=== PATIENT | female | born 1935 | race Caucasian/White ===

== ENCOUNTER 2016-04-14 10:11 | Emergency (ER) | payer MEDICARE, OTHER ==
[~2016-04-14] VITALS: Ht 162.6 cm; Wt 117.9 kg
[~2016-04-14 10:11] MED LIST: ACET325T9 PO; ANAS1TAB PO; CALC500T PO; CEFP200T PO; CHOL10003 PO; CYAN100031 PO; DEXT15DR5 EACHEYE; DIPH25CA58 PO; ERGO500012 PO; ERGO80004 PO; ERTA1VIA IJ; ESCI20TA PO; FERR-26 PO; FLUT16SP NS; FOLI1TAB16 PO; FURO40TA4 PO; FURO80TA3 PO; GABA-585 PO; INSU100I17 SQ; INSU100V13 SQ; IPRA3AMP IH; LIDO700A4 TP; LORA10CA PO; LORA10TA3 PO; MAGN400C PO; METH4TAB6 PO; METO2.5T PO; MODA100T2 PO; MONT10TA6 PO; MONT10TA9 PO; MULT-208 PO; NYST1POW2 TOP; POLY17PO3 PO; POTA10CA PO; PRIM250T PO; WARF10TA6 PO; WARF3TAB7 PO; [UNRECOGNIZED DRUG - CODE] TP
[2016-04-14 11:53] VITALS: BP 132/47
[2016-04-14] MEDS ORDERED: DOXY100T9 PO (12:41)
--- NOTE | 2016-04-14 12:41 | PHYS DOC ---
Past Medical History Past Medical History: A-Fib, Anemia, Arthritis, Constipation, COPD, Depression , Diabetes-Type II, Heart Disease, UTI, Other Additional Past Medical Histor: NARCOLEPSY, DYSPHAGIA, SLEEP APNEA, Past Surgical History: Other Additional Past Surgical Histo: R MASTECTOMY, VALVE Alcohol Use: None Drug Use: None Adult General Chief Complaint Chief Complaint: ALLERGIC REACTION HPI HPI 80-year-old female who had a likely allergic reaction after taking Keflex which she is known allergy to just prior to arrival. She was poorly having some mild shortness of breath and skin reaction. Patient was given a dose of Benadryl and upon arrival is in no acute distress. She denies any significant shortness of breath. She denies any complaints. Patient is currently on going with Keflex for a lower extremity cellulitis. Review of Systems Review of Systems Constitutional: Denies fever or chills [] Eyes: Denies change in visual acuity, redness, or eye pain [] HENT: Denies nasal congestion or sore throat [] Respiratory: Denies cough or shortness of breath [] Cardiovascular: No additional information not addressed in HPI [] GI: Denies abdominal pain, nausea, vomiting, bloody stools or diarrhea [] : Denies dysuria or hematuria [] Musculoskeletal: Denies back pain or joint pain [] Integument: Denies rash or skin lesions [] Neurologic: Denies headache, focal weakness or sensory changes [] Endocrine: Denies polyuria or polydipsia [] Allergies Allergies Allergies Coded Allergies Type Severity Reaction Last Updated Verified Fish Containing Products Allergy Intermediate 01/17/15 Yes Sulfa (Sulfonamide Antibiotics) Allergy Intermediate 01/17/15 Yes bacitracin Allergy Intermediate 01/17/15 Yes cephalexin Allergy Intermediate 01/17/15 Yes ciprofloxacin Allergy Intermediate LEVAQUIN OK 06/04/15 Yes codeine Allergy Intermediate 01/17/15 Yes enoxaparin Allergy Intermediate 01/17/15 Yes iodine Allergy Intermediate 01/17/15 Yes lactose Allergy Intermediate 01/17/15 Yes metformin Allergy Intermediate 01/17/15 Yes morphine Allergy Intermediate 01/17/15 Yes neomycin Allergy Intermediate 01/17/15 Yes polymyxin B Allergy Intermediate 01/17/15 Yes shellfish derived Allergy Intermediate 01/17/15 Yes I S O L A T I O N *CONTACT* Allergy Unknown 01/19/15 Yes Physical Exam Physical Exam Constitutional: Well developed, well nourished, no acute distress, non-toxic appearance. [] HENT: Normocephalic, atraumatic, bilateral external ears normal, oropharynx moist, no oral exudates, nose normal. [] Eyes: PERRLA, EOMI, conjunctiva normal, no discharge. [] Neck: Normal range of motion, no tenderness, supple, no stridor. [] Cardiovascular:Heart rate regular rhythm, no murmur [] Lungs & Thorax: Bilateral breath sounds clear to auscultation [] Abdomen: Bowel sounds normal, soft, no tenderness, no masses, no pulsatile masses. [] Skin: Warm, dry, no erythema, no rash. [] Back: No tenderness, no CVA tenderness. [] Extremities: No tenderness, no cyanosis, no clubbing, ROM intact, no edema. [] Neurologic: Alert and oriented X 3, normal motor function, normal sensory function, no focal deficits noted. [] Psychologic: Affect normal, judgement normal, mood normal. [] Current Patient Data Vital Signs Vital Signs Date Time Temp Pulse Resp B/P Pulse Ox O2 Delivery O2 Flow Rate FiO2 04/14/16 11:53 58 15 132/47 100 Nasal Cannula 2 04/14/16 10:13 97.7 97.7 EKG EKG [] Radiology/Procedures Radiology/Procedures [] Course & Med Decision Making Course & Med Decision Making Pertinent Labs and Imaging studies reviewed. (See chart for details) This 80-year-old female was observed in the department for multiple hours and had no worsening of her respiratory status. I will be discharging her home with a different course of antibiotic therapy for her cellulitis. There is no indication at this time to perform any laboratory workup. Dragon Disclaimer Dragon Disclaimer This electronic medical record was generated, in whole or in part, using a voice recognition dictation system. Departure Departure Impression: Primary Impression: Cellulitis Disposition: 01 HOME, SELF-CARE Admitting Physician: Other Condition: STABLE Referrals: DEBBIE SHEA MD (PCP) Patient Instructions: Cellulitis, [id number] Additional Instructions: Please take your antibiotic as prescribed. Follow up closely with your primary doctor. Return to the ER if you develop any worsening of your symptoms. Scripts Doxycycline Hyclate 100 Mg Tablet.dr100 Mg PO BID #20 TAB Prov:HEIDE ZAFAR DO 04/14/16 HEIDE ZAFAR DO Apr 14, 2016 12:41
== END 2016-04-14 14:58 | disposition home or self-care (01) ==
LOC: ER 10:11
DX: L03.119 Cellulitis of unspecified part of limb (principal); I48.91 Unspecified atrial fibrillation; M19.90 Unspecified osteoarthritis, unspecified site; J44.9 Chronic obstructive pulmonary disease, unspecified; F32.9 Major depressive disorder, single episode, unspecified; E11.9 Type 2 diabetes mellitus without complications; G47.30 Sleep apnea, unspecified; G47.419 Narcolepsy without cataplexy; Z87.440 Personal history of urinary (tract) infections; Z91.013 Allergy to seafood; Z88.5 Allergy status to narcotic agent; Z91.011 Allergy to milk products; Z91.041 Radiographic dye allergy status; Z88.1 Allergy status to other antibiotic agents; Z88.8 Allergy status to other drugs, medicaments and biological substances; Z88.2 Allergy status to sulfonamides
CPT/HCPCS: 99284

== ENCOUNTER 2016-06-19 15:24 | Inpatient (IN) | payer MEDICARE, OTHER ==
[~2016-06-19] VITALS: Ht 157.5 cm; Wt 146.6 kg
[~2016-06-19 15:24] MED LIST changes: +DOXY100T9 PO; -POTA10CA PO; +POTASSIUM CHLO10 MEQ PO
[2016-06-19 15:57] LABS: BASO # 0.1 x10^3/uL (0.0-0.2); BASO % 1 % (0-3); EOS % 3 % (0-3); HEMATOCRIT 28.6 % (36.0-47.0); HEMOGLOBIN 9.8 g/dL (12.0-15.5); LYMPH # 1.5 x10^3/uL (1.0-4.8); LYMPH % 22 % (24-48); MEAN CORPUSCULAR HEMOGLOBIN 33 pg (25-35); MEAN CORPUSCULAR HGB CONC 34 g/dL (31-37); MEAN CORPUSCULAR VOLUME 97 fL (79-100); MONO % 8 % (0-9); NEUT % 66 % (31-73); PLATELET COUNT 223 x10^3/uL (140-400); RED BLOOD COUNT 2.94 x10^6/uL (3.50-5.40); RED CELL DISTRIBUTION WIDTH 13.3 % (11.5-14.5); WHITE BLOOD COUNT 7.1 x10^3/uL (4.0-11.0)
--- NOTE | 2016-06-19 16:00 | EKG ---
[facility] [address] [place] [address] Test Date: 2016-06-19 Test Time: 15:32:56 Pat Name: BRITTANEY PLOK Department: Room: Gender: F Purchase Analyst: : 1935 Requested By: EDUARDO MONTESINOS Order Number: [id number] Reading MD: Kedar Manuel Measurements Intervals [place] Rate: 73 P: -14 CA: 248 QRS: -31 QRSD: 110 T: 43 QT: 412 QTc: 458 Interpretive Statements SINUS RHYTHM PROLONGED CA INTERVAL ABNORMAL LEFT AXIS DEVIATION LEFT ANTERIOR FASCICULAR BLOCK Electronically Signed On 06-20-2016 10:52:32 CDT by Kedar Manuel
[2016-06-19 16:11] LABS: CALCIUM 8.8 mg/dL (8.5-10.1); CREATININE 1.5 mg/dL (0.6-1.0); GFR 33.3; POTASSIUM 4.7 mmol/L (3.5-5.1)
--- NOTE | 2016-06-19 16:15 | RAD ---
Examination: Single frontal view the chest History: History of cough, shortness of breath Comparison: 10/14/2015 Findings Low lung volumes and technique accentuate heart size and pulmonary vascularity. Mild cardiomegaly. Mild prominent appearing bilateral interstitial lung markings likely mild congestive changes. Impression: Mild congestive changes.
[2016-06-19 16:16] LABS: ALBUMIN 2.7 g/dL (3.4-5.0); ALBUMIN/GLOBULIN RATIO 0.6 (1.0-1.7); TOTAL BILIRUBIN 0.2 mg/dL (0.2-1.0); TOTAL PROTEIN 7.4 g/dL (6.4-8.2)
--- NOTE | 2016-06-19 16:26 | RAD ---
CT head without contrast History: Weakness, fatigue. Comparison: None. Procedure: Axial images are obtained of the head from the skull base through the vertex without IV contrast. Findings: The ventricles and sulci are normal for the patient's age. No mass-effect, intracranial mass, midline shift, hemorrhage or obvious acute infarction is identified. Basilar cisterns are patent. Bone windows demonstrate no significant calvarial abnormality. The visualized paranasal sinuses appear clear. Mild bilateral periventricular white matter hypodensities likely chronic small vessel ischemic disease. Small hypodensity identified in the right cerebellum likely old infarcts. Impression: 1. No acute intracranial process. PQRS Compliance Statement: One or more of the following individualized dose reduction techniques were utilized for this examination: 1. Automated exposure control 2. Adjustment of the mA and/or kV according to patient size 3. Use of iterative reconstruction technique
[2016-06-19 17:06] LABS: BILIRUBIN,URINE NEGATIVE (NEG); GLUCOSE,URINE NEGATIVE (NEG); NITRITE,URINE POSITIVE (NEG); PH,URINE 5.5; PROTEIN,URINE NEGATIVE (NEG-TRACE); UROBILINOGEN,URINE 0.2 mg/dL (0.2 mg/dL)
[2016-06-19 17:30] LABS: BACTERIA,URINE MANY /HPF (0-FEW); WBC,URINE 20-40 /HPF (0-4)
[2016-06-19 17:31] LABS: SQUAMOUS EPITHELIAL CELL,UR OCC /LPF
--- NOTE | 2016-06-19 17:38 | ED.ADGEN ---
Past Medical History Past Medical History: A-Fib, Anemia, Arthritis, Cancer, CHF, Constipation, COPD , Depression, Diabetes-Type II, Heart Disease, Hypertension, UTI, Other Additional Past Medical Histor: NARCOLEPSY, DYSPHAGIA, SLEEP APNEA, MAL. NEOPLASM, MDD, CELLULITIS Past Surgical History: Other Additional Past Surgical Histo: RIGHT MASTECTOMY, HEART VALVE REPLACE Alcohol Use: None Drug Use: None Adult General Chief Complaint Chief Complaint: WEAKNESS/GENERALIZED HPI HPI Patient is a 81 year old female long term patient history of CAD, A. fib, congestive heart failure, COPD, adult onset diabetes who presents with progressive generalized weakness for the past three days. Patient is normally alert and oriented 3, is able to sit up in bed and will transfer herself. However, the patient has been lethargic and unable to perform basic activities such as getting out of bed and feeding herself. Symptoms are gradually worse today. Patient denies chest pain, increased shortness of breath, fever chills, sweats, increased leg pain or swelling. No other acute symptoms or complaints. History is limited as the patient's as the patient is a poor historian. Review of Systems Review of Systems ROS as per HPI. Current Medications Current Medications Current Medications Medications (Trade) Dose Ordered Sig/Felicia Start Time Stop Time Status Last Admin Dose Admin Levofloxacin/ Dextrose 100 ml @ 100 mls/hr 1X ONCE 06/19/16 18:45 06/19/16 19:44 DC 06/19/16 18:59 100 MLS/HR Allergies Allergies Allergies Coded Allergies Type Severity Reaction Last Updated Verified Fish Containing Products Allergy Intermediate 01/17/15 Yes Sulfa (Sulfonamide Antibiotics) Allergy Intermediate 01/17/15 Yes bacitracin Allergy Intermediate 01/17/15 Yes cephalexin Allergy Intermediate 01/17/15 Yes ciprofloxacin Allergy Intermediate LEVAQUIN OK 06/04/15 Yes codeine Allergy Intermediate 01/17/15 Yes enoxaparin Allergy Intermediate 01/17/15 Yes iodine Allergy Intermediate 01/17/15 Yes lactose Allergy Intermediate 01/17/15 Yes metformin Allergy Intermediate 01/17/15 Yes morphine Allergy Intermediate 01/17/15 Yes neomycin Allergy Intermediate 01/17/15 Yes polymyxin B Allergy Intermediate 01/17/15 Yes shellfish derived Allergy Intermediate 01/17/15 Yes I S O L A T I O N *CONTACT* Allergy Unknown 01/19/15 Yes Physical Exam Physical Exam Constitutional: Well-nourished, well-developed, generally weak and lethargic appearing. HENT: Normocephalic, atraumatic, bilateral external ears normal, oropharynx moist. Eyes: PERRL. Neck: Normal range of motion, no tenderness, supple. Cardiovascular:Heart rate regular rhythm, no murmur. 2+ symmetric pitting edema lower extremities. Lungs & Thorax: Respirations nonlabored, diminished breath sounds bilaterally secondary to habitus. Abdomen: Bowel sounds normal, soft, no tenderness. Skin: Warm, tonic-clonic nonhealing post sternotomy surgical wound. No evidence of surrounding cellulitis. Extremities: No deformities, negative Homans sign. Neurologic: Alert and oriented X 1, normal motor function, normal sensory function, no focal deficits noted. [] Current Patient Data Vital Signs Vital Signs Date Time Temp Pulse Resp B/P (MAP) Pulse Ox O2 Delivery O2 Flow Rate FiO2 06/19/16 18:30 60 20 123/54 (77) 97 Nasal Cannula 2.0 06/19/16 15:36 98.4 98.4 Lab Values Laboratory Tests Test 06/19/16 15:45 06/19/16 16:50 06/19/16 18:44 White Blood Count 7.1 x10^3/uL (4.0-11.0) Red Blood Count 2.94 x10^6/uL (3.50-5.40) L Hemoglobin 9.8 g/dL (12.0-15.5) L Hematocrit 28.6 % (36.0-47.0) L Mean Corpuscular Volume 97 fL (79-100) Mean Corpuscular Hemoglobin 33 pg (25-35) Mean Corpuscular Hemoglobin Concent 34 g/dL (31-37) Red Cell Distribution Width 13.3 % (11.5-14.5) Platelet Count 223 x10^3/uL (140-400) Neutrophils (%) (Auto) 66 % (31-73) Lymphocytes (%) (Auto) 22 % (24-48) L Monocytes (%) (Auto) 8 % (0-9) Eosinophils (%) (Auto) 3 % (0-3) Basophils (%) (Auto) 1 % (0-3) Neutrophils # (Auto) 4.7 x10^3uL (1.8-7.7) Lymphocytes # (Auto) 1.5 x10^3/uL (1.0-4.8) Monocytes # (Auto) 0.6 x10^3/uL (0.0-1.1) Eosinophils # (Auto) 0.2 x10^3/uL (0.0-0.7) Basophils # (Auto) 0.1 x10^3/uL (0.0-0.2) Sodium Level 144 mmol/L (136-145) Potassium Level 4.7 mmol/L (3.5-5.1) Chloride Level 106 mmol/L (98-107) Carbon Dioxide Level 34 mmol/L (21-32) H Anion Gap 4 (6-14) L Blood Urea Nitrogen 111 mg/dL (7-20) H Creatinine 1.5 mg/dL (0.6-1.0) H Estimated GFR (Cockcroft-Gault) 33.3 BUN/Creatinine Ratio 74 (6-20) H Glucose Level 177 mg/dL (70-99) H Calcium Level 8.8 mg/dL (8.5-10.1) Total Bilirubin 0.2 mg/dL (0.2-1.0) Aspartate Amino Transferase (AST) 17 U/L (15-37) Alanine Aminotransferase (ALT) 16 U/L (14-59) Alkaline Phosphatase 74 U/L (46-116) Troponin I Quantitative < 0.017 ng/mL (0.000-0.055) ML-Rwm-S-Type Natriuretic Peptide 2338 pg/mL (0-449) H Total Protein 7.4 g/dL (6.4-8.2) Albumin 2.7 g/dL (3.4-5.0) L Albumin/Globulin Ratio 0.6 (1.0-1.7) L Lipase 277 U/L (73-393) Urine Color Yellow Urine Clarity Cloudy Urine pH 5.5 Urine Specific [place] 1.010 Urine Protein Negative mg/dL (NEG-TRACE) Urine Glucose (UA) Negative mg/dL (NEG) Urine Ketones (Stick) Negative mg/dL (NEG) Urine Blood Small (NEG) Urine Nitrite Positive (NEG) Urine Bilirubin Negative (NEG) Urine Urobilinogen Dipstick 0.2 mg/dL (0.2 mg/dL) Urine Leukocyte Esterase Large (NEG) Urine RBC 1-2 /HPF (0-2) Urine WBC 20-40 /HPF (0-4) Urine Squamous Epithelial Cells Occ /LPF Urine Bacteria Many /HPF (0-FEW) Urine Mucus Slight /LPF O2 Saturation 95 % (92-99) Arterial Blood pH 7.25 (7.35-7.45) L Arterial Blood pCO2 at Patient Temp 75 mmHg (35-46) *H Arterial Blood pO2 at Patient Temp 82 mmHg (65-108) Arterial Blood HCO3 32 mmol/L (21-28) H Arterial Blood Base Excess 3 mmol/L (-3-3) FiO2 28 Laboratory Tests 06/19/16 15:45 Laboratory Tests 06/19/16 15:45 EKG EKG [EKG normal sinus rhythm, rate 73, no acute ST-T wave changes. QTC 458. ] Radiology/Procedures Radiology/Procedures [CT head: No acute intracranial process per radiology report. Chest x-ray: Mild congestive changes per radiology report.] Course & Med Decision Making Course & Med Decision Making Pertinent Labs and Imaging studies reviewed. (See chart for details) [Somnolence likely secondary to CO2 narcosis, elevated BUNs or UTI. Patient placed in BiPAP with improvement, with settings increased after repeat ABG. IV antibiotics given for treatment of UTI.Dr. Viramontes to admit. Hemanth Disclaimer Hemanth Disclaimer This electronic medical record was generated, in whole or in part, using a voice recognition dictation system. EDUARDO MONTESINOS DO June 19, 2016 17:38
[2016-06-19 18:48] LABS: PCO2 ABG 75 mmHg (35-46); PH ABG 7.25 (7.35-7.45); PO2 ABG 82 mmHg (65-108)
[2016-06-19 18:49] LABS: FIO2 ABG 28; HCO3 ABG 32 mmol/L (21-28); SAT O2 ABG 95 % (92-99)
[2016-06-19] MEDS ORDERED: DOXYCYCLINE HYCLATE 100 MG in IV DEXTROSE 5% 100 ML IV ONE (19:00)
[2016-06-19] MEDS ORDERED: FAMOTIDINE 20 MG/2 ML VIAL IVP ONE (19:30)
[2016-06-19] MEDS: IPRATRPIUM/ALBUTEROL 0.5/2.5MG 3 ML NEBU. NEB SCH (20:06)
[2016-06-19 21:14] LABS: HCO3 ABG 30 mmol/L (21-28); PH ABG 7.27 (7.35-7.45); PO2 ABG 89 mmHg (65-108); SAT O2 ABG 96 % (92-99)
[2016-06-19 22:20] VITALS: BP 152/63
[2016-06-19 22:36] LABS: PCO2 ABG 66 mmHg (35-46)
[2016-06-19] MEDS ORDERED: POLYETHYLENE GLYCOL 3350 17 GM PACKET. PO PRN (23:30)
[2016-06-19] MEDS ORDERED: diphenhydrAMINE HCL 25 MG CAPSULE PO PRN (23:30)
[2016-06-19] MEDS ORDERED: ACETAMINOPHEN 325 MG TABLET. PO PRN (23:30)
[2016-06-19] MEDS ORDERED: POLYVINYL ALCOHOL 1.4% OPHTH SOLUTION 15ML BOTTLE. OU PRN (23:45)
[2016-06-20] VITALS (7 sets, daily range): BP systolic 141–172; BP diastolic 59–79
--- NOTE | 2016-06-20 03:33 | HP ---
ADMIT DATE: 06/19/2016 CHIEF COMPLAINT: Acute mental status changes, weakness. HISTORY OF PRESENT ILLNESS: The patient is an 81-year-old morbidly obese woman residing in a usp who presented to the Emergency Room with generalized weakness and mental status changes. She was noted to be more lethargic, unable to perform basic tasks such as getting out of bed or feeding herself. Apparently, symptoms had developed about 3 days ago and had been getting progressively worse. The patient herself denies any chest pain, shortness of breath, fevers or chills. She denies any acute issues, although admittedly is a poor historian herself. In the Emergency Room, the patient was found with hypercarbia with a CO2 of 79, urine findings consistent with UTI as well as a BUN of 109 and was therefore admitted to the hospital for further management and care. PAST MEDICAL HISTORY: CAD, AFib, CHF, anemia, diabetes mellitus, hypertension, anxiety, depression, arthritis, narcolepsy, sleep apnea, history of cancer, history of cellulitis. She is status post right mastectomy as well as heart valve replacement. FAMILY HISTORY: Unknown. SOCIAL HISTORY: Currently in a usp. No toxic habits. ALLERGIES: MULTIPLE INCLUDING SULFA, BACITRACIN, CEPHALOSPORINS, FLUOROQUINOLONES, CODEINE, ENOXAPARIN, METFORMIN, MORPHINE, NEOMYCIN, POLYMYXIN AND SHELLFISH. MEDICATIONS: MAR reconciled with home medication list, which is extensive. REVIEW OF SYSTEMS: Unable to obtain as the patient is currently on BiPAP. She appears a bit confused, mumbling with the BiPAP in place. PHYSICAL EXAMINATION: VITAL SIGNS: From today show a blood pressure of 132/60, heart rate of 99, respiratory rate of 20. GENERAL: This is a massively obese woman lying on stretcher, BiPAP in place, eyes closed, not responding to verbal input consistently. HEENT: Shows no scleral icterus. NECK: Short and thick. LUNGS: Clear anteriorly. HEART: Slightly tachycardic. ABDOMEN: Massively obese. Organs could not be palpated. EXTREMITIES: Once again obese, but with 1-2+ pitting edema bilaterally. SKIN: Warm, soft and dry, some radiation changes over the right chest where breast is surgically absent. LABORATORY DATA: CBC with a WBC of 7.1, hemoglobin 9.8, platelets of 223. BUN and creatinine of 111 and 1.5. Normal electrolytes. Of note, creatinine is actually her baseline, BUN typically runs in the 70s-80s. Glucose at 177. LFTs within normal. Albumin 2.7. ProBNP 2338. Negative troponin. UA shows a wbc of 20-40, positive nitrites and many bacteria. IMAGING: Chest x-ray: Mild congestive changes. CT of the head, no acute intracranial process. ASSESSMENT AND PLAN: The patient is an 81-year-old woman residing in a usp with multiple medical problems, now presenting with hypercarbia as well as signs and symptoms of urinary tract infection. We will get her started with ceftriaxone. The patient does have a history of chronic obstructive pulmonary disease as well as obstructive sleep apnea as well as suspected hypoventilation syndrome secondary to massive obesity. She is currently on BiPAP. Doubt this is an exacerbation, however. We will continue nebs, O2 as needed. The patient also has a history of chronic diastolic congestive heart failure with grade 2 diastolic dysfunction in 01/2015 echo. She has chronic azotemia secondary to ongoing Lasix therapy. We will continue on that for the time being. Cardiology should be consulted in the a.m. Diabetes mellitus, will be addressed with home medications, insulin sliding scale as well. JHON ALAN MD DR: DEVIKA/nts JOB#: [id number] / [id number] skye Fan Dr. MTDD
[2016-06-20 05:41] LABS: BASO # 0.1 x10^3/uL (0.0-0.2); BASO % 1 % (0-3); EOS % 4 % (0-3); HEMATOCRIT 29.5 % (36.0-47.0); HEMOGLOBIN 10.2 g/dL (12.0-15.5); LYMPH # 1.6 x10^3/uL (1.0-4.8); LYMPH % 26 % (24-48); MEAN CORPUSCULAR HEMOGLOBIN 34 pg (25-35); MEAN CORPUSCULAR HGB CONC 35 g/dL (31-37); MEAN CORPUSCULAR VOLUME 99 fL (79-100); MONO % 9 % (0-9); NEUT % 59 % (31-73); PLATELET COUNT 202 x10^3/uL (140-400); RED BLOOD COUNT 2.99 x10^6/uL (3.50-5.40); RED CELL DISTRIBUTION WIDTH 13.6 % (11.5-14.5)
[2016-06-20 05:42] LABS: INR 1.2 (0.8-1.1); PROTHROMBIN TIME PATIENT 14.1 SEC (11.7-14.0)
[2016-06-20 06:02] LABS: ALBUMIN 2.8 g/dL (3.4-5.0); ALBUMIN/GLOBULIN RATIO 0.7 (1.0-1.7); CALCIUM 8.8 mg/dL (8.5-10.1); CREATININE 1.6 mg/dL (0.6-1.0); GFR 30.9; POTASSIUM 4.5 mmol/L (3.5-5.1); TOTAL BILIRUBIN 0.2 mg/dL (0.2-1.0); TOTAL PROTEIN 6.9 g/dL (6.4-8.2)
[2016-06-20] MEDS: IPRATRPIUM/ALBUTEROL 0.5/2.5MG 3 ML NEBU. NEB SCH ×4 (07:21→19:43)
[2016-06-20] MEDS: FUROSEMIDE 40 MG TABLET. PO SCH (08:36)
[2016-06-20] MEDS: FERROUS SULFATE 325 MG TABLET. PO SCH ×3 (08:36→17:22)
[2016-06-20] MEDS: FOLIC ACID 1 MG TABLET. PO SCH ×2 (08:36→20:15)
[2016-06-20] MEDS: PRIMIDONE 250 MG TABLET PO SCH ×2 (08:36→20:15)
[2016-06-20] MEDS: CALCIUM CARBONATE 500 MG TABLET PO SCH (08:36)
[2016-06-20] MEDS: CETIRIZINE HCL 10 MG TABLET. PO SCH (08:37)
[2016-06-20] MEDS: ESCITALOPRAM 10 MG TABLET. PO SCH (08:37)
[2016-06-20] MEDS: CHOLECALCIFEROL (VITAMIN D3) 1,000 UNIT TABLET PO SCH (08:37)
[2016-06-20] MEDS: MULTIVITAMIN with MINERAL TABLET. PO SCH (08:37)
[2016-06-20] MEDS: CYANOCOBALAMIN (VITAMIN B-12) 1,000 MCG TABLET. PO SCH (08:37)
[2016-06-20] MEDS: POTASSIUM CHLORIDE 10 MEQ TABLET.ER. PO SCH (08:37)
[2016-06-20] MEDS: ANASTROZOLE 1 MG TABLET PO SCH (08:48)
[2016-06-20] MEDS: LIDOCAINE (700MG/PATCH) PATCH. TP SCH (09:00)
[2016-06-20] MEDS: NYSTATIN TOPICAL POWDER 15GM BOTTLE. TP SCH ×2 (09:00→20:15)
[2016-06-20] MEDS: FLUTICASONE 50MCG/NASAL SPRAY 16GM BOTTLE. NS SCH (09:00)
[2016-06-20] MEDS: NON FORMULARY ITEM (Modafinil 200 MG) PO SCH (09:00)
[2016-06-20 09:08] LABS: HCO3 ABG 34 mmol/L (21-28); PO2 ABG 63 mmHg (65-108); SAT O2 ABG 92 % (92-99)
[2016-06-20 09:12] LABS: PCO2 ABG 70 mmHg (35-46)
[2016-06-20] MEDS ORDERED: IV NORMAL SALINE 1000ML BAG 1,000 ML IV ONE (09:30)
--- NOTE | 2016-06-20 11:18 | PDOC2 ---
PALLIATIVE CARE Palliative Care Note Palliative Care Consult requested by Dr. Diggs to address goals of care. Diagnosis: UTI; change in MS; dehydration; CHF; Hypercapnia; RI Karen/DPOA/ refused to allow discussion about goals with patient. States she will think she is dying. Reviewed medical condition with Karen outside the room briefly. She acknowledges understands and said this is ongoing problems. Discussed Code Status; Full Code. Per Karen patient has been DNR in the past and she will discuss this with her /Emiliano/DPOA and inform staff of their wishes. Karen refuses any other conversation. PC will sign off. MADY BARRY June 20, 2016 11:18
--- NOTE | 2016-06-20 13:38 | PDOC ---
PROGRESS NOTES Chief Complaint Chief Complaint metabolic encephalopathy uremia UTI vasomotor underlying CHF, chronic diastolic s/p breast cancer morbid obesity weakness and debilitiy hypercarbic resp failure Dm2, History of Present Illness History of Present Illness gentle hydration to try to improve mental status consult CV, check echo, last 18 mos ago palliative care consulted, family refused. cotn Abx for UTI pt and ot Vitals Vitals Vital Signs Date Time Temp Pulse Resp B/P (MAP) Pulse Ox O2 Delivery O2 Flow Rate FiO2 06/20/16 11:21 Nasal Cannula 2.0 06/20/16 11:00 98.1 68 16 141/59 (86) 93 98.1 Physical Exam General: Alert, Cooperative, No acute distress, Other (oriented 2/4) Heart: Regular rate, No murmurs Lungs: Clear, Other Abdomen: Normal bowel sounds, Soft Extremities: No clubbing Skin: No rashes Labs LABS Laboratory Tests Test 06/19/16 15:45 06/19/16 16:50 06/19/16 18:44 06/19/16 19:22 White Blood Count 7.1 x10^3/uL (4.0-11.0) Red Blood Count 2.94 x10^6/uL (3.50-5.40) Hemoglobin 9.8 g/dL (12.0-15.5) Hematocrit 28.6 % (36.0-47.0) Mean Corpuscular Volume 97 fL (79-100) Mean Corpuscular Hemoglobin 33 pg (25-35) Mean Corpuscular Hemoglobin Concent 34 g/dL (31-37) Red Cell Distribution Width 13.3 % (11.5-14.5) Platelet Count 223 x10^3/uL (140-400) Neutrophils (%) (Auto) 66 % (31-73) Lymphocytes (%) (Auto) 22 % (24-48) Monocytes (%) (Auto) 8 % (0-9) Eosinophils (%) (Auto) 3 % (0-3) Basophils (%) (Auto) 1 % (0-3) Neutrophils # (Auto) 4.7 x10^3uL (1.8-7.7) Lymphocytes # (Auto) 1.5 x10^3/uL (1.0-4.8) Monocytes # (Auto) 0.6 x10^3/uL (0.0-1.1) Eosinophils # (Auto) 0.2 x10^3/uL (0.0-0.7) Basophils # (Auto) 0.1 x10^3/uL (0.0-0.2) Sodium Level 144 mmol/L (136-145) Potassium Level 4.7 mmol/L (3.5-5.1) Chloride Level 106 mmol/L (98-107) Carbon Dioxide Level 34 mmol/L (21-32) Anion Gap 4 (6-14) Blood Urea Nitrogen 111 mg/dL (7-20) Creatinine 1.5 mg/dL (0.6-1.0) Estimated GFR (Cockcroft-Gault) 33.3 BUN/Creatinine Ratio 74 (6-20) Glucose Level 177 mg/dL (70-99) Calcium Level 8.8 mg/dL (8.5-10.1) Total Bilirubin 0.2 mg/dL (0.2-1.0) Aspartate Amino Transf (AST/SGOT) 17 U/L (15-37) Alanine Aminotransferase (ALT/SGPT) 16 U/L (14-59) Alkaline Phosphatase 74 U/L (46-116) Troponin I Quantitative < 0.017 ng/mL (0.000-0.055) PQ-Hrx-I-Type Natriuretic Peptide 2338 pg/mL (0-449) Total Protein 7.4 g/dL (6.4-8.2) Albumin 2.7 g/dL (3.4-5.0) Albumin/Globulin Ratio 0.6 (1.0-1.7) Lipase 277 U/L (73-393) Urine Color Yellow Urine Clarity Cloudy Urine pH 5.5 Urine Specific Lottie 1.010 Urine Protein Negative mg/dL (NEG-TRACE) Urine Glucose (UA) Negative mg/dL (NEG) Urine Ketones (Stick) Negative mg/dL (NEG) Urine Blood Small (NEG) Urine Nitrite Positive (NEG) Urine Bilirubin Negative (NEG) Urine Urobilinogen Dipstick 0.2 mg/dL (0.2 mg/dL) Urine Leukocyte Esterase Large (NEG) Urine RBC 1-2 /HPF (0-2) Urine WBC 20-40 /HPF (0-4) Urine Squamous Epithelial Cells Occ /LPF Urine Bacteria Many /HPF (0-FEW) Urine Mucus Slight /LPF O2 Saturation 95 % (92-99) 96 % (92-99) Arterial Blood pH 7.25 (7.35-7.45) 7.27 (7.35-7.45) Arterial Blood pCO2 at Patient Temp 75 mmHg (35-46) 66 mmHg (35-46) Arterial Blood pO2 at Patient Temp 82 mmHg (65-108) 89 mmHg (65-108) Arterial Blood HCO3 32 mmol/L (21-28) 30 mmol/L (21-28) Arterial Blood Base Excess 3 mmol/L (-3-3) 2 mmol/L (-3-3) FiO2 28 35.0 Test 06/19/16 22:58 06/20/16 04:50 06/20/16 08:15 Nasal Screen MRSA (PCR) Negative (Negative) White Blood Count 6.0 x10^3/uL (4.0-11.0) Red Blood Count 2.99 x10^6/uL (3.50-5.40) Hemoglobin 10.2 g/dL (12.0-15.5) Hematocrit 29.5 % (36.0-47.0) Mean Corpuscular Volume 99 fL (79-100) Mean Corpuscular Hemoglobin 34 pg (25-35) Mean Corpuscular Hemoglobin Concent 35 g/dL (31-37) Red Cell Distribution Width 13.6 % (11.5-14.5) Platelet Count 202 x10^3/uL (140-400) Neutrophils (%) (Auto) 59 % (31-73) Lymphocytes (%) (Auto) 26 % (24-48) Monocytes (%) (Auto) 9 % (0-9) Eosinophils (%) (Auto) 4 % (0-3) Basophils (%) (Auto) 1 % (0-3) Neutrophils # (Auto) 3.5 x10^3uL (1.8-7.7) Lymphocytes # (Auto) 1.6 x10^3/uL (1.0-4.8) Monocytes # (Auto) 0.6 x10^3/uL (0.0-1.1) Eosinophils # (Auto) 0.3 x10^3/uL (0.0-0.7) Basophils # (Auto) 0.1 x10^3/uL (0.0-0.2) Prothrombin Time 14.1 SEC (11.7-14.0) Prothromb Time International Ratio 1.2 (0.8-1.1) Sodium Level 146 mmol/L (136-145) Potassium Level 4.5 mmol/L (3.5-5.1) Chloride Level 107 mmol/L (98-107) Carbon Dioxide Level 32 mmol/L (21-32) Anion Gap 7 (6-14) Blood Urea Nitrogen 114 mg/dL (7-20) Creatinine 1.6 mg/dL (0.6-1.0) Estimated GFR (Cockcroft-Gault) 30.9 BUN/Creatinine Ratio 71 (6-20) Glucose Level 142 mg/dL (70-99) Calcium Level 8.8 mg/dL (8.5-10.1) Total Bilirubin 0.2 mg/dL (0.2-1.0) Aspartate Amino Transf (AST/SGOT) 13 U/L (15-37) Alanine Aminotransferase (ALT/SGPT) 13 U/L (14-59) Alkaline Phosphatase 82 U/L (46-116) Total Protein 6.9 g/dL (6.4-8.2) Albumin 2.8 g/dL (3.4-5.0) Albumin/Globulin Ratio 0.7 (1.0-1.7) O2 Saturation 92 % (92-99) Arterial Blood pH 7.30 (7.35-7.45) Arterial Blood pCO2 at Patient Temp 70 mmHg (35-46) Arterial Blood pO2 at Patient Temp 63 mmHg (65-108) Arterial Blood HCO3 34 mmol/L (21-28) Arterial Blood Base Excess 6 mmol/L (-3-3) FiO2 28.0 Review of Systems Review of Systems cough dyspnea weakness seems depressed Assessment and Plan Assessmemt and Plan Problems Medical Problems: (1) Hypercapnia Status: Acute (2) Mental status change Status: Acute Problems: Comment Review of Relevant I have reviewed the following items glenna (where applicable) has been applied. Labs Laboratory Tests Test 06/19/16 15:45 06/19/16 16:50 06/19/16 18:44 06/19/16 19:22 White Blood Count 7.1 x10^3/uL (4.0-11.0) Red Blood Count 2.94 x10^6/uL (3.50-5.40) Hemoglobin 9.8 g/dL (12.0-15.5) Hematocrit 28.6 % (36.0-47.0) Mean Corpuscular Volume 97 fL (79-100) Mean Corpuscular Hemoglobin 33 pg (25-35) Mean Corpuscular Hemoglobin Concent 34 g/dL (31-37) Red Cell Distribution Width 13.3 % (11.5-14.5) Platelet Count 223 x10^3/uL (140-400) Neutrophils (%) (Auto) 66 % (31-73) Lymphocytes (%) (Auto) 22 % (24-48) Monocytes (%) (Auto) 8 % (0-9) Eosinophils (%) (Auto) 3 % (0-3) Basophils (%) (Auto) 1 % (0-3) Neutrophils # (Auto) 4.7 x10^3uL (1.8-7.7) Lymphocytes # (Auto) 1.5 x10^3/uL (1.0-4.8) Monocytes # (Auto) 0.6 x10^3/uL (0.0-1.1) Eosinophils # (Auto) 0.2 x10^3/uL (0.0-0.7) Basophils # (Auto) 0.1 x10^3/uL (0.0-0.2) Sodium Level 144 mmol/L (136-145) Potassium Level 4.7 mmol/L (3.5-5.1) Chloride Level 106 mmol/L (98-107) Carbon Dioxide Level 34 mmol/L (21-32) Anion Gap 4 (6-14) Blood Urea Nitrogen 111 mg/dL (7-20) Creatinine 1.5 mg/dL (0.6-1.0) Estimated GFR (Cockcroft-Gault) 33.3 BUN/Creatinine Ratio 74 (6-20) Glucose Level 177 mg/dL (70-99) Calcium Level 8.8 mg/dL (8.5-10.1) Total Bilirubin 0.2 mg/dL (0.2-1.0) Aspartate Amino Transf (AST/SGOT) 17 U/L (15-37) Alanine Aminotransferase (ALT/SGPT) 16 U/L (14-59) Alkaline Phosphatase 74 U/L (46-116) Troponin I Quantitative < 0.017 ng/mL (0.000-0.055) OU-Pzp-H-Type Natriuretic Peptide 2338 pg/mL (0-449) Total Protein 7.4 g/dL (6.4-8.2) Albumin 2.7 g/dL (3.4-5.0) Albumin/Globulin Ratio 0.6 (1.0-1.7) Lipase 277 U/L (73-393) Urine Color Yellow Urine Clarity Cloudy Urine pH 5.5 Urine Specific Lottie 1.010 Urine Protein Negative mg/dL (NEG-TRACE) Urine Glucose (UA) Negative mg/dL (NEG) Urine Ketones (Stick) Negative mg/dL (NEG) Urine Blood Small (NEG) Urine Nitrite Positive (NEG) Urine Bilirubin Negative (NEG) Urine Urobilinogen Dipstick 0.2 mg/dL (0.2 mg/dL) Urine Leukocyte Esterase Large (NEG) Urine RBC 1-2 /HPF (0-2) Urine WBC 20-40 /HPF (0-4) Urine Squamous Epithelial Cells Occ /LPF Urine Bacteria Many /HPF (0-FEW) Urine Mucus Slight /LPF O2 Saturation 95 % (92-99) 96 % (92-99) Arterial Blood pH 7.25 (7.35-7.45) 7.27 (7.35-7.45) Arterial Blood pCO2 at Patient Temp 75 mmHg (35-46) 66 mmHg (35-46) Arterial Blood pO2 at Patient Temp 82 mmHg (65-108) 89 mmHg (65-108) Arterial Blood HCO3 32 mmol/L (21-28) 30 mmol/L (21-28) Arterial Blood Base Excess 3 mmol/L (-3-3) 2 mmol/L (-3-3) FiO2 28 35.0 Test 06/19/16 22:58 06/20/16 04:50 06/20/16 08:15 Nasal Screen MRSA (PCR) Negative (Negative) White Blood Count 6.0 x10^3/uL (4.0-11.0) Red Blood Count 2.99 x10^6/uL (3.50-5.40) Hemoglobin 10.2 g/dL (12.0-15.5) Hematocrit 29.5 % (36.0-47.0) Mean Corpuscular Volume 99 fL (79-100) Mean Corpuscular Hemoglobin 34 pg (25-35) Mean Corpuscular Hemoglobin Concent 35 g/dL (31-37) Red Cell Distribution Width 13.6 % (11.5-14.5) Platelet Count 202 x10^3/uL (140-400) Neutrophils (%) (Auto) 59 % (31-73) Lymphocytes (%) (Auto) 26 % (24-48) Monocytes (%) (Auto) 9 % (0-9) Eosinophils (%) (Auto) 4 % (0-3) Basophils (%) (Auto) 1 % (0-3) Neutrophils # (Auto) 3.5 x10^3uL (1.8-7.7) Lymphocytes # (Auto) 1.6 x10^3/uL (1.0-4.8) Monocytes # (Auto) 0.6 x10^3/uL (0.0-1.1) Eosinophils # (Auto) 0.3 x10^3/uL (0.0-0.7) Basophils # (Auto) 0.1 x10^3/uL (0.0-0.2) Prothrombin Time 14.1 SEC (11.7-14.0) Prothromb Time International Ratio 1.2 (0.8-1.1) Sodium Level 146 mmol/L (136-145) Potassium Level 4.5 mmol/L (3.5-5.1) Chloride Level 107 mmol/L (98-107) Carbon Dioxide Level 32 mmol/L (21-32) Anion Gap 7 (6-14) Blood Urea Nitrogen 114 mg/dL (7-20) Creatinine 1.6 mg/dL (0.6-1.0) Estimated GFR (Cockcroft-Gault) 30.9 BUN/Creatinine Ratio 71 (6-20) Glucose Level 142 mg/dL (70-99) Calcium Level 8.8 mg/dL (8.5-10.1) Total Bilirubin 0.2 mg/dL (0.2-1.0) Aspartate Amino Transf (AST/SGOT) 13 U/L (15-37) Alanine Aminotransferase (ALT/SGPT) 13 U/L (14-59) Alkaline Phosphatase 82 U/L (46-116) Total Protein 6.9 g/dL (6.4-8.2) Albumin 2.8 g/dL (3.4-5.0) Albumin/Globulin Ratio 0.7 (1.0-1.7) O2 Saturation 92 % (92-99) Arterial Blood pH 7.30 (7.35-7.45) Arterial Blood pCO2 at Patient Temp 70 mmHg (35-46) Arterial Blood pO2 at Patient Temp 63 mmHg (65-108) Arterial Blood HCO3 34 mmol/L (21-28) Arterial Blood Base Excess 6 mmol/L (-3-3) FiO2 28.0 Laboratory Tests Test 06/19/16 15:45 06/19/16 16:50 06/19/16 18:44 06/19/16 19:22 White Blood Count 7.1 x10^3/uL (4.0-11.0) Red Blood Count 2.94 x10^6/uL (3.50-5.40) Hemoglobin 9.8 g/dL (12.0-15.5) Hematocrit 28.6 % (36.0-47.0) Mean Corpuscular Volume 97 fL (79-100) Mean Corpuscular Hemoglobin 33 pg (25-35) Mean Corpuscular Hemoglobin Concent 34 g/dL (31-37) Red Cell Distribution Width 13.3 % (11.5-14.5) Platelet Count 223 x10^3/uL (140-400) Neutrophils (%) (Auto) 66 % (31-73) Lymphocytes (%) (Auto) 22 % (24-48) Monocytes (%) (Auto) 8 % (0-9) Eosinophils (%) (Auto) 3 % (0-3) Basophils (%) (Auto) 1 % (0-3) Neutrophils # (Auto) 4.7 x10^3uL (1.8-7.7) Lymphocytes # (Auto) 1.5 x10^3/uL (1.0-4.8) Monocytes # (Auto) 0.6 x10^3/uL (0.0-1.1) Eosinophils # (Auto) 0.2 x10^3/uL (0.0-0.7) Basophils # (Auto) 0.1 x10^3/uL (0.0-0.2) Sodium Level 144 mmol/L (136-145) Potassium Level 4.7 mmol/L (3.5-5.1) Chloride Level 106 mmol/L (98-107) Carbon Dioxide Level 34 mmol/L (21-32) Anion Gap 4 (6-14) Blood Urea Nitrogen 111 mg/dL (7-20) Creatinine 1.5 mg/dL (0.6-1.0) Estimated GFR (Cockcroft-Gault) 33.3 BUN/Creatinine Ratio 74 (6-20) Glucose Level 177 mg/dL (70-99) Calcium Level 8.8 mg/dL (8.5-10.1) Total Bilirubin 0.2 mg/dL (0.2-1.0) Aspartate Amino Transf (AST/SGOT) 17 U/L (15-37) Alanine Aminotransferase (ALT/SGPT) 16 U/L (14-59) Alkaline Phosphatase 74 U/L (46-116) Troponin I Quantitative < 0.017 ng/mL (0.000-0.055) KX-Sxm-N-Type Natriuretic Peptide 2338 pg/mL (0-449) Total Protein 7.4 g/dL (6.4-8.2) Albumin 2.7 g/dL (3.4-5.0) Albumin/Globulin Ratio 0.6 (1.0-1.7) Lipase 277 U/L (73-393) Urine Color Yellow Urine Clarity Cloudy Urine pH 5.5 Urine Specific Lottie 1.010 Urine Protein Negative mg/dL (NEG-TRACE) Urine Glucose (UA) Negative mg/dL (NEG) Urine Ketones (Stick) Negative mg/dL (NEG) Urine Blood Small (NEG) Urine Nitrite Positive (NEG) Urine Bilirubin Negative (NEG) Urine Urobilinogen Dipstick 0.2 mg/dL (0.2 mg/dL) Urine Leukocyte Esterase Large (NEG) Urine RBC 1-2 /HPF (0-2) Urine WBC 20-40 /HPF (0-4) Urine Squamous Epithelial Cells Occ /LPF Urine Bacteria Many /HPF (0-FEW) Urine Mucus Slight /LPF O2 Saturation 95 % (92-99) 96 % (92-99) Arterial Blood pH 7.25 (7.35-7.45) 7.27 (7.35-7.45) Arterial Blood pCO2 at Patient Temp 75 mmHg (35-46) 66 mmHg (35-46) Arterial Blood pO2 at Patient Temp 82 mmHg (65-108) 89 mmHg (65-108) Arterial Blood HCO3 32 mmol/L (21-28) 30 mmol/L (21-28) Arterial Blood Base Excess 3 mmol/L (-3-3) 2 mmol/L (-3-3) FiO2 28 35.0 Test 06/19/16 22:58 06/20/16 04:50 06/20/16 08:15 Nasal Screen MRSA (PCR) Negative (Negative) White Blood Count 6.0 x10^3/uL (4.0-11.0) Red Blood Count 2.99 x10^6/uL (3.50-5.40) Hemoglobin 10.2 g/dL (12.0-15.5) Hematocrit 29.5 % (36.0-47.0) Mean Corpuscular Volume 99 fL (79-100) Mean Corpuscular Hemoglobin 34 pg (25-35) Mean Corpuscular Hemoglobin Concent 35 g/dL (31-37) Red Cell Distribution Width 13.6 % (11.5-14.5) Platelet Count 202 x10^3/uL (140-400) Neutrophils (%) (Auto) 59 % (31-73) Lymphocytes (%) (Auto) 26 % (24-48) Monocytes (%) (Auto) 9 % (0-9) Eosinophils (%) (Auto) 4 % (0-3) Basophils (%) (Auto) 1 % (0-3) Neutrophils # (Auto) 3.5 x10^3uL (1.8-7.7) Lymphocytes # (Auto) 1.6 x10^3/uL (1.0-4.8) Monocytes # (Auto) 0.6 x10^3/uL (0.0-1.1) Eosinophils # (Auto) 0.3 x10^3/uL (0.0-0.7) Basophils # (Auto) 0.1 x10^3/uL (0.0-0.2) Prothrombin Time 14.1 SEC (11.7-14.0) Prothromb Time International Ratio 1.2 (0.8-1.1) Sodium Level 146 mmol/L (136-145) Potassium Level 4.5 mmol/L (3.5-5.1) Chloride Level 107 mmol/L (98-107) Carbon Dioxide Level 32 mmol/L (21-32) Anion Gap 7 (6-14) Blood Urea Nitrogen 114 mg/dL (7-20) Creatinine 1.6 mg/dL (0.6-1.0) Estimated GFR (Cockcroft-Gault) 30.9 BUN/Creatinine Ratio 71 (6-20) Glucose Level 142 mg/dL (70-99) Calcium Level 8.8 mg/dL (8.5-10.1) Total Bilirubin 0.2 mg/dL (0.2-1.0) Aspartate Amino Transf (AST/SGOT) 13 U/L (15-37) Alanine Aminotransferase (ALT/SGPT) 13 U/L (14-59) Alkaline Phosphatase 82 U/L (46-116) Total Protein 6.9 g/dL (6.4-8.2) Albumin 2.8 g/dL (3.4-5.0) Albumin/Globulin Ratio 0.7 (1.0-1.7) O2 Saturation 92 % (92-99) Arterial Blood pH 7.30 (7.35-7.45) Arterial Blood pCO2 at Patient Temp 70 mmHg (35-46) Arterial Blood pO2 at Patient Temp 63 mmHg (65-108) Arterial Blood HCO3 34 mmol/L (21-28) Arterial Blood Base Excess 6 mmol/L (-3-3) FiO2 28.0 Microbiology 06/19/16 Urine Culture - Preliminary, Resulted 06/19/16 Urine Culture Result 1 (RAQUEL) - Preliminary, Resulted 06/20/16 Gram Stain - Final, Complete Medications Current Medications Levofloxacin/ Dextrose 100 ml @ 100 mls/hr 1X ONCE IV Last administered on 18:59; Start 06/19/16 at 18:45; Stop 06/19/16 at 19:44; Status DC Doxycycline Hyclate 100 mg/ Dextrose 100 ml @ 50 mls/hr 1X ONCE IV Last administered on 06/19/16 20:41; Start 06/19/16 at 19:00; Stop 06/19/16 at 20:59 ; Status DC Albuterol/ Ipratropium (Duoneb) 3 ml RTQID NEB Last administered on 06/20/16 11:20; Start 06/19/16 at 20:00; Stop 06/20/16 at 19:59 Famotidine (Pepcid) 20 mg 1X ONCE IVP Last administered on 06/19/16 20:40; Start 06/19/16 at 19:30; Stop 06/19/16 at 19:31; Status DC Acetaminophen (Tylenol) 650 mg PRN Q6HRS PRN PO MILD PAIN; Start 06/19/16 at 23 :30 Anastrozole (Arimidex) 1 mg DAILY PO Last administered on 06/20/16 08:48; Start 06/20/16 at 09:00 Calcium Carbonate/ Glycine (Oscal) 500 mg DAILY PO Last administered on 08:36; Start 06/20/16 at 09:00 Vitamin D (Vitamin D3) 1,000 unit DAILY PO Last administered on 06/20/16 08:37 ; Start 06/20/16 at 09:00 Diphenhydramine HCl (Benadryl) 25 mg PRN Q6HRS PRN PO ITCHING; Start 06/19/16 at 23:30 Ferrous Sulfate (Feosol) 325 mg TIDWMEALS PO Last administered on 06/20/16 08: 36; Start 06/20/16 at 08:00 Fluticasone Propionate (Flonase) 2 spray DAILY NS ; Start 06/20/16 at 09:00 Folic Acid (Folic Acid) 1 mg BID PO Last administered on 06/20/16 08:36; Start 06/20/16 at 09:00 Furosemide (Lasix) 40 mg DAILY PO Last administered on 06/20/16 08:36; Start 06/20/16 at 09:00 Gabapentin (Neurontin) 100 mg HS PO ; Start 06/20/16 at 21:00 Lidocaine (Lidoderm) 1 patch DAILY TP ; Start 06/20/16 at 09:00 Montelukast Sodium (Singulair) 10 mg HS PO ; Start 06/20/16 at 21:00 Polyethylene Glycol (miraLAX PACKET) 17 gm PRN DAILY PRN PO CONSTIPATION; Start 06/19/16 at 23:30 Primidone (Mysoline) 250 mg BID PO Last administered on 06/20/16 08:36; Start 06/20/16 at 09:00 Warfarin Sodium (Coumadin) 10 mg DAILY16 PO ; Start 06/20/16 at 16:00 Cyanocobalamin (Vitamin B-12) 1,000 mcg DAILY PO Last administered on 08:37; Start 06/20/16 at 09:00 Artificial Tears (Artificial Tears) 1 drop PRN DAILY PRN OU ALLERGIES; Start at 23:45 Escitalopram Oxalate (Lexapro) 20 mg DAILY PO Last administered on 06/20/16 08 :37; Start 06/20/16 at 09:00 Insulin Detemir (Levemir) 5 units QHS SQ ; Start 06/20/16 at 21:00 Cetirizine HCl (ZyrTEC) 10 mg DAILY PO Last administered on 06/20/16 08:37; Start 06/20/16 at 09:00 Non-Formulary Medication 200 mg DAILY PO ; Start 06/20/16 at 09:00; Status UNV Multivitamins (Thera M Plus) 1 tab DAILY PO Last administered on 06/20/16 08: 37; Start 06/20/16 at 09:00 Nystatin (Nystop) 1 venessa BID TP ; Start 06/20/16 at 09:00 Potassium Chloride (Klor-Con) 10 meq [id number] PO Last administered on 08:37; Start 06/20/16 at 08:00 Warfarin Sodium (Coumadin Per Physician) 1 each PRN DAILY PRN MC SEE COMMENTS Last administered on 06/20/16 06:00; Start 06/20/16 at 06:00 Sodium Chloride 1,000 ml @ 75 mls/hr 1X ONCE IV Last administered on 10:59; Start 06/20/16 at 09:30; Stop 06/20/16 at 22:49 Active Scripts Active Doxycycline Hyclate 100 Mg Tablet.dr 100 Mg PO BID Cefpodoxime Proxetil 200 Mg Tablet 200 Mg PO BID Warfarin Sodium 10 Mg Tablet 10 Mg PO DAILY Reported Levemir (Insulin Detemir) 100 Unit/1 Ml Vial 5 Unit SQ HS Potassium Chloride 10 Meq Capsule.er 10 Meq PO DAILY Soothe & Cool Skin Paste (Zinc Oxide/Petrolatum,White) 71 Gm Oint...g. Gm TP Vitamin D3 (Cholecalciferol (Vitamin D3)) 1,000 Unit Tablet 1 Tab PO DAILY Furosemide 40 Mg Tablet 1 Tab PO DAILY Fluticasone Propionate Nasal [place] (Fluticasone Propionate) 16 Gm [place].susp 2 [place] NS DAILY Artificial Tears Eye Drops (Dextran 70/Hypromellose) 15 Ml Drops 1 Drop EACHEYE PRN DAILY PRN Anastrozole 1 Mg Tablet 1 Mg PO DAILY Tylenol (Acetaminophen) 325 Mg Tablet 650 Mg PO PRN Q6HRS PRN Multi-Day Vitamins (Multivitamin) 1 Each Tablet 1 Tab PO DAILY Singulair Tablet (Montelukast Sodium) 10 Mg Tablet 10 Mg PO HS Primidone 250 Mg Tablet 250 Mg PO BID Polyethylene Glycol 3350 17 Gm Powd.pack 17 Gm PO PRN DAILY PRN Nystatin 1 Each Powder.ea. 1 [place] TOP BID Modafinil 100 Mg Tablet 200 Mg PO DAILY Lidoderm (Lidocaine) 700 Mg Adh..patch 1 Patch TP DAILY Gabapentin 100 Mg Capsule 100 Mg PO HS Folic Acid 1 Mg Tablet 1 Mg PO BID Ferrous Sulfate 325 Mg Tablet 325 Mg PO TIDWMEALS Escitalopram Oxalate 20 Mg Tablet 20 Mg PO DAILY B-12 (Cyanocobalamin (Vitamin B-12)) 1,000 Mcg Tablet.er 1,000 Mcg PO DAILY Claritin (Loratadine) 10 Mg Capsule 10 Mg PO DAILY Calcium Carbonate 500 Mg Tablet 500 Mg PO DAILY Benadryl (Diphenhydramine Hcl) 25 Mg Capsule 25 Mg PO PRN Q6HRS PRN Vitals/I & O Vital Sign - Last 24 Hours 06/19/16 06/19/16 06/19/16 06/19/16 15:36 16:36 17:30 18:30 Temp 98.4 98.4 Pulse 71 71 64 60 Resp 20 22 22 20 B/P (MAP) 155/66 (95) 156/69 (98) 147/65 (92) 123/54 (77) Pulse Ox 86 95 94 97 O2 Delivery Nasal Cannula Nasal Cannula Nasal Cannula Nasal Cannula O2 Flow Rate 2.0 2.0 2.0 2.0 06/19/16 06/19/16 06/19/16 06/19/16 19:25 19:30 20:07 20:30 Pulse 99 Resp 20 20 B/P (MAP) 158/71 (100) 132/60 (84) Pulse Ox 99 99 100 99 O2 Delivery BiPAP/CPAP BiPAP/CPAP BiPAP/CPAP BiPAP/CPAP 06/19/16 06/19/16 06/19/1617 21:19 22:20 23:22 01:05 Temp 97.7 97.7 Pulse 61 Resp 20 B/P (MAP) 152/63 (92) Pulse Ox 100 99 100 O2 Delivery BiPAP/CPAP BiPAP/CPAP BiPAP/CPAP 06/20/16 06/20/16 06/20/16 06/20/16 02:41 03:00 03:02 04:01 Temp 97.7 98.0 97.7 98.0 Pulse 61 50 Resp 18 B/P (MAP) 152/63 (92) 156/75 (102) Pulse Ox 100 100 100 O2 Delivery BiPAP/CPAP BiPAP/CPAP O2 Flow Rate 2.0 06/20/16 06/20/16 06/20/16 06/20/16 05:26 07:00 07:19 09:05 Temp 98.1 98.1 Pulse 59 Resp 16 B/P (MAP) 172/79 (110) Pulse Ox 97 100 O2 Delivery BiPAP/CPAP Nasal Cannula BiPAP/CPAP Nasal Cannula O2 Flow Rate 2.0 3.0 06/20/16 06/20/16 11:00 11:21 Temp 98.1 98.1 Pulse 68 Resp 16 B/P (MAP) 141/59 (86) Pulse Ox 93 O2 Delivery Nasal Cannula Nasal Cannula O2 Flow Rate 2.0 2.0 Intake and Output 06/19/16 06/19/16 06/20/16 15:00 23:00 07:00 Intake Total 200 ml 120 ml Balance 200 ml 120 ml NEPTALI DURON MD June 20, 2016 13:38
[2016-06-20] MEDS: WARFARIN 5 MG TABLET. PO SCH (17:22)
[2016-06-20] MEDS: MONTELUKAST SODIUM 10 MG TABLET. PO SCH (20:15)
[2016-06-20] MEDS: GABAPENTIN 100 MG CAPSULE. PO SCH (20:15)
[2016-06-20] MEDS: INSULIN DETEMIR 300 UNITS/3 ML INSULN.PEN. SQ SCH (20:29)
[2016-06-21 04:57] LABS: BASO # 0.1 x10^3/uL (0.0-0.2); BASO % 1 % (0-3); EOS % 4 % (0-3); HEMATOCRIT 26.9 % (36.0-47.0); HEMOGLOBIN 8.8 g/dL (12.0-15.5); LYMPH # 1.5 x10^3/uL (1.0-4.8); LYMPH % 24 % (24-48); MEAN CORPUSCULAR HEMOGLOBIN 32 pg (25-35); MEAN CORPUSCULAR HGB CONC 33 g/dL (31-37); MEAN CORPUSCULAR VOLUME 99 fL (79-100); MONO % 8 % (0-9); NEUT % 64 % (31-73); PLATELET COUNT 192 x10^3/uL (140-400); RED BLOOD COUNT 2.72 x10^6/uL (3.50-5.40); RED CELL DISTRIBUTION WIDTH 13.1 % (11.5-14.5); WHITE BLOOD COUNT 6.3 x10^3/uL (4.0-11.0)
[2016-06-21 05:09] LABS: CALCIUM 8.5 mg/dL (8.5-10.1); CREATININE 1.8 mg/dL (0.6-1.0); POTASSIUM 4.2 mmol/L (3.5-5.1)
[2016-06-21 07:00] VITALS: BP 123/49
[2016-06-21 07:19] LABS: HCO3 ABG 33 mmol/L (21-28); PH ABG 7.35 (7.35-7.45); PO2 ABG 75 mmHg (65-108); SAT O2 ABG 95 % (92-99)
[2016-06-21 07:56] LABS: PCO2 ABG 60 mmHg (35-46)
[2016-06-21 07:57] LABS: FIO2 ABG 25
[2016-06-21] MEDS: PRIMIDONE 250 MG TABLET PO SCH ×2 (08:27→20:28)
[2016-06-21] MEDS: CETIRIZINE HCL 10 MG TABLET. PO SCH (08:27)
[2016-06-21] MEDS: FERROUS SULFATE 325 MG TABLET. PO SCH ×3 (08:27→17:36)
[2016-06-21] MEDS: MULTIVITAMIN with MINERAL TABLET. PO SCH (08:27)
[2016-06-21] MEDS: ESCITALOPRAM 10 MG TABLET. PO SCH (08:27)
[2016-06-21] MEDS: FOLIC ACID 1 MG TABLET. PO SCH ×2 (08:27→20:28)
[2016-06-21] MEDS: CALCIUM CARBONATE 500 MG TABLET PO SCH (08:27)
[2016-06-21] MEDS: CYANOCOBALAMIN (VITAMIN B-12) 1,000 MCG TABLET. PO SCH (08:27)
[2016-06-21] MEDS: FUROSEMIDE 40 MG TABLET. PO SCH (08:27)
[2016-06-21] MEDS: POTASSIUM CHLORIDE 10 MEQ TABLET.ER. PO SCH (08:28)
[2016-06-21] MEDS: NYSTATIN TOPICAL POWDER 15GM BOTTLE. TP SCH ×2 (08:28→20:28)
[2016-06-21] MEDS: FLUTICASONE 50MCG/NASAL SPRAY 16GM BOTTLE. NS SCH (08:28)
[2016-06-21] MEDS: ANASTROZOLE 1 MG TABLET PO SCH (08:34)
--- NOTE | 2016-06-21 08:34 | CARD ---
APPROVED REPORT EXAM: Two-dimensional and M-mode echocardiogram with Doppler and color Doppler. Other Information Quality : Good INDICATION Congestive Heart Failure 2D DIMENSIONS RVDd3.3 (2.9-3.5cm)Left Atrium(2D)4.7 (1.6-4.0cm) IVSd1.5 (0.7-1.1cm)Aortic Root(2D)2.8 (2.0-3.7cm) LVDd4.7 (3.9-5.9cm)LVOT Diameter2.2 (1.8-2.4cm) PWd1.5 (0.7-1.1cm)LVDs2.8 (2.5-4.0cm) FS (%) 30.0 %SV71.2 ml LVEF(%)60.0 (>50%) Aortic Valve AoV Peak Richy.311.4cm/sAoV VTI65.1cm AO Peak GR.38.8mmHgLVOT VTI 29.32cm AO Mean GR.22mmHgAVA (VTI)1.70cm2 Mitral Valve MV E Bzknhplu71.8cm/sMV DECEL [id number] MV A Oflzuzfr43.9cm/sE/A Ratio0.8 TDI Lateral E' P. V9.91cm/sMedial E' P. V7.02cm/s E/Lateral E'7.1E/Medial E'10.1 Tricuspid Valve TR P. Qfdbsbzl852vm/sRAP VYSGOVFW5qeRl TR Peak Gr.83jjOaUWJV00xcJj Pulmonary Vein S1 Wtvzqfdj85.1cm/sS2 Kfdwzlqp73.56cm/s D2 Gfkkddyv01.6cm/sPVa btchntcy70hqlw LEFT VENTRICLE The left ventricle is normal size. There is mild to moderate concentric left ventricular hypertrophy. The left ventricular systolic function is normal and the ejection fraction is within normal range. T he Ejection Fraction is 60-65%. There is grossly normal LV segmental wall motion. Technically difficu lt study Transmitral Doppler flow pattern is Grade I-abnormal relaxation pattern. RIGHT VENTRICLE The right ventricle is normal size. The right ventricular systolic function is normal. ATRIA The left atrium is mildly dilated. The right atrium size is normal. The interatrial septum is intact with no evidence for an atrial septal defect or patent foramen ovale as noted on 2-D or Doppler imagi ng. AORTIC VALVE The aortic valve is not well visualized. Doppler and Color Flow revealed no significant aortic regurg itation. Calculated aortic valve area is 1.7 cm2 with maximum pressure gradient of 39 mmHg and mean p ressure gradient of 22 mmHg. There is a mechanical aortic valve prosthesis. MITRAL VALVE The mitral valve is normal in structure and function. There is mitral annular calcification. There is no evidence of mitral valve prolapse. There is no mitral valve stenosis. Doppler and Color-flow reve aled trace mitral regurgitation. TRICUSPID VALVE The tricuspid valve is normal in structure and function. Doppler and Color Flow revealed trace tricus pid regurgitation. There is moderate pulmonary hypertension. The PA pressure was estimated at 44 mmHg . There is no tricuspid valve stenosis. PULMONIC VALVE Doppler and Color Flow revealed trace pulmonic valvular regurgitation. There is no pulmonic valvular stenosis. GREAT VESSELS The aortic root is normal in size. The ascending aorta is mildly dilated at 3.5 cm. The IVC is normal in size and collapses >50% with inspiration. PERICARDIAL EFFUSION There is no evidence of significant pericardial effusion. Critical Notification Critical Value: No <Conclusion> The left ventricular systolic function is normal and the ejection fraction is within normal range. Th e Ejection Fraction is 60-65%. There is grossly normal LV segmental wall motion. Technically difficult study There is a mechanical aortic valve prosthesis. Calculated aortic valve area is 1.7 cm2 with maximum pressure gradient of 39 mmHg and mean pressure g radient of 22 mmHg. Doppler and Color Flow revealed trace tricuspid regurgitation. There is moderate pulmonary hypertensi on. The PA pressure was estimated at 44 mmHg. The ascending aorta is mildly dilated at 3.5 cm.
[2016-06-21] MEDS: LIDOCAINE (700MG/PATCH) PATCH. TP SCH (09:00)
[2016-06-21] MEDS: NON FORMULARY ITEM (Modafinil 200 MG) PO SCH (09:00)
[2016-06-21 11:00] VITALS: BP 148/76
[2016-06-21] MEDS: CHOLECALCIFEROL (VITAMIN D3) 1,000 UNIT TABLET PO SCH (12:39)
[2016-06-21] MEDS: IV NORMAL SALINE 1000ML BAG 1,000 ML IV SCH (12:40)
--- NOTE | 2016-06-21 12:57 | PDOC ---
PROGRESS NOTES Chief Complaint Chief Complaint metabolic encephalopathy uremia UTI vasomotor underlying CHF, chronic diastolic s/p breast cancer w. ongoing chest wound morbid obesity weakness and debilitiy hypercarbic resp failure Dm2, History of Present Illness History of Present Illness gentle hydration to try to improve mental status consult CV, check echo, last 18 mos ago palliative care consulted, family refused. cotn Abx for UTI pt and ot Vitals Vitals Vital Signs Date Time Temp Pulse Resp B/P (MAP) Pulse Ox O2 Delivery O2 Flow Rate FiO2 06/21/16 11:27 96 Nasal Cannula 2.0 06/21/16 07:00 98.5 55 20 123/49 (73) 98.5 Physical Exam General: Cooperative, No acute distress, Other (oriented 2/4, lethargic, poorly oriented, ) Heart: Regular rate, No murmurs Lungs: Clear, Other Abdomen: Normal bowel sounds, Soft Extremities: No clubbing Skin: Other (mid chest wound, excoriations right chest s/p breast cancer treatment) Labs LABS Laboratory Tests Test 06/20/16 20:19 06/21/16 03:05 06/21/16 07:00 06/21/16 07:37 Glucose (Fingerstick) 154 mg/dL (70-99) 132 mg/dL (70-99) White Blood Count 6.3 x10^3/uL (4.0-11.0) Red Blood Count 2.72 x10^6/uL (3.50-5.40) Hemoglobin 8.8 g/dL (12.0-15.5) Hematocrit 26.9 % (36.0-47.0) Mean Corpuscular Volume 99 fL (79-100) Mean Corpuscular Hemoglobin 32 pg (25-35) Mean Corpuscular Hemoglobin Concent 33 g/dL (31-37) Red Cell Distribution Width 13.1 % (11.5-14.5) Platelet Count 192 x10^3/uL (140-400) Neutrophils (%) (Auto) 64 % (31-73) Lymphocytes (%) (Auto) 24 % (24-48) Monocytes (%) (Auto) 8 % (0-9) Eosinophils (%) (Auto) 4 % (0-3) Basophils (%) (Auto) 1 % (0-3) Neutrophils # (Auto) 4.0 x10^3uL (1.8-7.7) Lymphocytes # (Auto) 1.5 x10^3/uL (1.0-4.8) Monocytes # (Auto) 0.5 x10^3/uL (0.0-1.1) Eosinophils # (Auto) 0.2 x10^3/uL (0.0-0.7) Basophils # (Auto) 0.1 x10^3/uL (0.0-0.2) Sodium Level 145 mmol/L (136-145) Potassium Level 4.2 mmol/L (3.5-5.1) Chloride Level 106 mmol/L (98-107) Carbon Dioxide Level 33 mmol/L (21-32) Anion Gap 6 (6-14) Blood Urea Nitrogen 108 mg/dL (7-20) Creatinine 1.8 mg/dL (0.6-1.0) Estimated GFR (Cockcroft-Gault) 27.0 Glucose Level 142 mg/dL (70-99) Calcium Level 8.5 mg/dL (8.5-10.1) O2 Saturation 95 % (92-99) Arterial Blood pH 7.35 (7.35-7.45) Arterial Blood pCO2 at Patient Temp 60 mmHg (35-46) Arterial Blood pO2 at Patient Temp 75 mmHg (65-108) Arterial Blood HCO3 33 mmol/L (21-28) Arterial Blood Base Excess 6 mmol/L (-3-3) FiO2 25 Test 06/21/16 11:14 Glucose (Fingerstick) 139 mg/dL (70-99) Assessment and Plan Assessmemt and Plan Problems Medical Problems: (1) Hypercapnia Status: Acute (2) Mental status change Status: Acute Problems: Comment Review of Relevant I have reviewed the following items glenna (where applicable) has been applied. Labs Laboratory Tests Test 06/19/16 15:45 06/19/16 16:50 06/19/16 18:44 06/19/16 19:22 White Blood Count 7.1 x10^3/uL (4.0-11.0) Red Blood Count 2.94 x10^6/uL (3.50-5.40) Hemoglobin 9.8 g/dL (12.0-15.5) Hematocrit 28.6 % (36.0-47.0) Mean Corpuscular Volume 97 fL (79-100) Mean Corpuscular Hemoglobin 33 pg (25-35) Mean Corpuscular Hemoglobin Concent 34 g/dL (31-37) Red Cell Distribution Width 13.3 % (11.5-14.5) Platelet Count 223 x10^3/uL (140-400) Neutrophils (%) (Auto) 66 % (31-73) Lymphocytes (%) (Auto) 22 % (24-48) Monocytes (%) (Auto) 8 % (0-9) Eosinophils (%) (Auto) 3 % (0-3) Basophils (%) (Auto) 1 % (0-3) Neutrophils # (Auto) 4.7 x10^3uL (1.8-7.7) Lymphocytes # (Auto) 1.5 x10^3/uL (1.0-4.8) Monocytes # (Auto) 0.6 x10^3/uL (0.0-1.1) Eosinophils # (Auto) 0.2 x10^3/uL (0.0-0.7) Basophils # (Auto) 0.1 x10^3/uL (0.0-0.2) Sodium Level 144 mmol/L (136-145) Potassium Level 4.7 mmol/L (3.5-5.1) Chloride Level 106 mmol/L (98-107) Carbon Dioxide Level 34 mmol/L (21-32) Anion Gap 4 (6-14) Blood Urea Nitrogen 111 mg/dL (7-20) Creatinine 1.5 mg/dL (0.6-1.0) Estimated GFR (Cockcroft-Gault) 33.3 BUN/Creatinine Ratio 74 (6-20) Glucose Level 177 mg/dL (70-99) Calcium Level 8.8 mg/dL (8.5-10.1) Total Bilirubin 0.2 mg/dL (0.2-1.0) Aspartate Amino Transf (AST/SGOT) 17 U/L (15-37) Alanine Aminotransferase (ALT/SGPT) 16 U/L (14-59) Alkaline Phosphatase 74 U/L (46-116) Troponin I Quantitative < 0.017 ng/mL (0.000-0.055) IX-Teg-V-Type Natriuretic Peptide 2338 pg/mL (0-449) Total Protein 7.4 g/dL (6.4-8.2) Albumin 2.7 g/dL (3.4-5.0) Albumin/Globulin Ratio 0.6 (1.0-1.7) Lipase 277 U/L (73-393) Urine Color Yellow Urine Clarity Cloudy Urine pH 5.5 Urine Specific Heath 1.010 Urine Protein Negative mg/dL (NEG-TRACE) Urine Glucose (UA) Negative mg/dL (NEG) Urine Ketones (Stick) Negative mg/dL (NEG) Urine Blood Small (NEG) Urine Nitrite Positive (NEG) Urine Bilirubin Negative (NEG) Urine Urobilinogen Dipstick 0.2 mg/dL (0.2 mg/dL) Urine Leukocyte Esterase Large (NEG) Urine RBC 1-2 /HPF (0-2) Urine WBC 20-40 /HPF (0-4) Urine Squamous Epithelial Cells Occ /LPF Urine Bacteria Many /HPF (0-FEW) Urine Mucus Slight /LPF O2 Saturation 95 % (92-99) 96 % (92-99) Arterial Blood pH 7.25 (7.35-7.45) 7.27 (7.35-7.45) Arterial Blood pCO2 at Patient Temp 75 mmHg (35-46) 66 mmHg (35-46) Arterial Blood pO2 at Patient Temp 82 mmHg (65-108) 89 mmHg (65-108) Arterial Blood HCO3 32 mmol/L (21-28) 30 mmol/L (21-28) Arterial Blood Base Excess 3 mmol/L (-3-3) 2 mmol/L (-3-3) FiO2 28 35.0 Test 06/19/16 22:58 06/20/16 04:50 06/20/16 08:15 06/20/16 20:19 Nasal Screen MRSA (PCR) Negative (Negative) White Blood Count 6.0 x10^3/uL (4.0-11.0) Red Blood Count 2.99 x10^6/uL (3.50-5.40) Hemoglobin 10.2 g/dL (12.0-15.5) Hematocrit 29.5 % (36.0-47.0) Mean Corpuscular Volume 99 fL (79-100) Mean Corpuscular Hemoglobin 34 pg (25-35) Mean Corpuscular Hemoglobin Concent 35 g/dL (31-37) Red Cell Distribution Width 13.6 % (11.5-14.5) Platelet Count 202 x10^3/uL (140-400) Neutrophils (%) (Auto) 59 % (31-73) Lymphocytes (%) (Auto) 26 % (24-48) Monocytes (%) (Auto) 9 % (0-9) Eosinophils (%) (Auto) 4 % (0-3) Basophils (%) (Auto) 1 % (0-3) Neutrophils # (Auto) 3.5 x10^3uL (1.8-7.7) Lymphocytes # (Auto) 1.6 x10^3/uL (1.0-4.8) Monocytes # (Auto) 0.6 x10^3/uL (0.0-1.1) Eosinophils # (Auto) 0.3 x10^3/uL (0.0-0.7) Basophils # (Auto) 0.1 x10^3/uL (0.0-0.2) Prothrombin Time 14.1 SEC (11.7-14.0) Prothromb Time International Ratio 1.2 (0.8-1.1) Sodium Level 146 mmol/L (136-145) Potassium Level 4.5 mmol/L (3.5-5.1) Chloride Level 107 mmol/L (98-107) Carbon Dioxide Level 32 mmol/L (21-32) Anion Gap 7 (6-14) Blood Urea Nitrogen 114 mg/dL (7-20) Creatinine 1.6 mg/dL (0.6-1.0) Estimated GFR (Cockcroft-Gault) 30.9 BUN/Creatinine Ratio 71 (6-20) Glucose Level 142 mg/dL (70-99) Calcium Level 8.8 mg/dL (8.5-10.1) Total Bilirubin 0.2 mg/dL (0.2-1.0) Aspartate Amino Transf (AST/SGOT) 13 U/L (15-37) Alanine Aminotransferase (ALT/SGPT) 13 U/L (14-59) Alkaline Phosphatase 82 U/L (46-116) Total Protein 6.9 g/dL (6.4-8.2) Albumin 2.8 g/dL (3.4-5.0) Albumin/Globulin Ratio 0.7 (1.0-1.7) O2 Saturation 92 % (92-99) Arterial Blood pH 7.30 (7.35-7.45) Arterial Blood pCO2 at Patient Temp 70 mmHg (35-46) Arterial Blood pO2 at Patient Temp 63 mmHg (65-108) Arterial Blood HCO3 34 mmol/L (21-28) Arterial Blood Base Excess 6 mmol/L (-3-3) FiO2 28.0 Glucose (Fingerstick) 154 mg/dL (70-99) Test 06/21/16 03:05 06/21/16 07:00 06/21/16 07:37 06/21/16 11:14 White Blood Count 6.3 x10^3/uL (4.0-11.0) Red Blood Count 2.72 x10^6/uL (3.50-5.40) Hemoglobin 8.8 g/dL (12.0-15.5) Hematocrit 26.9 % (36.0-47.0) Mean Corpuscular Volume 99 fL (79-100) Mean Corpuscular Hemoglobin 32 pg (25-35) Mean Corpuscular Hemoglobin Concent 33 g/dL (31-37) Red Cell Distribution Width 13.1 % (11.5-14.5) Platelet Count 192 x10^3/uL (140-400) Neutrophils (%) (Auto) 64 % (31-73) Lymphocytes (%) (Auto) 24 % (24-48) Monocytes (%) (Auto) 8 % (0-9) Eosinophils (%) (Auto) 4 % (0-3) Basophils (%) (Auto) 1 % (0-3) Neutrophils # (Auto) 4.0 x10^3uL (1.8-7.7) Lymphocytes # (Auto) 1.5 x10^3/uL (1.0-4.8) Monocytes # (Auto) 0.5 x10^3/uL (0.0-1.1) Eosinophils # (Auto) 0.2 x10^3/uL (0.0-0.7) Basophils # (Auto) 0.1 x10^3/uL (0.0-0.2) Sodium Level 145 mmol/L (136-145) Potassium Level 4.2 mmol/L (3.5-5.1) Chloride Level 106 mmol/L (98-107) Carbon Dioxide Level 33 mmol/L (21-32) Anion Gap 6 (6-14) Blood Urea Nitrogen 108 mg/dL (7-20) Creatinine 1.8 mg/dL (0.6-1.0) Estimated GFR (Cockcroft-Gault) 27.0 Glucose Level 142 mg/dL (70-99) Calcium Level 8.5 mg/dL (8.5-10.1) O2 Saturation 95 % (92-99) Arterial Blood pH 7.35 (7.35-7.45) Arterial Blood pCO2 at Patient Temp 60 mmHg (35-46) Arterial Blood pO2 at Patient Temp 75 mmHg (65-108) Arterial Blood HCO3 33 mmol/L (21-28) Arterial Blood Base Excess 6 mmol/L (-3-3) FiO2 25 Glucose (Fingerstick) 132 mg/dL (70-99) 139 mg/dL (70-99) Laboratory Tests Test 06/20/16 20:19 06/21/16 03:05 06/21/16 07:00 06/21/16 07:37 Glucose (Fingerstick) 154 mg/dL (70-99) 132 mg/dL (70-99) White Blood Count 6.3 x10^3/uL (4.0-11.0) Red Blood Count 2.72 x10^6/uL (3.50-5.40) Hemoglobin 8.8 g/dL (12.0-15.5) Hematocrit 26.9 % (36.0-47.0) Mean Corpuscular Volume 99 fL (79-100) Mean Corpuscular Hemoglobin 32 pg (25-35) Mean Corpuscular Hemoglobin Concent 33 g/dL (31-37) Red Cell Distribution Width 13.1 % (11.5-14.5) Platelet Count 192 x10^3/uL (140-400) Neutrophils (%) (Auto) 64 % (31-73) Lymphocytes (%) (Auto) 24 % (24-48) Monocytes (%) (Auto) 8 % (0-9) Eosinophils (%) (Auto) 4 % (0-3) Basophils (%) (Auto) 1 % (0-3) Neutrophils # (Auto) 4.0 x10^3uL (1.8-7.7) Lymphocytes # (Auto) 1.5 x10^3/uL (1.0-4.8) Monocytes # (Auto) 0.5 x10^3/uL (0.0-1.1) Eosinophils # (Auto) 0.2 x10^3/uL (0.0-0.7) Basophils # (Auto) 0.1 x10^3/uL (0.0-0.2) Sodium Level 145 mmol/L (136-145) Potassium Level 4.2 mmol/L (3.5-5.1) Chloride Level 106 mmol/L (98-107) Carbon Dioxide Level 33 mmol/L (21-32) Anion Gap 6 (6-14) Blood Urea Nitrogen 108 mg/dL (7-20) Creatinine 1.8 mg/dL (0.6-1.0) Estimated GFR (Cockcroft-Gault) 27.0 Glucose Level 142 mg/dL (70-99) Calcium Level 8.5 mg/dL (8.5-10.1) O2 Saturation 95 % (92-99) Arterial Blood pH 7.35 (7.35-7.45) Arterial Blood pCO2 at Patient Temp 60 mmHg (35-46) Arterial Blood pO2 at Patient Temp 75 mmHg (65-108) Arterial Blood HCO3 33 mmol/L (21-28) Arterial Blood Base Excess 6 mmol/L (-3-3) FiO2 25 Test 06/21/16 11:14 Glucose (Fingerstick) 139 mg/dL (70-99) Microbiology 06/19/16 Blood Culture - Preliminary, Resulted NO GROWTH AFTER 1 DAY 06/19/16 Urine Culture - Final, Complete 06/19/16 Urine Culture Result 1 (RAQUEL) - Final, Complete 06/19/16 Antimicrobic Susceptibility - Final, Complete 06/20/16 Gram Stain - Final, Complete Medications Current Medications Levofloxacin/ Dextrose 100 ml @ 100 mls/hr 1X ONCE IV Last administered on 18:59; Start 06/19/16 at 18:45; Stop 06/19/16 at 19:44; Status DC Doxycycline Hyclate 100 mg/ Dextrose 100 ml @ 50 mls/hr 1X ONCE IV Last administered on 06/19/16 20:41; Start 06/19/16 at 19:00; Stop 06/19/16 at 20:59 ; Status DC Albuterol/ Ipratropium (Duoneb) 3 ml RTQID NEB Last administered on 06/20/16 19:43; Start 06/19/16 at 20:00; Stop 06/20/16 at 19:59; Status DC Famotidine (Pepcid) 20 mg 1X ONCE IVP Last administered on 06/19/16 20:40; Start 06/19/16 at 19:30; Stop 06/19/16 at 19:31; Status DC Acetaminophen (Tylenol) 650 mg PRN Q6HRS PRN PO MILD PAIN; Start 06/19/16 at 23 :30 Anastrozole (Arimidex) 1 mg DAILY PO Last administered on 06/21/16 08:34; Start 06/20/16 at 09:00 Calcium Carbonate/ Glycine (Oscal) 500 mg DAILY PO Last administered on 08:27; Start 06/20/16 at 09:00 Vitamin D (Vitamin D3) 1,000 unit DAILY PO Last administered on 06/21/16 12:39 ; Start 06/20/16 at 09:00 Diphenhydramine HCl (Benadryl) 25 mg PRN Q6HRS PRN PO ITCHING; Start 06/19/16 at 23:30 Ferrous Sulfate (Feosol) 325 mg TIDWMEALS PO Last administered on 06/21/16 12: 39; Start 06/20/16 at 08:00 Fluticasone Propionate (Flonase) 2 spray DAILY NS Last administered on 08:28; Start 06/20/16 at 09:00 Folic Acid (Folic Acid) 1 mg BID PO Last administered on 06/21/16 08:27; Start 06/20/16 at 09:00 Furosemide (Lasix) 40 mg DAILY PO Last administered on 06/21/16 08:27; Start 06/20/16 at 09:00; Stop 06/21/16 at 11:05; Status DC Gabapentin (Neurontin) 100 mg HS PO Last administered on 06/20/16 20:15; Start 06/20/16 at 21:00 Lidocaine (Lidoderm) 1 patch DAILY TP ; Start 06/20/16 at 09:00 Montelukast Sodium (Singulair) 10 mg HS PO Last administered on 06/20/16 20:15 ; Start 06/20/16 at 21:00 Polyethylene Glycol (miraLAX PACKET) 17 gm PRN DAILY PRN PO CONSTIPATION; Start 06/19/16 at 23:30 Primidone (Mysoline) 250 mg BID PO Last administered on 06/21/16 08:27; Start 06/20/16 at 09:00 Warfarin Sodium (Coumadin) 10 mg DAILY16 PO Last administered on 06/20/16 17: 22; Start 06/20/16 at 16:00 Cyanocobalamin (Vitamin B-12) 1,000 mcg DAILY PO Last administered on 08:27; Start 06/20/16 at 09:00 Artificial Tears (Artificial Tears) 1 drop PRN DAILY PRN OU ALLERGIES; Start at 23:45 Escitalopram Oxalate (Lexapro) 20 mg DAILY PO Last administered on 06/21/16 08 :27; Start 06/20/16 at 09:00 Insulin Detemir (Levemir) 5 units QHS SQ Last administered on 06/20/16 20:29; Start 06/20/16 at 21:00 Cetirizine HCl (ZyrTEC) 10 mg DAILY PO Last administered on 06/21/16 08:27; Start 06/20/16 at 09:00 Non-Formulary Medication 200 mg DAILY PO ; Start 06/20/16 at 09:00; Status UNV Multivitamins (Thera M Plus) 1 tab DAILY PO Last administered on 06/21/16 08: 27; Start 06/20/16 at 09:00 Nystatin (Nystop) 1 venessa BID TP Last administered on 06/21/16 08:28; Start at 09:00 Potassium Chloride (Klor-Con) 10 meq [id number] PO Last administered on 08:28; Start 06/20/16 at 08:00 Warfarin Sodium (Coumadin Per Physician) 1 each PRN DAILY PRN MC SEE COMMENTS Last administered on 06/20/16 06:00; Start 06/20/16 at 06:00 Sodium Chloride 1,000 ml @ 75 mls/hr 1X ONCE IV Last administered on 10:59; Start 06/20/16 at 09:30; Stop 5/16/17 at 22:49; Status DC Ceftriaxone Sodium 1 gm/ Sodium Chloride 50 ml @ 100 mls/hr Q24H IV Last administered on 06/21/16 12:40; Start 06/21/16 at 12:00 Sodium Chloride 1,000 ml @ 75 mls/hr [id number] IV Last administered on 12:40; Start 06/21/16 at 11:15 Active Scripts Active Doxycycline Hyclate 100 Mg Tablet.dr 100 Mg PO BID Cefpodoxime Proxetil 200 Mg Tablet 200 Mg PO BID Warfarin Sodium 10 Mg Tablet 10 Mg PO DAILY Reported Levemir (Insulin Detemir) 100 Unit/1 Ml Vial 5 Unit SQ HS Potassium Chloride 10 Meq Capsule.er 10 Meq PO DAILY Soothe & Cool Skin Paste (Zinc Oxide/Petrolatum,White) 71 Gm Oint...g. Gm TP Vitamin D3 (Cholecalciferol (Vitamin D3)) 1,000 Unit Tablet 1 Tab PO DAILY Furosemide 40 Mg Tablet 1 Tab PO DAILY Fluticasone Propionate Nasal Festus (Fluticasone Propionate) 16 Gm Festus.susp 2 Festus NS DAILY Artificial Tears Eye Drops (Dextran 70/Hypromellose) 15 Ml Drops 1 Drop EACHEYE PRN DAILY PRN Anastrozole 1 Mg Tablet 1 Mg PO DAILY Tylenol (Acetaminophen) 325 Mg Tablet 650 Mg PO PRN Q6HRS PRN Multi-Day Vitamins (Multivitamin) 1 Each Tablet 1 Tab PO DAILY Singulair Tablet (Montelukast Sodium) 10 Mg Tablet 10 Mg PO HS Primidone 250 Mg Tablet 250 Mg PO BID Polyethylene Glycol 3350 17 Gm Powd.pack 17 Gm PO PRN DAILY PRN Nystatin 1 Each Powder.ea. 1 Venessa TOP BID Modafinil 100 Mg Tablet 200 Mg PO DAILY Lidoderm (Lidocaine) 700 Mg Adh..patch 1 Patch TP DAILY Gabapentin 100 Mg Capsule 100 Mg PO HS Folic Acid 1 Mg Tablet 1 Mg PO BID Ferrous Sulfate 325 Mg Tablet 325 Mg PO TIDWMEALS Escitalopram Oxalate 20 Mg Tablet 20 Mg PO DAILY B-12 (Cyanocobalamin (Vitamin B-12)) 1,000 Mcg Tablet.er 1,000 Mcg PO DAILY Claritin (Loratadine) 10 Mg Capsule 10 Mg PO DAILY Calcium Carbonate 500 Mg Tablet 500 Mg PO DAILY Benadryl (Diphenhydramine Hcl) 25 Mg Capsule 25 Mg PO PRN Q6HRS PRN Vitals/I & O Vital Sign - Last 24 Hours 06/20/16 06/20/16 06/20/16 06/20/16 13:00 15:00 15:09 19:00 Temp 98.4 98.4 98.4 98.4 Pulse 68 85 Resp 16 20 B/P (MAP) 152/63 (92) 148/62 (90) Pulse Ox 95 100 94 O2 Delivery BiPAP/CPAP Room Air BiPAP/CPAP Nasal Cannula O2 Flow Rate 2.0 06/20/16 06/20/16 06/20/16 06/20/16 19:45 20:00 22:13 23:00 Temp 98.6 98.6 Pulse 72 Resp 20 B/P (MAP) 143/66 (91) Pulse Ox 96 93 O2 Delivery Nasal Cannula Nasal Cannula BiPAP/CPAP Nasal Cannula O2 Flow Rate 2.0 2.0 2.0 06/21/16 06/21/16 06/21/16 06/21/16 00:43 03:30 05:00 06:50 Pulse Ox 96 O2 Delivery BiPAP/CPAP BiPAP/CPAP BiPAP/CPAP BiPAP/CPAP 06/21/16 06/21/16 06/21/16 07:00 08:00 11:27 Temp 98.5 98.5 Pulse 55 Resp 20 B/P (MAP) 123/49 (73) Pulse Ox 95 96 O2 Delivery BiPAP/CPAP Bi-pap Nasal Cannula O2 Flow Rate 8.0 9.0 2.0 Intake and Output 06/20/16 06/20/16 06/21/16 15:00 23:00 07:00 Intake Total 480 ml 930 ml 400 ml Balance 480 ml 930 ml 400 ml NEPTALI DURON MD June 21, 2016 12:57
[2016-06-21 15:00] VITALS: BP 150/76
[2016-06-21] MEDS: WARFARIN 5 MG TABLET. PO SCH (17:35)
[2016-06-21 19:00] VITALS: BP 154/53
--- NOTE | 2016-06-21 20:12 | PDOC ---
Provider Note Provider Note Consult dictated. Thank you Dr. Diggs for asking me to see her. for asking me to see her. NELIDA RAJPUT MD June 21, 2016 20:12
[2016-06-21] MEDS: IPRATRPIUM/ALBUTEROL 0.5/2.5MG 3 ML NEBU. NEB SCH (20:13)
[2016-06-21] MEDS: GABAPENTIN 100 MG CAPSULE. PO SCH (20:28)
[2016-06-21] MEDS: MONTELUKAST SODIUM 10 MG TABLET. PO SCH (20:28)
[2016-06-21] MEDS: INSULIN DETEMIR 300 UNITS/3 ML INSULN.PEN. SQ SCH (20:36)
[2016-06-21 23:24] VITALS: BP 140/50
[2016-06-22] VITALS (7 sets, daily range): BP systolic 114–157; BP diastolic 35–88
[2016-06-22] MEDS: IV NORMAL SALINE 1000ML BAG 1,000 ML IV SCH ×2 (00:35→19:30)
--- NOTE | 2016-06-22 04:44 | CONS ---
DATE OF CONSULTATION: HISTORY OF PRESENT ILLNESS: This is an 81-year-old white female who lives in the [facility]. She was brought into the Emergency Room on 06/19/2016 for generalized weakness and decrease in level of consciousness. Normally, she is very alert and talkative. She was not so when she came in. She was found to have elevated BUN of 116. She also was a CO2 retainer, which I believe has been known before. The pCO2 on admission was 75. She was thus hospitalized. Since coming in, she was given IV fluids and the BUN dropped from 114 to 108. She was also placed on a BiPAP. She was somewhat more alert. However, she could not give a history. The history mainly is obtained from her [id number]. The [id number] states that in 2000, 16 years ago she had carcinoma of the breast. She has had a Port-A-Cath. The Port-A-Cath got infected. It was removed. 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 She then had aortic valve replacement in 2000 at [facility]. Since the surgery there has been a problem with the sternal wound. She is not quite sure what the problem was. She said that there was an area in the wound that had not healed. Later the skin was very thin over there according to her. She had some wires cut in [facility] as they were protruding. She has always had a bandage over the wound and she has not looked at it recently. 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 She was advised to have extensive surgery, but this was not carried out because of her other general condition. She has not seen the wound lately. She does have CO2 retention and uses a CPAP at night. As stated before normally she is very alert and very talkative. She has diabetes mellitus. MEDICATIONS: At home have been: 1. Lexapro 20 mg a day. 2. Ferrous sulfate 325 mg 3 times a day with food. 3. Flonase nasal spray. 4. Folic acid 1 mg a day. 5. Furosemide 40 mg a day. 6. Gabapentin 100 mg at night. 7. Levemir insulin 5 units at night. 8. Lidoderm patches. 9. Claritin 10. 10. Modafinil 200 mg a day. 11. Montelukast 10 mg a day. 12. Multivitamin 1 a day. 13. MiraLax. 14. Potassium chloride 10 mEq a day. 15. Primidone 250 mg twice a day. 16. Warfarin 10 mg a day. 17. Doxycycline 100 mg twice a day. 18. Cefpodoxime 200 mg twice a day. SOCIAL HISTORY: She does not smoke or take alcohol. PHYSICAL EXAMINATION: GENERAL: She was morbidly obese. VITAL SIGNS: Her BMI was 57. She was 6 feet 2 inches and weight 313 pounds. She has been afebrile ever since she has been here. The heart rate has been 70 beats per minute. The blood pressure has been 140-160 mmHg systolic. She has been on nasal cannula and a BiPAP at night. Her oxygen saturation has been 96%. LABORATORY DATA: An EKG shows a sinus rhythm with minimal nonspecific ST-T wave changes. A chest x-ray shows some increased markings. I am not sure whether this represents congestive heart failure. The echocardiogram was reviewed. It was a technically difficult study; however, 1. The left ventricular systolic function is normal with EF of 70%. 2. There is moderate left ventricular hypertrophy. 3. There is a grade 1 diastolic dysfunction. 4. The mitral valve E/E prime ratio is normal and thus there is no echocardiographic evidence of significant pulmonary congestion. 5. There is only mild mitral regurgitation. 6. The left atrium is enlarged to 4.7 cm. 7. There is a prosthetic aortic valve. The flow velocity across the prosthetic valve is 3.11 meters per second, which is somewhat increased. The mean gradient is 22 mmHg. The aortic valve area is 1.7 cm2. There is mild pulmonary hypertension with right ventricular systolic pressure of 45 mmHg. LABORATORY INVESTIGATIONS: Shows a BUN of 108 and a creatinine of 1.8. The blood sugars are well controlled. The BNP was elevated to 2338. The troponin was normal. The albumin was 2.8. IMPRESSION: 1. Acute on chronic renal failure, probably dehydrated due to Lasix and poor oral intake. 2. No significant congestive heart failure with normal systolic function of the left ventricle and grade 1 diastolic dysfunction. 3. Prosthetic aortic valve in place which does have a somewhat elevated flow velocity and mean gradient, but otherwise functioning well, no significant aortic regurgitation. 4. Significantly infected sternal wound, which is chronic. 5. Morbidly obese. 6. CO2 retainer, probably pickwickian. 7. Insulin-dependent diabetes mellitus. During this hospitalization I would continue to give her IV fluids, closely watching her clinically and with a chest x-ray. We will see if we can bring the BUN down. Last year, her BUN was elevated at 40 ____ and she was seen by a business division chair. I am very concerned about the wound in her chest. I am concerned that there may be osteomyelitis, but there is not much we can do. Await the culture report. She certainly can receive more aggressive IV antibiotics if the family would like to have that treated. She is at a risk of this infection causing an endocarditis. Her INR has been low despite 10 mg of Coumadin a day. I am not sure whether she is able to get low vitamin K diet in the [facility]. With a prosthetic aortic valve her INR should be better controlled. As to whether there is some pannus or thrombus in the aortic valve one cannot be sure. Thank you very much for asking me to see her. We will follow. NELIDA RAJPUT MD DR: INGA/nusrat JOB#: [id number] / [id number]
[2016-06-22 05:12] LABS: INR 1.2 (0.8-1.1); PROTHROMBIN TIME PATIENT 14.3 SEC (11.7-14.0)
[2016-06-22 05:30] LABS: CALCIUM 8.7 mg/dL (8.5-10.1); CREATININE 1.5 mg/dL (0.6-1.0); GFR 33.3; POTASSIUM 4.5 mmol/L (3.5-5.1)
[2016-06-22] MEDS: IPRATRPIUM/ALBUTEROL 0.5/2.5MG 3 ML NEBU. NEB SCH ×4 (07:06→19:06)
[2016-06-22] MEDS ORDERED: ENOXAPARIN 40 MG/0.4 ML SYRINGE. SQ ONE (08:45)
[2016-06-22] MEDS: FLUTICASONE 50MCG/NASAL SPRAY 16GM BOTTLE. NS SCH (09:00)
[2016-06-22] MEDS: ANASTROZOLE 1 MG TABLET PO SCH (09:00)
[2016-06-22] MEDS: POTASSIUM CHLORIDE 10 MEQ TABLET.ER. PO SCH (09:03)
[2016-06-22] MEDS: PRIMIDONE 250 MG TABLET PO SCH ×2 (09:03→21:24)
[2016-06-22] MEDS: CYANOCOBALAMIN (VITAMIN B-12) 1,000 MCG TABLET. PO SCH (09:03)
[2016-06-22] MEDS: CALCIUM CARBONATE 500 MG TABLET PO SCH (09:03)
[2016-06-22] MEDS: ESCITALOPRAM 10 MG TABLET. PO SCH (09:03)
[2016-06-22] MEDS: MULTIVITAMIN with MINERAL TABLET. PO SCH (09:04)
[2016-06-22] MEDS: CETIRIZINE HCL 10 MG TABLET. PO SCH (09:04)
[2016-06-22] MEDS: FOLIC ACID 1 MG TABLET. PO SCH ×2 (09:04→21:23)
[2016-06-22] MEDS: CHOLECALCIFEROL (VITAMIN D3) 1,000 UNIT TABLET PO SCH (09:04)
[2016-06-22] MEDS: FERROUS SULFATE 325 MG TABLET. PO SCH ×3 (09:04→16:56)
[2016-06-22] MEDS: LIDOCAINE (700MG/PATCH) PATCH. TP SCH (09:06)
[2016-06-22] MEDS: NYSTATIN TOPICAL POWDER 15GM BOTTLE. TP SCH ×2 (09:06→21:00)
[2016-06-22] MEDS ORDERED: POLYVINYL ALCOHOL 1.4% OPHTH SOLUTION 15ML BOTTLE. OU PRN (09:30)
--- NOTE | 2016-06-22 09:33 | PDOC ---
Infectious Disease Note ROS ROS GEN: Denies fevers, chills, sweats HEENT: Denies blurred vision, sore throat CV: Denies chest pain RESP: Denies shortness of air, cough GI: Denies n/v/d NEURO: Denies confusion, dizziness MSK: Denies weakness, joint pain/swelling Vital Sign Vital Signs Vital Signs Date Time Temp Pulse Resp B/P (MAP) Pulse Ox O2 Delivery O2 Flow Rate FiO2 06/22/16 07:00 98.0 53 18 157/70 (99) 100 BiPAP/CPAP 98.0 06/21/16 20:14 2.0 Physical Exam PHYSICAL EXAM GENERAL: NAD, Alert HEENT: PERRL, OC/OP NECK: Supple, no JVD, no LN LUNGS: Clear HEART: S1S2, no gallop, no murmur ABD: Soft, NT, no organomegaly, no rebound EXT: No edema, no cyanosis FILM WRITER: Alert, oriented x 3, no focal neurologic deficit SKIN: No rash IV: ok Labs Lab Laboratory Tests Test 06/21/16 11:14 06/21/16 17:08 06/21/16 20:32 06/22/16 04:55 Glucose (Fingerstick) 139 mg/dL (70-99) 159 mg/dL (70-99) 183 mg/dL (70-99) Erythrocyte Sedimentation Rate 64 (0-25) Prothrombin Time 14.3 SEC (11.7-14.0) Prothromb Time International Ratio 1.2 (0.8-1.1) Sodium Level 145 mmol/L (136-145) Potassium Level 4.5 mmol/L (3.5-5.1) Chloride Level 107 mmol/L (98-107) Carbon Dioxide Level 32 mmol/L (21-32) Anion Gap 6 (6-14) Blood Urea Nitrogen 100 mg/dL (7-20) Creatinine 1.5 mg/dL (0.6-1.0) Estimated GFR (Cockcroft-Gault) 33.3 Glucose Level 149 mg/dL (70-99) Calcium Level 8.7 mg/dL (8.5-10.1) Test 06/22/16 07:15 Glucose (Fingerstick) 131 mg/dL (70-99) Micro 06/19 URINE CULTURE RES 1 Final Escherichia coli Greater than 100,000 colony forming units per mL ANTIMICROBIAL SUSCEPTIBILITY Final Comment S = Susceptible; I = Intermediate; R = Resistant P = Positive; N = Negative MICS are expressed in micrograms per mL Antibiotic RSLT#1 RSLT#2 RSLT#3 RSLT#4 Amoxicillin/Clavulanic Acid I Ampicillin R Cefepime S Ceftriaxone S Cefuroxime S Cephalothin I Ciprofloxacin R Ertapenem S Gentamicin S Imipenem S Levofloxacin R Nitrofurantoin S Piperacillin R Tetracycline R Tobramycin S Trimethoprim/Sulfa S Objective Assessment UTI - POA 06/19. 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 Uncertain if she is a surgical candidate but will have CTS evaluate. F/u wound cults but will grow bacteria anyway as it is a surface cults Thank you # [id number] NARENDRA KOHLER MD June 22, 2016 09:33
--- NOTE | 2016-06-22 09:33 | PDOC ---
PROGRESS NOTES Chief Complaint Chief Complaint metabolic encephalopathy uremia UTI vasomotor underlying CHF, chronic diastolic s/p breast cancer w. ongoing chest wound morbid obesity weakness and debilitiy hypercarbic resp failure Dm2, History of Present Illness History of Present Illness labs minimally better breathing well still, no sign of new CHF, cardiac fxn OK per Dr. Guzman ID consulted today for chest wound, pt seems improved, cont Rocephin for UTI,. I was notified this AM, that Dr. Fan has seen this patient, and will assume primary, Vitals Vitals Vital Signs Date Time Temp Pulse Resp B/P (MAP) Pulse Ox O2 Delivery O2 Flow Rate FiO2 06/22/16 07:00 98.0 53 18 157/70 (99) 100 BiPAP/CPAP 98.0 06/21/16 20:14 2.0 Physical Exam General: Alert, Oriented X3, Cooperative, No acute distress, Other (oriented 2/ 4, lethargic, poorly oriented, ) Heart: Regular rate, No murmurs Lungs: Clear, Other Abdomen: Normal bowel sounds, Soft Extremities: No clubbing, Other (pedal edema, reports chronic) Skin: No rashes, No breakdown, Other (mid chest wound, excoriations right chest s/p breast cancer treatment) Labs LABS Laboratory Tests Test 06/21/16 11:14 06/21/16 17:08 06/21/16 20:32 06/22/16 04:55 Glucose (Fingerstick) 139 mg/dL (70-99) 159 mg/dL (70-99) 183 mg/dL (70-99) Erythrocyte Sedimentation Rate 64 (0-25) Prothrombin Time 14.3 SEC (11.7-14.0) Prothromb Time International Ratio 1.2 (0.8-1.1) Sodium Level 145 mmol/L (136-145) Potassium Level 4.5 mmol/L (3.5-5.1) Chloride Level 107 mmol/L (98-107) Carbon Dioxide Level 32 mmol/L (21-32) Anion Gap 6 (6-14) Blood Urea Nitrogen 100 mg/dL (7-20) Creatinine 1.5 mg/dL (0.6-1.0) Estimated GFR (Cockcroft-Gault) 33.3 Glucose Level 149 mg/dL (70-99) Calcium Level 8.7 mg/dL (8.5-10.1) Test 06/22/16 07:15 Glucose (Fingerstick) 131 mg/dL (70-99) Review of Systems Review of Systems no n,v,d' hungry, breathing easier Assessment and Plan Assessmemt and Plan Problems Medical Problems: (1) Hypercapnia Status: Acute (2) Mental status change Status: Acute Problems: Comment Review of Relevant I have reviewed the following items glenna (where applicable) has been applied. Labs Laboratory Tests Test 06/20/16 20:19 06/21/16 03:05 06/21/16 07:00 06/21/16 07:37 Glucose (Fingerstick) 154 mg/dL (70-99) 132 mg/dL (70-99) White Blood Count 6.3 x10^3/uL (4.0-11.0) Red Blood Count 2.72 x10^6/uL (3.50-5.40) Hemoglobin 8.8 g/dL (12.0-15.5) Hematocrit 26.9 % (36.0-47.0) Mean Corpuscular Volume 99 fL (79-100) Mean Corpuscular Hemoglobin 32 pg (25-35) Mean Corpuscular Hemoglobin Concent 33 g/dL (31-37) Red Cell Distribution Width 13.1 % (11.5-14.5) Platelet Count 192 x10^3/uL (140-400) Neutrophils (%) (Auto) 64 % (31-73) Lymphocytes (%) (Auto) 24 % (24-48) Monocytes (%) (Auto) 8 % (0-9) Eosinophils (%) (Auto) 4 % (0-3) Basophils (%) (Auto) 1 % (0-3) Neutrophils # (Auto) 4.0 x10^3uL (1.8-7.7) Lymphocytes # (Auto) 1.5 x10^3/uL (1.0-4.8) Monocytes # (Auto) 0.5 x10^3/uL (0.0-1.1) Eosinophils # (Auto) 0.2 x10^3/uL (0.0-0.7) Basophils # (Auto) 0.1 x10^3/uL (0.0-0.2) Sodium Level 145 mmol/L (136-145) Potassium Level 4.2 mmol/L (3.5-5.1) Chloride Level 106 mmol/L (98-107) Carbon Dioxide Level 33 mmol/L (21-32) Anion Gap 6 (6-14) Blood Urea Nitrogen 108 mg/dL (7-20) Creatinine 1.8 mg/dL (0.6-1.0) Estimated GFR (Cockcroft-Gault) 27.0 Glucose Level 142 mg/dL (70-99) Calcium Level 8.5 mg/dL (8.5-10.1) O2 Saturation 95 % (92-99) Arterial Blood pH 7.35 (7.35-7.45) Arterial Blood pCO2 at Patient Temp 60 mmHg (35-46) Arterial Blood pO2 at Patient Temp 75 mmHg (65-108) Arterial Blood HCO3 33 mmol/L (21-28) Arterial Blood Base Excess 6 mmol/L (-3-3) FiO2 25 Test 06/21/16 11:14 06/21/16 17:08 06/21/16 20:32 06/22/16 04:55 Glucose (Fingerstick) 139 mg/dL (70-99) 159 mg/dL (70-99) 183 mg/dL (70-99) Erythrocyte Sedimentation Rate 64 (0-25) Prothrombin Time 14.3 SEC (11.7-14.0) Prothromb Time International Ratio 1.2 (0.8-1.1) Sodium Level 145 mmol/L (136-145) Potassium Level 4.5 mmol/L (3.5-5.1) Chloride Level 107 mmol/L (98-107) Carbon Dioxide Level 32 mmol/L (21-32) Anion Gap 6 (6-14) Blood Urea Nitrogen 100 mg/dL (7-20) Creatinine 1.5 mg/dL (0.6-1.0) Estimated GFR (Cockcroft-Gault) 33.3 Glucose Level 149 mg/dL (70-99) Calcium Level 8.7 mg/dL (8.5-10.1) Test 06/22/16 07:15 Glucose (Fingerstick) 131 mg/dL (70-99) Laboratory Tests Test 06/21/16 11:14 06/21/16 17:08 06/21/16 20:32 06/22/16 04:55 Glucose (Fingerstick) 139 mg/dL (70-99) 159 mg/dL (70-99) 183 mg/dL (70-99) Erythrocyte Sedimentation Rate 64 (0-25) Prothrombin Time 14.3 SEC (11.7-14.0) Prothromb Time International Ratio 1.2 (0.8-1.1) Sodium Level 145 mmol/L (136-145) Potassium Level 4.5 mmol/L (3.5-5.1) Chloride Level 107 mmol/L (98-107) Carbon Dioxide Level 32 mmol/L (21-32) Anion Gap 6 (6-14) Blood Urea Nitrogen 100 mg/dL (7-20) Creatinine 1.5 mg/dL (0.6-1.0) Estimated GFR (Cockcroft-Gault) 33.3 Glucose Level 149 mg/dL (70-99) Calcium Level 8.7 mg/dL (8.5-10.1) Test 06/22/16 07:15 Glucose (Fingerstick) 131 mg/dL (70-99) Microbiology 06/19/16 Blood Culture - Preliminary, Resulted NO GROWTH AFTER 2 DAYS 06/19/16 Urine Culture - Final, Complete 06/19/16 Urine Culture Result 1 (RAQUEL) - Final, Complete 06/19/16 Antimicrobic Susceptibility - Final, Complete 06/20/16 Gram Stain - Final, Complete Medications Current Medications Levofloxacin/ Dextrose 100 ml @ 100 mls/hr 1X ONCE IV Last administered on 18:59; Start 06/19/16 at 18:45; Stop 06/19/16 at 19:44; Status DC Doxycycline Hyclate 100 mg/ Dextrose 100 ml @ 50 mls/hr 1X ONCE IV Last administered on 06/19/16 20:41; Start 06/19/16 at 19:00; Stop 06/19/16 at 20:59 ; Status DC Albuterol/ Ipratropium (Duoneb) 3 ml RTQID NEB Last administered on 06/20/16 19:43; Start 06/19/16 at 20:00; Stop 06/20/16 at 19:59; Status DC Famotidine (Pepcid) 20 mg 1X ONCE IVP Last administered on 06/19/16 20:40; Start 06/19/16 at 19:30; Stop 06/19/16 at 19:31; Status DC Acetaminophen (Tylenol) 650 mg PRN Q6HRS PRN PO MILD PAIN; Start 06/19/16 at 23 :30 Anastrozole (Arimidex) 1 mg DAILY PO Last administered on 06/22/16 09:00; Start 06/20/16 at 09:00 Calcium Carbonate/ Glycine (Oscal) 500 mg DAILY PO Last administered on 09:03; Start 06/20/16 at 09:00 Vitamin D (Vitamin D3) 1,000 unit DAILY PO Last administered on 06/22/16 09:04 ; Start 06/20/16 at 09:00 Diphenhydramine HCl (Benadryl) 25 mg PRN Q6HRS PRN PO ITCHING; Start 06/19/16 at 23:30 Ferrous Sulfate (Feosol) 325 mg TIDWMEALS PO Last administered on 06/22/16 09: 04; Start 06/20/16 at 08:00 Fluticasone Propionate (Flonase) 2 spray DAILY NS Last administered on 09:00; Start 06/20/16 at 09:00 Folic Acid (Folic Acid) 1 mg BID PO Last administered on 06/22/16 09:04; Start 06/20/16 at 09:00 Furosemide (Lasix) 40 mg DAILY PO Last administered on 06/21/16 08:27; Start 06/20/16 at 09:00; Stop 06/21/16 at 11:05; Status DC Gabapentin (Neurontin) 100 mg HS PO Last administered on 06/21/16 20:28; Start 06/20/16 at 21:00 Lidocaine (Lidoderm) 1 patch DAILY TP Last administered on 06/22/16 09:06; Start 06/20/16 at 09:00 Montelukast Sodium (Singulair) 10 mg HS PO Last administered on 06/21/16 20:28 ; Start 06/20/16 at 21:00 Polyethylene Glycol (miraLAX PACKET) 17 gm PRN DAILY PRN PO CONSTIPATION; Start 06/19/16 at 23:30 Primidone (Mysoline) 250 mg BID PO Last administered on 06/22/16 09:03; Start 06/20/16 at 09:00 Warfarin Sodium (Coumadin) 10 mg DAILY16 PO Last administered on 06/21/16 17: 35; Start 06/20/16 at 16:00 Cyanocobalamin (Vitamin B-12) 1,000 mcg DAILY PO Last administered on 09:03; Start 06/20/16 at 09:00 Artificial Tears (Artificial Tears) 1 drop PRN DAILY PRN OU ALLERGIES; Start at 23:45 Escitalopram Oxalate (Lexapro) 20 mg DAILY PO Last administered on 06/22/16 09 :03; Start 06/20/16 at 09:00 Insulin Detemir (Levemir) 5 units QHS SQ Last administered on 06/21/16 20:36; Start 06/20/16 at 21:00 Cetirizine HCl (ZyrTEC) 10 mg DAILY PO Last administered on 06/22/16 09:04; Start 06/20/16 at 09:00 Non-Formulary Medication 200 mg DAILY PO ; Start 06/20/16 at 09:00; Status UNV Multivitamins (Thera M Plus) 1 tab DAILY PO Last administered on 06/22/16 09: 04; Start 06/20/16 at 09:00 Nystatin (Nystop) 1 venessa BID TP Last administered on 06/22/16 09:06; Start at 09:00 Potassium Chloride (Klor-Con) 10 meq [id number] PO Last administered on 09:03; Start 06/20/16 at 08:00 Warfarin Sodium (Coumadin Per Physician) 1 each PRN DAILY PRN MC SEE COMMENTS Last administered on 06/20/16 06:00; Start 06/20/16 at 06:00; Stop 06/22/16 at 08:36; Status DC Sodium Chloride 1,000 ml @ 75 mls/hr 1X ONCE IV Last administered on 10:59; Start 06/20/16 at 09:30; Stop 06/20/16 at 22:49; Status DC Ceftriaxone Sodium 1 gm/ Sodium Chloride 50 ml @ 100 mls/hr Q24H IV Last administered on 06/21/16 12:40; Start 06/21/16 at 12:00 Sodium Chloride 1,000 ml @ 75 mls/hr [id number] IV Last administered on 00:35; Start 06/21/16 at 11:15 Albuterol/ Ipratropium (Duoneb) 3 ml RTQID NEB Last administered on 06/22/16 07:06; Start 06/21/16 at 20:00 Warfarin Sodium (Coumadin Per Pharmacy) 1 each PRN DAILY PRN MC SEE COMMENTS; Start 06/22/16 at 08:45 Enoxaparin Sodium (Lovenox 40mg Syringe) 40 mg 1X ONCE SQ ; Start 06/22/16 at 08:45; Stop 06/22/16 at 08:46; Status UNV Active Scripts Active Doxycycline Hyclate 100 Mg Tablet.dr 100 Mg PO BID Cefpodoxime Proxetil 200 Mg Tablet 200 Mg PO BID Warfarin Sodium 10 Mg Tablet 10 Mg PO DAILY Reported Levemir (Insulin Detemir) 100 Unit/1 Ml Vial 5 Unit SQ HS Potassium Chloride 10 Meq Capsule.er 10 Meq PO DAILY Soothe & Cool Skin Paste (Zinc Oxide/Petrolatum,White) 71 Gm Oint...g. Gm TP Vitamin D3 (Cholecalciferol (Vitamin D3)) 1,000 Unit Tablet 1 Tab PO DAILY Furosemide 40 Mg Tablet 1 Tab PO DAILY Fluticasone Propionate Nasal [place] (Fluticasone Propionate) 16 Gm [place].susp 2 [place] NS DAILY Artificial Tears Eye Drops (Dextran 70/Hypromellose) 15 Ml Drops 1 Drop EACHEYE PRN DAILY PRN Anastrozole 1 Mg Tablet 1 Mg PO DAILY Tylenol (Acetaminophen) 325 Mg Tablet 650 Mg PO PRN Q6HRS PRN Multi-Day Vitamins (Multivitamin) 1 Each Tablet 1 Tab PO DAILY Singulair Tablet (Montelukast Sodium) 10 Mg Tablet 10 Mg PO HS Primidone 250 Mg Tablet 250 Mg PO BID Polyethylene Glycol 3350 17 Gm Powd.pack 17 Gm PO PRN DAILY PRN Nystatin 1 Each Powder.ea. 1 Venessa TOP BID Modafinil 100 Mg Tablet 200 Mg PO DAILY Lidoderm (Lidocaine) 700 Mg Adh..patch 1 Patch TP DAILY Gabapentin 100 Mg Capsule 100 Mg PO HS Folic Acid 1 Mg Tablet 1 Mg PO BID Ferrous Sulfate 325 Mg Tablet 325 Mg PO TIDWMEALS Escitalopram Oxalate 20 Mg Tablet 20 Mg PO DAILY B-12 (Cyanocobalamin (Vitamin B-12)) 1,000 Mcg Tablet.er 1,000 Mcg PO DAILY Claritin (Loratadine) 10 Mg Capsule 10 Mg PO DAILY Calcium Carbonate 500 Mg Tablet 500 Mg PO DAILY Benadryl (Diphenhydramine Hcl) 25 Mg Capsule 25 Mg PO PRN Q6HRS PRN Vitals/I & O Vital Sign - Last 24 Hours 06/21/16 06/21/16 06/21/16 06/21/16 11:00 11:27 15:00 19:00 Temp 98.2 98.1 97.9 98.2 98.1 97.9 Pulse 68 68 74 Resp 20 20 18 B/P (MAP) 148/76 (100) 150/76 (100) 154/53 (86) Pulse Ox 96 96 97 97 O2 Delivery Nasal Cannula Nasal Cannula Nasal Cannula Nasal Cannula O2 Flow Rate 2.0 2.0 2.0 06/21/16 06/21/16 06/21/16 06/21/16 20:00 20:14 20:21 23:24 Temp 98.0 98.0 Pulse 50 Resp 16 B/P (MAP) 140/50 (80) Pulse Ox 99 99 100 O2 Delivery Bi-pap Nasal Cannula BiPAP/CPAP BiPAP/CPAP O2 Flow Rate 2.0 2.0 06/22/16 06/22/16 06/22/16 06/22/16 00:50 02:42 02:43 03:40 Temp 97.0 97.0 Pulse 51 Resp 18 B/P (MAP) 114/35 (61) 136/42 (73) Pulse Ox 97 O2 Delivery BiPAP/CPAP BiPAP/CPAP BiPAP/CPAP 06/22/16 06/22/16 06/22/16 05:15 06:55 07:00 Temp 98.0 98.0 Pulse 53 Resp 18 B/P (MAP) 157/70 (99) Pulse Ox 100 O2 Delivery BiPAP/CPAP BiPAP/CPAP BiPAP/CPAP Intake and Output 06/21/16 06/21/16 06/22/16 15:00 23:00 07:00 Intake Total 500 ml Balance 500 ml NEPTALI DURON MD June 22, 2016 09:33
[2016-06-22] MEDS ORDERED: ACETAMINOPHEN 500 MG TABLET PO PRN (09:45)
--- NOTE | 2016-06-22 09:47 | RAD ---
Portable chest, 06/22/2016: History: Congestive heart failure Comparison is made to a study from 06/19/2016. A cardiac valvular prosthesis is in place. The heart is enlarged. The pulmonary vascularity is within normal limits. No acute infiltrate is seen. There are mild parenchymal scars with a probable granuloma in the left upper lobe. No significant pleural fluid is evident. IMPRESSION: 1. Cardiomegaly without vascular congestion. 2. No acute abnormality is detected.
--- NOTE | 2016-06-22 09:55 | PDOC ---
KRISTINERajiNATTY RG RESOURCE TECHNICIAN 06/22/16 0955: IM PROGRESS NOTES- Subjective Subjective awake, no complaints of pain or shortness of breath. Objective Objective Chart review: Tamiko is a n 81 yo female who was admitted on with UTI, acute renal failure, acute on chronic hypercapnic respiratory failure, and metabolic encephalopathy. She currently resides at [facility] and Dr. Fan provides her inpatient care when she is admitted to [facility]. Dr. Diggs has been paged x 2 to notify of change in attending MD. Vitals Vital Signs Date Time Temp Pulse Resp B/P (MAP) Pulse Ox O2 Delivery O2 Flow Rate FiO2 06/22/16 07:00 98.0 53 18 157/70 (99) 100 BiPAP/CPAP 98.0 06/21/16 20:14 2.0 Input & Output Intake and Output 06/22/16 07:00 Intake Total 500 ml Balance 500 ml Intake Oral 500 ml # Voids 5 Physical Exam Physical Exam General appearance - alert, chronically ill appearing, and in no distress Mental Status - alert, oriented to person, place, and time, affect appropriate to mood Head - normal Chest - clear to auscultation, no wheezes, rales or rhonchi, symmetric air entry Heart - S1 and S2 normal Abdomen - soft, nontender, nondistended, no masses or organomegaly Neurological - alert and oriented Musculoskeletal - no muscular tenderness noted Extremities - no pedal edema Skin - warm and dry Labs Laboratory Tests Test 06/20/16 20:19 06/21/16 03:05 06/21/16 07:00 06/21/16 07:37 Glucose (Fingerstick) 154 mg/dL (70-99) 132 mg/dL (70-99) White Blood Count 6.3 x10^3/uL (4.0-11.0) Red Blood Count 2.72 x10^6/uL (3.50-5.40) Hemoglobin 8.8 g/dL (12.0-15.5) Hematocrit 26.9 % (36.0-47.0) Mean Corpuscular Volume 99 fL (79-100) Mean Corpuscular Hemoglobin 32 pg (25-35) Mean Corpuscular Hemoglobin Concent 33 g/dL (31-37) Red Cell Distribution Width 13.1 % (11.5-14.5) Platelet Count 192 x10^3/uL (140-400) Neutrophils (%) (Auto) 64 % (31-73) Lymphocytes (%) (Auto) 24 % (24-48) Monocytes (%) (Auto) 8 % (0-9) Eosinophils (%) (Auto) 4 % (0-3) Basophils (%) (Auto) 1 % (0-3) Neutrophils # (Auto) 4.0 x10^3uL (1.8-7.7) Lymphocytes # (Auto) 1.5 x10^3/uL (1.0-4.8) Monocytes # (Auto) 0.5 x10^3/uL (0.0-1.1) Eosinophils # (Auto) 0.2 x10^3/uL (0.0-0.7) Basophils # (Auto) 0.1 x10^3/uL (0.0-0.2) Sodium Level 145 mmol/L (136-145) Potassium Level 4.2 mmol/L (3.5-5.1) Chloride Level 106 mmol/L (98-107) Carbon Dioxide Level 33 mmol/L (21-32) Anion Gap 6 (6-14) Blood Urea Nitrogen 108 mg/dL (7-20) Creatinine 1.8 mg/dL (0.6-1.0) Estimated GFR (Cockcroft-Gault) 27.0 Glucose Level 142 mg/dL (70-99) Calcium Level 8.5 mg/dL (8.5-10.1) O2 Saturation 95 % (92-99) Arterial Blood pH 7.35 (7.35-7.45) Arterial Blood pCO2 at Patient Temp 60 mmHg (35-46) Arterial Blood pO2 at Patient Temp 75 mmHg (65-108) Arterial Blood HCO3 33 mmol/L (21-28) Arterial Blood Base Excess 6 mmol/L (-3-3) FiO2 25 Test 06/21/16 11:14 06/21/16 17:08 06/21/16 20:32 06/22/16 04:55 Glucose (Fingerstick) 139 mg/dL (70-99) 159 mg/dL (70-99) 183 mg/dL (70-99) Erythrocyte Sedimentation Rate 64 (0-25) Prothrombin Time 14.3 SEC (11.7-14.0) Prothromb Time International Ratio 1.2 (0.8-1.1) Sodium Level 145 mmol/L (136-145) Potassium Level 4.5 mmol/L (3.5-5.1) Chloride Level 107 mmol/L (98-107) Carbon Dioxide Level 32 mmol/L (21-32) Anion Gap 6 (6-14) Blood Urea Nitrogen 100 mg/dL (7-20) Creatinine 1.5 mg/dL (0.6-1.0) Estimated GFR (Cockcroft-Gault) 33.3 Glucose Level 149 mg/dL (70-99) Calcium Level 8.7 mg/dL (8.5-10.1) Test 06/22/16 07:15 Glucose (Fingerstick) 131 mg/dL (70-99) Laboratory Tests Test 06/21/16 11:14 06/21/16 17:08 06/21/16 20:32 06/22/16 04:55 Glucose (Fingerstick) 139 mg/dL (70-99) 159 mg/dL (70-99) 183 mg/dL (70-99) Erythrocyte Sedimentation Rate 64 (0-25) Prothrombin Time 14.3 SEC (11.7-14.0) Prothromb Time International Ratio 1.2 (0.8-1.1) Sodium Level 145 mmol/L (136-145) Potassium Level 4.5 mmol/L (3.5-5.1) Chloride Level 107 mmol/L (98-107) Carbon Dioxide Level 32 mmol/L (21-32) Anion Gap 6 (6-14) Blood Urea Nitrogen 100 mg/dL (7-20) Creatinine 1.5 mg/dL (0.6-1.0) Estimated GFR (Cockcroft-Gault) 33.3 Glucose Level 149 mg/dL (70-99) Calcium Level 8.7 mg/dL (8.5-10.1) Test 06/22/16 07:15 Glucose (Fingerstick) 131 mg/dL (70-99) Meds Medications reviewed and reconciled. Assessment Assessment Primary Diagnosis 1. complicated ghotra associated UTI with chronic ghotra grm neg claudia POA 2. ARF with underlying CKD III stable, range Cr 1.5-1.9 BUN 70 POA 3. acute on chronic diastolic CHF POA 4. acute on chronic hypercapnic respiratory failure with underlying CHF, pulmonary HTN, COPD 5. Diabetes mellitus type 2 with neuropathy 6. Chronic tremors. 7. FERNANDO/OHS with BiPAP at HS, on oxygen via nasal cannula at 2 L/minute during day. 8. narcolepsy 9. History of aortic valve replacement, on xarelto 10. Atrial fibrillation, on xarelto 11. Chronic lymphedema with venous stasis changes 12. Osteoarthritis generalized 13. Pulmonary hypertension severe 14. Anemia, both iron and B12 deficiency. 15. Chronic obstructive pulmonary disease. 16. Morbid obesity. 17. History of Parkinson disease with tremors. 18. allergic rhinitis 19. depression/anxiety 20. chronic constipation 21. chronic moderate PCL malnutrition 22. 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 Vitamin D deficiency 25. skin candidiasis chronic 26. skin tear R foot 27. skin candidiasis 28. chronic ghotra for urine retention 29. metabolic encephalopathy POA PLAN: UTI rocephin IV since admit Urine CX E coli ghotra chronic for urine retention a/c hypercapnic respiratory failure/FERNANDO -BIPAP at hs, [place] during day pulmonary consult ARF with underlying CKD nephrology consult Remains on Lasix 40mg po IV NS 75cc/hr ADmit BUN 111 06/22 108 Cr 1.5 1.8 K 4.7 4.5 sternal wound chronic osteomyelitis ID consulted metabolic encephalopathy improving h/o AVR and AFib xarelto resumed, coumadin stopped DM II BS 132-154 Levemir decreased from 9u to 5 unit SSI FSBS DVT/GI prophylaxis warfarin until 06/21 xarelto initated 06/22 PPI anemia CD Admit 9.8 06/22 8.8 monitor continue B12/folate and Fe replacement For further plan of care please refer to the orders. Plan Plan For more details regarding further plans, please refer to the orders. DEBBIE FAN MD 06/22/16 1035: IM PROGRESS NOTES- Assessment Assessment The patient was seen and examined by me. Chart reviewed and plan of care formulated. Discussed with, reviewed and agree with FRONT END SOFTWARE ENGINEER's notes, plan of care and orders with modifications as necessary. For more details regarding further plans, please refer to the orders. She has occasional spasms of the left leg.Check Mag level. NATTY FOY APRN June 22, 2016 09:55 DEBBIE FAN MD June 22, 2016 10:35
--- NOTE | 2016-06-22 10:41 | PDOC2 ---
CONSULT Date of Consult Date of Consult DATE: 06/22/16 TIME: 10:31 Reason for Consult Reason for Consult: Azotemia Referring Physician Referring Physician: Dr Fan Identification/Chief Complaint Chief Complaint "I don't know" - reportedly AMS Problems: Source Source: Chart review, Patient History of Present Illness Reason for Visit: as dictated Past Medical History Cardiovascular: AFIB, CHF, HTN, Valve insufficiency, Pulmonary hypertension, Other Pulmonary: COPD, Other CENTRAL NERVOUS SYSTEM: Other GI: Constipation, Other Heme/Onc: Anemia NOS, B12 deficiency, Cancer, Iron deficiency Anemia, Other Psych: Anxiety Infectious disease: Other Renal/: Chronic renal insuff, UTI Endocrine: Diabetes Past Surgical History Past Surgical History: Mastectomy, Other Social History ALCOHOL: none Drugs: None Lives: Snf Current Problem List Problem List Problems Medical Problems: (1) Hypercapnia Status: Acute (2) Mental status change Status: Acute Current Medications Current Medications Current Medications Levofloxacin/ Dextrose 100 ml @ 100 mls/hr 1X ONCE IV Last administered on 18:59; Start 06/19/16 at 18:45; Stop 06/19/16 at 19:44; Status DC Doxycycline Hyclate 100 mg/ Dextrose 100 ml @ 50 mls/hr 1X ONCE IV Last administered on 06/19/16 20:41; Start 06/19/16 at 19:00; Stop 06/19/16 at 20:59 ; Status DC Albuterol/ Ipratropium (Duoneb) 3 ml RTQID NEB Last administered on 06/20/16 19:43; Start 06/19/16 at 20:00; Stop 06/20/16 at 19:59; Status DC Famotidine (Pepcid) 20 mg 1X ONCE IVP Last administered on 06/19/16 20:40; Start 06/19/16 at 19:30; Stop 06/19/16 at 19:31; Status DC Acetaminophen (Tylenol) 650 mg PRN Q6HRS PRN PO MILD PAIN; Start 06/19/16 at 23 :30; Stop 06/22/16 at 09:32; Status DC Anastrozole (Arimidex) 1 mg DAILY PO Last administered on 06/22/16 09:00; Start 06/20/16 at 09:00 Calcium Carbonate/ Glycine (Oscal) 500 mg DAILY PO Last administered on 09:03; Start 06/20/16 at 09:00 Vitamin D (Vitamin D3) 1,000 unit DAILY PO Last administered on 06/22/16 09:04 ; Start 06/20/16 at 09:00 Diphenhydramine HCl (Benadryl) 25 mg PRN Q6HRS PRN PO ITCHING; Start 06/19/16 at 23:30 Ferrous Sulfate (Feosol) 325 mg TIDWMEALS PO Last administered on 06/22/16 09: 04; Start 06/20/16 at 08:00 Fluticasone Propionate (Flonase) 2 spray DAILY NS Last administered on 09:00; Start 06/20/16 at 09:00 Folic Acid (Folic Acid) 1 mg BID PO Last administered on 06/22/16 09:04; Start 06/20/16 at 09:00 Furosemide (Lasix) 40 mg DAILY PO Last administered on 06/21/16 08:27; Start 06/20/16 at 09:00; Stop 06/21/16 at 11:05; Status DC Gabapentin (Neurontin) 100 mg HS PO Last administered on 06/21/16 20:28; Start 06/20/16 at 21:00 Lidocaine (Lidoderm) 1 patch DAILY TP Last administered on 06/22/16 09:06; Start 06/20/16 at 09:00 Montelukast Sodium (Singulair) 10 mg HS PO Last administered on 06/21/16 20:28 ; Start 06/20/16 at 21:00 Polyethylene Glycol (miraLAX PACKET) 17 gm PRN DAILY PRN PO CONSTIPATION; Start 06/19/16 at 23:30 Primidone (Mysoline) 250 mg BID PO Last administered on 06/22/16 09:03; Start 06/20/16 at 09:00 Warfarin Sodium (Coumadin) 10 mg DAILY16 PO Last administered on 06/21/16 17: 35; Start 06/20/16 at 16:00; Stop 06/22/16 at 09:32; Status DC Cyanocobalamin (Vitamin B-12) 1,000 mcg DAILY PO Last administered on 09:03; Start 06/20/16 at 09:00 Artificial Tears (Artificial Tears) 1 drop PRN DAILY PRN OU ALLERGIES; Start at 23:45 Escitalopram Oxalate (Lexapro) 20 mg DAILY PO Last administered on 06/22/16 09 :03; Start 06/20/16 at 09:00 Insulin Detemir (Levemir) 5 units QHS SQ Last administered on 06/21/16 20:36; Start 06/20/16 at 21:00 Cetirizine HCl (ZyrTEC) 10 mg DAILY PO Last administered on 06/22/16 09:04; Start 06/20/16 at 09:00 Non-Formulary Medication 200 mg DAILY PO ; Start 06/20/16 at 09:00; Status UNV Multivitamins (Thera M Plus) 1 tab DAILY PO Last administered on 06/22/16 09: 04; Start 06/20/16 at 09:00 Nystatin (Nystop) 1 venessa BID TP Last administered on 06/22/16 09:06; Start at 09:00 Potassium Chloride (Klor-Con) 10 meq DAILYWBKFT PO Last administered on 09:03; Start 06/20/16 at 08:00; Stop 06/22/16 at 09:32; Status DC Warfarin Sodium (Coumadin Per Physician) 1 each PRN DAILY PRN MC SEE COMMENTS Last administered on 06/20/16 06:00; Start 06/20/16 at 06:00; Stop 06/22/16 at 08:36; Status DC Sodium Chloride 1,000 ml @ 75 mls/hr 1X ONCE IV Last administered on 10:59; Start 06/20/16 at 09:30; Stop 06/20/16 at 22:49; Status DC Ceftriaxone Sodium 1 gm/ Sodium Chloride 50 ml @ 100 mls/hr Q24H IV Last administered on 06/21/16 12:40; Start 06/21/16 at 12:00 Sodium Chloride 1,000 ml @ 75 mls/hr [id number] IV Last administered on 00:35; Start 06/21/16 at 11:15 Albuterol/ Ipratropium (Duoneb) 3 ml RTQID NEB Last administered on 06/22/16 07:06; Start 06/21/16 at 20:00 Warfarin Sodium (Coumadin Per Pharmacy) 1 each PRN DAILY PRN MC SEE COMMENTS; Start 06/22/16 at 08:45; Stop 06/22/16 at 09:32; Status DC Enoxaparin Sodium (Lovenox 40mg Syringe) 40 mg 1X ONCE SQ ; Start 06/22/16 at 08:45; Stop 06/22/16 at 08:46; Status UNV Acetaminophen (Tylenol) 1,000 mg PRN Q6HRS PRN PO MILD PAIN; Start 06/22/16 at 09:45 Potassium Chloride (Klor-Con) 20 meq DAILYWBKFT PO ; Start 06/22/16 at 10:00 Amlodipine Besylate (Norvasc) 2.5 mg DAILY PO ; Start 06/22/16 at 10:00 Artificial Tears (Artificial Tears) 1 drop PRN Q2HR PRN OU DRY EYE; Start 06/22 at 09:30; Status UNV Rivaroxaban (Xarelto) 20 mg DAILYWSUP PO ; Start 06/22/16 at 17:00 Active Scripts Active Doxycycline Hyclate 100 Mg Tablet.dr 100 Mg PO BID Cefpodoxime Proxetil 200 Mg Tablet 200 Mg PO BID Warfarin Sodium 10 Mg Tablet 10 Mg PO DAILY Reported Levemir (Insulin Detemir) 100 Unit/1 Ml Vial 5 Unit SQ HS Potassium Chloride 10 Meq Capsule.er 10 Meq PO DAILY Soothe & Cool Skin Paste (Zinc Oxide/Petrolatum,White) 71 Gm Oint...g. Gm TP Vitamin D3 (Cholecalciferol (Vitamin D3)) 1,000 Unit Tablet 1 Tab PO DAILY Furosemide 40 Mg Tablet 1 Tab PO DAILY Fluticasone Propionate Nasal [place] (Fluticasone Propionate) 16 Gm [place].susp 2 [place] NS DAILY Artificial Tears Eye Drops (Dextran 70/Hypromellose) 15 Ml Drops 1 Drop EACHEYE PRN DAILY PRN Anastrozole 1 Mg Tablet 1 Mg PO DAILY Tylenol (Acetaminophen) 325 Mg Tablet 650 Mg PO PRN Q6HRS PRN Multi-Day Vitamins (Multivitamin) 1 Each Tablet 1 Tab PO DAILY Singulair Tablet (Montelukast Sodium) 10 Mg Tablet 10 Mg PO HS Primidone 250 Mg Tablet 250 Mg PO BID Polyethylene Glycol 3350 17 Gm Powd.pack 17 Gm PO PRN DAILY PRN Nystatin 1 Each Powder.ea. 1 [place] TOP BID Modafinil 100 Mg Tablet 200 Mg PO DAILY Lidoderm (Lidocaine) 700 Mg Adh..patch 1 Patch TP DAILY Gabapentin 100 Mg Capsule 100 Mg PO HS Folic Acid 1 Mg Tablet 1 Mg PO BID Ferrous Sulfate 325 Mg Tablet 325 Mg PO TIDWMEALS Escitalopram Oxalate 20 Mg Tablet 20 Mg PO DAILY B-12 (Cyanocobalamin (Vitamin B-12)) 1,000 Mcg Tablet.er 1,000 Mcg PO DAILY Claritin (Loratadine) 10 Mg Capsule 10 Mg PO DAILY Calcium Carbonate 500 Mg Tablet 500 Mg PO DAILY Benadryl (Diphenhydramine Hcl) 25 Mg Capsule 25 Mg PO PRN Q6HRS PRN Allergies Allergies: Coded Allergies: Fish Containing Products (Verified Allergy, Intermediate, 01/17/15) Sulfa (Sulfonamide Antibiotics) (Verified Allergy, Intermediate, 01/17/15) bacitracin (Verified Allergy, Intermediate, 01/17/15) cephalexin (Verified Allergy, Intermediate, 01/17/15) ciprofloxacin (Verified Allergy, Intermediate, [place], 06/04/15) codeine (Verified Allergy, Intermediate, 01/17/15) enoxaparin (Verified Allergy, Intermediate, 01/17/15) iodine (Verified Allergy, Intermediate, 01/17/15) lactose (Verified Allergy, Intermediate, 01/17/15) metformin (Verified Allergy, Intermediate, 01/17/15) morphine (Verified Allergy, Intermediate, 01/17/15) neomycin (Verified Allergy, Intermediate, 01/17/15) polymyxin B (Verified Allergy, Intermediate, 01/17/15) shellfish derived (Verified Allergy, Intermediate, 01/17/15) ROS Review of System GEN: no Fevers no Chills EYES: no Visual Complaints ENT: no EN Drainage no Hearing deficiets CVS: no Orthopnea no CP RESP: no SOB no JORGE GI: no Nausea no Vomiting : no Dysuria no Urgency HEME: no easy bruising no Palp Ly Nodes NEURO no Focal Weakness no Sz PSYCH: no Suicidal Ideation no Depression SKIN: no Rashes ENDO: no Polyuria or Polydipsia no Hot/Cold Intolerance MU SK: no Arthraigia no Myalgia Physical Exam Physical Exam General Appearance: Awake rel Alert Oriented x 1 In no Distress; morbidly obese, bed bound Eyes: VIsion Unchanged Conjunctiva Normal EN: No EN Drainage Mucous Memb. moist Neck: no JVD no JVP Supple no Thyromegaly CVS: S1 S2 no Murmur No Gallop No Rub non-pitting Edema - distal HS ; sternal wound with dressing Resp: no Rales no Rhonchi no Acc. Muscle use - distal BS GI: BS +ve NO Bruit Non Tender Non Distended - obese : no CVA tenderness; no Suprapubic Tenderness SKIN: no Rashes Breast Exam deferred Mu.Sk: limited ROM in lower ext ? Muscle Atrophy + Foot drop Heme: Unable to palpate Obvious LAD no palp Splenomegaly NEURO: minStrength in lower ext Cranial Nerves II - XII grossly intact Psych: ? Depressed no Active hallucination Vital Signs Vital Signs Date Time Temp Pulse Resp B/P (MAP) Pulse Ox O2 Delivery O2 Flow Rate FiO2 06/22/16 07:00 98.0 53 18 157/70 (99) 100 BiPAP/CPAP 98.0 06/21/16 20:14 2.0 Assessment & Plan CKD III - Creat close to previous baseline #s. Current FLuid and E-lyte status does not necessitate emergent need for Dialysis. Will re-evaluate for Dialysis in am Sev Azotemia - ? Due to dehydration agree with IVF; hgb is dropping (pt is on coumadin) - ? slow GI blood loss Anemia: Fe def in the past - reval for same HTN: Current BP meds reviewed. See orders for changes. AMS - presumed due to HyperCapnia - now better Labs Labs Laboratory Tests Test 06/20/16 20:19 06/21/16 03:05 06/21/16 07:00 06/21/16 07:37 Glucose (Fingerstick) 154 mg/dL (70-99) 132 mg/dL (70-99) White Blood Count 6.3 x10^3/uL (4.0-11.0) Red Blood Count 2.72 x10^6/uL (3.50-5.40) Hemoglobin 8.8 g/dL (12.0-15.5) Hematocrit 26.9 % (36.0-47.0) Mean Corpuscular Volume 99 fL (79-100) Mean Corpuscular Hemoglobin 32 pg (25-35) Mean Corpuscular Hemoglobin Concent 33 g/dL (31-37) Red Cell Distribution Width 13.1 % (11.5-14.5) Platelet Count 192 x10^3/uL (140-400) Neutrophils (%) (Auto) 64 % (31-73) Lymphocytes (%) (Auto) 24 % (24-48) Monocytes (%) (Auto) 8 % (0-9) Eosinophils (%) (Auto) 4 % (0-3) Basophils (%) (Auto) 1 % (0-3) Neutrophils # (Auto) 4.0 x10^3uL (1.8-7.7) Lymphocytes # (Auto) 1.5 x10^3/uL (1.0-4.8) Monocytes # (Auto) 0.5 x10^3/uL (0.0-1.1) Eosinophils # (Auto) 0.2 x10^3/uL (0.0-0.7) Basophils # (Auto) 0.1 x10^3/uL (0.0-0.2) Sodium Level 145 mmol/L (136-145) Potassium Level 4.2 mmol/L (3.5-5.1) Chloride Level 106 mmol/L (98-107) Carbon Dioxide Level 33 mmol/L (21-32) Anion Gap 6 (6-14) Blood Urea Nitrogen 108 mg/dL (7-20) Creatinine 1.8 mg/dL (0.6-1.0) Estimated GFR (Cockcroft-Gault) 27.0 Glucose Level 142 mg/dL (70-99) Calcium Level 8.5 mg/dL (8.5-10.1) O2 Saturation 95 % (92-99) Arterial Blood pH 7.35 (7.35-7.45) Arterial Blood pCO2 at Patient Temp 60 mmHg (35-46) Arterial Blood pO2 at Patient Temp 75 mmHg (65-108) Arterial Blood HCO3 33 mmol/L (21-28) Arterial Blood Base Excess 6 mmol/L (-3-3) FiO2 25 Test 06/21/16 11:14 06/21/16 17:08 06/21/16 20:32 06/22/16 04:55 Glucose (Fingerstick) 139 mg/dL (70-99) 159 mg/dL (70-99) 183 mg/dL (70-99) Erythrocyte Sedimentation Rate 64 (0-25) Prothrombin Time 14.3 SEC (11.7-14.0) Prothromb Time International Ratio 1.2 (0.8-1.1) Sodium Level 145 mmol/L (136-145) Potassium Level 4.5 mmol/L (3.5-5.1) Chloride Level 107 mmol/L (98-107) Carbon Dioxide Level 32 mmol/L (21-32) Anion Gap 6 (6-14) Blood Urea Nitrogen 100 mg/dL (7-20) Creatinine 1.5 mg/dL (0.6-1.0) Estimated GFR (Cockcroft-Gault) 33.3 Glucose Level 149 mg/dL (70-99) Calcium Level 8.7 mg/dL (8.5-10.1) Test 06/22/16 07:15 Glucose (Fingerstick) 131 mg/dL (70-99) Laboratory Tests Test 06/21/16 11:14 06/21/16 17:08 06/21/16 20:32 06/22/16 04:55 Glucose (Fingerstick) 139 mg/dL (70-99) 159 mg/dL (70-99) 183 mg/dL (70-99) Erythrocyte Sedimentation Rate 64 (0-25) Prothrombin Time 14.3 SEC (11.7-14.0) Prothromb Time International Ratio 1.2 (0.8-1.1) Sodium Level 145 mmol/L (136-145) Potassium Level 4.5 mmol/L (3.5-5.1) Chloride Level 107 mmol/L (98-107) Carbon Dioxide Level 32 mmol/L (21-32) Anion Gap 6 (6-14) Blood Urea Nitrogen 100 mg/dL (7-20) Creatinine 1.5 mg/dL (0.6-1.0) Estimated GFR (Cockcroft-Gault) 33.3 Glucose Level 149 mg/dL (70-99) Calcium Level 8.7 mg/dL (8.5-10.1) Test 06/22/16 07:15 Glucose (Fingerstick) 131 mg/dL (70-99) ALLYN LUNSFORD MD June 22, 2016 10:41
[2016-06-22 11:12] LABS: % SAT IRON 19 % (15-34); IRON,SERUM 34 ug/dL (50-170)
--- NOTE | 2016-06-22 12:10 | PDOC ---
Provider Note Provider Note dictated FLORIDALMA GARCIA MD June 22, 2016 12:10
[2016-06-22] MEDS: amLODIPine BESYLATE 2.5 MG TABLET PO SCH (12:14)
[2016-06-22] MEDS: POTASSIUM CHLORIDE 20 MEQ TABLET.ER. PO SCH (12:14)
--- NOTE | 2016-06-22 12:42 | CONS ---
DATE OF CONSULTATION: ATTENDING PHYSICIAN: Dr. Viviana Fan. REASON FOR CONSULTATION: Abnormal arterial blood gases, encephalopathy. HISTORY OF PRESENT ILLNESS: The patient is an 81-year-old female who is morbidly obese. She has no significant history of tobacco use. She has underlying obesity hypoventilation syndrome. She was brought into the hospital with an altered mental status. She was lethargic. She was feeling weak as well. The patient also has been treated for sternal wound. The patient was noted to have significant hypercarbia on initial blood gases which were obtained on the . The pH was 7.25, pCO2 was 75 and a pO2 of 82 on 28% FiO2. I have been asked to see her today for abnormal ABGs which actually looks better since her admission. I have seen all the trend of the ABGs and latest one showed a pH of 7.35, pCO2 of 60 and pO2 of 75 on 25% FiO2. She is awake, following commands. She does use BiPAP at home. I have reviewed her chest x-ray. There is cardiomegaly. There is some mild pleural thickening on the left and possible prominent pulmonary artery suggestive of pulmonary hypertension. Her echocardiogram has shown moderate aortic stenosis and secondary pulmonary hypertension. She has also been uremic. Her BUN and creatinine is markedly elevated at 100 and 1.5. On admission, it was 111 and 1.5. Consultation requested for further evaluation and management. PAST MEDICAL HISTORY: History of CAD, history of AFib, CHF, anemia, diabetes, hypertension, anxiety, depression, arthritis, narcolepsy, sleep apnea, history of cancer, history of cellulitis. PAST SURGICAL HISTORY: Right mastectomy as well as heart valve replacement. FAMILY HISTORY: Unknown. SOCIAL HISTORY: Lives in a mcc. ALLERGIES: Multiple, they were all reviewed. MEDICATIONS: Also reviewed as listed in the MRAD. REVIEW OF SYSTEMS: Limited, but 10-point system obtained. Pertinent positives discussed in my history of present illness, otherwise noncontributory. All systems that were negative were reviewed as well. PHYSICAL EXAMINATION: GENERAL: She is awake, able to follow commands. VITAL SIGNS: Blood pressure 147/88, afebrile, pulse ox 99% on 2 liters. NECK: Supple. LUNGS: Diminished breath sounds. CARDIOVASCULAR: Chest has a sternal wound, which is covered with sterile dressing. ABDOMEN: Soft, markedly obese. EXTREMITIES: With trace pitting edema. LABORATORY DATA: Reviewed. BUN and creatinine, 100 and 1.5. ABGs as discussed in my history of present illness. White cell count 6.3, hemoglobin 8.8. IMPRESSION: 1. Acute on chronic hypercapnic respiratory failure in a patient who has underlying morbid obesity with a BMI of 58 and most likely has obesity hypoventilation syndrome. Her ABGs have shown improvement with the nocturnal use of BiPAP. 2. Encephalopathy present on admission secondary to combination of uremic encephalopathy and hypercarbia, currently improving. 3. No significant history of tobacco use. 4. Sternal wound. 5. Prerenal azotemia secondary to volume depletion. RECOMMENDATIONS: 1. Continue BiPAP at bedtime and p.r.n. during the day. 2. Avoid benzodiazepines and narcotics. 3. Continue nebulizer treatment. 4. Continue on 2 liters oxygen during the day. 5. Antibiotics per ID recommendations. 6. Discussed with the patient's daughter at the bedside. We will follow along with you. FLORIDALMA GARCIA MD DR: EDWIN/nusrat JOB#: [id number] / [id number] JUNIOR
--- NOTE | 2016-06-22 16:53 | PDOC2 ---
CONSULT Date of Consult Date of Consult DATE: 06/22/16 TIME: 16:45 Reason for Consult Reason for Consult: Chronic nonhealing sternotomy wound Referring Physician Referring Physician: Edwin Vigil MD Identification/Chief Complaint Chief Complaint AMS Source Source: Chart review History of Present Illness Reason for Visit: The patient is an 81-year-old female, with dementia, who is bedridden and lives in a correction who presented to our emergency room with altered mental status secondary to hypercapnic respiratory failure. Her CO2 levels a chronically in the 60s. She also has a history of a remote aortic valve replacement, possibly in 2000, although I was not able to confirm this. The patient also has a chronic nonhealing the midline sternotomy incision, at its mid to inferior portion with an exposed sternal wire. There is minimal drainage with islands of poor granulation tissue formation. The chronicity of this wound is unknown. I was consulted to make further recommendations for this poorly healed sternotomy. She does not currently appear to be the source of sepsis. Past Medical History Cardiovascular: AFIB, CHF, HTN, Valve insufficiency, Pulmonary hypertension, Other Pulmonary: COPD, Other CENTRAL NERVOUS SYSTEM: Other GI: Constipation, Other Heme/Onc: Anemia NOS, B12 deficiency, Cancer, Iron deficiency Anemia, Other Psych: Anxiety Infectious disease: Other Renal/: Chronic renal insuff, UTI Endocrine: Diabetes Past Surgical History Past Surgical History: Mastectomy, Other Social History ALCOHOL: none Drugs: None Lives: Skilled Nursing Current Problem List Problem List Problems Medical Problems: (1) Hypercapnia Status: Acute (2) Mental status change Status: Acute Current Medications Current Medications Current Medications Levofloxacin/ Dextrose 100 ml @ 100 mls/hr 1X ONCE IV Last administered on 18:59; Start 06/19/16 at 18:45; Stop 06/19/16 at 19:44; Status DC Doxycycline Hyclate 100 mg/ Dextrose 100 ml @ 50 mls/hr 1X ONCE IV Last administered on 06/19/16 20:41; Start 06/19/16 at 19:00; Stop 06/19/16 at 20:59 ; Status DC Albuterol/ Ipratropium (Duoneb) 3 ml RTQID NEB Last administered on 06/20/16 19:43; Start 06/19/16 at 20:00; Stop 06/20/16 at 19:59; Status DC Famotidine (Pepcid) 20 mg 1X ONCE IVP Last administered on 06/19/16 20:40; Start 06/19/16 at 19:30; Stop 06/19/16 at 19:31; Status DC Acetaminophen (Tylenol) 650 mg PRN Q6HRS PRN PO MILD PAIN; Start 06/19/16 at 23 :30; Stop 06/22/16 at 09:32; Status DC Anastrozole (Arimidex) 1 mg DAILY PO Last administered on 06/22/16 09:00; Start 06/20/16 at 09:00 Calcium Carbonate/ Glycine (Oscal) 500 mg DAILY PO Last administered on 09:03; Start 06/20/16 at 09:00 Vitamin D (Vitamin D3) 1,000 unit DAILY PO Last administered on 06/22/16 09:04 ; Start 06/20/16 at 09:00 Diphenhydramine HCl (Benadryl) 25 mg PRN Q6HRS PRN PO ITCHING; Start 06/19/16 at 23:30 Ferrous Sulfate (Feosol) 325 mg TIDWMEALS PO Last administered on 06/22/16 12: 14; Start 06/20/16 at 08:00 Fluticasone Propionate (Flonase) 2 spray DAILY NS Last administered on 09:00; Start 06/20/16 at 09:00 Folic Acid (Folic Acid) 1 mg BID PO Last administered on 06/22/16 09:04; Start 06/20/16 at 09:00 Furosemide (Lasix) 40 mg DAILY PO Last administered on 06/21/16 08:27; Start 06/20/16 at 09:00; Stop 06/21/16 at 11:05; Status DC Gabapentin (Neurontin) 100 mg HS PO Last administered on 06/21/16 20:28; Start 06/20/16 at 21:00 Lidocaine (Lidoderm) 1 patch DAILY TP Last administered on 06/22/16 09:06; Start 06/20/16 at 09:00 Montelukast Sodium (Singulair) 10 mg HS PO Last administered on 06/21/16 20:28 ; Start 06/20/16 at 21:00 Polyethylene Glycol (miraLAX PACKET) 17 gm PRN DAILY PRN PO CONSTIPATION; Start 06/19/16 at 23:30 Primidone (Mysoline) 250 mg BID PO Last administered on 06/22/16 09:03; Start 06/20/16 at 09:00 Warfarin Sodium (Coumadin) 10 mg DAILY16 PO Last administered on 06/21/16 17: 35; Start 06/20/16 at 16:00; Stop 06/22/16 at 09:32; Status DC Cyanocobalamin (Vitamin B-12) 1,000 mcg DAILY PO Last administered on 09:03; Start 06/20/16 at 09:00 Artificial Tears (Artificial Tears) 1 drop PRN DAILY PRN OU ALLERGIES; Start at 23:45 Escitalopram Oxalate (Lexapro) 20 mg DAILY PO Last administered on 06/22/16 09 :03; Start 06/20/16 at 09:00 Insulin Detemir (Levemir) 5 units QHS SQ Last administered on 06/21/16 20:36; Start 06/20/16 at 21:00 Cetirizine HCl (ZyrTEC) 10 mg DAILY PO Last administered on 06/22/16 09:04; Start 06/20/16 at 09:00 Non-Formulary Medication 200 mg DAILY PO ; Start 06/20/16 at 09:00; Stop at 11:16; Status DC Multivitamins (Thera M Plus) 1 tab DAILY PO Last administered on 06/22/16 09: 04; Start 06/20/16 at 09:00 Nystatin (Nystop) 1 venessa BID TP Last administered on 06/22/16 09:06; Start at 09:00 Potassium Chloride (Klor-Con) 10 meq DAILYWBKFT PO Last administered on 09:03; Start 06/20/16 at 08:00; Stop 06/22/16 at 09:32; Status DC Warfarin Sodium (Coumadin Per Physician) 1 each PRN DAILY PRN MC SEE COMMENTS Last administered on 06/20/16 06:00; Start 06/20/16 at 06:00; Stop 06/22/16 at 08:36; Status DC Sodium Chloride 1,000 ml @ 75 mls/hr 1X ONCE IV Last administered on 10:59; Start 06/20/16 at 09:30; Stop 06/20/16 at 22:49; Status DC Ceftriaxone Sodium 1 gm/ Sodium Chloride 50 ml @ 100 mls/hr Q24H IV Last administered on 06/22/16 12:00; Start 06/21/16 at 12:00 Sodium Chloride 1,000 ml @ 75 mls/hr [id number] IV Last administered on 00:35; Start 06/21/16 at 11:15 Albuterol/ Ipratropium (Duoneb) 3 ml RTQID NEB Last administered on 06/22/16 14:44; Start 06/21/16 at 20:00 Warfarin Sodium (Coumadin Per Pharmacy) 1 each PRN DAILY PRN MC SEE COMMENTS; Start 06/22/16 at 08:45; Stop 06/22/16 at 09:32; Status DC Enoxaparin Sodium (Lovenox 40mg Syringe) 40 mg 1X ONCE SQ ; Start 06/22/16 at 08:45; Stop 06/22/16 at 08:46; Status UNV Acetaminophen (Tylenol) 1,000 mg PRN Q6HRS PRN PO MILD PAIN; Start 06/22/16 at 09:45 Potassium Chloride (Klor-Con) 20 meq DAILYWBKFT PO Last administered on 12:14; Start 06/22/16 at 10:00 Amlodipine Besylate (Norvasc) 2.5 mg DAILY PO Last administered on 06/22/16 12 :14; Start 06/22/16 at 10:00 Artificial Tears (Artificial Tears) 1 drop PRN Q2HR PRN OU DRY EYE; Start 06/22 at 09:30; Status UNV Rivaroxaban (Xarelto) 20 mg DAILYWSUP PO ; Start 06/22/16 at 17:00 Active Scripts Active Doxycycline Hyclate 100 Mg Tablet.dr 100 Mg PO BID Cefpodoxime Proxetil 200 Mg Tablet 200 Mg PO BID Warfarin Sodium 10 Mg Tablet 10 Mg PO DAILY Reported Levemir (Insulin Detemir) 100 Unit/1 Ml Vial 5 Unit SQ HS Potassium Chloride 10 Meq Capsule.er 10 Meq PO DAILY Soothe & Cool Skin Paste (Zinc Oxide/Petrolatum,White) 71 Gm Oint...g. Gm TP Vitamin D3 (Cholecalciferol (Vitamin D3)) 1,000 Unit Tablet 1 Tab PO DAILY Furosemide 40 Mg Tablet 1 Tab PO DAILY Fluticasone Propionate Nasal [place] (Fluticasone Propionate) 16 Gm [place].susp 2 [place] NS DAILY Artificial Tears Eye Drops (Dextran 70/Hypromellose) 15 Ml Drops 1 Drop EACHEYE PRN DAILY PRN Anastrozole 1 Mg Tablet 1 Mg PO DAILY Tylenol (Acetaminophen) 325 Mg Tablet 650 Mg PO PRN Q6HRS PRN Multi-Day Vitamins (Multivitamin) 1 Each Tablet 1 Tab PO DAILY Singulair Tablet (Montelukast Sodium) 10 Mg Tablet 10 Mg PO HS Primidone 250 Mg Tablet 250 Mg PO BID Polyethylene Glycol 3350 17 Gm Powd.pack 17 Gm PO PRN DAILY PRN Nystatin 1 Each Powder.ea. 1 Veness[place] TOP BID Modafinil 100 Mg Tablet 200 Mg PO DAILY Lidoderm (Lidocaine) 700 Mg Adh..patch 1 Patch TP DAILY Gabapentin 100 Mg Capsule 100 Mg PO HS Folic Acid 1 Mg Tablet 1 Mg PO BID Ferrous Sulfate 325 Mg Tablet 325 Mg PO TIDWMEALS Escitalopram Oxalate 20 Mg Tablet 20 Mg PO DAILY B-12 (Cyanocobalamin (Vitamin B-12)) 1,000 Mcg Tablet.er 1,000 Mcg PO DAILY Claritin (Loratadine) 10 Mg Capsule 10 Mg PO DAILY Calcium Carbonate 500 Mg Tablet 500 Mg PO DAILY Benadryl (Diphenhydramine Hcl) 25 Mg Capsule 25 Mg PO PRN Q6HRS PRN Allergies Allergies: Coded Allergies: Fish Containing Products (Verified Allergy, Intermediate, 01/17/15) Sulfa (Sulfonamide Antibiotics) (Verified Allergy, Intermediate, 01/17/15) bacitracin (Verified Allergy, Intermediate, 01/17/15) cephalexin (Verified Allergy, Intermediate, 01/17/15) ciprofloxacin (Verified Allergy, Intermediate, [place], 06/04/15) codeine (Verified Allergy, Intermediate, 01/17/15) enoxaparin (Verified Allergy, Intermediate, 01/17/15) iodine (Verified Allergy, Intermediate, 01/17/15) lactose (Verified Allergy, Intermediate, 01/17/15) metformin (Verified Allergy, Intermediate, 01/17/15) morphine (Verified Allergy, Intermediate, 01/17/15) neomycin (Verified Allergy, Intermediate, 01/17/15) polymyxin B (Verified Allergy, Intermediate, 01/17/15) shellfish derived (Verified Allergy, Intermediate, 01/17/15) ROS Review of System Unable to perform, the patient severely demented Physical Exam General: Other (dementia) HEENT: Atraumatic Lungs: Other (diffuse wheezing) Heart: Regular rate, Normal S1, Normal S2, Other (valve clicking) Abdomen: Soft, No tenderness Neuro: Other (severe dementia) MUSCULOSKELETAL: Other (Sternotomy: there is minimal serous drainage with islands of poor granulation tissue formation, mid to inferior. Wound is 0,5cm deep, with exposed sternal wire) Vitals VITALS Vital Signs Date Time Temp Pulse Resp B/P (MAP) Pulse Ox O2 Delivery O2 Flow Rate FiO2 06/22/16 15:00 98.0 20 144/68 (93) 96 Nasal Cannula 98.0 06/22/16 14:46 2.0 06/22/16 12:14 75 Labs Labs Laboratory Tests Test 06/20/16 20:19 06/21/16 03:05 06/21/16 07:00 06/21/16 07:37 Glucose (Fingerstick) 154 mg/dL (70-99) 132 mg/dL (70-99) White Blood Count 6.3 x10^3/uL (4.0-11.0) Red Blood Count 2.72 x10^6/uL (3.50-5.40) Hemoglobin 8.8 g/dL (12.0-15.5) Hematocrit 26.9 % (36.0-47.0) Mean Corpuscular Volume 99 fL (79-100) Mean Corpuscular Hemoglobin 32 pg (25-35) Mean Corpuscular Hemoglobin Concent 33 g/dL (31-37) Red Cell Distribution Width 13.1 % (11.5-14.5) Platelet Count 192 x10^3/uL (140-400) Neutrophils (%) (Auto) 64 % (31-73) Lymphocytes (%) (Auto) 24 % (24-48) Monocytes (%) (Auto) 8 % (0-9) Eosinophils (%) (Auto) 4 % (0-3) Basophils (%) (Auto) 1 % (0-3) Neutrophils # (Auto) 4.0 x10^3uL (1.8-7.7) Lymphocytes # (Auto) 1.5 x10^3/uL (1.0-4.8) Monocytes # (Auto) 0.5 x10^3/uL (0.0-1.1) Eosinophils # (Auto) 0.2 x10^3/uL (0.0-0.7) Basophils # (Auto) 0.1 x10^3/uL (0.0-0.2) Sodium Level 145 mmol/L (136-145) Potassium Level 4.2 mmol/L (3.5-5.1) Chloride Level 106 mmol/L (98-107) Carbon Dioxide Level 33 mmol/L (21-32) Anion Gap 6 (6-14) Blood Urea Nitrogen 108 mg/dL (7-20) Creatinine 1.8 mg/dL (0.6-1.0) Estimated GFR (Cockcroft-Gault) 27.0 Glucose Level 142 mg/dL (70-99) Calcium Level 8.5 mg/dL (8.5-10.1) O2 Saturation 95 % (92-99) Arterial Blood pH 7.35 (7.35-7.45) Arterial Blood pCO2 at Patient Temp 60 mmHg (35-46) Arterial Blood pO2 at Patient Temp 75 mmHg (65-108) Arterial Blood HCO3 33 mmol/L (21-28) Arterial Blood Base Excess 6 mmol/L (-3-3) FiO2 25 Test 06/21/16 11:14 06/21/16 17:08 06/21/16 20:32 06/22/16 04:55 Glucose (Fingerstick) 139 mg/dL (70-99) 159 mg/dL (70-99) 183 mg/dL (70-99) Erythrocyte Sedimentation Rate 64 (0-25) Reticulocyte Count (auto) 2.4 % (0.5-2.5) Prothrombin Time 14.3 SEC (11.7-14.0) Prothromb Time International Ratio 1.2 (0.8-1.1) Sodium Level 145 mmol/L (136-145) Potassium Level 4.5 mmol/L (3.5-5.1) Chloride Level 107 mmol/L (98-107) Carbon Dioxide Level 32 mmol/L (21-32) Anion Gap 6 (6-14) Blood Urea Nitrogen 100 mg/dL (7-20) Creatinine 1.5 mg/dL (0.6-1.0) Estimated GFR (Cockcroft-Gault) 33.3 Glucose Level 149 mg/dL (70-99) Calcium Level 8.7 mg/dL (8.5-10.1) Iron Level 34 ug/dL (50-170) Total Iron Binding Capacity 183 ug/dL (250-450) Iron Saturation 19 % (15-34) Ferritin 74 ng/mL (8-252) Test 06/22/16 07:15 06/22/16 10:42 06/22/16 16:15 Glucose (Fingerstick) 131 mg/dL (70-99) 154 mg/dL (70-99) 193 mg/dL (70-99) Laboratory Tests Test 06/21/16 17:08 06/21/16 20:32 06/22/16 04:55 06/22/16 07:15 Glucose (Fingerstick) 159 mg/dL (70-99) 183 mg/dL (70-99) 131 mg/dL (70-99) Erythrocyte Sedimentation Rate 64 (0-25) Reticulocyte Count (auto) 2.4 % (0.5-2.5) Prothrombin Time 14.3 SEC (11.7-14.0) Prothromb Time International Ratio 1.2 (0.8-1.1) Sodium Level 145 mmol/L (136-145) Potassium Level 4.5 mmol/L (3.5-5.1) Chloride Level 107 mmol/L (98-107) Carbon Dioxide Level 32 mmol/L (21-32) Anion Gap 6 (6-14) Blood Urea Nitrogen 100 mg/dL (7-20) Creatinine 1.5 mg/dL (0.6-1.0) Estimated GFR (Cockcroft-Gault) 33.3 Glucose Level 149 mg/dL (70-99) Calcium Level 8.7 mg/dL (8.5-10.1) Iron Level 34 ug/dL (50-170) Total Iron Binding Capacity 183 ug/dL (250-450) Iron Saturation 19 % (15-34) Ferritin 74 ng/mL (8-252) Test 06/22/16 10:42 06/22/16 16:15 Glucose (Fingerstick) 154 mg/dL (70-99) 193 mg/dL (70-99) Assessment/Plan Assessment/Plan 81-year-old female with dementia, who is bed ridden and lives in a correction , remote history of aortic valve replacement possibly in 2000, although I was not able to confirm, presents with a chronically nonhealing wound in the mid to inferior portion of her sternotomy incision, owing to the presence of foreign body/sternotomy wires. There is minimal serous drainage with islands of poor granulation tissue formation. Presents this admission with hypercapnic respiratory failure. This chronic infection in her sternotomy with poor healing, can certainly be treated. It would require removal of exposed sternotomy wires, debridement of nonviable infected tissue and subsequent VAC therapy. With this regimen in conjunction with intravenous antibiotics and I think it would potentially heal within 3-4 months. The issue is that she would require a general anesthetic to have the sternal wires removed, as this cannot be performed under sedation. I'm very concerned that if she received general anesthetic with intubation, she would never be able to extubate. It is likely that she would require sequential operations. Considering her overall grave prognosis, I think it is futile to go down this pathway. Would recommend current local wound therapy with a conservative/non aggressive approach. ROX GOYAL MD June 22, 2016 16:53
[2016-06-22] MEDS: RIVAROXABAN 10 MG TABLET. PO SCH (16:57)
--- NOTE | 2016-06-22 20:51 | PDOC ---
Provider Note Provider Note Tolerating IV fluids well. No SOB Chest Xray shows no significant CHF. BUN now 100 and Creatinine 1.5. Continue IV fluids with observation if OK with Dr. Frey. D/W NELIDA Lin MD June 22, 2016 20:51
[2016-06-22] MEDS: GABAPENTIN 100 MG CAPSULE. PO SCH (21:24)
[2016-06-22] MEDS: MONTELUKAST SODIUM 10 MG TABLET. PO SCH (21:24)
[2016-06-22] MEDS: INSULIN DETEMIR 300 UNITS/3 ML INSULN.PEN. SQ SCH (21:26)
--- NOTE | 2016-06-23 00:09 | CONS ---
DATE OF CONSULTATION: 06/22/2016 ROOM: 550. REQUESTING PHYSICIAN: Dr. Diggs. REASON FOR CONSULTATION: UTI and skin wound. HISTORY OF PRESENT ILLNESS: The patient is an 81-year-old alf resident with a history of some dementia as well as COPD. She does have a history of recurrent urinary tract infections in the past. She has now been admitted to [facility] on 06/19 secondary to acute mental status change and weakness. She has since been diagnosed with an E. coli urinary tract infection resistant to ampicillin, quinolones, piperacillin and tetracycline. Currently, she is on Rocephin and appears to be responding. The patient also has a history of aortic valve replacement in the past and she has a sternal wound apparently has worsened over a period of time. 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 Currently, she is sitting upright in bed. She has chronic tremors. She denies any fever, chills or sweats. No headaches, sore throat, cough or chest pain. No nausea, vomiting. She did have a Gonzales, but the Gonzales has since been removed for quite some time although she cannot specify how long it has been removed. PAST MEDICAL HISTORY: Positive for previous MRSA, COPD, allergic rhinitis, anemia, narcolepsy, dysphagia, hypocalcemia, hypokalemia, obesity, obstructive sleep apnea, type 2 diabetes, prosthetic aortic heart valve, osteoarthritis, failure to thrive, constipation, atrial fibrillation and flutter, heart failure, muscle weakness, vitamin deficiency, and essential tremor. PAST SURGICAL HISTORY: Positive for aortic valve replacement, right mastectomy with ____ history of radiation. REVIEW OF SYSTEMS: Otherwise negative except for mentioned above. ALLERGIES: Listed as CEPHALEXIN, but she has tolerated Rocephin. SULFA AND CIPRO, but she is unable to say what happens when she takes these. BACITRACIN, CODEINE, LOVENOX, IODINE, LACTOSE, METFORMIN, MORPHINE, NEOMYCIN are also listed. SOCIAL HISTORY: Again, she is a alf resident. No tobacco. FAMILY HISTORY: Noncontributory. CURRENT MEDICATIONS: Include Rocephin, Tylenol, Zyrtec, vitamin D3, ferrous sulfate, Lasix, Neurontin, Levemir, Mysoline, Coumadin, ____. Other meds are available and reviewed in the chart. PHYSICAL EXAMINATION: VITAL SIGNS: She is afebrile, temperature 98, pulse 53, respirations 18, blood pressure 157/70, satting 100% on nasal cannula oxygen. She does use BiPAP at night. CONSTITUTIONAL: She is alert, cooperative. She sits upright in bed. HEENT: Pupils are equal ____ and reactive. She has normal conjunctivae. Oral cavity, pharynx is clear. NECK: Supple, no JVD. She does have essential tremor. LUNGS: Clear to auscultation. HEART: S1, S2 with a click. ABDOMEN: Obese, soft, nontender, nondistended, positive bowel sounds. EXTREMITIES: Without clubbing, cyanosis or gross edema. SKIN: Warm to touch without signs of generalized rash. She does have a sternal wound. There are 3 areas that are open with some surrounding erythema. She does have an exposed wire at the most superior aspect. There is no gross warmth. There is no odor. NEUROLOGIC: She is nonfocal. She is not completely oriented. LABORATORY DATA: From the 06/21, white count 6.3, hemoglobin 8.8, platelets 192, neutrophils 64%, lymphs 24, sed rate was 64, creatinine of 1.5. Glucose of 149. Urinalysis concerning for urinary tract infection at the time of presentation, negative screens for MRSA. Chest x-ray on arrival, some mild congestive changes. CT scan of her head, no acute intracranial process, some likely old infarcts. IMPRESSION: 1. Urinary tract infection present on admission with Escherichia coli as mentioned above. 2. 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 3. ANTIBIOTIC ALLERGIES, but tolerating Rocephin. 4. Aortic valve replacement. RECOMMENDATIONS: For now, we will continue the Rocephin. To cure the sternal wound, she needs her wires removed and have an I and D, uncertain if she is a surgical candidate. We will have Cardiothoracic Surgery evaluate this. Follow up on wound cultures that were obtained; however, they are going to grow bacteria anyway as this is a surface culture. Thank you for allowing me to participate in this patient's care. Should you have any questions, please do not hesitate to contact me. NARENDRA KOHLER MD DR: CAMMY/nusrat JOB#: [id number] / [id number]
--- NOTE | 2016-06-23 01:05 | CONS ---
DATE OF CONSULTATION: PRIMARY PHYSICIAN: Viviana Fan M.D. REASON FOR CONSULTATION: Elevated BUN and creatinine ratio. HISTORY OF PRESENT ILLNESS: The patient is a pleasant 81-year-old female with baseline creatinine running about 1.4-1.5. She presented here with altered mental status. She was noted to have significant hypercapnia. This has improved as of ABGs this morning. Her BUN, however, is 100 and we were asked to see her for the same. Her creatinine is at 1.5 and stable. She was noted to be on Lasix at home and was on Coumadin now Xarelto. No steroid use is noted. She is not aware of nausea, vomiting, diarrhea. Her creatinine comes down from 1.8 yesterday to 1.5 today after Lasix was held and IV fluids were started. Urine output is not well documented. The patient does not have a Gonzales catheter otherwise incontinent. Palliative care is involved and the patient remains a DNR. For rest of the details, see electronic records. ALLYN LUNSFORD MD DR: ANAMARIA/nusrat JOB#: [id number] / [id number]
[2016-06-23 03:00] VITALS: BP 118/82
[2016-06-23 04:34] LABS: BASO % 1 % (0-3); EOS % 4 % (0-3); HEMATOCRIT 24.5 % (36.0-47.0); HEMOGLOBIN 7.9 g/dL (12.0-15.5); LYMPH # 1.2 x10^3/uL (1.0-4.8); LYMPH % 21 % (24-48); MEAN CORPUSCULAR HEMOGLOBIN 32 pg (25-35); MEAN CORPUSCULAR HGB CONC 32 g/dL (31-37); MEAN CORPUSCULAR VOLUME 100 fL (79-100); MONO % 8 % (0-9); NEUT % 67 % (31-73); PLATELET COUNT 178 x10^3/uL (140-400); RED BLOOD COUNT 2.44 x10^6/uL (3.50-5.40); RED CELL DISTRIBUTION WIDTH 13.3 % (11.5-14.5); WHITE BLOOD COUNT 5.7 x10^3/uL (4.0-11.0)
[2016-06-23 04:43] LABS: INR 1.6 (0.8-1.1); PROTHROMBIN TIME PATIENT 17.7 SEC (11.7-14.0)
[2016-06-23 04:52] LABS: ALBUMIN 2.1 g/dL (3.4-5.0); ALBUMIN/GLOBULIN RATIO 0.6 (1.0-1.7); CALCIUM 6.7 mg/dL (8.5-10.1); CREATININE 1.1 mg/dL (0.6-1.0); GFR 47.7; TOTAL BILIRUBIN 0.2 mg/dL (0.2-1.0); TOTAL PROTEIN 5.6 g/dL (6.4-8.2)
[2016-06-23 07:00] VITALS: BP 132/74
[2016-06-23] MEDS: IPRATRPIUM/ALBUTEROL 0.5/2.5MG 3 ML NEBU. NEB SCH ×4 (07:02→19:02)
--- NOTE | 2016-06-23 08:40 | PDOC ---
NATTY FOY TALENT ASSOCIATE 06/23/16 0840: IM PROGRESS NOTES- Subjective Subjective awake, no complaints of pain or shortness of breath. Objective Objective Chart review: Tamiko is a n 81 yo female who was admitted on with UTI, acute renal failure, acute on chronic hypercapnic respiratory failure, and metabolic encephalopathy. She currently resides at [facility] and Dr. Fan provides her inpatient care when she is admitted to [facility]. Dr. Diggs has been paged x 2 to notify of change in attending MD. Vitals Vital Signs Date Time Temp Pulse Resp B/P (MAP) Pulse Ox O2 Delivery O2 Flow Rate FiO2 06/23/16 07:04 98 BiPAP/CPAP 06/23/16 03:00 98.4 57 18 118/82 (94) 98.0 98.4 Input & Output Intake and Output 06/23/16 07:00 Intake Total 2280 ml Balance 2280 ml Intake Oral 2280 ml # Voids 8 Physical Exam Physical Exam General appearance - alert, chronically ill appearing, and in no distress Mental Status - alert, oriented to person, place, and time, affect appropriate to mood Head - normal Chest - clear to auscultation, no wheezes, rales or rhonchi, symmetric air entry Heart - S1 and S2 normal Abdomen - soft, nontender, nondistended, no masses or organomegaly Neurological - alert and oriented Musculoskeletal - no muscular tenderness noted Extremities - no pedal edema Skin - warm and dry Labs Laboratory Tests Test 06/21/16 11:14 06/21/16 17:08 06/21/16 20:32 06/22/16 04:55 Glucose (Fingerstick) 139 mg/dL (70-99) 159 mg/dL (70-99) 183 mg/dL (70-99) Erythrocyte Sedimentation Rate 64 (0-25) Reticulocyte Count (auto) 2.4 % (0.5-2.5) Prothrombin Time 14.3 SEC (11.7-14.0) Prothromb Time International Ratio 1.2 (0.8-1.1) Sodium Level 145 mmol/L (136-145) Potassium Level 4.5 mmol/L (3.5-5.1) Chloride Level 107 mmol/L (98-107) Carbon Dioxide Level 32 mmol/L (21-32) Anion Gap 6 (6-14) Blood Urea Nitrogen 100 mg/dL (7-20) Creatinine 1.5 mg/dL (0.6-1.0) Estimated GFR (Cockcroft-Gault) 33.3 Glucose Level 149 mg/dL (70-99) Calcium Level 8.7 mg/dL (8.5-10.1) Iron Level 34 ug/dL (50-170) Total Iron Binding Capacity 183 ug/dL (250-450) Iron Saturation 19 % (15-34) Ferritin 74 ng/mL (8-252) Test 06/22/16 07:15 06/22/16 10:42 06/22/16 16:15 06/22/16 21:07 Glucose (Fingerstick) 131 mg/dL (70-99) 154 mg/dL (70-99) 193 mg/dL (70-99) 253 mg/dL (70-99) Test 06/23/16 04:25 06/23/16 07:03 White Blood Count 5.7 x10^3/uL (4.0-11.0) Red Blood Count 2.44 x10^6/uL (3.50-5.40) Hemoglobin 7.9 g/dL (12.0-15.5) Hematocrit 24.5 % (36.0-47.0) Mean Corpuscular Volume 100 fL (79-100) Mean Corpuscular Hemoglobin 32 pg (25-35) Mean Corpuscular Hemoglobin Concent 32 g/dL (31-37) Red Cell Distribution Width 13.3 % (11.5-14.5) Platelet Count 178 x10^3/uL (140-400) Neutrophils (%) (Auto) 67 % (31-73) Lymphocytes (%) (Auto) 21 % (24-48) Monocytes (%) (Auto) 8 % (0-9) Eosinophils (%) (Auto) 4 % (0-3) Basophils (%) (Auto) 1 % (0-3) Neutrophils # (Auto) 3.8 x10^3uL (1.8-7.7) Lymphocytes # (Auto) 1.2 x10^3/uL (1.0-4.8) Monocytes # (Auto) 0.4 x10^3/uL (0.0-1.1) Eosinophils # (Auto) 0.2 x10^3/uL (0.0-0.7) Basophils # (Auto) 0.0 x10^3/uL (0.0-0.2) Prothrombin Time 17.7 SEC (11.7-14.0) Prothromb Time International Ratio 1.6 (0.8-1.1) Sodium Level 151 mmol/L (136-145) Potassium Level 4.0 mmol/L (3.5-5.1) Chloride Level 116 mmol/L (98-107) Carbon Dioxide Level 28 mmol/L (21-32) Anion Gap 7 (6-14) Blood Urea Nitrogen 77 mg/dL (7-20) Creatinine 1.1 mg/dL (0.6-1.0) Estimated GFR (Cockcroft-Gault) 47.7 BUN/Creatinine Ratio 70 (6-20) Glucose Level 123 mg/dL (70-99) Calcium Level 6.7 mg/dL (8.5-10.1) Magnesium Level 1.5 mg/dL (1.8-2.4) Total Bilirubin 0.2 mg/dL (0.2-1.0) Aspartate Amino Transf (AST/SGOT) 15 U/L (15-37) Alanine Aminotransferase (ALT/SGPT) 18 U/L (14-59) Alkaline Phosphatase 70 U/L (46-116) Total Protein 5.6 g/dL (6.4-8.2) Albumin 2.1 g/dL (3.4-5.0) Albumin/Globulin Ratio 0.6 (1.0-1.7) Glucose (Fingerstick) 156 mg/dL (70-99) Laboratory Tests Test 06/22/16 10:42 06/22/16 16:15 06/22/16 21:07 06/23/16 04:25 Glucose (Fingerstick) 154 mg/dL (70-99) 193 mg/dL (70-99) 253 mg/dL (70-99) White Blood Count 5.7 x10^3/uL (4.0-11.0) Red Blood Count 2.44 x10^6/uL (3.50-5.40) Hemoglobin 7.9 g/dL (12.0-15.5) Hematocrit 24.5 % (36.0-47.0) Mean Corpuscular Volume 100 fL (79-100) Mean Corpuscular Hemoglobin 32 pg (25-35) Mean Corpuscular Hemoglobin Concent 32 g/dL (31-37) Red Cell Distribution Width 13.3 % (11.5-14.5) Platelet Count 178 x10^3/uL (140-400) Neutrophils (%) (Auto) 67 % (31-73) Lymphocytes (%) (Auto) 21 % (24-48) Monocytes (%) (Auto) 8 % (0-9) Eosinophils (%) (Auto) 4 % (0-3) Basophils (%) (Auto) 1 % (0-3) Neutrophils # (Auto) 3.8 x10^3uL (1.8-7.7) Lymphocytes # (Auto) 1.2 x10^3/uL (1.0-4.8) Monocytes # (Auto) 0.4 x10^3/uL (0.0-1.1) Eosinophils # (Auto) 0.2 x10^3/uL (0.0-0.7) Basophils # (Auto) 0.0 x10^3/uL (0.0-0.2) Prothrombin Time 17.7 SEC (11.7-14.0) Prothromb Time International Ratio 1.6 (0.8-1.1) Sodium Level 151 mmol/L (136-145) Potassium Level 4.0 mmol/L (3.5-5.1) Chloride Level 116 mmol/L (98-107) Carbon Dioxide Level 28 mmol/L (21-32) Anion Gap 7 (6-14) Blood Urea Nitrogen 77 mg/dL (7-20) Creatinine 1.1 mg/dL (0.6-1.0) Estimated GFR (Cockcroft-Gault) 47.7 BUN/Creatinine Ratio 70 (6-20) Glucose Level 123 mg/dL (70-99) Calcium Level 6.7 mg/dL (8.5-10.1) Magnesium Level 1.5 mg/dL (1.8-2.4) Total Bilirubin 0.2 mg/dL (0.2-1.0) Aspartate Amino Transf (AST/SGOT) 15 U/L (15-37) Alanine Aminotransferase (ALT/SGPT) 18 U/L (14-59) Alkaline Phosphatase 70 U/L (46-116) Total Protein 5.6 g/dL (6.4-8.2) Albumin 2.1 g/dL (3.4-5.0) Albumin/Globulin Ratio 0.6 (1.0-1.7) Test 06/23/16 07:03 Glucose (Fingerstick) 156 mg/dL (70-99) Meds Current Medications Acetaminophen (Tylenol) 1,000 mg PRN Q6HRS PRN PO MILD PAIN; Start 06/22/16 at 09:45 Amlodipine Besylate (Norvasc) 2.5 mg DAILY PO Last administered on 06/22/16 12 :14; Start 06/22/16 at 10:00 Artificial Tears (Artificial Tears) 1 drop PRN Q2HR PRN OU DRY EYE; Start 06/22 at 09:30; Status UNV Enoxaparin Sodium (Lovenox 40mg Syringe) 40 mg 1X ONCE SQ ; Start 06/22/16 at 08:45; Stop 06/22/16 at 08:46; Status UNV Potassium Chloride (Klor-Con) 20 meq DAILYWBKFT PO Last administered on 12:14; Start 06/22/16 at 10:00 Rivaroxaban (Xarelto) 20 mg DAILYWSUP PO Last administered on 06/22/16 16:57; Start 06/22/16 at 17:00 Warfarin Sodium (Coumadin Per Pharmacy) 1 each PRN DAILY PRN MC SEE COMMENTS; Start 06/22/16 at 08:45; Stop 06/22/16 at 09:32; Status DC Assessment Assessment 1. UTI Ecoli POA 2. ARF no MARTA or ATN with underlying CKD III stable, range Cr 1.5-1.9 BUN 70 POA 3. acute on chronic diastolic CHF POA 4. acute on chronic hypercapnic respiratory failure with underlying CHF, pulmonary HTN, COPD 5. Diabetes mellitus type 2 with neuropathy 6. Chronic tremors. 7. FERNANDO/OHS with BiPAP at HS, on oxygen via nasal cannula at 2 L/minute during day. 8. narcolepsy 9. History of aortic valve replacement, on xarelto 10. Atrial fibrillation, on xarelto 11. Chronic lymphedema with venous stasis changes 12. Osteoarthritis generalized 13. Pulmonary hypertension severe 14. Anemia, both iron and B12 deficiency. 15. Chronic obstructive pulmonary disease. 16. Morbid obesity. 17. History of Parkinson disease with tremors. 18. allergic rhinitis 19. depression/anxiety 20. chronic constipation 21. chronic moderate PCL malnutrition 22. 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 Vitamin D deficiency 25. skin candidiasis chronic 26. skin tear R foot 27. skin candidiasis 28. chronic ghotra for urine retention 29. metabolic encephalopathy POA PLAN: UTI rocephin IV since admit Urine CX E coli no ghotra a/c hypercapnic respiratory failure/FERNANDO -BIPAP at hs, NC during day pulmonary consult BiPap HS, O2 2L day ARF with underlying CKD nephrology consult Remains on Lasix 40mg po IV NS 75cc/hr-DC 06/23 ADmit BUN 111 06/23 77 Cr 1.5 1.1 K 4.7 4.0 Na 144 151 Ca 8.8 6.7-defer to renal Alb 2.7 2.1 Mg 1.5 - 4gm Mg SO4 x 1 sternal wound chronic osteomyelitis ID consulted betahemolytic group B strep second culture multiple gram neg rods, non predomninant =heavily colonized D/W Dr. Vigil-IV antibiotics x 6 week with oral suppressive after vs oral antibiotics. He will d/w Dr. Fan CV surgeon-continue chronic wound care, not surgical candidate metabolic encephalopathy improving h/o AVR and AFib xarelto resumed, coumadin stopped DM II BS 123-253 Levemir decreased from 9u to 5 unit SSI FSBS 06/23 Increase Levemir to 8 units DVT/GI prophylaxis warfarin until 06/21 xarelto initated 06/22 PPI anemia CD Admit 9.8 06/23 7.9 monitor continue B12/folate and Fe replacement Dysphagia speech eval-Downgrade diet to include honey thick liquids--dysphagia III w/ honey thick. Meds w/ honey thick liquids. For further plan of care please refer to the orders. Plan Plan For more details regarding further plans, please refer to the orders. DEBBIE FAN MD 06/23/16 0942: PROGRESS NOTES- Assessment Assessment D/w ,.CTS note appreciated. Hypernatremia. Anemia- may need transfusion if worse. Acute metabolic encephalopathy improving. Acute renal failure improving. D/w Karen Dejesus- daughter in law- condition,Rx,options,open wires,need for continuous churn buttermaker,suppressive antibiotics,not a candidate for surgery etc. Patient had recurrent c.diff in past. She agrees with oral skilled nursing antibiotics and not 6 weeks of IV antibiotics. Wires have been exposed for a long time. The patient was seen and examined by me. Chart reviewed and plan of care formulated. Discussed with, reviewed and agree with SURGICAL GARMENT FITTER's notes, plan of care and orders with modifications as necessary. For more details regarding further plans, please refer to the orders. NATTY FOY APRN June 23, 2016 08:40 DEBBIE FAN MD June 23, 2016 09:42
--- NOTE | 2016-06-23 08:42 | DISCH ---
DISCHARGE FINAL DIAGNOSIS Problems Medical Problems: (1) Hypercapnia Status: Acute (2) Mental status change Status: Acute CONDITION ON DISCHARGE: Stable SNF STAY <30 DAYS: Yes (PT OT eval and treat) POST DISCHARGE ORDERS ACTIVITY ORDERS: Activity as tolerated WEIGHT BEARING STATUS: As tolerated DIET AFTER DISCHARGE: Cardiac OTHER WOUND INSTRUCTIONS: Wound care instructions per wound care nurse OTHER ORDERS: nystatin powder to affected areas bid CHECKS AFTER DISCHARGE CHECKS AFTER DISCHARGE: Check blood sugar, ac/hs COMMENTS: VS per routine, Weigh weekly FOLLOW-UP PHYSICIAN FOLLOW-UP: Admit to facility MD LAB ORDERS FOR FOLLOW-UP: CBC with diff, CMP Pre albumin, Mg TREATMENT/EQUIPMENT ORDERS ADAPTIVE EQUIPMENT NEEDED: Wheelchair RESPIRATORY EQUIPMENT NEEDED: Oxygen (2L during day), BiPAP (at hs, continue preadmit settings) NATTY FOY APRN June 23, 2016 08:42
[2016-06-23] MEDS: POTASSIUM CHLORIDE 20 MEQ TABLET.ER. PO SCH (08:55)
[2016-06-23] MEDS: PRIMIDONE 250 MG TABLET PO SCH ×2 (08:55→20:59)
[2016-06-23] MEDS: MULTIVITAMIN with MINERAL TABLET. PO SCH (08:55)
[2016-06-23] MEDS: FERROUS SULFATE 325 MG TABLET. PO SCH ×3 (08:56→17:43)
[2016-06-23] MEDS: FOLIC ACID 1 MG TABLET. PO SCH ×2 (08:56→20:59)
[2016-06-23] MEDS: ESCITALOPRAM 10 MG TABLET. PO SCH (08:56)
[2016-06-23] MEDS: CHOLECALCIFEROL (VITAMIN D3) 1,000 UNIT TABLET PO SCH (08:56)
[2016-06-23] MEDS: CETIRIZINE HCL 10 MG TABLET. PO SCH (08:56)
[2016-06-23] MEDS: amLODIPine BESYLATE 2.5 MG TABLET PO SCH (08:57)
[2016-06-23] MEDS: CYANOCOBALAMIN (VITAMIN B-12) 1,000 MCG TABLET. PO SCH (08:57)
[2016-06-23] MEDS: LIDOCAINE (700MG/PATCH) PATCH. TP SCH (08:58)
--- NOTE | 2016-06-23 08:58 | PDOC ---
Infectious Disease Note Subjective Subjective Doing ok. Trying to eat. No major pain with wound ROS ROS GEN: Denies fevers, chills, sweats HEENT: Denies blurred vision, sore throat CV: Denies chest pain RESP: Denies shortness of air, cough GI: Denies n/v/d NEURO: Denies confusion, dizziness MSK: Denies weakness, joint pain/swelling Vital Sign Vital Signs Vital Signs Date Time Temp Pulse Resp B/P (MAP) Pulse Ox O2 Delivery O2 Flow Rate FiO2 06/23/16 07:04 98 BiPAP/CPAP 06/23/16 07:00 97.0 76 22 132/74 (93) 97.0 06/23/16 03:00 98.0 Physical Exam PHYSICAL EXAM GENERAL: NAD, Alert, coop HEENT: PERRL, OC/OP - clear NECK: Supple, no JVD, no LN LUNGS: Clear HEART: S1S2, no gallop, no murmur. Chest wound with erythema and exposed wire ABD: Soft, NT, no organomegaly, no rebound, obese EXT: No edema, no cyanosis SECURITY TRAINER: Alert, oriented x 3, Tremor SKIN: No rash IV: ok Labs Lab Laboratory Tests Test 06/22/16 10:42 06/22/16 16:15 06/22/16 21:07 06/23/16 04:25 Glucose (Fingerstick) 154 mg/dL (70-99) 193 mg/dL (70-99) 253 mg/dL (70-99) White Blood Count 5.7 x10^3/uL (4.0-11.0) Red Blood Count 2.44 x10^6/uL (3.50-5.40) Hemoglobin 7.9 g/dL (12.0-15.5) Hematocrit 24.5 % (36.0-47.0) Mean Corpuscular Volume 100 fL (79-100) Mean Corpuscular Hemoglobin 32 pg (25-35) Mean Corpuscular Hemoglobin Concent 32 g/dL (31-37) Red Cell Distribution Width 13.3 % (11.5-14.5) Platelet Count 178 x10^3/uL (140-400) Neutrophils (%) (Auto) 67 % (31-73) Lymphocytes (%) (Auto) 21 % (24-48) Monocytes (%) (Auto) 8 % (0-9) Eosinophils (%) (Auto) 4 % (0-3) Basophils (%) (Auto) 1 % (0-3) Neutrophils # (Auto) 3.8 x10^3uL (1.8-7.7) Lymphocytes # (Auto) 1.2 x10^3/uL (1.0-4.8) Monocytes # (Auto) 0.4 x10^3/uL (0.0-1.1) Eosinophils # (Auto) 0.2 x10^3/uL (0.0-0.7) Basophils # (Auto) 0.0 x10^3/uL (0.0-0.2) Prothrombin Time 17.7 SEC (11.7-14.0) Prothromb Time International Ratio 1.6 (0.8-1.1) Sodium Level 151 mmol/L (136-145) Potassium Level 4.0 mmol/L (3.5-5.1) Chloride Level 116 mmol/L (98-107) Carbon Dioxide Level 28 mmol/L (21-32) Anion Gap 7 (6-14) Blood Urea Nitrogen 77 mg/dL (7-20) Creatinine 1.1 mg/dL (0.6-1.0) Estimated GFR (Cockcroft-Gault) 47.7 BUN/Creatinine Ratio 70 (6-20) Glucose Level 123 mg/dL (70-99) Calcium Level 6.7 mg/dL (8.5-10.1) Magnesium Level 1.5 mg/dL (1.8-2.4) Total Bilirubin 0.2 mg/dL (0.2-1.0) Aspartate Amino Transf (AST/SGOT) 15 U/L (15-37) Alanine Aminotransferase (ALT/SGPT) 18 U/L (14-59) Alkaline Phosphatase 70 U/L (46-116) Total Protein 5.6 g/dL (6.4-8.2) Albumin 2.1 g/dL (3.4-5.0) Albumin/Globulin Ratio 0.6 (1.0-1.7) Test 06/23/16 07:03 Glucose (Fingerstick) 156 mg/dL (70-99) Micro 06/19 URINE CULTURE RES 1 Final Escherichia coli Greater than 100,000 colony forming units per mL ANTIMICROBIAL SUSCEPTIBILITY Final Comment S = Susceptible; I = Intermediate; R = Resistant P = Positive; N = Negative MICS are expressed in micrograms per mL Antibiotic RSLT#1 RSLT#2 RSLT#3 RSLT#4 Amoxicillin/Clavulanic Acid I Ampicillin R Cefepime S Ceftriaxone S Cefuroxime S Cephalothin I Ciprofloxacin R Ertapenem S Gentamicin S Imipenem S Levofloxacin R Nitrofurantoin S Piperacillin R Tetracycline R Tobramycin S Trimethoprim/Sulfa S Objective Assessment UTI - POA 06/19. Ecoli Sternal wound with exposed wire -has had chronic infection. group C in wound Abx allergies but tolerating Rocephin AVR Plan Plan of Care Aprreciate Dr. Shipman's input Cont Rocephin for now Will await Dr. Fan d/w family on how aggressive they desire to try and contain the chronically infected wound. Aggressive measures outside of surgery involves a PICC line and 6 weeks of abx and then chronic suppressive. Other option is only oral chronic suppressive. Overall cure is unlikely but this has been a chronic problem for quite sometime. F/u wound cults but will grow bacteria anyway as it is a surface cults NARENDRA KOHLER MD June 23, 2016 08:58
[2016-06-23] MEDS: NYSTATIN TOPICAL POWDER 15GM BOTTLE. TP SCH ×2 (08:59→21:01)
[2016-06-23] MEDS: FLUTICASONE 50MCG/NASAL SPRAY 16GM BOTTLE. NS SCH (08:59)
[2016-06-23] MEDS: CALCIUM CARBONATE 500 MG TABLET PO SCH (09:00)
[2016-06-23] MEDS ORDERED: MAGNESIUM SULFATE 4GM 100 ML IV ONE (09:00)
[2016-06-23] MEDS: ANASTROZOLE 1 MG TABLET PO SCH (09:14)
[2016-06-23 11:00] VITALS: BP 132/74
--- NOTE | 2016-06-23 12:38 | PDOC ---
SUBJECTIVE ROS MARTA and elyte ABN no won BiPap - nods head appropriately? OBJECTIVE Vital Signs Vital Signs Date Time Temp Pulse Resp B/P (MAP) Pulse Ox O2 Delivery O2 Flow Rate FiO2 06/23/16 11:17 97 BiPAP/CPAP 06/23/16 11:12 2.0 06/23/16 11:00 97.8 76 22 132/74 (93) 97.8 I & 0 Intake and Output 06/23/16 07:00 Intake Total 2280 ml Balance 2280 ml Intake Oral 2280 ml # Voids 8 PHYSICAL EXAM Physical Exam General Appearance: Awake rel Alert Oriented x 1 In no Distress; morbidly obese, bed bound Eyes: VIsion Unchanged Conjunctiva Normal EN: No EN Drainage Mucous Memb. moist Neck: no JVD no JVP Supple no Thyromegaly CVS: S1 S2 no Murmur No Gallop No Rub non-pitting Edema - distal HS ; sternal wound with dressing Resp: no Rales no Rhonchi no Acc. Muscle use - distal BS GI: BS +ve NO Bruit Non Tender Non Distended - obese : no CVA tenderness; no Suprapubic Tenderness Assessment & Plan CKD III - Creat close to previous baseline #s. Current FLuid and E-lyte status does not necessitate emergent need for Dialysis. Will re-evaluate for Dialysis in am Sev Azotemia - ? Due to dehydration change IVF as ordered; Anemia: Fe def in the past - reval for same HTN: Current BP meds reviewed. See orders for changes. Low jenny - IV Mag and Jenny with IVF ^Na - Hypotnoic IVF COMMENT/RELEVANT DATA Meds Current Medications Medications (Trade) Dose Ordered Sig/Felicia Start Time Stop Time Status Last Admin Dose Admin Acetaminophen (Tylenol) 1,000 mg PRN Q6HRS PRN 06/22/16 09:45 Albuterol/ Ipratropium (Duoneb) 3 ml RTQID 06/21/16 20:00 06/23/16 11:09 3 ML Amlodipine Besylate (Norvasc) 2.5 mg DAILY 06/22/16 10:00 06/23/16 08:57 2.5 MG Anastrozole (Arimidex) 1 mg DAILY 06/20/16 09:00 06/23/16 09:14 1 MG Artificial Tears (Artificial Tears) 1 drop PRN Q2HR PRN 06/22/16 09:30 UNV Calcium Carbonate/ Glycine (Oscal) 500 mg DAILY 06/20/16 09:00 06/23/16 09:00 500 MG Ceftriaxone Sodium 1 gm/ Sodium Chloride 50 ml @ 100 mls/hr Q24H 06/21/16 12:00 06/22/16 12:00 100 MLS/HR Cetirizine HCl (ZyrTEC) 10 mg DAILY 06/20/16 09:00 06/23/16 08:56 10 MG Cyanocobalamin (Vitamin B-12) 1,000 mcg DAILY 06/20/16 09:00 06/23/16 08:57 1,000 MCG Diphenhydramine HCl (Benadryl) 25 mg PRN Q6HRS PRN 06/19/16 23:30 Doxycycline Hyclate 100 mg/ Dextrose 100 ml @ 50 mls/hr 1X ONCE 06/19/16 19:00 06/19/16 20:59 DC 06/19/16 20:41 50 MLS/HR Enoxaparin Sodium (Lovenox 40mg Syringe) 40 mg 1X ONCE 06/22/16 08:45 06/22/16 08:46 UNV Escitalopram Oxalate (Lexapro) 20 mg DAILY 06/20/16 09:00 06/23/16 08:56 20 MG Famotidine (Pepcid) 20 mg 1X ONCE 06/19/16 19:30 06/19/16 19:31 DC 06/19/16 20:40 20 MG Ferrous Sulfate (Feosol) 325 mg TIDWMEALS 06/20/16 08:00 06/23/16 08:56 325 MG Fluticasone Propionate (Flonase) 2 spray DAILY 06/20/16 09:00 06/23/16 08:59 2 SPRAY Folic Acid (Folic Acid) 1 mg BID 06/20/16 09:00 06/23/16 08:56 1 MG Furosemide (Lasix) 40 mg DAILY 06/20/16 09:00 06/21/16 11:05 DC 06/21/16 08:27 40 MG Gabapentin (Neurontin) 100 mg HS 06/20/16 21:00 06/22/16 21:24 100 MG Insulin Detemir (Levemir) 8 units QHS 06/23/16 21:00 Levofloxacin/ Dextrose 100 ml @ 100 mls/hr 1X ONCE 06/19/16 18:45 06/19/16 19:44 DC 06/19/16 18:59 100 MLS/HR Lidocaine (Lidoderm) 1 patch DAILY 06/20/16 09:00 06/23/16 08:58 1 PATCH Magnesium Sulfate/ Dextrose 100 ml @ 25 mls/hr 1X ONCE 06/23/16 09:00 06/23/16 12:59 06/23/16 10:15 25 MLS/HR Montelukast Sodium (Singulair) 10 mg HS 06/20/16 21:00 06/22/16 21:24 10 MG Multivitamins (Thera M Plus) 1 tab DAILY 06/20/16 09:00 06/23/16 08:55 1 TAB Non-Formulary Medication 200 mg DAILY 06/20/16 09:00 06/22/16 11:16 DC Nystatin (Nystop) 1 charlie BID 06/20/16 09:00 06/23/16 08:59 1 CHARLIE Polyethylene Glycol (miraLAX PACKET) 17 gm PRN DAILY PRN 06/19/16 23:30 Potassium Chloride (Klor-Con) 20 meq DAILYWBKFT 06/22/16 10:00 06/23/16 08:55 20 MEQ Primidone (Mysoline) 250 mg BID 06/20/16 09:00 06/23/16 08:55 250 MG Rivaroxaban (Xarelto) 20 mg DAILYWSUP 06/22/16 17:00 06/22/16 16:57 20 MG Sodium Chloride 1,000 ml @ 75 mls/hr [id number] 06/21/16 11:15 06/23/16 08:48 DC 06/22/16 19:30 75 MLS/HR Vitamin D (Vitamin D3) 1,000 unit DAILY 06/20/16 09:00 06/23/16 08:56 1,000 UNIT Warfarin Sodium (Coumadin Per Pharmacy) 1 each PRN DAILY PRN 06/22/16 08:45 06/22/16 09:32 DC Warfarin Sodium (Coumadin Per Physician) 1 each PRN DAILY PRN 06/20/16 06:00 06/22/16 08:36 DC 06/20/16 06:00 1 EACH Warfarin Sodium (Coumadin) 10 mg DAILY16 06/20/16 16:00 06/22/16 09:32 DC 06/21/16 17:35 10 MG Lab Laboratory Tests Test 06/22/16 16:15 06/22/16 21:07 06/23/16 04:25 06/23/16 07:03 Glucose (Fingerstick) 193 mg/dL (70-99) 253 mg/dL (70-99) 156 mg/dL (70-99) White Blood Count 5.7 x10^3/uL (4.0-11.0) Red Blood Count 2.44 x10^6/uL (3.50-5.40) Hemoglobin 7.9 g/dL (12.0-15.5) Hematocrit 24.5 % (36.0-47.0) Mean Corpuscular Volume 100 fL (79-100) Mean Corpuscular Hemoglobin 32 pg (25-35) Mean Corpuscular Hemoglobin Concent 32 g/dL (31-37) Red Cell Distribution Width 13.3 % (11.5-14.5) Platelet Count 178 x10^3/uL (140-400) Neutrophils (%) (Auto) 67 % (31-73) Lymphocytes (%) (Auto) 21 % (24-48) Monocytes (%) (Auto) 8 % (0-9) Eosinophils (%) (Auto) 4 % (0-3) Basophils (%) (Auto) 1 % (0-3) Neutrophils # (Auto) 3.8 x10^3uL (1.8-7.7) Lymphocytes # (Auto) 1.2 x10^3/uL (1.0-4.8) Monocytes # (Auto) 0.4 x10^3/uL (0.0-1.1) Eosinophils # (Auto) 0.2 x10^3/uL (0.0-0.7) Basophils # (Auto) 0.0 x10^3/uL (0.0-0.2) Prothrombin Time 17.7 SEC (11.7-14.0) Prothromb Time International Ratio 1.6 (0.8-1.1) Sodium Level 151 mmol/L (136-145) Potassium Level 4.0 mmol/L (3.5-5.1) Chloride Level 116 mmol/L (98-107) Carbon Dioxide Level 28 mmol/L (21-32) Anion Gap 7 (6-14) Blood Urea Nitrogen 77 mg/dL (7-20) Creatinine 1.1 mg/dL (0.6-1.0) Estimated GFR (Cockcroft-Gault) 47.7 BUN/Creatinine Ratio 70 (6-20) Glucose Level 123 mg/dL (70-99) Calcium Level 6.7 mg/dL (8.5-10.1) Magnesium Level 1.5 mg/dL (1.8-2.4) Total Bilirubin 0.2 mg/dL (0.2-1.0) Aspartate Amino Transf (AST/SGOT) 15 U/L (15-37) Alanine Aminotransferase (ALT/SGPT) 18 U/L (14-59) Alkaline Phosphatase 70 U/L (46-116) Total Protein 5.6 g/dL (6.4-8.2) Albumin 2.1 g/dL (3.4-5.0) Albumin/Globulin Ratio 0.6 (1.0-1.7) Test 06/23/16 11:06 Glucose (Fingerstick) 174 mg/dL (70-99) ALLYN LUNSFORD MD June 23, 2016 12:38
--- NOTE | 2016-06-23 13:41 | PDOC ---
PULMONARY PROGRESS NOTES Subjective no soa sleepy intermittently Vitals Vital Signs Date Time Temp Pulse Resp B/P (MAP) Pulse Ox O2 Delivery O2 Flow Rate FiO2 06/23/16 11:17 97 BiPAP/CPAP 06/23/16 11:12 2.0 06/23/16 11:00 97.8 76 22 132/74 (93) 97.8 General: No acute distress Lungs: Clear Cardiovascular: S1 Abdomen: Soft Extremities: Other (1+edema) Labs Laboratory Tests Test 06/21/16 17:08 06/21/16 20:32 06/22/16 04:55 06/22/16 07:15 Glucose (Fingerstick) 159 mg/dL (70-99) 183 mg/dL (70-99) 131 mg/dL (70-99) Erythrocyte Sedimentation Rate 64 (0-25) Reticulocyte Count (auto) 2.4 % (0.5-2.5) Prothrombin Time 14.3 SEC (11.7-14.0) Prothromb Time International Ratio 1.2 (0.8-1.1) Sodium Level 145 mmol/L (136-145) Potassium Level 4.5 mmol/L (3.5-5.1) Chloride Level 107 mmol/L (98-107) Carbon Dioxide Level 32 mmol/L (21-32) Anion Gap 6 (6-14) Blood Urea Nitrogen 100 mg/dL (7-20) Creatinine 1.5 mg/dL (0.6-1.0) Estimated GFR (Cockcroft-Gault) 33.3 Glucose Level 149 mg/dL (70-99) Calcium Level 8.7 mg/dL (8.5-10.1) Iron Level 34 ug/dL (50-170) Total Iron Binding Capacity 183 ug/dL (250-450) Iron Saturation 19 % (15-34) Ferritin 74 ng/mL (8-252) Test 06/22/16 10:42 06/22/16 16:15 06/22/16 21:07 06/23/16 04:25 Glucose (Fingerstick) 154 mg/dL (70-99) 193 mg/dL (70-99) 253 mg/dL (70-99) White Blood Count 5.7 x10^3/uL (4.0-11.0) Red Blood Count 2.44 x10^6/uL (3.50-5.40) Hemoglobin 7.9 g/dL (12.0-15.5) Hematocrit 24.5 % (36.0-47.0) Mean Corpuscular Volume 100 fL (79-100) Mean Corpuscular Hemoglobin 32 pg (25-35) Mean Corpuscular Hemoglobin Concent 32 g/dL (31-37) Red Cell Distribution Width 13.3 % (11.5-14.5) Platelet Count 178 x10^3/uL (140-400) Neutrophils (%) (Auto) 67 % (31-73) Lymphocytes (%) (Auto) 21 % (24-48) Monocytes (%) (Auto) 8 % (0-9) Eosinophils (%) (Auto) 4 % (0-3) Basophils (%) (Auto) 1 % (0-3) Neutrophils # (Auto) 3.8 x10^3uL (1.8-7.7) Lymphocytes # (Auto) 1.2 x10^3/uL (1.0-4.8) Monocytes # (Auto) 0.4 x10^3/uL (0.0-1.1) Eosinophils # (Auto) 0.2 x10^3/uL (0.0-0.7) Basophils # (Auto) 0.0 x10^3/uL (0.0-0.2) Prothrombin Time 17.7 SEC (11.7-14.0) Prothromb Time International Ratio 1.6 (0.8-1.1) Sodium Level 151 mmol/L (136-145) Potassium Level 4.0 mmol/L (3.5-5.1) Chloride Level 116 mmol/L (98-107) Carbon Dioxide Level 28 mmol/L (21-32) Anion Gap 7 (6-14) Blood Urea Nitrogen 77 mg/dL (7-20) Creatinine 1.1 mg/dL (0.6-1.0) Estimated GFR (Cockcroft-Gault) 47.7 BUN/Creatinine Ratio 70 (6-20) Glucose Level 123 mg/dL (70-99) Calcium Level 6.7 mg/dL (8.5-10.1) Magnesium Level 1.5 mg/dL (1.8-2.4) Total Bilirubin 0.2 mg/dL (0.2-1.0) Aspartate Amino Transf (AST/SGOT) 15 U/L (15-37) Alanine Aminotransferase (ALT/SGPT) 18 U/L (14-59) Alkaline Phosphatase 70 U/L (46-116) Total Protein 5.6 g/dL (6.4-8.2) Albumin 2.1 g/dL (3.4-5.0) Albumin/Globulin Ratio 0.6 (1.0-1.7) Test 06/23/16 07:03 06/23/16 11:06 Glucose (Fingerstick) 156 mg/dL (70-99) 174 mg/dL (70-99) Laboratory Tests Test 06/22/16 16:15 06/22/16 21:07 06/23/16 04:25 06/23/16 07:03 Glucose (Fingerstick) 193 mg/dL (70-99) 253 mg/dL (70-99) 156 mg/dL (70-99) White Blood Count 5.7 x10^3/uL (4.0-11.0) Red Blood Count 2.44 x10^6/uL (3.50-5.40) Hemoglobin 7.9 g/dL (12.0-15.5) Hematocrit 24.5 % (36.0-47.0) Mean Corpuscular Volume 100 fL (79-100) Mean Corpuscular Hemoglobin 32 pg (25-35) Mean Corpuscular Hemoglobin Concent 32 g/dL (31-37) Red Cell Distribution Width 13.3 % (11.5-14.5) Platelet Count 178 x10^3/uL (140-400) Neutrophils (%) (Auto) 67 % (31-73) Lymphocytes (%) (Auto) 21 % (24-48) Monocytes (%) (Auto) 8 % (0-9) Eosinophils (%) (Auto) 4 % (0-3) Basophils (%) (Auto) 1 % (0-3) Neutrophils # (Auto) 3.8 x10^3uL (1.8-7.7) Lymphocytes # (Auto) 1.2 x10^3/uL (1.0-4.8) Monocytes # (Auto) 0.4 x10^3/uL (0.0-1.1) Eosinophils # (Auto) 0.2 x10^3/uL (0.0-0.7) Basophils # (Auto) 0.0 x10^3/uL (0.0-0.2) Prothrombin Time 17.7 SEC (11.7-14.0) Prothromb Time International Ratio 1.6 (0.8-1.1) Sodium Level 151 mmol/L (136-145) Potassium Level 4.0 mmol/L (3.5-5.1) Chloride Level 116 mmol/L (98-107) Carbon Dioxide Level 28 mmol/L (21-32) Anion Gap 7 (6-14) Blood Urea Nitrogen 77 mg/dL (7-20) Creatinine 1.1 mg/dL (0.6-1.0) Estimated GFR (Cockcroft-Gault) 47.7 BUN/Creatinine Ratio 70 (6-20) Glucose Level 123 mg/dL (70-99) Calcium Level 6.7 mg/dL (8.5-10.1) Magnesium Level 1.5 mg/dL (1.8-2.4) Total Bilirubin 0.2 mg/dL (0.2-1.0) Aspartate Amino Transf (AST/SGOT) 15 U/L (15-37) Alanine Aminotransferase (ALT/SGPT) 18 U/L (14-59) Alkaline Phosphatase 70 U/L (46-116) Total Protein 5.6 g/dL (6.4-8.2) Albumin 2.1 g/dL (3.4-5.0) Albumin/Globulin Ratio 0.6 (1.0-1.7) Test 06/23/16 11:06 Glucose (Fingerstick) 174 mg/dL (70-99) Medications Active Scripts Medications Dose Route/Sig Max Daily Dose Days Date Category Doxycycline Hyclate 100 Mg Tablet.dr 100 Mg PO BID 04/14/16 Rx Cefpodoxime Proxetil 200 Mg Tablet 200 Mg PO BID 06/07/15 Rx Levemir (Insulin Detemir) 100 Unit/1 Ml Vial 5 Unit SQ HS 06/05/15 Reported Potassium Chloride 10 Meq Capsule.er 10 Meq PO DAILY 06/05/15 Reported Soothe & Cool Skin Paste (Zinc Oxide/Petrolatum,White) 71 Gm Oint...g. Gm TP 06/05/15 Reported Vitamin D3 (Cholecalciferol (Vitamin D3)) 1,000 Unit Tablet 1 Tab PO DAILY 06/05/15 Reported Furosemide 40 Mg Tablet 1 Tab PO DAILY 06/05/15 Reported Warfarin Sodium 10 Mg Tablet 10 Mg PO DAILY 01/22/15 Rx Fluticasone Propionate Nasal [place] (Fluticasone Propionate) 16 Gm [place].susp 2 [place] NS DAILY 01/18/15 Reported Artificial Tears Eye Drops (Dextran 70/Hypromellose) 15 Ml Drops 1 Drop EACHEYE PRN DAILY PRN 01/18/15 Reported Anastrozole 1 Mg Tablet 1 Mg PO DAILY 01/18/15 Reported Tylenol (Acetaminophen) 325 Mg Tablet 650 Mg PO PRN Q6HRS PRN 01/18/15 Reported Multi-Day Vitamins (Multivitamin) 1 Each Tablet 1 Tab PO DAILY 01/18/15 Reported Singulair Tablet (Montelukast Sodium) 10 Mg Tablet 10 Mg PO HS 01/18/15 Reported Primidone 250 Mg Tablet 250 Mg PO BID 01/17/15 Reported Polyethylene Glycol 3350 17 Gm Powd.pack 17 Gm PO PRN DAILY PRN 01/17/15 Reported Nystatin 1 Each Powder.ea. 1 [place] TOP BID 01/17/15 Reported Modafinil 100 Mg Tablet 200 Mg PO DAILY 01/17/15 Reported Lidoderm (Lidocaine) 700 Mg Adh..patch 1 Patch TP DAILY 01/17/15 Reported Gabapentin 100 Mg Capsule 100 Mg PO HS 01/17/15 Reported Folic Acid 1 Mg Tablet 1 Mg PO BID 01/17/15 Reported Ferrous Sulfate 325 Mg Tablet 325 Mg PO TIDWMEALS 01/17/15 Reported Escitalopram Oxalate 20 Mg Tablet 20 Mg PO DAILY 01/17/15 Reported B-12 (Cyanocobalamin (Vitamin B-12)) 1,000 Mcg Tablet.er 1,000 Mcg PO DAILY 01/17/15 Reported Claritin (Loratadine) 10 Mg Capsule 10 Mg PO DAILY 01/17/15 Reported Calcium Carbonate 500 Mg Tablet 500 Mg PO DAILY 01/17/15 Reported Benadryl (Diphenhydramine Hcl) 25 Mg Capsule 25 Mg PO PRN Q6HRS PRN 01/17/15 Reported Impression . 1. Acute on chronic hypercapnic respiratory failure in a patient who has underlying morbid obesity with a BMI of 58 and most likely has obesity hypoventilation syndrome. Her ABGs have shown improvement with the nocturnal use of BiPAP. 2. Encephalopathy present on admission secondary to combination of uremic encephalopathy and hypercarbia, currently improving. 3. No significant history of tobacco use. 4. Sternal wound. 5. Prerenal azotemia secondary to volume depletion. Plan . 1. Continue BiPAP at bedtime and p.r.n. during the day. 2. Avoid benzodiazepines and narcotics. 3. Continue nebulizer treatment. 4. Continue on 2 liters oxygen during the day. 5. Antibiotics per ID recommendations. 6. Discussed with the patient's daughter at the bedside. 7. repeat ABG today FLORIDALMA GARCIA MD June 23, 2016 13:41
[2016-06-23] MEDS: ANTI-COAG MONITOR BY PHARMACY. MC PRN (13:44)
[2016-06-23] MEDS: MAGNESIUM SULFATE IV SCH (14:53)
[2016-06-23] MEDS: CALCIUM CHLORIDE IV SCH (14:53)
[2016-06-23] MEDS: DEXTROSE 5% IV SCH (14:53)
[2016-06-23 15:00] VITALS: BP 133/56
[2016-06-23 15:18] LABS: HCO3 ABG 33 mmol/L (21-28); PH ABG 7.32 (7.35-7.45); PO2 ABG 75 mmHg (65-108); SAT O2 ABG 94 % (92-99)
[2016-06-23] MEDS: RIVAROXABAN 10 MG TABLET. PO SCH (17:43)
[2016-06-23 19:59] VITALS: BP 140/58
[2016-06-23] MEDS: MONTELUKAST SODIUM 10 MG TABLET. PO SCH (20:59)
[2016-06-23] MEDS: GABAPENTIN 100 MG CAPSULE. PO SCH (20:59)
[2016-06-23] MEDS: INSULIN DETEMIR 300 UNITS/3 ML INSULN.PEN. SQ SCH (21:22)
[2016-06-23 23:59] VITALS: BP 137/52
[2016-06-24] MEDS: MAGNESIUM SULFATE IV SCH (01:52)
[2016-06-24] MEDS: CALCIUM CHLORIDE IV SCH (01:52)
[2016-06-24] MEDS: DEXTROSE 5% IV SCH (01:52)
[2016-06-24 03:59] VITALS: BP 113/45
[2016-06-24 05:20] LABS: BASO # 0.1 x10^3/uL (0.0-0.2); BASO % 1 % (0-3); EOS % 5 % (0-3); HEMATOCRIT 28.1 % (36.0-47.0); HEMOGLOBIN 9.3 g/dL (12.0-15.5); LYMPH # 1.6 x10^3/uL (1.0-4.8); LYMPH % 25 % (24-48); MEAN CORPUSCULAR HEMOGLOBIN 33 pg (25-35); MEAN CORPUSCULAR HGB CONC 33 g/dL (31-37); MEAN CORPUSCULAR VOLUME 99 fL (79-100); MONO % 8 % (0-9); NEUT % 60 % (31-73); PLATELET COUNT 205 x10^3/uL (140-400); RED BLOOD COUNT 2.85 x10^6/uL (3.50-5.40); RED CELL DISTRIBUTION WIDTH 13.5 % (11.5-14.5); WHITE BLOOD COUNT 6.1 x10^3/uL (4.0-11.0)
[2016-06-24 05:37] LABS: CALCIUM 9.9 mg/dL (8.5-10.1); CREATININE 1.3 mg/dL (0.6-1.0); GFR 39.3; MAGNESIUM 2.9 mg/dL (1.8-2.4)
[2016-06-24 07:00] VITALS: BP 134/62
[2016-06-24] MEDS: IPRATRPIUM/ALBUTEROL 0.5/2.5MG 3 ML NEBU. NEB SCH ×4 (07:40→19:31)
[2016-06-24] MEDS: ANTI-COAG MONITOR BY PHARMACY. MC PRN (07:41)
[2016-06-24] MEDS: POTASSIUM CHLORIDE 20 MEQ TABLET.ER. PO SCH ×2 (08:00→09:05)
[2016-06-24] MEDS: CALCIUM CARBONATE 500 MG TABLET PO SCH (09:02)
[2016-06-24] MEDS: FOLIC ACID 1 MG TABLET. PO SCH ×2 (09:02→20:40)
[2016-06-24] MEDS: MULTIVITAMIN with MINERAL TABLET. PO SCH (09:02)
[2016-06-24] MEDS: CYANOCOBALAMIN (VITAMIN B-12) 1,000 MCG TABLET. PO SCH (09:02)
[2016-06-24] MEDS: ESCITALOPRAM 10 MG TABLET. PO SCH (09:03)
[2016-06-24] MEDS: CHOLECALCIFEROL (VITAMIN D3) 1,000 UNIT TABLET PO SCH (09:03)
[2016-06-24] MEDS: amLODIPine BESYLATE 2.5 MG TABLET PO SCH (09:03)
[2016-06-24] MEDS: PRIMIDONE 250 MG TABLET PO SCH ×2 (09:03→20:40)
[2016-06-24] MEDS: CETIRIZINE HCL 10 MG TABLET. PO SCH (09:04)
[2016-06-24] MEDS: LIDOCAINE (700MG/PATCH) PATCH. TP SCH (09:04)
[2016-06-24] MEDS: FERROUS SULFATE 325 MG TABLET. PO SCH ×3 (09:04→17:06)
[2016-06-24] MEDS: FLUTICASONE 50MCG/NASAL SPRAY 16GM BOTTLE. NS SCH (09:04)
[2016-06-24] MEDS: NYSTATIN TOPICAL POWDER 15GM BOTTLE. TP SCH ×2 (09:05→20:45)
[2016-06-24] MEDS: ANASTROZOLE 1 MG TABLET PO SCH (09:06)
--- NOTE | 2016-06-24 10:45 | PDOC ---
PULMONARY PROGRESS NOTES Subjective no soa fully awake Vitals Vital Signs Date Time Temp Pulse Resp B/P (MAP) Pulse Ox O2 Delivery O2 Flow Rate FiO2 06/24/16 09:03 54 134/62 06/24/16 08:00 Bi-pap 06/24/16 07:40 99 06/24/16 07:00 97.3 22 97.3 06/23/16 19:59 2.0 General: Alert, No acute distress Lungs: Clear Cardiovascular: S1 Abdomen: Soft Extremities: Other (1+edema) Labs Laboratory Tests Test 06/22/16 16:15 06/22/16 21:07 06/23/16 04:25 06/23/16 07:03 Glucose (Fingerstick) 193 mg/dL (70-99) 253 mg/dL (70-99) 156 mg/dL (70-99) White Blood Count 5.7 x10^3/uL (4.0-11.0) Red Blood Count 2.44 x10^6/uL (3.50-5.40) Hemoglobin 7.9 g/dL (12.0-15.5) Hematocrit 24.5 % (36.0-47.0) Mean Corpuscular Volume 100 fL (79-100) Mean Corpuscular Hemoglobin 32 pg (25-35) Mean Corpuscular Hemoglobin Concent 32 g/dL (31-37) Red Cell Distribution Width 13.3 % (11.5-14.5) Platelet Count 178 x10^3/uL (140-400) Neutrophils (%) (Auto) 67 % (31-73) Lymphocytes (%) (Auto) 21 % (24-48) Monocytes (%) (Auto) 8 % (0-9) Eosinophils (%) (Auto) 4 % (0-3) Basophils (%) (Auto) 1 % (0-3) Neutrophils # (Auto) 3.8 x10^3uL (1.8-7.7) Lymphocytes # (Auto) 1.2 x10^3/uL (1.0-4.8) Monocytes # (Auto) 0.4 x10^3/uL (0.0-1.1) Eosinophils # (Auto) 0.2 x10^3/uL (0.0-0.7) Basophils # (Auto) 0.0 x10^3/uL (0.0-0.2) Prothrombin Time 17.7 SEC (11.7-14.0) Prothromb Time International Ratio 1.6 (0.8-1.1) Sodium Level 151 mmol/L (136-145) Potassium Level 4.0 mmol/L (3.5-5.1) Chloride Level 116 mmol/L (98-107) Carbon Dioxide Level 28 mmol/L (21-32) Anion Gap 7 (6-14) Blood Urea Nitrogen 77 mg/dL (7-20) Creatinine 1.1 mg/dL (0.6-1.0) Estimated GFR (Cockcroft-Gault) 47.7 BUN/Creatinine Ratio 70 (6-20) Glucose Level 123 mg/dL (70-99) Calcium Level 6.7 mg/dL (8.5-10.1) Magnesium Level 1.5 mg/dL (1.8-2.4) Total Bilirubin 0.2 mg/dL (0.2-1.0) Aspartate Amino Transf (AST/SGOT) 15 U/L (15-37) Alanine Aminotransferase (ALT/SGPT) 18 U/L (14-59) Alkaline Phosphatase 70 U/L (46-116) Total Protein 5.6 g/dL (6.4-8.2) Albumin 2.1 g/dL (3.4-5.0) Albumin/Globulin Ratio 0.6 (1.0-1.7) Test 06/23/16 11:06 06/23/16 14:50 06/23/16 17:20 06/23/16 20:58 Glucose (Fingerstick) 174 mg/dL (70-99) 199 mg/dL (70-99) 249 mg/dL (70-99) O2 Saturation 94 % (92-99) Arterial Blood pH 7.32 (7.35-7.45) Arterial Blood pCO2 at Patient Temp 66 mmHg (35-46) Arterial Blood pO2 at Patient Temp 75 mmHg (65-108) Arterial Blood HCO3 33 mmol/L (21-28) Arterial Blood Base Excess 5 mmol/L (-3-3) FiO2 28.0 Test 06/24/16 03:20 06/24/16 07:41 White Blood Count 6.1 x10^3/uL (4.0-11.0) Red Blood Count 2.85 x10^6/uL (3.50-5.40) Hemoglobin 9.3 g/dL (12.0-15.5) Hematocrit 28.1 % (36.0-47.0) Mean Corpuscular Volume 99 fL (79-100) Mean Corpuscular Hemoglobin 33 pg (25-35) Mean Corpuscular Hemoglobin Concent 33 g/dL (31-37) Red Cell Distribution Width 13.5 % (11.5-14.5) Platelet Count 205 x10^3/uL (140-400) Neutrophils (%) (Auto) 60 % (31-73) Lymphocytes (%) (Auto) 25 % (24-48) Monocytes (%) (Auto) 8 % (0-9) Eosinophils (%) (Auto) 5 % (0-3) Basophils (%) (Auto) 1 % (0-3) Neutrophils # (Auto) 3.7 x10^3uL (1.8-7.7) Lymphocytes # (Auto) 1.6 x10^3/uL (1.0-4.8) Monocytes # (Auto) 0.5 x10^3/uL (0.0-1.1) Eosinophils # (Auto) 0.3 x10^3/uL (0.0-0.7) Basophils # (Auto) 0.1 x10^3/uL (0.0-0.2) Sodium Level 148 mmol/L (136-145) Potassium Level 5.0 mmol/L (3.5-5.1) Chloride Level 110 mmol/L (98-107) Carbon Dioxide Level 33 mmol/L (21-32) Anion Gap 5 (6-14) Blood Urea Nitrogen 84 mg/dL (7-20) Creatinine 1.3 mg/dL (0.6-1.0) Estimated GFR (Cockcroft-Gault) 39.3 Glucose Level 169 mg/dL (70-99) Calcium Level 9.9 mg/dL (8.5-10.1) Magnesium Level 2.9 mg/dL (1.8-2.4) Glucose (Fingerstick) 141 mg/dL (70-99) Laboratory Tests Test 06/23/16 11:06 06/23/16 14:50 06/23/16 17:20 06/23/16 20:58 Glucose (Fingerstick) 174 mg/dL (70-99) 199 mg/dL (70-99) 249 mg/dL (70-99) O2 Saturation 94 % (92-99) Arterial Blood pH 7.32 (7.35-7.45) Arterial Blood pCO2 at Patient Temp 66 mmHg (35-46) Arterial Blood pO2 at Patient Temp 75 mmHg (65-108) Arterial Blood HCO3 33 mmol/L (21-28) Arterial Blood Base Excess 5 mmol/L (-3-3) FiO2 28.0 Test 06/24/16 03:20 06/24/16 07:41 White Blood Count 6.1 x10^3/uL (4.0-11.0) Red Blood Count 2.85 x10^6/uL (3.50-5.40) Hemoglobin 9.3 g/dL (12.0-15.5) Hematocrit 28.1 % (36.0-47.0) Mean Corpuscular Volume 99 fL (79-100) Mean Corpuscular Hemoglobin 33 pg (25-35) Mean Corpuscular Hemoglobin Concent 33 g/dL (31-37) Red Cell Distribution Width 13.5 % (11.5-14.5) Platelet Count 205 x10^3/uL (140-400) Neutrophils (%) (Auto) 60 % (31-73) Lymphocytes (%) (Auto) 25 % (24-48) Monocytes (%) (Auto) 8 % (0-9) Eosinophils (%) (Auto) 5 % (0-3) Basophils (%) (Auto) 1 % (0-3) Neutrophils # (Auto) 3.7 x10^3uL (1.8-7.7) Lymphocytes # (Auto) 1.6 x10^3/uL (1.0-4.8) Monocytes # (Auto) 0.5 x10^3/uL (0.0-1.1) Eosinophils # (Auto) 0.3 x10^3/uL (0.0-0.7) Basophils # (Auto) 0.1 x10^3/uL (0.0-0.2) Sodium Level 148 mmol/L (136-145) Potassium Level 5.0 mmol/L (3.5-5.1) Chloride Level 110 mmol/L (98-107) Carbon Dioxide Level 33 mmol/L (21-32) Anion Gap 5 (6-14) Blood Urea Nitrogen 84 mg/dL (7-20) Creatinine 1.3 mg/dL (0.6-1.0) Estimated GFR (Cockcroft-Gault) 39.3 Glucose Level 169 mg/dL (70-99) Calcium Level 9.9 mg/dL (8.5-10.1) Magnesium Level 2.9 mg/dL (1.8-2.4) Glucose (Fingerstick) 141 mg/dL (70-99) Medications Active Scripts Medications Dose Route/Sig Max Daily Dose Days Date Category Doxycycline Hyclate 100 Mg Tablet.dr 100 Mg PO BID 04/14/16 Rx Cefpodoxime Proxetil 200 Mg Tablet 200 Mg PO BID 06/07/15 Rx Levemir (Insulin Detemir) 100 Unit/1 Ml Vial 5 Unit SQ HS 06/05/15 Reported Potassium Chloride 10 Meq Capsule.er 10 Meq PO DAILY 06/05/15 Reported Soothe & Cool Skin Paste (Zinc Oxide/Petrolatum,White) 71 Gm Oint...g. Gm TP 06/05/15 Reported Vitamin D3 (Cholecalciferol (Vitamin D3)) 1,000 Unit Tablet 1 Tab PO DAILY 06/05/15 Reported Furosemide 40 Mg Tablet 1 Tab PO DAILY 06/05/15 Reported Warfarin Sodium 10 Mg Tablet 10 Mg PO DAILY 01/22/15 Rx Fluticasone Propionate Nasal [place] (Fluticasone Propionate) 16 Gm [place].susp 2 [place] NS DAILY 01/18/15 Reported Artificial Tears Eye Drops (Dextran 70/Hypromellose) 15 Ml Drops 1 Drop EACHEYE PRN DAILY PRN 01/18/15 Reported Anastrozole 1 Mg Tablet 1 Mg PO DAILY 01/18/15 Reported Tylenol (Acetaminophen) 325 Mg Tablet 650 Mg PO PRN Q6HRS PRN 01/18/15 Reported Multi-Day Vitamins (Multivitamin) 1 Each Tablet 1 Tab PO DAILY 01/18/15 Reported Singulair Tablet (Montelukast Sodium) 10 Mg Tablet 10 Mg PO HS 01/18/15 Reported Primidone 250 Mg Tablet 250 Mg PO BID 01/17/15 Reported Polyethylene Glycol 3350 17 Gm Powd.pack 17 Gm PO PRN DAILY PRN 01/17/15 Reported Nystatin 1 Each Powder.ea. 1 [place] TOP BID 01/17/15 Reported Modafinil 100 Mg Tablet 200 Mg PO DAILY 01/17/15 Reported Lidoderm (Lidocaine) 700 Mg Adh..patch 1 Patch TP DAILY 01/17/15 Reported Gabapentin 100 Mg Capsule 100 Mg PO HS 01/17/15 Reported Folic Acid 1 Mg Tablet 1 Mg PO BID 01/17/15 Reported Ferrous Sulfate 325 Mg Tablet 325 Mg PO TIDWMEALS 01/17/15 Reported Escitalopram Oxalate 20 Mg Tablet 20 Mg PO DAILY 01/17/15 Reported B-12 (Cyanocobalamin (Vitamin B-12)) 1,000 Mcg Tablet.er 1,000 Mcg PO DAILY 01/17/15 Reported Claritin (Loratadine) 10 Mg Capsule 10 Mg PO DAILY 01/17/15 Reported Calcium Carbonate 500 Mg Tablet 500 Mg PO DAILY 01/17/15 Reported Benadryl (Diphenhydramine Hcl) 25 Mg Capsule 25 Mg PO PRN Q6HRS PRN 01/17/15 Reported Impression . 1. Acute on chronic hypercapnic respiratory failure in a patient who has underlying morbid obesity with a BMI of 58 and most likely has obesity hypoventilation syndrome. On BiPAPqhs and prn 2. Encephalopathy present on admission secondary to combination of uremic encephalopathy and hypercarbia, currently improving. 3. No significant history of tobacco use. 4. Sternal wound. 5. Prerenal azotemia secondary to volume depletion. Plan . 1. Continue BiPAP at bedtime and p.r.n. during the day. 2. Avoid benzodiazepines and narcotics. 3. Continue nebulizer treatment. 4. Continue on 2 liters oxygen during the day. 5. Antibiotics per ID recommendations. FLORIDALMA GARCIA MD June 24, 2016 10:45
--- NOTE | 2016-06-24 10:55 | PDOC ---
Infectious Disease Note Subjective Subjective Feeling little cold, otherwise doing ok D ROS ROS GEN: Denies fevers, chills, sweats CV: Denies chest pain RESP: Denies shortness of air, cough GI: Denies n/v/d Vital Sign Vital Signs Vital Signs Date Time Temp Pulse Resp B/P (MAP) Pulse Ox O2 Delivery O2 Flow Rate FiO2 06/24/16 09:03 54 134/62 06/24/16 08:00 Bi-pap 06/24/16 07:40 99 06/24/16 07:00 97.3 22 97.3 06/23/16 19:59 2.0 Physical Exam PHYSICAL EXAM GENERAL: Propped up in bed, arouses easily to name HEENT: PERRL, OC/OP pink, dentures LUNGS: Clear HEART: S1S2, + click. Chest wound with exposed wire, dressing dry. 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 appropriately, tremors SKIN: No rash IV: ok Labs Lab Laboratory Tests Test 06/23/16 11:06 06/23/16 14:50 06/23/16 17:20 06/23/16 20:58 Glucose (Fingerstick) 174 mg/dL (70-99) 199 mg/dL (70-99) 249 mg/dL (70-99) O2 Saturation 94 % (92-99) Arterial Blood pH 7.32 (7.35-7.45) Arterial Blood pCO2 at Patient Temp 66 mmHg (35-46) Arterial Blood pO2 at Patient Temp 75 mmHg (65-108) Arterial Blood HCO3 33 mmol/L (21-28) Arterial Blood Base Excess 5 mmol/L (-3-3) FiO2 28.0 Test 06/24/16 03:20 06/24/16 07:41 White Blood Count 6.1 x10^3/uL (4.0-11.0) Red Blood Count 2.85 x10^6/uL (3.50-5.40) Hemoglobin 9.3 g/dL (12.0-15.5) Hematocrit 28.1 % (36.0-47.0) Mean Corpuscular Volume 99 fL (79-100) Mean Corpuscular Hemoglobin 33 pg (25-35) Mean Corpuscular Hemoglobin Concent 33 g/dL (31-37) Red Cell Distribution Width 13.5 % (11.5-14.5) Platelet Count 205 x10^3/uL (140-400) Neutrophils (%) (Auto) 60 % (31-73) Lymphocytes (%) (Auto) 25 % (24-48) Monocytes (%) (Auto) 8 % (0-9) Eosinophils (%) (Auto) 5 % (0-3) Basophils (%) (Auto) 1 % (0-3) Neutrophils # (Auto) 3.7 x10^3uL (1.8-7.7) Lymphocytes # (Auto) 1.6 x10^3/uL (1.0-4.8) Monocytes # (Auto) 0.5 x10^3/uL (0.0-1.1) Eosinophils # (Auto) 0.3 x10^3/uL (0.0-0.7) Basophils # (Auto) 0.1 x10^3/uL (0.0-0.2) Sodium Level 148 mmol/L (136-145) Potassium Level 5.0 mmol/L (3.5-5.1) Chloride Level 110 mmol/L (98-107) Carbon Dioxide Level 33 mmol/L (21-32) Anion Gap 5 (6-14) Blood Urea Nitrogen 84 mg/dL (7-20) Creatinine 1.3 mg/dL (0.6-1.0) Estimated GFR (Cockcroft-Gault) 39.3 Glucose Level 169 mg/dL (70-99) Calcium Level 9.9 mg/dL (8.5-10.1) Magnesium Level 2.9 mg/dL (1.8-2.4) Glucose (Fingerstick) 141 mg/dL (70-99) Micro Sternal wound AEROBIC RES 1 Final Comment Multiple negative rods present, none predominant. This is indicative of a heavily colonized/contaminated specimen site. No further microbiological characterization will be done as it will not provide clinically relevant information. Heavy growth AEROBIC RES 2 Final Mixed skin juaquin Heavy growth AEROBIC RES 3 Final Comment Beta hemolytic Streptococcus, group C Objective Assessment UTI - POA 06/19. 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 Fan's note, family agreed to long-term oral suppression and not 6 weeks of IV abx. wound culture heavily colonized Attending Co-Sign The patient was seen and interviewed as well as examined at the bedside. The chart was reviewed. The case was discussed. Agree with the plan of care. SNEHA FIELDS APRN June 24, 2016 10:55 MINDY LUNSFORD MD June 24, 2016 12:54
[2016-06-24 11:00] VITALS: BP 133/60
--- NOTE | 2016-06-24 11:00 | PDOC ---
Renal-Progress Notes Subjective Notes Notes NONE, CONFUSED History of Present Illness Hx of present illness NO CHANGE Vitals Vitals Vital Signs Date Time Temp Pulse Resp B/P (MAP) Pulse Ox O2 Delivery O2 Flow Rate FiO2 06/24/16 09:03 54 134/62 06/24/16 08:00 Bi-pap 06/24/16 07:40 99 06/24/16 07:00 97.3 22 97.3 06/23/16 19:59 2.0 Weight Weight [ ] I.O. Intake and Output Intake and Output 06/24/16 07:00 Intake Total 2770 ml Balance 2770 ml Intake Oral 1770 ml IV Total 1000 ml # Voids 8 Labs Labs Laboratory Tests Test 06/23/16 11:06 06/23/16 14:50 06/23/16 17:20 06/23/16 20:58 Glucose (Fingerstick) 174 mg/dL (70-99) 199 mg/dL (70-99) 249 mg/dL (70-99) O2 Saturation 94 % (92-99) Arterial Blood pH 7.32 (7.35-7.45) Arterial Blood pCO2 at Patient Temp 66 mmHg (35-46) Arterial Blood pO2 at Patient Temp 75 mmHg (65-108) Arterial Blood HCO3 33 mmol/L (21-28) Arterial Blood Base Excess 5 mmol/L (-3-3) FiO2 28.0 Test 06/24/16 03:20 06/24/16 07:41 White Blood Count 6.1 x10^3/uL (4.0-11.0) Red Blood Count 2.85 x10^6/uL (3.50-5.40) Hemoglobin 9.3 g/dL (12.0-15.5) Hematocrit 28.1 % (36.0-47.0) Mean Corpuscular Volume 99 fL (79-100) Mean Corpuscular Hemoglobin 33 pg (25-35) Mean Corpuscular Hemoglobin Concent 33 g/dL (31-37) Red Cell Distribution Width 13.5 % (11.5-14.5) Platelet Count 205 x10^3/uL (140-400) Neutrophils (%) (Auto) 60 % (31-73) Lymphocytes (%) (Auto) 25 % (24-48) Monocytes (%) (Auto) 8 % (0-9) Eosinophils (%) (Auto) 5 % (0-3) Basophils (%) (Auto) 1 % (0-3) Neutrophils # (Auto) 3.7 x10^3uL (1.8-7.7) Lymphocytes # (Auto) 1.6 x10^3/uL (1.0-4.8) Monocytes # (Auto) 0.5 x10^3/uL (0.0-1.1) Eosinophils # (Auto) 0.3 x10^3/uL (0.0-0.7) Basophils # (Auto) 0.1 x10^3/uL (0.0-0.2) Sodium Level 148 mmol/L (136-145) Potassium Level 5.0 mmol/L (3.5-5.1) Chloride Level 110 mmol/L (98-107) Carbon Dioxide Level 33 mmol/L (21-32) Anion Gap 5 (6-14) Blood Urea Nitrogen 84 mg/dL (7-20) Creatinine 1.3 mg/dL (0.6-1.0) Estimated GFR (Cockcroft-Gault) 39.3 Glucose Level 169 mg/dL (70-99) Calcium Level 9.9 mg/dL (8.5-10.1) Magnesium Level 2.9 mg/dL (1.8-2.4) Glucose (Fingerstick) 141 mg/dL (70-99) Micro Micro Microbiology 06/19/16 Blood Culture - Preliminary, Resulted NO GROWTH AFTER 4 DAYS 06/19/16 Urine Culture - Final, Complete 06/19/16 Urine Culture Result 1 (RAQUEL) - Final, Complete 06/19/16 Antimicrobic Susceptibility - Final, Complete 06/20/16 Gram Stain - Final, Complete Review of Systems Constitutional: yes: alert Ears/Nose/Throat: Yes: no symptom reported Eyes: Yes: no symptom reported Pulmonary: Yes dyspnea Musculoskeletal: Yes: no symptom reported Physical Exam General Appearance: no apparent distress Skin: warm Respiratory: decreased breath sounds, wheezing Heart: S1S2 Abdomen: soft Neurology: alert Assessment Assessment IMP DEHYDRATION HYPERNATREMIA MARTA WITH INCREASING BUN CREAT AND RATIO HYPERKALEMIA OBESITY HYPERCAPNIC RESP FAILURE PLAN IVF'S STOP KCL SUPPLEMENTS LABS IN AM JULIETA BARTLETT MD June 24, 2016 11:00
[2016-06-24] MEDS: IV 1/2 NORMAL SALINE 1,000 ML IV SCH (11:38)
--- NOTE | 2016-06-24 13:44 | PDOC ---
PROGRESS NOTES Subjective Subjective no complaints Objective Objective Vital Signs Date Time Temp Pulse Resp B/P (MAP) Pulse Ox O2 Delivery O2 Flow Rate FiO2 06/24/16 11:38 97 Nasal Cannula 2.0 06/24/16 11:00 98.0 66 24 133/60 (84) 98.0 Intake and Output 06/24/16 07:00 Intake Total 2770 ml Balance 2770 ml Intake Oral 1770 ml IV Total 1000 ml # Voids 8 Physical Exam Abdomen: Soft, No tenderness Heart: Regular rate, Normal S1, Normal S2, Other (valve clicking) Extremities: No clubbing, Other (pedal edema, reports chronic) General: Other (dementia) HEENT: Atraumatic Lungs: Other (diffuse wheezing) MUSCULOSKELETAL: Other (Sternotomy: there is minimal serous drainage with islands of poor granulation tissue formation, mid to inferior. Wound is 0,5cm deep, with exposed sternal wire) Neck: Supple Neuro: Normal speech, Other (severe dementia) Skin: No rashes, No breakdown, Other (mid chest wound, excoriations right chest s/p breast cancer treatment) Diagnosis Problem List Problems Medical Problems: (1) Hypercapnia Status: Acute (2) Mental status change Status: Acute Assessment Assessment Assessment 1. UTI Ecoli POA 2. ARF no MARTA or ATN with underlying CKD III stable, range Cr 1.5-1.9 BUN 70 POA 3. acute on chronic diastolic CHF POA 4. acute on chronic hypercapnic respiratory failure with underlying CHF, pulmonary HTN, COPD 5. Diabetes mellitus type 2 with neuropathy 6. Chronic tremors. 7. FERNANDO/OHS with BiPAP at HS, on oxygen via nasal cannula at 2 L/minute during day. 8. narcolepsy 9. History of aortic valve replacement, on xarelto 10. Atrial fibrillation, on xarelto PLAN: Na 148 improving. cr 1.3 went up. UTI rocephin IV since admit Urine CX E coli no ghotra a/c hypercapnic respiratory failure/FERNANDO -BIPAP at hs, NC during day pulmonary consult BiPap HS, O2 2L day ARF with underlying CKD nephrology consult Remains on Lasix 40mg po IV NS 75cc/hr-DC 06/23 sternal wound chronic osteomyelitis ID consulted betahemolytic group B strep second culture multiple gram neg rods, non predomninant =heavily colonized D/W Dr. Vigil-IV antibiotics x 6 week with oral suppressive after vs oral antibiotics. He will d/w Dr. Fan CV surgeon-continue chronic wound care, not surgical candidate metabolic encephalopathy improving h/o AVR and AFib xarelto resumed, coumadin stopped DM II BS 123-253 Levemir decreased from 9u to 5 unit SSI FSBS 06/23 Increase Levemir to 8 units DVT/GI prophylaxis warfarin until 06/21 xarelto initated 06/22 PPI anemia CD Admit 9.8 06/23 7.9 monitor continue B12/folate and Fe replacement Dysphagia speech eval-Downgrade diet to include honey thick liquids--dysphagia III w/ honey thick. Meds w/ honey thick liquids. For further plan of care please refer to the orders. Problems: Plan Plan of Care Problems Medical Problems: (1) Hypercapnia Status: Acute (2) Mental status change Status: Acute Comment Review of Relevant I have reviewed the following items glenna (where applicable) has been applied. Labs Laboratory Tests Test 06/23/16 14:50 06/23/16 17:20 06/23/16 20:58 06/24/16 03:20 O2 Saturation 94 % (92-99) Arterial Blood pH 7.32 (7.35-7.45) Arterial Blood pCO2 at Patient Temp 66 mmHg (35-46) Arterial Blood pO2 at Patient Temp 75 mmHg (65-108) Arterial Blood HCO3 33 mmol/L (21-28) Arterial Blood Base Excess 5 mmol/L (-3-3) FiO2 28.0 Glucose (Fingerstick) 199 mg/dL (70-99) 249 mg/dL (70-99) White Blood Count 6.1 x10^3/uL (4.0-11.0) Red Blood Count 2.85 x10^6/uL (3.50-5.40) Hemoglobin 9.3 g/dL (12.0-15.5) Hematocrit 28.1 % (36.0-47.0) Mean Corpuscular Volume 99 fL (79-100) Mean Corpuscular Hemoglobin 33 pg (25-35) Mean Corpuscular Hemoglobin Concent 33 g/dL (31-37) Red Cell Distribution Width 13.5 % (11.5-14.5) Platelet Count 205 x10^3/uL (140-400) Neutrophils (%) (Auto) 60 % (31-73) Lymphocytes (%) (Auto) 25 % (24-48) Monocytes (%) (Auto) 8 % (0-9) Eosinophils (%) (Auto) 5 % (0-3) Basophils (%) (Auto) 1 % (0-3) Neutrophils # (Auto) 3.7 x10^3uL (1.8-7.7) Lymphocytes # (Auto) 1.6 x10^3/uL (1.0-4.8) Monocytes # (Auto) 0.5 x10^3/uL (0.0-1.1) Eosinophils # (Auto) 0.3 x10^3/uL (0.0-0.7) Basophils # (Auto) 0.1 x10^3/uL (0.0-0.2) Sodium Level 148 mmol/L (136-145) Potassium Level 5.0 mmol/L (3.5-5.1) Chloride Level 110 mmol/L (98-107) Carbon Dioxide Level 33 mmol/L (21-32) Anion Gap 5 (6-14) Blood Urea Nitrogen 84 mg/dL (7-20) Creatinine 1.3 mg/dL (0.6-1.0) Estimated GFR (Cockcroft-Gault) 39.3 Glucose Level 169 mg/dL (70-99) Calcium Level 9.9 mg/dL (8.5-10.1) Magnesium Level 2.9 mg/dL (1.8-2.4) Test 06/24/16 07:41 06/24/16 11:13 Glucose (Fingerstick) 141 mg/dL (70-99) 210 mg/dL (70-99) Microbiology 06/19/16 Blood Culture - Preliminary, Resulted NO GROWTH AFTER 4 DAYS 06/19/16 Urine Culture - Final, Complete 06/19/16 Urine Culture Result 1 (RAQUEL) - Final, Complete 06/19/16 Antimicrobic Susceptibility - Final, Complete 06/20/16 Gram Stain - Final, Complete Medications Current Medications Insulin Detemir (Levemir) 8 units QHS SQ Last administered on 06/23/16 21:22; Start 06/23/16 at 21:00 Sodium Chloride 1,000 ml @ 75 mls/hr [id number] IV Last administered on 5/20/ 17at 11:38; Start 06/24/16 at 11:00 Vitals/I & O Vital Sign - Last 24 Hours 06/23/16 06/23/16 06/23/16 06/23/16 15:00 15:46 19:03 19:30 Temp 97.4 97.4 Pulse 68 Resp 18 B/P (MAP) 133/56 (81) Pulse Ox 98 96 98 O2 Delivery Room Air BiPAP/CPAP Nasal Cannula Nasal Cannula O2 Flow Rate 2.0 2.0 06/23/16 06/23/16 06/23/16 06/24/16 19:59 21:41 23:59 00:35 Temp 98.4 98.4 98.4 98.4 Pulse 66 51 Resp 20 19 B/P (MAP) 140/58 (85) 137/52 (80) Pulse Ox 96 98 100 O2 Delivery Nasal Cannula BiPAP/CPAP BiPAP/CPAP BiPAP/CPAP O2 Flow Rate 2.0 06/24/16 06/24/16 06/24/16 06/24/16 03:05 03:59 05:40 07:00 Temp 98.6 97.3 98.6 97.3 Pulse 60 54 Resp 18 22 B/P (MAP) 113/45 (67) 134/62 (86) Pulse Ox 98 96 O2 Delivery BiPAP/CPAP BiPAP/CPAP BiPAP/CPAP Nasal Cannula 06/24/16 06/24/16 06/24/16 06/24/16 07:40 08:00 09:03 11:00 Temp 98.0 98.0 Pulse 54 66 Resp 24 B/P (MAP) 134/62 133/60 (84) Pulse Ox 99 96 O2 Delivery BiPAP/CPAP Bi-pap Room Air 06/24/16 11:38 Pulse Ox 97 O2 Delivery Nasal Cannula O2 Flow Rate 2.0 Intake and Output 06/23/16 06/23/16 06/24/16 15:00 23:00 07:00 Intake Total 1110 ml 660 ml 1000 ml Balance 1110 ml 660 ml 1000 ml ZUNILDA MILLER MD June 24, 2016 13:43
[2016-06-24 14:58] VITALS: BP 142/70
[2016-06-24] MEDS: RIVAROXABAN 10 MG TABLET. PO SCH (17:07)
--- NOTE | 2016-06-24 18:28 | PDOC ---
Provider Note Provider Note She is back on IV fluids and is tolerating it well. No shortness of breath. Lungs are clear. Since she has no systolic or diastolic dysfunction of the left ventricle and no significant valvular dysfunction She should be able to tolerate the IV fluids well. NELIDA RAJPUT MD June 24, 2016 18:28
[2016-06-24 19:32] VITALS: BP 110/47
[2016-06-24] MEDS: MONTELUKAST SODIUM 10 MG TABLET. PO SCH (20:40)
[2016-06-24] MEDS: GABAPENTIN 100 MG CAPSULE. PO SCH (20:41)
[2016-06-24] MEDS: INSULIN DETEMIR 300 UNITS/3 ML INSULN.PEN. SQ SCH (20:44)
[2016-06-24 23:38] VITALS: BP 110/47
[2016-06-25] MEDS: IV 1/2 NORMAL SALINE 1,000 ML IV SCH ×3 (02:33→21:31)
[2016-06-25 05:19] LABS: BASO # 0.1 x10^3/uL (0.0-0.2); BASO % 1 % (0-3); EOS % 5 % (0-3); HEMATOCRIT 28.7 % (36.0-47.0); HEMOGLOBIN 9.2 g/dL (12.0-15.5); LYMPH # 1.7 x10^3/uL (1.0-4.8); LYMPH % 24 % (24-48); MEAN CORPUSCULAR HEMOGLOBIN 32 pg (25-35); MEAN CORPUSCULAR HGB CONC 32 g/dL (31-37); MEAN CORPUSCULAR VOLUME 100 fL (79-100); MONO % 7 % (0-9); NEUT % 63 % (31-73); PLATELET COUNT 211 x10^3/uL (140-400); RED BLOOD COUNT 2.88 x10^6/uL (3.50-5.40); RED CELL DISTRIBUTION WIDTH 13.4 % (11.5-14.5); WHITE BLOOD COUNT 7.1 x10^3/uL (4.0-11.0)
[2016-06-25 05:33] LABS: CALCIUM 9.2 mg/dL (8.5-10.1); CREATININE 1.4 mg/dL (0.6-1.0); GFR 36.1; MAGNESIUM 2.5 mg/dL (1.8-2.4)
[2016-06-25 05:35] LABS: POTASSIUM 5.5 mmol/L (3.5-5.1)
[2016-06-25 07:00] VITALS: BP 122/59
[2016-06-25] MEDS: IPRATRPIUM/ALBUTEROL 0.5/2.5MG 3 ML NEBU. NEB SCH ×4 (08:41→20:12)
[2016-06-25] MEDS: LIDOCAINE (700MG/PATCH) PATCH. TP SCH (08:57)
[2016-06-25] MEDS: CYANOCOBALAMIN (VITAMIN B-12) 1,000 MCG TABLET. PO SCH (08:58)
[2016-06-25] MEDS: FERROUS SULFATE 325 MG TABLET. PO SCH ×3 (08:58→17:16)
[2016-06-25] MEDS: ESCITALOPRAM 10 MG TABLET. PO SCH (08:58)
[2016-06-25] MEDS: FLUTICASONE 50MCG/NASAL SPRAY 16GM BOTTLE. NS SCH (08:58)
[2016-06-25] MEDS: CETIRIZINE HCL 10 MG TABLET. PO SCH (08:59)
[2016-06-25] MEDS: FOLIC ACID 1 MG TABLET. PO SCH ×2 (08:59→21:30)
[2016-06-25] MEDS: PRIMIDONE 250 MG TABLET PO SCH ×2 (08:59→21:29)
[2016-06-25] MEDS: CALCIUM CARBONATE 500 MG TABLET PO SCH (08:59)
[2016-06-25] MEDS: amLODIPine BESYLATE 2.5 MG TABLET PO SCH (08:59)
[2016-06-25] MEDS: MULTIVITAMIN with MINERAL TABLET. PO SCH (08:59)
[2016-06-25] MEDS: CHOLECALCIFEROL (VITAMIN D3) 1,000 UNIT TABLET PO SCH (08:59)
--- NOTE | 2016-06-25 08:59 | RAD ---
Indication: Heart failure. Technique: Upright portable chest radiograph was obtained and compared to a study from 3 days earlier. Findings: The heart is enlarged. Interstitial prominence and cephalization of the pulmonary vasculature is mild. There is no airspace disease. Valve repair is noted. There are clips in the right axilla. Leads overlie the patient. Impression: Mild vascular congestion and interstitial edema suspected.
[2016-06-25] MEDS: NYSTATIN TOPICAL POWDER 15GM BOTTLE. TP SCH ×2 (09:00→21:30)
[2016-06-25] MEDS: ANASTROZOLE 1 MG TABLET PO SCH (09:00)
--- NOTE | 2016-06-25 09:31 | PDOC ---
Infectious Disease Note Subjective Subjective Comfortable, denies pain ROS ROS GEN: Denies fevers, chills, sweats CV: Denies chest pain RESP: Denies cough GI: Denies n/v/d Vital Sign Vital Signs Vital Signs Date Time Temp Pulse Resp B/P (MAP) Pulse Ox O2 Delivery O2 Flow Rate FiO2 06/25/16 08:59 62 122/59 06/25/16 08:42 99 Nasal Cannula 2.0 06/25/16 07:00 98.4 22 98.4 Physical Exam PHYSICAL EXAM GENERAL: Propped up in bed, alert, NAD HEENT: PERRL, OC/OP pink LUNGS: Clear HEART: S1S2, + click. Chest wound with exposed wire, dressing dry. ABD: Obese, BS present, soft, NT EXT: BLE edema. No cyanosis. 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 SKIN: No rash IV: ok Labs Lab Laboratory Tests Test 06/24/16 11:13 06/24/16 20:39 06/25/16 03:50 06/25/16 06:56 Glucose (Fingerstick) 210 mg/dL (70-99) 166 mg/dL (70-99) 125 mg/dL (70-99) White Blood Count 7.1 x10^3/uL (4.0-11.0) Red Blood Count 2.88 x10^6/uL (3.50-5.40) Hemoglobin 9.2 g/dL (12.0-15.5) Hematocrit 28.7 % (36.0-47.0) Mean Corpuscular Volume 100 fL (79-100) Mean Corpuscular Hemoglobin 32 pg (25-35) Mean Corpuscular Hemoglobin Concent 32 g/dL (31-37) Red Cell Distribution Width 13.4 % (11.5-14.5) Platelet Count 211 x10^3/uL (140-400) Neutrophils (%) (Auto) 63 % (31-73) Lymphocytes (%) (Auto) 24 % (24-48) Monocytes (%) (Auto) 7 % (0-9) Eosinophils (%) (Auto) 5 % (0-3) Basophils (%) (Auto) 1 % (0-3) Neutrophils # (Auto) 4.5 x10^3uL (1.8-7.7) Lymphocytes # (Auto) 1.7 x10^3/uL (1.0-4.8) Monocytes # (Auto) 0.5 x10^3/uL (0.0-1.1) Eosinophils # (Auto) 0.4 x10^3/uL (0.0-0.7) Basophils # (Auto) 0.1 x10^3/uL (0.0-0.2) Sodium Level 146 mmol/L (136-145) Potassium Level 5.5 mmol/L (3.5-5.1) Chloride Level 111 mmol/L (98-107) Carbon Dioxide Level 33 mmol/L (21-32) Anion Gap 2 (6-14) Blood Urea Nitrogen 78 mg/dL (7-20) Creatinine 1.4 mg/dL (0.6-1.0) Estimated GFR (Cockcroft-Gault) 36.1 Glucose Level 148 mg/dL (70-99) Calcium Level 9.2 mg/dL (8.5-10.1) Magnesium Level 2.5 mg/dL (1.8-2.4) Objective Assessment UTI - POA 06/19. E. coli Sternal wound with exposed wire -has had chronic infection. group C strep in wound Abx allergies but tolerating Rocephin AVR Plan Plan of Care Cont Rocephin for now, change to po soon According to Dr. Fan's note, family agreed to long-term oral suppression and not 6 weeks of IV abx. wound culture heavily colonized Attending Co-Sign The patient was seen and interviewed as well as examined at the bedside. The chart was reviewed. The case was discussed. Agree with the plan of care. SNEHA FIELDS APRN June 25, 2016 09:31 MINDY LUNSFORD MD June 25, 2016 12:11
[2016-06-25 10:50] VITALS: BP 147/70
--- NOTE | 2016-06-25 11:16 | PDOC ---
Renal-Progress Notes Subjective Notes Notes NONE, SOMNOLENT History of Present Illness Hx of present illness NO CHANGE Vitals Vitals Vital Signs Date Time Temp Pulse Resp B/P (MAP) Pulse Ox O2 Delivery O2 Flow Rate FiO2 06/25/16 10:50 98.2 67 22 147/70 (95) 96 Nasal Cannula 2.0 98.2 Weight Weight [ ] I.O. Intake and Output Intake and Output 06/25/16 07:00 Intake Total 3140 ml Balance 3140 ml Intake Oral 1440 ml IV Total 500 ml Other 1200 ml # Voids 17 # Bowel Movements 1 Labs Labs Laboratory Tests Test 06/24/16 20:39 06/25/16 03:50 06/25/16 06:56 06/25/16 10:21 Glucose (Fingerstick) 166 mg/dL (70-99) 125 mg/dL (70-99) 227 mg/dL (70-99) White Blood Count 7.1 x10^3/uL (4.0-11.0) Red Blood Count 2.88 x10^6/uL (3.50-5.40) Hemoglobin 9.2 g/dL (12.0-15.5) Hematocrit 28.7 % (36.0-47.0) Mean Corpuscular Volume 100 fL (79-100) Mean Corpuscular Hemoglobin 32 pg (25-35) Mean Corpuscular Hemoglobin Concent 32 g/dL (31-37) Red Cell Distribution Width 13.4 % (11.5-14.5) Platelet Count 211 x10^3/uL (140-400) Neutrophils (%) (Auto) 63 % (31-73) Lymphocytes (%) (Auto) 24 % (24-48) Monocytes (%) (Auto) 7 % (0-9) Eosinophils (%) (Auto) 5 % (0-3) Basophils (%) (Auto) 1 % (0-3) Neutrophils # (Auto) 4.5 x10^3uL (1.8-7.7) Lymphocytes # (Auto) 1.7 x10^3/uL (1.0-4.8) Monocytes # (Auto) 0.5 x10^3/uL (0.0-1.1) Eosinophils # (Auto) 0.4 x10^3/uL (0.0-0.7) Basophils # (Auto) 0.1 x10^3/uL (0.0-0.2) Sodium Level 146 mmol/L (136-145) Potassium Level 5.5 mmol/L (3.5-5.1) Chloride Level 111 mmol/L (98-107) Carbon Dioxide Level 33 mmol/L (21-32) Anion Gap 2 (6-14) Blood Urea Nitrogen 78 mg/dL (7-20) Creatinine 1.4 mg/dL (0.6-1.0) Estimated GFR (Cockcroft-Gault) 36.1 Glucose Level 148 mg/dL (70-99) Calcium Level 9.2 mg/dL (8.5-10.1) Magnesium Level 2.5 mg/dL (1.8-2.4) Micro Micro Microbiology 06/19/16 Blood Culture - Final, Complete NO GROWTH AFTER 5 DAYS 06/19/16 Urine Culture - Final, Complete 06/19/16 Urine Culture Result 1 (RAQUEL) - Final, Complete 06/19/16 Antimicrobic Susceptibility - Final, Complete 06/20/16 Gram Stain - Final, Complete Review of Systems Constitutional: yes: alert Ears/Nose/Throat: Yes: no symptom reported Eyes: Yes: no symptom reported Pulmonary: Yes dyspnea Musculoskeletal: Yes: no symptom reported Physical Exam General Appearance: no apparent distress Skin: warm Respiratory: decreased breath sounds, wheezing Heart: S1S2 Abdomen: soft Neurology: alert Assessment Assessment IMP DEHYDRATION HYPERNATREMIA MARTA WITH INCREASING BUN CREAT AND RATIO HYPERKALEMIA OBESITY HYPERCAPNIC RESP FAILURE PLAN IVF'S PLACE HAINES FOR I/O'S LABS IN JULIETA BARTLETT MD June 25, 2016 11:16
--- NOTE | 2016-06-25 11:23 | PDOC ---
PULMONARY PROGRESS NOTES Subjective no soa fully awake Vitals Vital Signs Date Time Temp Pulse Resp B/P (MAP) Pulse Ox O2 Delivery O2 Flow Rate FiO2 06/25/16 10:50 98.2 67 22 147/70 (95) 96 Nasal Cannula 2.0 98.2 General: Alert, No acute distress Lungs: Clear Cardiovascular: S1 Abdomen: Soft Extremities: Other (1+edema) Labs Laboratory Tests Test 06/23/16 14:50 06/23/16 17:20 06/23/16 20:58 06/24/16 03:20 O2 Saturation 94 % (92-99) Arterial Blood pH 7.32 (7.35-7.45) Arterial Blood pCO2 at Patient Temp 66 mmHg (35-46) Arterial Blood pO2 at Patient Temp 75 mmHg (65-108) Arterial Blood HCO3 33 mmol/L (21-28) Arterial Blood Base Excess 5 mmol/L (-3-3) FiO2 28.0 Glucose (Fingerstick) 199 mg/dL (70-99) 249 mg/dL (70-99) White Blood Count 6.1 x10^3/uL (4.0-11.0) Red Blood Count 2.85 x10^6/uL (3.50-5.40) Hemoglobin 9.3 g/dL (12.0-15.5) Hematocrit 28.1 % (36.0-47.0) Mean Corpuscular Volume 99 fL (79-100) Mean Corpuscular Hemoglobin 33 pg (25-35) Mean Corpuscular Hemoglobin Concent 33 g/dL (31-37) Red Cell Distribution Width 13.5 % (11.5-14.5) Platelet Count 205 x10^3/uL (140-400) Neutrophils (%) (Auto) 60 % (31-73) Lymphocytes (%) (Auto) 25 % (24-48) Monocytes (%) (Auto) 8 % (0-9) Eosinophils (%) (Auto) 5 % (0-3) Basophils (%) (Auto) 1 % (0-3) Neutrophils # (Auto) 3.7 x10^3uL (1.8-7.7) Lymphocytes # (Auto) 1.6 x10^3/uL (1.0-4.8) Monocytes # (Auto) 0.5 x10^3/uL (0.0-1.1) Eosinophils # (Auto) 0.3 x10^3/uL (0.0-0.7) Basophils # (Auto) 0.1 x10^3/uL (0.0-0.2) Sodium Level 148 mmol/L (136-145) Potassium Level 5.0 mmol/L (3.5-5.1) Chloride Level 110 mmol/L (98-107) Carbon Dioxide Level 33 mmol/L (21-32) Anion Gap 5 (6-14) Blood Urea Nitrogen 84 mg/dL (7-20) Creatinine 1.3 mg/dL (0.6-1.0) Estimated GFR (Cockcroft-Gault) 39.3 Glucose Level 169 mg/dL (70-99) Calcium Level 9.9 mg/dL (8.5-10.1) Magnesium Level 2.9 mg/dL (1.8-2.4) Test 06/24/16 07:41 06/24/16 11:13 06/24/16 20:39 06/25/16 03:50 Glucose (Fingerstick) 141 mg/dL (70-99) 210 mg/dL (70-99) 166 mg/dL (70-99) White Blood Count 7.1 x10^3/uL (4.0-11.0) Red Blood Count 2.88 x10^6/uL (3.50-5.40) Hemoglobin 9.2 g/dL (12.0-15.5) Hematocrit 28.7 % (36.0-47.0) Mean Corpuscular Volume 100 fL (79-100) Mean Corpuscular Hemoglobin 32 pg (25-35) Mean Corpuscular Hemoglobin Concent 32 g/dL (31-37) Red Cell Distribution Width 13.4 % (11.5-14.5) Platelet Count 211 x10^3/uL (140-400) Neutrophils (%) (Auto) 63 % (31-73) Lymphocytes (%) (Auto) 24 % (24-48) Monocytes (%) (Auto) 7 % (0-9) Eosinophils (%) (Auto) 5 % (0-3) Basophils (%) (Auto) 1 % (0-3) Neutrophils # (Auto) 4.5 x10^3uL (1.8-7.7) Lymphocytes # (Auto) 1.7 x10^3/uL (1.0-4.8) Monocytes # (Auto) 0.5 x10^3/uL (0.0-1.1) Eosinophils # (Auto) 0.4 x10^3/uL (0.0-0.7) Basophils # (Auto) 0.1 x10^3/uL (0.0-0.2) Sodium Level 146 mmol/L (136-145) Potassium Level 5.5 mmol/L (3.5-5.1) Chloride Level 111 mmol/L (98-107) Carbon Dioxide Level 33 mmol/L (21-32) Anion Gap 2 (6-14) Blood Urea Nitrogen 78 mg/dL (7-20) Creatinine 1.4 mg/dL (0.6-1.0) Estimated GFR (Cockcroft-Gault) 36.1 Glucose Level 148 mg/dL (70-99) Calcium Level 9.2 mg/dL (8.5-10.1) Magnesium Level 2.5 mg/dL (1.8-2.4) Test 06/25/16 06:56 06/25/16 10:21 Glucose (Fingerstick) 125 mg/dL (70-99) 227 mg/dL (70-99) Laboratory Tests Test 06/24/16 20:39 06/25/16 03:50 06/25/16 06:56 06/25/16 10:21 Glucose (Fingerstick) 166 mg/dL (70-99) 125 mg/dL (70-99) 227 mg/dL (70-99) White Blood Count 7.1 x10^3/uL (4.0-11.0) Red Blood Count 2.88 x10^6/uL (3.50-5.40) Hemoglobin 9.2 g/dL (12.0-15.5) Hematocrit 28.7 % (36.0-47.0) Mean Corpuscular Volume 100 fL (79-100) Mean Corpuscular Hemoglobin 32 pg (25-35) Mean Corpuscular Hemoglobin Concent 32 g/dL (31-37) Red Cell Distribution Width 13.4 % (11.5-14.5) Platelet Count 211 x10^3/uL (140-400) Neutrophils (%) (Auto) 63 % (31-73) Lymphocytes (%) (Auto) 24 % (24-48) Monocytes (%) (Auto) 7 % (0-9) Eosinophils (%) (Auto) 5 % (0-3) Basophils (%) (Auto) 1 % (0-3) Neutrophils # (Auto) 4.5 x10^3uL (1.8-7.7) Lymphocytes # (Auto) 1.7 x10^3/uL (1.0-4.8) Monocytes # (Auto) 0.5 x10^3/uL (0.0-1.1) Eosinophils # (Auto) 0.4 x10^3/uL (0.0-0.7) Basophils # (Auto) 0.1 x10^3/uL (0.0-0.2) Sodium Level 146 mmol/L (136-145) Potassium Level 5.5 mmol/L (3.5-5.1) Chloride Level 111 mmol/L (98-107) Carbon Dioxide Level 33 mmol/L (21-32) Anion Gap 2 (6-14) Blood Urea Nitrogen 78 mg/dL (7-20) Creatinine 1.4 mg/dL (0.6-1.0) Estimated GFR (Cockcroft-Gault) 36.1 Glucose Level 148 mg/dL (70-99) Calcium Level 9.2 mg/dL (8.5-10.1) Magnesium Level 2.5 mg/dL (1.8-2.4) Medications Active Scripts Medications Dose Route/Sig Max Daily Dose Days Date Category Doxycycline Hyclate 100 Mg Tablet.dr 100 Mg PO BID 04/14/16 Rx Cefpodoxime Proxetil 200 Mg Tablet 200 Mg PO BID 06/07/15 Rx Levemir (Insulin Detemir) 100 Unit/1 Ml Vial 5 Unit SQ HS 06/05/15 Reported Potassium Chloride 10 Meq Capsule.er 10 Meq PO DAILY 06/05/15 Reported Soothe & Cool Skin Paste (Zinc Oxide/Petrolatum,White) 71 Gm Oint...g. Gm TP 06/05/15 Reported Vitamin D3 (Cholecalciferol (Vitamin D3)) 1,000 Unit Tablet 1 Tab PO DAILY 06/05/15 Reported Furosemide 40 Mg Tablet 1 Tab PO DAILY 06/05/15 Reported Warfarin Sodium 10 Mg Tablet 10 Mg PO DAILY 01/22/15 Rx Fluticasone Propionate Nasal Vardaman (Fluticasone Propionate) 16 Gm Vardaman.susp 2 Vardaman NS DAILY 01/18/15 Reported Artificial Tears Eye Drops (Dextran 70/Hypromellose) 15 Ml Drops 1 Drop EACHEYE PRN DAILY PRN 01/18/15 Reported Anastrozole 1 Mg Tablet 1 Mg PO DAILY 01/18/15 Reported Tylenol (Acetaminophen) 325 Mg Tablet 650 Mg PO PRN Q6HRS PRN 01/18/15 Reported Multi-Day Vitamins (Multivitamin) 1 Each Tablet 1 Tab PO DAILY 01/18/15 Reported Singulair Tablet (Montelukast Sodium) 10 Mg Tablet 10 Mg PO HS 01/18/15 Reported Primidone 250 Mg Tablet 250 Mg PO BID 01/17/15 Reported Polyethylene Glycol 3350 17 Gm Powd.pack 17 Gm PO PRN DAILY PRN 01/17/15 Reported Nystatin 1 Each Powder.ea. 1 Venessa TOP BID 01/17/15 Reported Modafinil 100 Mg Tablet 200 Mg PO DAILY 01/17/15 Reported Lidoderm (Lidocaine) 700 Mg Adh..patch 1 Patch TP DAILY 01/17/15 Reported Gabapentin 100 Mg Capsule 100 Mg PO HS 01/17/15 Reported Folic Acid 1 Mg Tablet 1 Mg PO BID 01/17/15 Reported Ferrous Sulfate 325 Mg Tablet 325 Mg PO TIDWMEALS 01/17/15 Reported Escitalopram Oxalate 20 Mg Tablet 20 Mg PO DAILY 01/17/15 Reported B-12 (Cyanocobalamin (Vitamin B-12)) 1,000 Mcg Tablet.er 1,000 Mcg PO DAILY 01/17/15 Reported Claritin (Loratadine) 10 Mg Capsule 10 Mg PO DAILY 01/17/15 Reported Calcium Carbonate 500 Mg Tablet 500 Mg PO DAILY 01/17/15 Reported Benadryl (Diphenhydramine Hcl) 25 Mg Capsule 25 Mg PO PRN Q6HRS PRN 01/17/15 Reported Impression . 1. Acute on chronic hypercapnic respiratory failure in a patient who has underlying morbid obesity with a BMI of 58 and most likely has obesity hypoventilation syndrome. On BiPAPqhs and prn 2. Encephalopathy present on admission secondary to combination of uremic encephalopathy and hypercarbia, currently improving. 3. No significant history of tobacco use. 4. Sternal wound. 5. Prerenal azotemia secondary to volume depletion. Plan . 1. Continue BiPAP at bedtime and p.r.n. during the day. 2. Avoid benzodiazepines and narcotics. 3. Continue nebulizer treatment. 4. Continue on 2 liters oxygen during the day. 5. Antibiotics per ID recommendations. d/w FLORIDALMA Mercado MD June 25, 2016 11:23
--- NOTE | 2016-06-25 11:34 | PDOC ---
PROGRESS NOTES Subjective Subjective no complaints Objective Objective Vital Signs Date Time Temp Pulse Resp B/P (MAP) Pulse Ox O2 Delivery O2 Flow Rate FiO2 06/25/16 10:50 98.2 67 22 147/70 (95) 96 Nasal Cannula 2.0 98.2 Intake and Output 06/25/16 07:00 Intake Total 3140 ml Balance 3140 ml Intake Oral 1440 ml IV Total 500 ml Other 1200 ml # Voids 17 # Bowel Movements 1 Physical Exam Abdomen: Soft, No tenderness Heart: Regular rate, Normal S1, Normal S2, Other (valve clicking) Extremities: No clubbing, Other (pedal edema, reports chronic) General: Other (dementia) HEENT: Atraumatic Lungs: Other (diffuse wheezing) MUSCULOSKELETAL: Other (Sternotomy: there is minimal serous drainage with islands of poor granulation tissue formation, mid to inferior. Wound is 0,5cm deep, with exposed sternal wire) Neck: Supple Neuro: Normal speech, Other (severe dementia) Skin: Other (mid chest wound, excoriations right chest s/p breast cancer treatment) Diagnosis Problem List Problems Medical Problems: (1) Hypercapnia Status: Acute (2) Mental status change Status: Acute Assessment Assessment Assessment 1. UTI Ecoli ,POA 2. ARF no MARTA or ATN with underlying CKD III stable, range Cr 1.5-1.9 BUN 70 POA 3. acute on chronic diastolic CHF POA 4. acute on chronic hypercapnic respiratory failure with underlying CHF, pulmonary HTN, COPD 5. Diabetes mellitus type 2 with neuropathy 6. Chronic tremors. 7. FERNANDO/OHS with BiPAP at HS, on oxygen via nasal cannula at 2 L/minute during day. 8. narcolepsy 9. History of aortic valve replacement, on xarelto 10. Atrial fibrillation, on xarelto PLAN: Na 146 improving.pot 5.5 cr 1.3 went up. UTI rocephin IV since admit Urine CX E coli no ghotra a/c hypercapnic respiratory failure/FERNANDO -BIPAP at hs, NC during day pulmonary consult BiPap HS, O2 2L day ARF with underlying CKD nephrology consult Remains on Lasix 40mg po IV NS 75cc/hr-DC 06/23 sternal wound chronic osteomyelitis ID consulted betahemolytic group B strep second culture multiple gram neg rods, non predomninant =heavily colonized D/W Dr. [place]-IV antibiotics x 6 week with oral suppressive after vs oral antibiotics. He will d/w Dr. Fan CV surgeon-continue chronic wound care, not surgical candidate metabolic encephalopathy improving h/o AVR and AFib xarelto stoped, coumadin restarted as per cardiology DM II BS 123-253 Levemir decreased from 9u to 5 unit SSI FSBS 06/23 Increase Levemir to 8 units DVT/GI prophylaxis warfarin until 06/21 xarelto initated 06/22 PPI anemia CD Admit 9.8 06/23 7.9 monitor continue B12/folate and Fe replacement Dysphagia speech eval-Downgrade diet to include honey thick liquids--dysphagia III w/ honey thick. Meds w/ honey thick liquids. For further plan of care please refer to the orders. Problems: Plan Plan of Care Problems Medical Problems: (1) Hypercapnia Status: Acute (2) Mental status change Status: Acute Comment Review of Relevant I have reviewed the following items glenna (where applicable) has been applied. Labs Laboratory Tests Test 06/24/16 20:39 06/25/16 03:50 06/25/16 06:56 06/25/16 10:21 Glucose (Fingerstick) 166 mg/dL (70-99) 125 mg/dL (70-99) 227 mg/dL (70-99) White Blood Count 7.1 x10^3/uL (4.0-11.0) Red Blood Count 2.88 x10^6/uL (3.50-5.40) Hemoglobin 9.2 g/dL (12.0-15.5) Hematocrit 28.7 % (36.0-47.0) Mean Corpuscular Volume 100 fL (79-100) Mean Corpuscular Hemoglobin 32 pg (25-35) Mean Corpuscular Hemoglobin Concent 32 g/dL (31-37) Red Cell Distribution Width 13.4 % (11.5-14.5) Platelet Count 211 x10^3/uL (140-400) Neutrophils (%) (Auto) 63 % (31-73) Lymphocytes (%) (Auto) 24 % (24-48) Monocytes (%) (Auto) 7 % (0-9) Eosinophils (%) (Auto) 5 % (0-3) Basophils (%) (Auto) 1 % (0-3) Neutrophils # (Auto) 4.5 x10^3uL (1.8-7.7) Lymphocytes # (Auto) 1.7 x10^3/uL (1.0-4.8) Monocytes # (Auto) 0.5 x10^3/uL (0.0-1.1) Eosinophils # (Auto) 0.4 x10^3/uL (0.0-0.7) Basophils # (Auto) 0.1 x10^3/uL (0.0-0.2) Sodium Level 146 mmol/L (136-145) Potassium Level 5.5 mmol/L (3.5-5.1) Chloride Level 111 mmol/L (98-107) Carbon Dioxide Level 33 mmol/L (21-32) Anion Gap 2 (6-14) Blood Urea Nitrogen 78 mg/dL (7-20) Creatinine 1.4 mg/dL (0.6-1.0) Estimated GFR (Cockcroft-Gault) 36.1 Glucose Level 148 mg/dL (70-99) Calcium Level 9.2 mg/dL (8.5-10.1) Magnesium Level 2.5 mg/dL (1.8-2.4) Microbiology 06/19/16 Blood Culture - Final, Complete NO GROWTH AFTER 5 DAYS 06/19/16 Urine Culture - Final, Complete 06/19/16 Urine Culture Result 1 (RAQUEL) - Final, Complete 06/19/16 Antimicrobic Susceptibility - Final, Complete 06/20/16 Gram Stain - Final, Complete Vitals/I & O Vital Sign - Last 24 Hours 06/24/16 06/24/16 06/24/16 06/24/16 11:38 14:58 15:39 19:32 Temp 97.9 98.3 97.9 98.3 Pulse 68 75 Resp 24 18 B/P (MAP) 142/70 (94) 110/47 (68) Pulse Ox 97 97 98 99 O2 Delivery Nasal Cannula Room Air Nasal Cannula Nasal Cannula O2 Flow Rate 2.0 2.0 2.0 06/24/16 06/24/16 06/24/16 06/24/16 19:33 19:50 22:19 23:38 Temp 98.5 98.5 Pulse 59 Resp 22 B/P (MAP) 110/47 (68) Pulse Ox 99 97 100 O2 Delivery Nasal Cannula Bi-pap BiPAP/CPAP BiPAP/CPAP O2 Flow Rate 2.0 2.0 06/25/16 06/25/16 06/25/16 06/25/16 01:15 03:01 05:02 07:00 Temp 98.4 98.4 Pulse 62 Resp 22 B/P (MAP) 122/59 (80) Pulse Ox 99 97 O2 Delivery BiPAP/CPAP BiPAP/CPAP BiPAP/CPAP Nasal Cannula O2 Flow Rate 2.0 06/25/16 06/25/16 06/25/16 06/25/16 08:00 08:42 08:59 10:50 Temp 98.2 98.2 Pulse 62 67 Resp 22 B/P (MAP) 122/59 147/70 (95) Pulse Ox 99 96 O2 Delivery Bi-pap Nasal Cannula Nasal Cannula O2 Flow Rate 2.0 2.0 Intake and Output 06/24/16 06/24/16 06/25/16 15:00 23:00 07:00 Intake Total 1460 ml 480 ml 1200 ml Balance 1460 ml 480 ml 1200 ml ZUNILDA MILLER MD June 25, 2016 11:34
--- NOTE | 2016-06-25 15:49 | PDOC ---
Provider Note Provider Note Spoke to patient's [id number] who has been taking care of for the last several years. She confirmed that the patient had a mechanical prosthetic valve placed in 2000. She had been advised to give her Coumadin. The anticoagulation recently has been changed to Rivaroxaban.. This is not effective for mechanical prosthetic valves. Will thus discontinue the Rivaroxoban and resume Coumadin. She will need to be on Lovenox as a bridge. Because she has not been adequately anticoagulated for a while. Discussed with Dr. Anguiano. . NELIDA RAJPUT MD June 25, 2016 15:49
[2016-06-25] MEDS: INSULIN ASPART 300 UNITS/3 ML INSULN.PEN SQ SCH (17:12)
[2016-06-25] MEDS ORDERED: DEXTROSE 50% 25 GM / 50ML DISP.SYRIN. IV PRN (17:15)
[2016-06-25] MEDS ORDERED: WARFARIN 10 MG TABLET. PO ONE (18:00)
[2016-06-25] MEDS ORDERED: WARFARIN 2.5 MG TABLET. PO ONE (18:00)
[2016-06-25 19:00] VITALS: BP 145/63
[2016-06-25 19:24] VITALS: BP 134/61
[2016-06-25] MEDS: INSULIN DETEMIR 300 UNITS/3 ML INSULN.PEN. SQ SCH (21:16)
[2016-06-25] MEDS: MONTELUKAST SODIUM 10 MG TABLET. PO SCH (21:29)
[2016-06-25] MEDS: GABAPENTIN 100 MG CAPSULE. PO SCH (21:29)
[2016-06-25 23:00] VITALS: BP 122/71
[2016-06-26 03:00] VITALS: BP 130/54
[2016-06-26 04:05] LABS: BASO # 0.1 x10^3/uL (0.0-0.2); BASO % 1 % (0-3); EOS % 5 % (0-3); HEMATOCRIT 26.3 % (36.0-47.0); HEMOGLOBIN 8.6 g/dL (12.0-15.5); LYMPH # 1.4 x10^3/uL (1.0-4.8); LYMPH % 22 % (24-48); MEAN CORPUSCULAR HEMOGLOBIN 33 pg (25-35); MEAN CORPUSCULAR HGB CONC 33 g/dL (31-37); MEAN CORPUSCULAR VOLUME 100 fL (79-100); MONO % 7 % (0-9); NEUT % 65 % (31-73); PLATELET COUNT 199 x10^3/uL (140-400); RED BLOOD COUNT 2.63 x10^6/uL (3.50-5.40); RED CELL DISTRIBUTION WIDTH 13.4 % (11.5-14.5); WHITE BLOOD COUNT 6.4 x10^3/uL (4.0-11.0)
[2016-06-26 04:16] LABS: INR 1.2 (0.8-1.1); PROTHROMBIN TIME PATIENT 14.9 SEC (11.7-14.0)
[2016-06-26 04:41] LABS: CALCIUM 8.8 mg/dL (8.5-10.1); CREATININE 1.4 mg/dL (0.6-1.0); GFR 36.1; MAGNESIUM 2.3 mg/dL (1.8-2.4); POTASSIUM 5.6 mmol/L (3.5-5.1)
[2016-06-26 07:00] VITALS: BP 142/66
[2016-06-26] MEDS: IPRATRPIUM/ALBUTEROL 0.5/2.5MG 3 ML NEBU. NEB SCH ×4 (07:17→19:46)
[2016-06-26] MEDS: INSULIN ASPART 300 UNITS/3 ML INSULN.PEN SQ SCH ×3 (08:00→17:01)
[2016-06-26] MEDS: PRIMIDONE 250 MG TABLET PO SCH ×2 (08:27→21:44)
[2016-06-26] MEDS: ESCITALOPRAM 10 MG TABLET. PO SCH (08:28)
[2016-06-26] MEDS: FERROUS SULFATE 325 MG TABLET. PO SCH ×3 (08:28→16:58)
[2016-06-26] MEDS: CYANOCOBALAMIN (VITAMIN B-12) 1,000 MCG TABLET. PO SCH (08:28)
[2016-06-26] MEDS: MULTIVITAMIN with MINERAL TABLET. PO SCH (08:28)
[2016-06-26] MEDS: CETIRIZINE HCL 10 MG TABLET. PO SCH (08:28)
[2016-06-26] MEDS: CHOLECALCIFEROL (VITAMIN D3) 1,000 UNIT TABLET PO SCH (08:28)
[2016-06-26] MEDS: FLUTICASONE 50MCG/NASAL SPRAY 16GM BOTTLE. NS SCH (08:29)
[2016-06-26] MEDS: amLODIPine BESYLATE 2.5 MG TABLET PO SCH (08:29)
[2016-06-26] MEDS: FOLIC ACID 1 MG TABLET. PO SCH ×2 (08:29→21:44)
[2016-06-26] MEDS: CALCIUM CARBONATE 500 MG TABLET PO SCH (08:29)
[2016-06-26] MEDS: ANASTROZOLE 1 MG TABLET PO SCH (08:36)
--- NOTE | 2016-06-26 08:58 | PDOC3 ---
IM DISCHARGE & PROGRESS NOTES Date of Admission Date of Admission Date of Admission: June 19, 2016 at 18:45 Date of Discharge Date of Discharge 06/26/16 Primary Diagnosis Primary Diagnosis 1. UTI Ecoli POA no sepsis 2. ARF VMN dehydration no MARTA or ATN with underlying CKD III stable, range Cr 1.5-1.9 BUN 70 POA 3. acute on chronic diastolic CHF POA 4. acute on chronic hypercapnic respiratory failure with underlying CHF, pulmonary HTN, COPD 5. Diabetes mellitus type 2 with neuropathy 6. Chronic tremors. 7. FERNANDO/OHS with BiPAP at HS, on oxygen via nasal cannula at 2 L/minute during day. 8. narcolepsy 9. History of aortic valve replacement, on xarelto 10. Atrial fibrillation, on xarelto 11. Chronic lymphedema with venous stasis changes 12. Osteoarthritis generalized 13. Pulmonary hypertension severe 14. Anemia, both iron and B12 deficiency. 15. Chronic obstructive pulmonary disease. 16. Morbid obesity. 17. History of Parkinson disease with tremors. 18. allergic rhinitis 19. depression/anxiety 20. chronic constipation 21. chronic moderate PCL malnutrition 22. 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 Vitamin D deficiency 25. skin candidiasis chronic 26. skin tear R foot 27. skin candidiasis 28. chronic ghotra for urine retention 29. metabolic encephalopathy POA Consults Consults Reina Frey MD Procedures Procedures APPROVED REPORT EXAM: Two-dimensional and M-mode echocardiogram with Doppler and color Doppler. Other Information Quality : Good INDICATION Congestive Heart Failure 2D DIMENSIONS RVDd 3.3 (2.9-3.5cm) Left Atrium(2D) 4.7 (1.6-4.0cm) IVSd 1.5 (0.7-1.1cm) Aortic Root(2D) 2.8 (2.0-3.7cm) LVDd 4.7 (3.9-5.9cm) LVOT Diameter 2.2 (1.8-2.4cm) PWd 1.5 (0.7-1.1cm) LVDs 2.8 (2.5-4.0cm) FS (%) 30.0 % SV 71.2 ml LVEF(%) 60.0 (>50%) Aortic Valve AoV Peak Richy. 311.4cm/s AoV VTI 65.1cm AO Peak GR. 38.8mmHg LVOT VTI 29.32cm AO Mean GR. 22mmHg GAURI (VTI) 1.70cm2 Mitral Valve MV E Velocity 70.8cm/s MV DECEL TIME 226ms MV A Velocity 86.9cm/s E/A Ratio 0.8 TDI Lateral E' P. V 9.91cm/s Medial E' P. V 7.02cm/s E/Lateral E' 7.1 E/Medial E' 10.1 Tricuspid Valve TR P. Velocity 322cm/s RAP ESTIMATE 3mmHg TR Peak Gr. 41mmHg RVSP 44mmHg Pulmonary Vein S1 Velocity 41.1cm/s S2 Velocity 43.56cm/s D2 Velocity 43.6cm/s PVa duration 88msec LEFT VENTRICLE The left ventricle is normal size. There is mild to moderate concentric left ventricular hypertrophy. The left ventricular systolic function is normal and the ejection fraction is within normal range. The Ejection Fraction is 60-65%. There is grossly normal LV segmental wall motion. Technically difficult study Transmitral Doppler flow pattern is Grade I-abnormal relaxation pattern. RIGHT VENTRICLE The right ventricle is normal size. The right ventricular systolic function is normal. ATRIA The left atrium is mildly dilated. The right atrium size is normal. The interatrial septum is intact with no evidence for an atrial septal defect or patent foramen ovale as noted on 2-D or Doppler imaging. AORTIC VALVE The aortic valve is not well visualized. Doppler and Color Flow revealed no significant aortic regurgitation. Calculated aortic valve area is 1.7 cm2 with maximum pressure gradient of 39 mmHg and mean pressure gradient of 22 mmHg. There is a mechanical aortic valve prosthesis. MITRAL VALVE The mitral valve is normal in structure and function. There is mitral annular calcification. There is no evidence of mitral valve prolapse. There is no mitral valve stenosis. Doppler and Color-flow revealed trace mitral regurgitation. TRICUSPID VALVE The tricuspid valve is normal in structure and function. Doppler and Color Flow revealed trace tricuspid regurgitation. There is moderate pulmonary hypertension. The PA pressure was estimated at 44 mmHg. There is no tricuspid valve stenosis. PULMONIC VALVE Doppler and Color Flow revealed trace pulmonic valvular regurgitation. There is no pulmonic valvular stenosis. GREAT VESSELS The aortic root is normal in size. The ascending aorta is mildly dilated at 3.5 cm. The IVC is normal in size and collapses >50% with inspiration. PERICARDIAL EFFUSION There is no evidence of significant pericardial effusion. Critical Notification Critical Value: No <Conclusion> The left ventricular systolic function is normal and the ejection fraction is within normal range. The Ejection Fraction is 60-65%. There is grossly normal LV segmental wall motion. Technically difficult study There is a mechanical aortic valve prosthesis. Calculated aortic valve area is 1.7 cm2 with maximum pressure gradient of 39 mmHg and mean pressure gradient of 22 mmHg. Doppler and Color Flow revealed trace tricuspid regurgitation. There is moderate pulmonary hypertension. The PA pressure was estimated at 44 mmHg. The ascending aorta is mildly dilated at 3.5 cm. DICTATED and SIGNED BY: PARKER BEST MD DATE: 06/21/16833 Labs Labs Laboratory Tests Test 06/23/16 11:06 06/23/16 14:50 06/23/16 17:20 06/23/16 20:58 Glucose (Fingerstick) 174 mg/dL (70-99) 199 mg/dL (70-99) 249 mg/dL (70-99) O2 Saturation 94 % (92-99) Arterial Blood pH 7.32 (7.35-7.45) Arterial Blood pCO2 at Patient Temp 66 mmHg (35-46) Arterial Blood pO2 at Patient Temp 75 mmHg (65-108) Arterial Blood HCO3 33 mmol/L (21-28) Arterial Blood Base Excess 5 mmol/L (-3-3) FiO2 28.0 Test 06/24/16 03:20 06/24/16 07:41 06/24/16 11:13 06/24/16 20:39 White Blood Count 6.1 x10^3/uL (4.0-11.0) Red Blood Count 2.85 x10^6/uL (3.50-5.40) Hemoglobin 9.3 g/dL (12.0-15.5) Hematocrit 28.1 % (36.0-47.0) Mean Corpuscular Volume 99 fL (79-100) Mean Corpuscular Hemoglobin 33 pg (25-35) Mean Corpuscular Hemoglobin Concent 33 g/dL (31-37) Red Cell Distribution Width 13.5 % (11.5-14.5) Platelet Count 205 x10^3/uL (140-400) Neutrophils (%) (Auto) 60 % (31-73) Lymphocytes (%) (Auto) 25 % (24-48) Monocytes (%) (Auto) 8 % (0-9) Eosinophils (%) (Auto) 5 % (0-3) Basophils (%) (Auto) 1 % (0-3) Neutrophils # (Auto) 3.7 x10^3uL (1.8-7.7) Lymphocytes # (Auto) 1.6 x10^3/uL (1.0-4.8) Monocytes # (Auto) 0.5 x10^3/uL (0.0-1.1) Eosinophils # (Auto) 0.3 x10^3/uL (0.0-0.7) Basophils # (Auto) 0.1 x10^3/uL (0.0-0.2) Sodium Level 148 mmol/L (136-145) Potassium Level 5.0 mmol/L (3.5-5.1) Chloride Level 110 mmol/L (98-107) Carbon Dioxide Level 33 mmol/L (21-32) Anion Gap 5 (6-14) Blood Urea Nitrogen 84 mg/dL (7-20) Creatinine 1.3 mg/dL (0.6-1.0) Estimated GFR (Cockcroft-Gault) 39.3 Glucose Level 169 mg/dL (70-99) Calcium Level 9.9 mg/dL (8.5-10.1) Magnesium Level 2.9 mg/dL (1.8-2.4) Glucose (Fingerstick) 141 mg/dL (70-99) 210 mg/dL (70-99) 166 mg/dL (70-99) Test 06/25/16 03:50 06/25/16 06:56 06/25/16 10:21 06/25/16 16:21 White Blood Count 7.1 x10^3/uL (4.0-11.0) Red Blood Count 2.88 x10^6/uL (3.50-5.40) Hemoglobin 9.2 g/dL (12.0-15.5) Hematocrit 28.7 % (36.0-47.0) Mean Corpuscular Volume 100 fL (79-100) Mean Corpuscular Hemoglobin 32 pg (25-35) Mean Corpuscular Hemoglobin Concent 32 g/dL (31-37) Red Cell Distribution Width 13.4 % (11.5-14.5) Platelet Count 211 x10^3/uL (140-400) Neutrophils (%) (Auto) 63 % (31-73) Lymphocytes (%) (Auto) 24 % (24-48) Monocytes (%) (Auto) 7 % (0-9) Eosinophils (%) (Auto) 5 % (0-3) Basophils (%) (Auto) 1 % (0-3) Neutrophils # (Auto) 4.5 x10^3uL (1.8-7.7) Lymphocytes # (Auto) 1.7 x10^3/uL (1.0-4.8) Monocytes # (Auto) 0.5 x10^3/uL (0.0-1.1) Eosinophils # (Auto) 0.4 x10^3/uL (0.0-0.7) Basophils # (Auto) 0.1 x10^3/uL (0.0-0.2) Sodium Level 146 mmol/L (136-145) Potassium Level 5.5 mmol/L (3.5-5.1) Chloride Level 111 mmol/L (98-107) Carbon Dioxide Level 33 mmol/L (21-32) Anion Gap 2 (6-14) Blood Urea Nitrogen 78 mg/dL (7-20) Creatinine 1.4 mg/dL (0.6-1.0) Estimated GFR (Cockcroft-Gault) 36.1 Glucose Level 148 mg/dL (70-99) Calcium Level 9.2 mg/dL (8.5-10.1) Magnesium Level 2.5 mg/dL (1.8-2.4) Glucose (Fingerstick) 125 mg/dL (70-99) 227 mg/dL (70-99) 135 mg/dL (70-99) Test 06/25/16 21:12 06/26/16 03:41 06/26/16 03:46 06/26/16 07:05 Glucose (Fingerstick) 153 mg/dL (70-99) 135 mg/dL (70-99) Prothrombin Time 14.9 SEC (11.7-14.0) Prothromb Time International Ratio 1.2 (0.8-1.1) White Blood Count 6.4 x10^3/uL (4.0-11.0) Red Blood Count 2.63 x10^6/uL (3.50-5.40) Hemoglobin 8.6 g/dL (12.0-15.5) Hematocrit 26.3 % (36.0-47.0) Mean Corpuscular Volume 100 fL (79-100) Mean Corpuscular Hemoglobin 33 pg (25-35) Mean Corpuscular Hemoglobin Concent 33 g/dL (31-37) Red Cell Distribution Width 13.4 % (11.5-14.5) Platelet Count 199 x10^3/uL (140-400) Neutrophils (%) (Auto) 65 % (31-73) Lymphocytes (%) (Auto) 22 % (24-48) Monocytes (%) (Auto) 7 % (0-9) Eosinophils (%) (Auto) 5 % (0-3) Basophils (%) (Auto) 1 % (0-3) Neutrophils # (Auto) 4.1 x10^3uL (1.8-7.7) Lymphocytes # (Auto) 1.4 x10^3/uL (1.0-4.8) Monocytes # (Auto) 0.4 x10^3/uL (0.0-1.1) Eosinophils # (Auto) 0.3 x10^3/uL (0.0-0.7) Basophils # (Auto) 0.1 x10^3/uL (0.0-0.2) Sodium Level 145 mmol/L (136-145) Potassium Level 5.6 mmol/L (3.5-5.1) Chloride Level 110 mmol/L (98-107) Carbon Dioxide Level 32 mmol/L (21-32) Anion Gap 3 (6-14) Blood Urea Nitrogen 73 mg/dL (7-20) Creatinine 1.4 mg/dL (0.6-1.0) Estimated GFR (Cockcroft-Gault) 36.1 Glucose Level 142 mg/dL (70-99) Calcium Level 8.8 mg/dL (8.5-10.1) Magnesium Level 2.3 mg/dL (1.8-2.4) Medications Medications Medications reviewed and reconciled for discharge. Brief hospital course Brief hospital course This 81 year old female who presented with altered mental status was admitted. The following is a summary of her treatment: UTI rocephin IV since admit Urine CX E coli no ghotra a/c hypercapnic respiratory failure/FERNANDO -BIPAP at hs, NC during day pulmonary consult BiPap HS, O2 2L day ARF with underlying CKD nephrology consult Remains on Lasix 40mg po IV NS 75cc/hr-DC 06/23 ADmit BUN 111 / 73 Cr 1.5 1.4 K 4.7 5.6 Na 144 145 Ca 8.8 8.8 Alb 2.7 2.1-06/23 Mg 2.3 4gm Mg SO4 x 1 06/23/16 hyperkalemia-recheck K sternal wound chronic osteomyelitis ID consulted betahemolytic group B strep second culture multiple gram neg rods, non predomninant =heavily colonized D/W Dr. Vig[place]-IV antibiotics x 6 week with oral suppressive after vs oral antibiotics. He will d/w Dr. Fan CV surgeon-continue chronic wound care, not surgical candidate metabolic encephalopathy improving h/o AVR and AFib xarelto resumed, coumadin stopped-xarelto not indicated for mechanical valve replacement, requires warfarin Coumadin restarted due CKD III 06/25 Warfarin 10mg po 06/26 INR 1.2 Lovenox bridge with warfarin at discharge- DM II BS 135-227 Levemir decreased from 9u to 5 unit SSI FSBS 06/23 Increase Levemir to 8 units DVT/GI prophylaxis warfarin until 06/21 xarelto initated 06/22-stopped due to CKD III PPI Warfarin anemia CD Admit 9.8 06/26 2.3 monitor continue B12/folate and Fe replacement Dysphagia speech eval-Downgrade diet to include honey thick liquids--dysphagia III w/ honey thick. Meds w/ honey thick liquids. For more details regarding the past history, family history, social history, surgical history and other details, please refer to History and Physical. Discharge has been initiated. Will recheck potassium and plan recheck in AM at SNU. If consultants are in agreement, will plan discharge to SNU with oral antibiotic. Please see discharge orders. Subjective awake, no complaints of pain or shortness of breath. Objective Chart review: Tamiko is a n 81 yo female who was admitted on with UTI, acute renal failure, acute on chronic hypercapnic respiratory failure, and metabolic encephalopathy. She currently resides at [facility] and Dr. Fan provides her inpatient care when she is admitted to [facility]. Dr. Diggs has been paged x 2 to notify of change in attending MD. Vitals Vital Signs Date Time Temp Pulse Resp B/P (MAP) Pulse Ox O2 Delivery O2 Flow Rate FiO2 06/26/16 08:29 53 142/66 06/26/16 07:17 97 BiPAP/CPAP 06/26/16 07:00 97.8 20 2.0 97.8 Physical Exam General appearance - alert, chronically ill appearing, and in no distress Mental Status - alert, oriented to person, place, and time, affect appropriate to mood Head - normal Chest - clear to auscultation, no wheezes, rales or rhonchi, symmetric air entry Heart - S1 and S2 normal Abdomen - soft, nontender, nondistended, no masses or organomegaly Neurological - alert and oriented Musculoskeletal - no muscular tenderness noted Extremities - no pedal edema Skin - warm and dry Medications Medications reviewed. Allergy Allergies Coded Allergies Type Severity Reaction Last Updated Verified Fish Containing Products Allergy Intermediate 01/17/15 Yes Sulfa (Sulfonamide Antibiotics) Allergy Intermediate 01/17/15 Yes bacitracin Allergy Intermediate 01/17/15 Yes cephalexin Allergy Intermediate 06/23/16 Yes ciprofloxacin Allergy Intermediate LEVAQUIN OK 06/04/15 Yes codeine Allergy Intermediate 01/17/15 Yes enoxaparin Allergy Intermediate 01/17/15 Yes iodine Allergy Intermediate 01/17/15 Yes lactose Allergy Intermediate 01/17/15 Yes metformin Allergy Intermediate 01/17/15 Yes morphine Allergy Intermediate 01/17/15 Yes neomycin Allergy Intermediate 01/17/15 Yes polymyxin B Allergy Intermediate 01/17/15 Yes shellfish derived Allergy Intermediate 01/17/15 Yes Follow up Admit to facility MD . Disposition: Retirement facility (PT OT ) Comments Discharge Management - 35 minutes. For other details please refer to discharge instructions NATTY FOY FORMER HAND June 26, 2016 08:58
[2016-06-26] MEDS: LIDOCAINE (700MG/PATCH) PATCH. TP SCH (09:00)
[2016-06-26] MEDS: NYSTATIN TOPICAL POWDER 15GM BOTTLE. TP SCH ×2 (09:00→21:00)
--- NOTE | 2016-06-26 09:22 | PDOC ---
Infectious Disease Note Subjective Subjective Comfortable, denies pain ROS ROS GEN: Denies fevers, chills, sweats HEENT: Denies blurred vision, sore throat CV: Denies chest pain RESP: Denies shortness of air, cough GI: Denies n/v/d NEURO: Denies confusion, dizziness Vital Sign Vital Signs Vital Signs Date Time Temp Pulse Resp B/P (MAP) Pulse Ox O2 Delivery O2 Flow Rate FiO2 06/26/16 08:29 53 142/66 06/26/16 07:17 97 BiPAP/CPAP 06/26/16 07:00 97.8 20 2.0 97.8 Physical Exam PHYSICAL EXAM GENERAL: NAD, Alert HEENT: PERRL, OC/OP NECK: Supple, no JVD, no LN LUNGS: Clear HEART: S1S2, no gallop, no murmur ABD: Soft, NT, no organomegaly, no rebound EXT: No edema, no cyanosis ANESTHETIST: Alert, oriented SKIN: No rash,, chest wall wound IV: ok Labs Lab Laboratory Tests Test 06/25/16 10:21 06/25/16 16:21 06/25/16 21:12 06/26/16 03:41 Glucose (Fingerstick) 227 mg/dL (70-99) 135 mg/dL (70-99) 153 mg/dL (70-99) Prothrombin Time 14.9 SEC (11.7-14.0) Prothromb Time International Ratio 1.2 (0.8-1.1) Test 06/26/16 03:46 06/26/16 07:05 White Blood Count 6.4 x10^3/uL (4.0-11.0) Red Blood Count 2.63 x10^6/uL (3.50-5.40) Hemoglobin 8.6 g/dL (12.0-15.5) Hematocrit 26.3 % (36.0-47.0) Mean Corpuscular Volume 100 fL (79-100) Mean Corpuscular Hemoglobin 33 pg (25-35) Mean Corpuscular Hemoglobin Concent 33 g/dL (31-37) Red Cell Distribution Width 13.4 % (11.5-14.5) Platelet Count 199 x10^3/uL (140-400) Neutrophils (%) (Auto) 65 % (31-73) Lymphocytes (%) (Auto) 22 % (24-48) Monocytes (%) (Auto) 7 % (0-9) Eosinophils (%) (Auto) 5 % (0-3) Basophils (%) (Auto) 1 % (0-3) Neutrophils # (Auto) 4.1 x10^3uL (1.8-7.7) Lymphocytes # (Auto) 1.4 x10^3/uL (1.0-4.8) Monocytes # (Auto) 0.4 x10^3/uL (0.0-1.1) Eosinophils # (Auto) 0.3 x10^3/uL (0.0-0.7) Basophils # (Auto) 0.1 x10^3/uL (0.0-0.2) Sodium Level 145 mmol/L (136-145) Potassium Level 5.6 mmol/L (3.5-5.1) Chloride Level 110 mmol/L (98-107) Carbon Dioxide Level 32 mmol/L (21-32) Anion Gap 3 (6-14) Blood Urea Nitrogen 73 mg/dL (7-20) Creatinine 1.4 mg/dL (0.6-1.0) Estimated GFR (Cockcroft-Gault) 36.1 Glucose Level 142 mg/dL (70-99) Calcium Level 8.8 mg/dL (8.5-10.1) Magnesium Level 2.3 mg/dL (1.8-2.4) Glucose (Fingerstick) 135 mg/dL (70-99) Objective Assessment UTI - POA 06/19. E. 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 group C strep in wound Abx allergies but tolerating Rocephin AVR Plan Plan of Care Change Rocephin to po keflex bid chronic suppressive, d/w zaheer [place] diff recurrence risk is high, he has d/w family about it. According to Dr. Fan's note, family agreed to long-term oral suppression and not 6 weeks of IV abx. MINDY LUNSFORD MD June 26, 2016 09:22
[2016-06-26 10:38] VITALS: BP 143/60
--- NOTE | 2016-06-26 11:27 | PDOC ---
Renal-Progress Notes Subjective Notes Notes NONE History of Present Illness Hx of present illness NO CHANGE Vitals Vitals Vital Signs Date Time Temp Pulse Resp B/P (MAP) Pulse Ox O2 Delivery O2 Flow Rate FiO2 06/26/16 11:21 96 Nasal Cannula 2.0 06/26/16 10:38 97.8 69 20 143/60 (87) 97.8 Weight Weight [ ] I.O. Intake and Output Intake and Output 06/26/16 07:00 Intake Total 1315 ml Output Total 1625 ml Balance -310 ml Intake Oral 465 ml IV Total 850 ml Output Urine Total 1625 ml # Voids 1 # Bowel Movements 3 Labs Labs Laboratory Tests Test 06/25/16 16:21 06/25/16 21:12 06/26/16 03:41 06/26/16 03:46 Glucose (Fingerstick) 135 mg/dL (70-99) 153 mg/dL (70-99) Prothrombin Time 14.9 SEC (11.7-14.0) Prothromb Time International Ratio 1.2 (0.8-1.1) White Blood Count 6.4 x10^3/uL (4.0-11.0) Red Blood Count 2.63 x10^6/uL (3.50-5.40) Hemoglobin 8.6 g/dL (12.0-15.5) Hematocrit 26.3 % (36.0-47.0) Mean Corpuscular Volume 100 fL (79-100) Mean Corpuscular Hemoglobin 33 pg (25-35) Mean Corpuscular Hemoglobin Concent 33 g/dL (31-37) Red Cell Distribution Width 13.4 % (11.5-14.5) Platelet Count 199 x10^3/uL (140-400) Neutrophils (%) (Auto) 65 % (31-73) Lymphocytes (%) (Auto) 22 % (24-48) Monocytes (%) (Auto) 7 % (0-9) Eosinophils (%) (Auto) 5 % (0-3) Basophils (%) (Auto) 1 % (0-3) Neutrophils # (Auto) 4.1 x10^3uL (1.8-7.7) Lymphocytes # (Auto) 1.4 x10^3/uL (1.0-4.8) Monocytes # (Auto) 0.4 x10^3/uL (0.0-1.1) Eosinophils # (Auto) 0.3 x10^3/uL (0.0-0.7) Basophils # (Auto) 0.1 x10^3/uL (0.0-0.2) Sodium Level 145 mmol/L (136-145) Potassium Level 5.6 mmol/L (3.5-5.1) Chloride Level 110 mmol/L (98-107) Carbon Dioxide Level 32 mmol/L (21-32) Anion Gap 3 (6-14) Blood Urea Nitrogen 73 mg/dL (7-20) Creatinine 1.4 mg/dL (0.6-1.0) Estimated GFR (Cockcroft-Gault) 36.1 Glucose Level 142 mg/dL (70-99) Calcium Level 8.8 mg/dL (8.5-10.1) Magnesium Level 2.3 mg/dL (1.8-2.4) Test 06/26/16 07:05 06/26/16 10:16 06/26/16 10:55 Glucose (Fingerstick) 135 mg/dL (70-99) 138 mg/dL (70-99) Potassium Level 5.7 mmol/L (3.5-5.1) Micro Micro Microbiology 06/19/16 Blood Culture - Final, Complete NO GROWTH AFTER 5 DAYS 06/19/16 Urine Culture - Final, Complete 06/19/16 Urine Culture Result 1 (RAQUEL) - Final, Complete 06/19/16 Antimicrobic Susceptibility - Final, Complete 06/20/16 Gram Stain - Final, Complete Review of Systems Constitutional: yes: alert Ears/Nose/Throat: Yes: no symptom reported Eyes: Yes: no symptom reported Pulmonary: Yes dyspnea Musculoskeletal: Yes: no symptom reported Physical Exam General Appearance: no apparent distress Skin: warm Respiratory: decreased breath sounds, wheezing Heart: S1S2 Abdomen: soft Neurology: alert Assessment Assessment IMP DEHYDRATION HYPERNATREMIA-RESOLVED MARTA WITH INCREASING BUN CREAT AND RATIO HYPERKALEMIA-PERSISTS OBESITY HYPERCAPNIC RESP FAILURE PLAN IVF'S KAYEXALATE HOPEFULLY D/C TOMORROW LABS IN AM JULIETA BARTLETT MD June 26, 2016 11:27
[2016-06-26] MEDS ORDERED: SODIUM POLYSTYRENE SULFONATE 15 GM/60 ML ORAL.SUSP. PO ONE (11:30)
[2016-06-26] MEDS: CEPHALEXIN 250 MG CAPSULE. PO SCH ×2 (11:40→21:43)
[2016-06-26] MEDS: IV 1/2 NORMAL SALINE 1,000 ML IV SCH (11:43)
[2016-06-26 14:51] VITALS: BP 145/63
--- NOTE | 2016-06-26 16:16 | PDOC ---
PULMONARY PROGRESS NOTES Subjective not soa no complaints Vitals Vital Signs Date Time Temp Pulse Resp B/P (MAP) Pulse Ox O2 Delivery O2 Flow Rate FiO2 06/26/16 15:19 Nasal Cannula 2.0 06/26/16 14:51 65 20 145/63 (90) 98 06/26/16 10:38 97.8 97.8 ROS: No Nausea, No Chest Pain, No Abdominal Pain, No Increase Cough General: Alert, No acute distress Lungs: Clear Cardiovascular: S1, S2 Abdomen: Soft, Other (obese) Neuro Exam: Alert Extremities: Other (1+edema) Skin: Warm Labs Laboratory Tests Test 06/24/16 20:39 06/25/16 03:50 06/25/16 06:56 06/25/16 10:21 Glucose (Fingerstick) 166 mg/dL (70-99) 125 mg/dL (70-99) 227 mg/dL (70-99) White Blood Count 7.1 x10^3/uL (4.0-11.0) Red Blood Count 2.88 x10^6/uL (3.50-5.40) Hemoglobin 9.2 g/dL (12.0-15.5) Hematocrit 28.7 % (36.0-47.0) Mean Corpuscular Volume 100 fL (79-100) Mean Corpuscular Hemoglobin 32 pg (25-35) Mean Corpuscular Hemoglobin Concent 32 g/dL (31-37) Red Cell Distribution Width 13.4 % (11.5-14.5) Platelet Count 211 x10^3/uL (140-400) Neutrophils (%) (Auto) 63 % (31-73) Lymphocytes (%) (Auto) 24 % (24-48) Monocytes (%) (Auto) 7 % (0-9) Eosinophils (%) (Auto) 5 % (0-3) Basophils (%) (Auto) 1 % (0-3) Neutrophils # (Auto) 4.5 x10^3uL (1.8-7.7) Lymphocytes # (Auto) 1.7 x10^3/uL (1.0-4.8) Monocytes # (Auto) 0.5 x10^3/uL (0.0-1.1) Eosinophils # (Auto) 0.4 x10^3/uL (0.0-0.7) Basophils # (Auto) 0.1 x10^3/uL (0.0-0.2) Sodium Level 146 mmol/L (136-145) Potassium Level 5.5 mmol/L (3.5-5.1) Chloride Level 111 mmol/L (98-107) Carbon Dioxide Level 33 mmol/L (21-32) Anion Gap 2 (6-14) Blood Urea Nitrogen 78 mg/dL (7-20) Creatinine 1.4 mg/dL (0.6-1.0) Estimated GFR (Cockcroft-Gault) 36.1 Glucose Level 148 mg/dL (70-99) Calcium Level 9.2 mg/dL (8.5-10.1) Magnesium Level 2.5 mg/dL (1.8-2.4) Test 06/25/16 16:21 06/25/16 21:12 06/26/16 03:41 06/26/16 03:46 Glucose (Fingerstick) 135 mg/dL (70-99) 153 mg/dL (70-99) Prothrombin Time 14.9 SEC (11.7-14.0) Prothromb Time International Ratio 1.2 (0.8-1.1) White Blood Count 6.4 x10^3/uL (4.0-11.0) Red Blood Count 2.63 x10^6/uL (3.50-5.40) Hemoglobin 8.6 g/dL (12.0-15.5) Hematocrit 26.3 % (36.0-47.0) Mean Corpuscular Volume 100 fL (79-100) Mean Corpuscular Hemoglobin 33 pg (25-35) Mean Corpuscular Hemoglobin Concent 33 g/dL (31-37) Red Cell Distribution Width 13.4 % (11.5-14.5) Platelet Count 199 x10^3/uL (140-400) Neutrophils (%) (Auto) 65 % (31-73) Lymphocytes (%) (Auto) 22 % (24-48) Monocytes (%) (Auto) 7 % (0-9) Eosinophils (%) (Auto) 5 % (0-3) Basophils (%) (Auto) 1 % (0-3) Neutrophils # (Auto) 4.1 x10^3uL (1.8-7.7) Lymphocytes # (Auto) 1.4 x10^3/uL (1.0-4.8) Monocytes # (Auto) 0.4 x10^3/uL (0.0-1.1) Eosinophils # (Auto) 0.3 x10^3/uL (0.0-0.7) Basophils # (Auto) 0.1 x10^3/uL (0.0-0.2) Sodium Level 145 mmol/L (136-145) Potassium Level 5.6 mmol/L (3.5-5.1) Chloride Level 110 mmol/L (98-107) Carbon Dioxide Level 32 mmol/L (21-32) Anion Gap 3 (6-14) Blood Urea Nitrogen 73 mg/dL (7-20) Creatinine 1.4 mg/dL (0.6-1.0) Estimated GFR (Cockcroft-Gault) 36.1 Glucose Level 142 mg/dL (70-99) Calcium Level 8.8 mg/dL (8.5-10.1) Magnesium Level 2.3 mg/dL (1.8-2.4) Test 06/26/16 07:05 06/26/16 10:16 06/26/16 10:55 Glucose (Fingerstick) 135 mg/dL (70-99) 138 mg/dL (70-99) Potassium Level 5.7 mmol/L (3.5-5.1) Laboratory Tests Test 06/25/16 16:21 06/25/16 21:12 06/26/16 03:41 06/26/16 03:46 Glucose (Fingerstick) 135 mg/dL (70-99) 153 mg/dL (70-99) Prothrombin Time 14.9 SEC (11.7-14.0) Prothromb Time International Ratio 1.2 (0.8-1.1) White Blood Count 6.4 x10^3/uL (4.0-11.0) Red Blood Count 2.63 x10^6/uL (3.50-5.40) Hemoglobin 8.6 g/dL (12.0-15.5) Hematocrit 26.3 % (36.0-47.0) Mean Corpuscular Volume 100 fL (79-100) Mean Corpuscular Hemoglobin 33 pg (25-35) Mean Corpuscular Hemoglobin Concent 33 g/dL (31-37) Red Cell Distribution Width 13.4 % (11.5-14.5) Platelet Count 199 x10^3/uL (140-400) Neutrophils (%) (Auto) 65 % (31-73) Lymphocytes (%) (Auto) 22 % (24-48) Monocytes (%) (Auto) 7 % (0-9) Eosinophils (%) (Auto) 5 % (0-3) Basophils (%) (Auto) 1 % (0-3) Neutrophils # (Auto) 4.1 x10^3uL (1.8-7.7) Lymphocytes # (Auto) 1.4 x10^3/uL (1.0-4.8) Monocytes # (Auto) 0.4 x10^3/uL (0.0-1.1) Eosinophils # (Auto) 0.3 x10^3/uL (0.0-0.7) Basophils # (Auto) 0.1 x10^3/uL (0.0-0.2) Sodium Level 145 mmol/L (136-145) Potassium Level 5.6 mmol/L (3.5-5.1) Chloride Level 110 mmol/L (98-107) Carbon Dioxide Level 32 mmol/L (21-32) Anion Gap 3 (6-14) Blood Urea Nitrogen 73 mg/dL (7-20) Creatinine 1.4 mg/dL (0.6-1.0) Estimated GFR (Cockcroft-Gault) 36.1 Glucose Level 142 mg/dL (70-99) Calcium Level 8.8 mg/dL (8.5-10.1) Magnesium Level 2.3 mg/dL (1.8-2.4) Test 06/26/16 07:05 06/26/16 10:16 06/26/16 10:55 Glucose (Fingerstick) 135 mg/dL (70-99) 138 mg/dL (70-99) Potassium Level 5.7 mmol/L (3.5-5.1) Medications Active Scripts Medications Dose Route/Sig Max Daily Dose Days Date Category Doxycycline Hyclate 100 Mg Tablet.dr 100 Mg PO BID 04/14/16 Rx Cefpodoxime Proxetil 200 Mg Tablet 200 Mg PO BID 06/07/15 Rx Levemir (Insulin Detemir) 100 Unit/1 Ml Vial 5 Unit SQ HS 06/05/15 Reported Potassium Chloride 10 Meq Capsule.er 10 Meq PO DAILY 06/05/15 Reported Soothe & Cool Skin Paste (Zinc Oxide/Petrolatum,White) 71 Gm Oint...g. Gm TP 06/05/15 Reported Vitamin D3 (Cholecalciferol (Vitamin D3)) 1,000 Unit Tablet 1 Tab PO DAILY 06/05/15 Reported Furosemide 40 Mg Tablet 1 Tab PO DAILY 06/05/15 Reported Warfarin Sodium 10 Mg Tablet 10 Mg PO DAILY 01/22/15 Rx Fluticasone Propionate Nasal [place] (Fluticasone Propionate) 16 Gm [place].susp 2 [place] NS DAILY 01/18/15 Reported Artificial Tears Eye Drops (Dextran 70/Hypromellose) 15 Ml Drops 1 Drop EACHEYE PRN DAILY PRN 01/18/15 Reported Anastrozole 1 Mg Tablet 1 Mg PO DAILY 01/18/15 Reported Tylenol (Acetaminophen) 325 Mg Tablet 650 Mg PO PRN Q6HRS PRN 01/18/15 Reported Multi-Day Vitamins (Multivitamin) 1 Each Tablet 1 Tab PO DAILY 01/18/15 Reported Singulair Tablet (Montelukast Sodium) 10 Mg Tablet 10 Mg PO HS 01/18/15 Reported Primidone 250 Mg Tablet 250 Mg PO BID 01/17/15 Reported Polyethylene Glycol 3350 17 Gm Powd.pack 17 Gm PO PRN DAILY PRN 01/17/15 Reported Nystatin 1 Each Powder.ea. 1 Venessa TOP BID 01/17/15 Reported Modafinil 100 Mg Tablet 200 Mg PO DAILY 01/17/15 Reported Lidoderm (Lidocaine) 700 Mg Adh..patch 1 Patch TP DAILY 01/17/15 Reported Gabapentin 100 Mg Capsule 100 Mg PO HS 01/17/15 Reported Folic Acid 1 Mg Tablet 1 Mg PO BID 01/17/15 Reported Ferrous Sulfate 325 Mg Tablet 325 Mg PO TIDWMEALS 01/17/15 Reported Escitalopram Oxalate 20 Mg Tablet 20 Mg PO DAILY 01/17/15 Reported B-12 (Cyanocobalamin (Vitamin B-12)) 1,000 Mcg Tablet.er 1,000 Mcg PO DAILY 01/17/15 Reported Claritin (Loratadine) 10 Mg Capsule 10 Mg PO DAILY 01/17/15 Reported Calcium Carbonate 500 Mg Tablet 500 Mg PO DAILY 12/13/15 Reported Benadryl (Diphenhydramine Hcl) 25 Mg Capsule 25 Mg PO PRN Q6HRS PRN 01/17/15 Reported Impression . 1. Acute on chronic hypercapnic respiratory failure in a patient who has underlying morbid obesity with a BMI of 58 and most likely has obesity hypoventilation syndrome. On BiPAPqhs and prn 2. Encephalopathy present on admission secondary to combination of uremic encephalopathy and hypercarbia, currently improving. 3. No significant history of tobacco use. 4. Sternal wound. 5. Prerenal azotemia secondary to volume depletion. Plan . resp status is improving 1. Continue BiPAP at bedtime and p.r.n. during the day. 2. Avoid benzodiazepines and narcotics. 3. Continue nebulizer treatment. 4. Continue on 2 liters oxygen during the day. 5. Antibiotics per ID recommendations. JAZ ODELL MD June 26, 2016 16:16
[2016-06-26 19:00] VITALS: BP 137/65
[2016-06-26] MEDS ORDERED: WARFARIN 10 MG TABLET. PO ONE ×2 (20:30→21:00)
--- NOTE | 2016-06-26 20:56 | PDOC ---
Provider Note Provider Note The patient is on Lovenox. INR is subtherapeutic. 12.5 mg of Coumadin today and continue to monitor INR every day until therapeutic. NELIDA RAJPUT MD June 26, 2016 20:56
[2016-06-26] MEDS ORDERED: WARFARIN 2.5 MG TABLET. PO ONE (21:00)
[2016-06-26] MEDS: GABAPENTIN 100 MG CAPSULE. PO SCH (21:44)
[2016-06-26] MEDS: MONTELUKAST SODIUM 10 MG TABLET. PO SCH (21:44)
[2016-06-26] MEDS: INSULIN DETEMIR 300 UNITS/3 ML INSULN.PEN. SQ SCH (21:52)
[2016-06-26 23:00] VITALS: BP 109/73
[2016-06-27] MEDS: IV 1/2 NORMAL SALINE 1,000 ML IV SCH (02:14)
[2016-06-27 03:00] VITALS: BP 135/56
[2016-06-27 03:50] LABS: BASO # 0.1 x10^3/uL (0.0-0.2); BASO % 1 % (0-3); EOS % 2 % (0-3); HEMATOCRIT 27.5 % (36.0-47.0); HEMOGLOBIN 8.9 g/dL (12.0-15.5); LYMPH # 1.4 x10^3/uL (1.0-4.8); LYMPH % 19 % (24-48); MEAN CORPUSCULAR HEMOGLOBIN 32 pg (25-35); MEAN CORPUSCULAR HGB CONC 32 g/dL (31-37); MEAN CORPUSCULAR VOLUME 100 fL (79-100); MONO % 7 % (0-9); NEUT % 71 % (31-73); PLATELET COUNT 199 x10^3/uL (140-400); RED BLOOD COUNT 2.75 x10^6/uL (3.50-5.40); RED CELL DISTRIBUTION WIDTH 13.6 % (11.5-14.5); WHITE BLOOD COUNT 7.5 x10^3/uL (4.0-11.0)
[2016-06-27 03:58] LABS: INR 1.5 (0.8-1.1); PROTHROMBIN TIME PATIENT 17.2 SEC (11.7-14.0)
[2016-06-27 04:23] LABS: CALCIUM 8.7 mg/dL (8.5-10.1); CREATININE 1.3 mg/dL (0.6-1.0); GFR 39.3; MAGNESIUM 2.2 mg/dL (1.8-2.4); POTASSIUM 4.5 mmol/L (3.5-5.1)
[2016-06-27 06:57] VITALS: BP 149/97
[2016-06-27] MEDS: IPRATRPIUM/ALBUTEROL 0.5/2.5MG 3 ML NEBU. NEB SCH ×2 (07:18→11:32)
[2016-06-27] MEDS: INSULIN ASPART 300 UNITS/3 ML INSULN.PEN SQ SCH (08:00)
[2016-06-27] MEDS: CYANOCOBALAMIN (VITAMIN B-12) 1,000 MCG TABLET. PO SCH (08:08)
[2016-06-27] MEDS: LIDOCAINE (700MG/PATCH) PATCH. TP SCH (08:08)
[2016-06-27] MEDS: ESCITALOPRAM 10 MG TABLET. PO SCH (08:08)
[2016-06-27] MEDS: PRIMIDONE 250 MG TABLET PO SCH (08:08)
[2016-06-27] MEDS: FLUTICASONE 50MCG/NASAL SPRAY 16GM BOTTLE. NS SCH (08:08)
[2016-06-27] MEDS: CEPHALEXIN 250 MG CAPSULE. PO SCH (08:09)
[2016-06-27] MEDS: FOLIC ACID 1 MG TABLET. PO SCH (08:09)
[2016-06-27] MEDS: amLODIPine BESYLATE 2.5 MG TABLET PO SCH (08:09)
[2016-06-27] MEDS: CETIRIZINE HCL 10 MG TABLET. PO SCH (08:09)
[2016-06-27] MEDS: CHOLECALCIFEROL (VITAMIN D3) 1,000 UNIT TABLET PO SCH (08:10)
[2016-06-27] MEDS: FERROUS SULFATE 325 MG TABLET. PO SCH (08:10)
[2016-06-27] MEDS: MULTIVITAMIN with MINERAL TABLET. PO SCH (08:10)
[2016-06-27] MEDS: CALCIUM CARBONATE 500 MG TABLET PO SCH (08:10)
[2016-06-27] MEDS: NYSTATIN TOPICAL POWDER 15GM BOTTLE. TP SCH (08:10)
[2016-06-27] MEDS: ANASTROZOLE 1 MG TABLET PO SCH (08:25)
--- NOTE | 2016-06-27 10:20 | PDOC ---
Infectious Disease Note Subjective Subjective Comfortable, denies pain ready to go back to her rehab says MOISES DE LEON no n/v/d/pain Vital Sign Vital Signs Vital Signs Date Time Temp Pulse Resp B/P (MAP) Pulse Ox O2 Delivery O2 Flow Rate FiO2 06/27/16 08:09 62 149/97 06/27/16 08:00 Nasal Cannula 2.0 06/27/16 07:18 96 06/27/16 06:57 98.4 18 98.4 Physical Exam PHYSICAL EXAM GENERAL: NAD, Alert HEENT: PERRL, OC/OP NECK: Supple, no JVD, no LN LUNGS: Clear HEART: S1S2, no gallop, no murmur ABD: Soft, NT, no organomegaly, no rebound EXT: No edema, no cyanosis PUTTY PATCHER: Alert, oriented x 3 SKIN: No rash IV: ok Labs Lab Laboratory Tests Test 06/26/16 10:55 06/26/16 16:23 06/26/16 21:00 06/27/16 03:00 Potassium Level 5.7 mmol/L (3.5-5.1) 4.5 mmol/L (3.5-5.1) Glucose (Fingerstick) 170 mg/dL (70-99) 154 mg/dL (70-99) White Blood Count 7.5 x10^3/uL (4.0-11.0) Red Blood Count 2.75 x10^6/uL (3.50-5.40) Hemoglobin 8.9 g/dL (12.0-15.5) Hematocrit 27.5 % (36.0-47.0) Mean Corpuscular Volume 100 fL (79-100) Mean Corpuscular Hemoglobin 32 pg (25-35) Mean Corpuscular Hemoglobin Concent 32 g/dL (31-37) Red Cell Distribution Width 13.6 % (11.5-14.5) Platelet Count 199 x10^3/uL (140-400) Neutrophils (%) (Auto) 71 % (31-73) Lymphocytes (%) (Auto) 19 % (24-48) Monocytes (%) (Auto) 7 % (0-9) Eosinophils (%) (Auto) 2 % (0-3) Basophils (%) (Auto) 1 % (0-3) Neutrophils # (Auto) 5.4 x10^3uL (1.8-7.7) Lymphocytes # (Auto) 1.4 x10^3/uL (1.0-4.8) Monocytes # (Auto) 0.5 x10^3/uL (0.0-1.1) Eosinophils # (Auto) 0.2 x10^3/uL (0.0-0.7) Basophils # (Auto) 0.1 x10^3/uL (0.0-0.2) Prothrombin Time 17.2 SEC (11.7-14.0) Prothromb Time International Ratio 1.5 (0.8-1.1) Sodium Level 149 mmol/L (136-145) Chloride Level 110 mmol/L (98-107) Carbon Dioxide Level 33 mmol/L (21-32) Anion Gap 6 (6-14) Blood Urea Nitrogen 68 mg/dL (7-20) Creatinine 1.3 mg/dL (0.6-1.0) Estimated GFR (Cockcroft-Gault) 39.3 Glucose Level 139 mg/dL (70-99) Calcium Level 8.7 mg/dL (8.5-10.1) Magnesium Level 2.2 mg/dL (1.8-2.4) Test 06/27/16 07:15 Glucose (Fingerstick) 131 mg/dL (70-99) Objective Assessment UTI - POA 06/19. E. 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 group C strep in wound Abx allergies but tolerating Rocephin AVR Plan Plan of Care Change Rocephin to po keflex bid chronic suppressive, d/w zaheer [place] diff recurrence risk is high, he has d/w family about it. According to Dr. Fan's note, family agreed to long-term oral suppression and not 6 weeks of IV abx. ok to d/c MINDY LUNSFORD MD June 27, 2016 10:20
--- NOTE | 2016-06-27 10:37 | PDOC ---
PROGRESS NOTES Subjective Subjective no new problems Objective Objective Vital Signs Date Time Temp Pulse Resp B/P (MAP) Pulse Ox O2 Delivery O2 Flow Rate FiO2 06/27/16 08:09 62 149/97 06/27/16 08:00 Nasal Cannula 2.0 06/27/16 07:18 96 06/27/16 06:57 98.4 18 98.4 Intake and Output 06/27/16 07:00 Intake Total 1350 ml Output Total 850 ml Balance 500 ml Intake Oral 1350 ml Output Urine Total 850 ml # Bowel Movements 2 Physical Exam Abdomen: Soft, No tenderness Heart: Regular rate, Normal S1, Normal S2, Other (valve clicking) Extremities: No clubbing, Other (pedal edema, reports chronic) General: Other (dementia) HEENT: Atraumatic Lungs: Other (diffuse wheezing) MUSCULOSKELETAL: Other (Sternotomy: there is minimal serous drainage with islands of poor granulation tissue formation, mid to inferior. Wound is 0,5cm deep, with exposed sternal wire) Neck: Supple Neuro: Normal speech, Other (severe dementia) Skin: Other (mid chest wound, excoriations right chest s/p breast cancer treatment) Diagnosis Problem List Problems Medical Problems: (1) Hypercapnia Status: Acute (2) Mental status change Status: Acute Assessment Assessment Assessment 1. UTI Ecoli ,POA 2. ARF no MARTA or ATN with underlying CKD III stable, range Cr 1.5-1.9 BUN 70 POA 3. acute on chronic diastolic CHF POA 4. acute on chronic hypercapnic respiratory failure with underlying CHF, pulmonary HTN, COPD 5. Diabetes mellitus type 2 with neuropathy 6. Chronic tremors. 7. FERNANDO/OHS with BiPAP at HS, on oxygen via nasal cannula at 2 L/minute during day. 8. narcolepsy 9. History of aortic valve replacement, on xarelto 10. Atrial fibrillation, on xarelto PLAN: d/c back to [facility] today. po keflex life long maintenance therqapy. coumadin +brodge with lovenox to keep inr 2.5 to 3.5 Na 148 improving.pot 4.5 cr 1.3 went up. UTI rocephin IV since admit Urine CX E coli no ghotra a/c hypercapnic respiratory failure/FERNANDO -BIPAP at hs, NC during day pulmonary consult BiPap HS, O2 2L day ARF with underlying CKD nephrology consult Remains on Lasix 40mg po IV NS 75cc/hr-DC 06/23 sternal wound chronic osteomyelitis ID consulted betahemolytic group B strep second culture multiple gram neg rods, non predomninant =heavily colonized D/W Dr. Vigil-IV antibiotics x 6 week with oral suppressive after vs oral antibiotics. He will d/w Dr. Fan CV surgeon-continue chronic wound care, not surgical candidate metabolic encephalopathy improving h/o AVR and AFib xarelto stoped, coumadin restarted as per cardiology DM II BS [phone] Levemir decreased from 9u to 5 unit SSI FSBS 06/23 Increase Levemir to 8 units DVT/GI prophylaxis warfarin until 06/21 xarelto initated 06/22 PPI anemia CD Admit 9.8 06/23 7.9 monitor continue B12/folate and Fe replacement Dysphagia speech eval-Downgrade diet to include honey thick liquids--dysphagia III w/ honey thick. Meds w/ honey thick liquids. For further plan of care please refer to the orders. Problems: Plan Plan of Care Problems Medical Problems: (1) Hypercapnia Status: Acute (2) Mental status change Status: Acute Comment Review of Relevant I have reviewed the following items glenna (where applicable) has been applied. Labs Laboratory Tests Test 06/26/16 10:55 06/26/16 16:23 06/26/16 21:00 06/27/16 03:00 Potassium Level 5.7 mmol/L (3.5-5.1) 4.5 mmol/L (3.5-5.1) Glucose (Fingerstick) 170 mg/dL (70-99) 154 mg/dL (70-99) White Blood Count 7.5 x10^3/uL (4.0-11.0) Red Blood Count 2.75 x10^6/uL (3.50-5.40) Hemoglobin 8.9 g/dL (12.0-15.5) Hematocrit 27.5 % (36.0-47.0) Mean Corpuscular Volume 100 fL (79-100) Mean Corpuscular Hemoglobin 32 pg (25-35) Mean Corpuscular Hemoglobin Concent 32 g/dL (31-37) Red Cell Distribution Width 13.6 % (11.5-14.5) Platelet Count 199 x10^3/uL (140-400) Neutrophils (%) (Auto) 71 % (31-73) Lymphocytes (%) (Auto) 19 % (24-48) Monocytes (%) (Auto) 7 % (0-9) Eosinophils (%) (Auto) 2 % (0-3) Basophils (%) (Auto) 1 % (0-3) Neutrophils # (Auto) 5.4 x10^3uL (1.8-7.7) Lymphocytes # (Auto) 1.4 x10^3/uL (1.0-4.8) Monocytes # (Auto) 0.5 x10^3/uL (0.0-1.1) Eosinophils # (Auto) 0.2 x10^3/uL (0.0-0.7) Basophils # (Auto) 0.1 x10^3/uL (0.0-0.2) Prothrombin Time 17.2 SEC (11.7-14.0) Prothromb Time International Ratio 1.5 (0.8-1.1) Sodium Level 149 mmol/L (136-145) Chloride Level 110 mmol/L (98-107) Carbon Dioxide Level 33 mmol/L (21-32) Anion Gap 6 (6-14) Blood Urea Nitrogen 68 mg/dL (7-20) Creatinine 1.3 mg/dL (0.6-1.0) Estimated GFR (Cockcroft-Gault) 39.3 Glucose Level 139 mg/dL (70-99) Calcium Level 8.7 mg/dL (8.5-10.1) Magnesium Level 2.2 mg/dL (1.8-2.4) Test 06/27/16 07:15 Glucose (Fingerstick) 131 mg/dL (70-99) Microbiology 06/19/16 Blood Culture - Final, Complete NO GROWTH AFTER 5 DAYS 06/19/16 Urine Culture - Final, Complete 06/19/16 Urine Culture Result 1 (RAQUEL) - Final, Complete 06/19/16 Antimicrobic Susceptibility - Final, Complete 06/20/16 Gram Stain - Final, Complete Medications Current Medications Sodium Polystyrene Sulfonate (Kayexalate) 30 gm 1X ONCE PO Last administered on 06/26/16t 11:40; Start 06/26/16 at 11:30; Stop 06/26/16 at 11:31; Status DC Warfarin Sodium (Coumadin Per Physician) 1 each PRN DAILY PRN MC SEE COMMENTS Last administered on 06/26/16 11:52; Start 06/26/16 at 12:00 Warfarin Sodium (Coumadin) 2.5 mg 1X WARF ONCE PO Last administered on 21:45; Start 06/26/16 at 21:00; Stop 06/26/16 at 21:01; Status DC Warfarin Sodium (Coumadin) 2.5 mg 1X WARF ONCE PO ; Start 06/27/16 at 16:00; Stop 06/27/16 at 16:00; Status DC Warfarin Sodium (Coumadin) 10 mg 1X WARF ONCE PO Last administered on 21:45; Start 06/26/16 at 21:00; Stop 06/26/16 at 21:01; Status DC Warfarin Sodium (Coumadin) 10 mg 1X WARF ONCE PO ; Start 06/27/16 at 16:00; Stop 06/27/16 at 16:00; Status DC Warfarin Sodium (Coumadin) 12.5 mg 1X ONCE PO ; Start 06/26/16 at 20:30; Stop 06/26/16 at 20:31; Status UNV Vitals/I & O Vital Sign - Last 24 Hours 06/26/16 06/26/16 06/26/16 06/26/16 10:38 11:21 14:51 15:19 Temp 97.8 97.8 Pulse 69 65 Resp 20 20 B/P (MAP) 143/60 (87) 145/63 (90) Pulse Ox 98 96 98 O2 Delivery Nasal Cannula Nasal Cannula Nasal Cannula Nasal Cannula O2 Flow Rate 2.0 2.0 2.0 2.0 06/26/16 06/26/16 06/26/16 06/26/16 19:00 19:47 20:00 22:16 Temp 97.7 97.7 Pulse 65 Resp 18 B/P (MAP) 137/65 (89) Pulse Ox 96 98 98 O2 Delivery Nasal Cannula Nasal Cannula BiPAP/CPAP O2 Flow Rate 2.0 2.0 06/26/16 06/27/16 06/27/16 06/27/16 23:00 01:50 03:00 04:41 Temp 98.7 98.4 98.7 98.4 Pulse 72 60 Resp 18 18 B/P (MAP) 109/73 (85) 135/56 (82) Pulse Ox 93 99 O2 Delivery BiPAP/CPAP BiPAP/CPAP 06/27/16 06/27/16 06/27/16 06/27/16 06:57 07:18 08:00 08:09 Temp 98.4 98.4 Pulse 62 62 Resp 18 B/P (MAP) 149/97 (114) 149/97 Pulse Ox 100 96 O2 Delivery BiPAP/CPAP BiPAP/CPAP Nasal Cannula O2 Flow Rate 2.0 Intake and Output 06/26/16 06/26/16 06/27/16 15:00 23:00 07:00 Intake Total 500 ml 850 ml Output Total 850 ml 0 ml Balance 500 ml 0 ml 0 ml ZUNILDA MILLER MD June 27, 2016 10:37
[2016-06-27 10:38] VITALS: BP 141/66
[2016-06-27] MEDS ORDERED: WARFARIN 5 MG TABLET. PO ONE (16:00)
[2016-06-27] MEDS ORDERED: WARFARIN 7.5 MG TABLET. PO ONE (16:00)
[2016-06-27] MEDS ORDERED: WARFARIN 10 MG TABLET. PO ONE ×2 (16:00)
[2016-06-27] MEDS ORDERED: WARFARIN 2.5 MG TABLET. PO ONE (16:00)
[2016-06-28 07:10] LABS: PCO2 ABG 66 mmHg (35-46)
== END 2016-06-27 12:33 | DRG 682 ==
LOC: ER 15:24 → 5 SOUTH 18:45
PROVIDERS: ADMIT Internal Medicine; ATTEND Internal Medicine
PROC: 5A09457 Assistance with Respiratory Ventilation, 24-96 Consecutive Hours, Continuous Positive Airway Pressure (ICD-10-PCS; principal; 2016-06-19)
DX: N17.0 Acute kidney failure with tubular necrosis (principal); G93.41 Metabolic encephalopathy; I50.33 Acute on chronic diastolic (congestive) heart failure; J96.22 Acute and chronic respiratory failure with hypercapnia; N39.0 Urinary tract infection, site not specified; E44.0 Moderate protein-calorie malnutrition; Z68.43 Body mass index [BMI] 50.0-59.9, adult; E66.2 Morbid (severe) obesity with alveolar hypoventilation; E87.0 Hyperosmolality and hypernatremia; I13.0 Hypertensive heart and chronic kidney disease with heart failure and stage 1 through stage 4 chronic kidney disease, or unspecified chronic kidney disease; I48.92 Unspecified atrial flutter; M86.68 Other chronic osteomyelitis, other site; B96.20 Unspecified Escherichia coli [E. coli] as the cause of diseases classified elsewhere; B37.2 Candidiasis of skin and nail; D50.9 Iron deficiency anemia, unspecified; D51.9 Vitamin B12 deficiency anemia, unspecified; E11.40 Type 2 diabetes mellitus with diabetic neuropathy, unspecified; E11.69 Type 2 diabetes mellitus with other specified complication; E11.22 Type 2 diabetes mellitus with diabetic chronic kidney disease; E86.9 Volume depletion, unspecified; E87.5 Hyperkalemia; F03.90 Unspecified dementia, unspecified severity, without behavioral disturbance, psychotic disturbance, mood disturbance, and anxiety; F32.9 Major depressive disorder, single episode, unspecified; F41.9 Anxiety disorder, unspecified; G20 Parkinson's disease; I25.10 Atherosclerotic heart disease of native coronary artery without angina pectoris; I27.2 Other secondary pulmonary hypertension; I48.91 Unspecified atrial fibrillation; E83.51 Hypocalcemia; E87.6 Hypokalemia; R13.10 Dysphagia, unspecified; R62.7 Adult failure to thrive; J44.9 Chronic obstructive pulmonary disease, unspecified; K59.09 Other constipation; M19.90 Unspecified osteoarthritis, unspecified site; N18.3 Chronic kidney disease, stage 3 (moderate); T50.1X5A Adverse effect of loop [high-ceiling] diuretics, initial encounter; E86.0 Dehydration; G47.419 Narcolepsy without cataplexy; J30.9 Allergic rhinitis, unspecified; I89.0 Lymphedema, not elsewhere classified; Z16.11 Resistance to penicillins; Z51.5 Encounter for palliative care; Z66 Do not resuscitate; Z79.01 Long term (current) use of anticoagulants; Z79.2 Long term (current) use of antibiotics; Z79.4 Long term (current) use of insulin; Z85.3 Personal history of malignant neoplasm of breast; Z88.1 Allergy status to other antibiotic agents; Z90.11 Acquired absence of right breast and nipple; Z95.2 Presence of prosthetic heart valve; Z86.14 Personal history of Methicillin resistant Staphylococcus aureus infection; Z87.440 Personal history of urinary (tract) infections; Z92.3 Personal history of irradiation; Z88.2 Allergy status to sulfonamides; Z88.8 Allergy status to other drugs, medicaments and biological substances; Z88.5 Allergy status to narcotic agent; Z91.013 Allergy to seafood
CPT/HCPCS: 36415; 36600; 70450; 71010; 80048; 80053; 81001; 82728; 82805; 82947; 83540; 83550; 83690; 83735; 83880; 84132; 84484; 85027; 85045; 85610; 85651; 87040; 87071; 87075; 87086; 87186; 87205; 87641; 93005; 93306; 94250; 94620; 94640; 94660; 94760; 96365; 96366; 96367; 96375; J0696; J1650; J1815; J1956; J3475; J3490; J7030; J7620; S0028; 92526; 92610; 99285-25

== ENCOUNTER 2016-07-15 18:13 | Inpatient (IN) | payer MEDICARE, OTHER ==
[~2016-07-15] VITALS: Ht 157.5 cm; Wt 129.7 kg
[2016-07-15] VITALS (9 sets, daily range): BP systolic 87–136; BP diastolic 39–74
[~2016-07-15 18:13] MED LIST changes: +ACET500T33 PO; +ACID1TAB14 PO; +AMLO5TAB2 PO; +CEFP100T PO; -ERGO500012 PO; +ERGO500027 PO; -ESCI20TA PO; +ESCITALOPRAM OX10 MG PO; +ESCITALOPRAM OX20 MG PO; +INSU100I27 SQ; +IPRA3AMP NEB
[2016-07-15] MEDS ORDERED: ALBUTEROL SULFATE 2.5 MG/3 ML NEBU. CONT NEB ONE (18:30)
--- NOTE | 2016-07-15 18:30 | PHYS DOC ---
Past Medical History Past Medical History: A-Fib, Anemia, Arthritis, Cancer, CHF, Constipation, COPD , Depression, Diabetes-Type II, Heart Disease, Hypertension, UTI, Other Additional Past Medical Histor: NARCOLEPSY, DYSPHAGIA, SLEEP APNEA, MAL. NEOPLASM, MDD, CELLULITIS Past Surgical History: Other Additional Past Surgical Histo: RIGHT MASTECTOMY, HEART VALVE REPLACE Alcohol Use: None Drug Use: None Adult General Chief Complaint Chief Complaint: SHORTNESS OF BREATH HPI HPI Patient is a 81 year old female who presents from nursing facility for respiratory distress. She was noted to be altered and hypoxemic on nasal cannula at the nursing facility. EMS was called and they placed her on CPAP. She had some improvement in mentation after being placed on CPAP. She notes dyspnea without other new symptoms. She denies fever or chills, chest pain, hemoptysis. Review of Systems Review of Systems Constitutional: Denies fever or chills [] Eyes: Denies change in visual acuity, redness, or eye pain [] HENT: Denies nasal congestion or sore throat [] Respiratory: Denies cough [] Cardiovascular: No additional information not addressed in HPI [] GI: Denies abdominal pain, nausea, vomiting, bloody stools or diarrhea [] : Denies dysuria or hematuria [] Musculoskeletal: Denies back pain or joint pain [] Integument: Denies rash or skin lesions [] Neurologic: Denies headache, focal weakness or sensory changes [] Endocrine: Denies polyuria or polydipsia [] Current Medications Current Medications Current Medications Medications (Trade) Dose Ordered Sig/Felicia Start Time Stop Time Status Last Admin Dose Admin Albuterol Sulfate (Ventolin Neb Soln) 10 mg 1X ONCE 07/15/16 18:30 07/15/16 18:31 DC 07/15/16 18:45 10 MG Albuterol/ Ipratropium (Duoneb) 3 ml 1X ONCE 07/15/16 18:45 07/15/16 18:46 DC 07/15/16 18:36 3 ML Allergies Allergies Allergies Coded Allergies Type Severity Reaction Last Updated Verified Fish Containing Products Allergy Intermediate 01/17/15 Yes Sulfa (Sulfonamide Antibiotics) Allergy Intermediate 01/17/15 Yes bacitracin Allergy Intermediate 01/17/15 Yes ciprofloxacin Allergy Intermediate LEVAQUIN OK 06/04/15 Yes codeine Allergy Intermediate 12/13/15 Yes iodine Allergy Intermediate 01/17/15 Yes lactose Allergy Intermediate 01/17/15 Yes metformin Allergy Intermediate 01/17/15 Yes morphine Allergy Intermediate 01/17/15 Yes neomycin Allergy Intermediate 01/17/15 Yes polymyxin B Allergy Intermediate 01/17/15 Yes shellfish derived Allergy Intermediate 01/17/15 Yes enoxaparin Adverse Reaction Severe 07/08/16 Yes Physical Exam Physical Exam Constitutional: Well developed, well nourished, moderate distress, non-toxic appearance. [] HENT: Normocephalic, atraumatic, bilateral external ears normal, oropharynx moist, nose normal. CPAP mask in place [] Eyes: PERRLA, EOMI. [] Neck: Normal range of motion, no tenderness, supple; no stridor noted between mask change. [] Cardiovascular:Heart rate regular rhythm [] Lungs & Thorax: Bilateral breath sounds diminished with wheezing; tachypnea [] Abdomen: Bowel sounds normal, soft, no tenderness. [] Skin: Warm, dry, no erythema, no rash. [] Back: Normal ROM. [] Extremities: No tenderness, ROM intact, no edema. [] Neurologic: Alert and oriented to self and situation, normal motor function, normal sensory function, no focal deficits noted. [] Psychologic: Affect normal, judgement normal, mood normal. [] Current Patient Data Vital Signs Vital Signs Date Time Temp Pulse Resp B/P (MAP) Pulse Ox O2 Delivery O2 Flow Rate FiO2 07/15/16 19:03 80 29 130/63 (85) 95 BiPAP/CPAP 07/15/16 18:14 98.9 15.0 98.9 Lab Values Laboratory Tests Test 07/15/16 18:24 07/15/16 18:25 O2 Saturation 97 % (92-99) Arterial Blood pH 7.31 (7.35-7.45) L Arterial Blood pCO2 at Patient Temp 51 mmHg (35-46) H Arterial Blood pO2 at Patient Temp 113 mmHg (65-108) H Arterial Blood HCO3 25 mmol/L (21-28) Arterial Blood Base Excess -1 mmol/L (-3-3) FiO2 40 White Blood Count 12.4 x10^3/uL (4.0-11.0) #H Red Blood Count 3.17 x10^6/uL (3.50-5.40) L Hemoglobin 9.6 g/dL (12.0-15.5) L Hematocrit 30.0 % (36.0-47.0) L Mean Corpuscular Volume 95 fL (79-100) Mean Corpuscular Hemoglobin 30 pg (25-35) Mean Corpuscular Hemoglobin Concent 32 g/dL (31-37) Red Cell Distribution Width 17.4 % (11.5-14.5) H Platelet Count 480 x10^3/uL (140-400) H Neutrophils (%) (Auto) 70 % (31-73) Lymphocytes (%) (Auto) 21 % (24-48) L Monocytes (%) (Auto) 6 % (0-9) Eosinophils (%) (Auto) 2 % (0-3) Basophils (%) (Auto) 1 % (0-3) Neutrophils # (Auto) 8.7 x10^3uL (1.8-7.7) H Lymphocytes # (Auto) 2.6 x10^3/uL (1.0-4.8) Monocytes # (Auto) 0.7 x10^3/uL (0.0-1.1) Eosinophils # (Auto) 0.2 x10^3/uL (0.0-0.7) Basophils # (Auto) 0.1 x10^3/uL (0.0-0.2) Sodium Level 145 mmol/L (136-145) Potassium Level 4.4 mmol/L (3.5-5.1) Chloride Level 105 mmol/L (98-107) Carbon Dioxide Level 33 mmol/L (21-32) H Anion Gap 7 (6-14) Blood Urea Nitrogen 82 mg/dL (7-20) H Creatinine 1.5 mg/dL (0.6-1.0) H Estimated GFR (Cockcroft-Gault) 33.3 BUN/Creatinine Ratio 55 (6-20) H Glucose Level 167 mg/dL (70-99) H Calcium Level 8.8 mg/dL (8.5-10.1) Total Bilirubin 0.3 mg/dL (0.2-1.0) Aspartate Amino Transferase (AST) 43 U/L (15-37) H Alanine Aminotransferase (ALT) 69 U/L (14-59) H Alkaline Phosphatase 130 U/L (46-116) H Troponin I Quantitative < 0.017 ng/mL (0.000-0.055) ZI-Fzc-G-Type Natriuretic Peptide 4052 pg/mL (0-449) H Total Protein 6.7 g/dL (6.4-8.2) Albumin 2.4 g/dL (3.4-5.0) L Albumin/Globulin Ratio 0.6 (1.0-1.7) L Laboratory Tests 07/15/16 18:25 Laboratory Tests 07/15/16 18:25 EKG EKG EKG as interpreted by me as normal sinus rhythm, rate 90, no ST-T changes, OR 236, QTC 437, no ectopy Radiology/Procedures Radiology/Procedures Chest xray as interpreted by me with no acute cardiopulmonary disease process Course & Med Decision Making Course & Med Decision Making Pertinent Labs and Imaging studies reviewed. (See chart for details) She is making improvements after being on BiPAP. Lung sounds are improving. Mental status has improved to baseline. Laboratory evaluation largely unremarkable. ABG shows hypoxemia and hypercarbia. Discussed care at bedside with family. Discussed case with Dr. Shea, who will admit. Pulmonology consult placed. Dragon Disclaimer Dragon Disclaimer This electronic medical record was generated, in whole or in part, using a voice recognition dictation system. Critical Care Time Critical care time was 45 minutes exclusive of procedures. Departure Departure Impression: Primary Impression: Acute respiratory failure Additional Impression: COPD exacerbation Disposition: ADMITTED INPATIENT Condition: CRITICAL Referrals: DEBBIE SHEA MD (PCP) Problem Qualifiers Primary Impression: Acute respiratory failure Respiratory failure complication: hypoxia and hypercapnia Qualified Codes: J96.01 - Acute respiratory failure with hypoxia; J96.02 - Acute respiratory failure with hypercapnia Sandor MORALEZ MD Jul 15, 2016 18:30
[2016-07-15 18:36] LABS: BASO # 0.1 x10^3/uL (0.0-0.2); BASO % 1 % (0-3); EOS % 2 % (0-3); HEMOGLOBIN 9.6 g/dL (12.0-15.5); LYMPH # 2.6 x10^3/uL (1.0-4.8); LYMPH % 21 % (24-48); MEAN CORPUSCULAR HEMOGLOBIN 30 pg (25-35); MEAN CORPUSCULAR HGB CONC 32 g/dL (31-37); MEAN CORPUSCULAR VOLUME 95 fL (79-100); MONO % 6 % (0-9); NEUT % 70 % (31-73); PLATELET COUNT 480 x10^3/uL (140-400); RED BLOOD COUNT 3.17 x10^6/uL (3.50-5.40); RED CELL DISTRIBUTION WIDTH 17.4 % (11.5-14.5); WHITE BLOOD COUNT 12.4 x10^3/uL (4.0-11.0)
[2016-07-15] MEDS ORDERED: IPRATRPIUM/ALBUTEROL 0.5/2.5MG 3 ML NEBU. NEB ONE (18:45)
[2016-07-15 18:49] LABS: CALCIUM 8.8 mg/dL (8.5-10.1); CREATININE 1.5 mg/dL (0.6-1.0); GFR 33.3; POTASSIUM 4.4 mmol/L (3.5-5.1)
[2016-07-15 19:18] LABS: ALBUMIN 2.4 g/dL (3.4-5.0); ALBUMIN/GLOBULIN RATIO 0.6 (1.0-1.7); TOTAL BILIRUBIN 0.3 mg/dL (0.2-1.0); TOTAL PROTEIN 6.7 g/dL (6.4-8.2)
[2016-07-15] MEDS ORDERED: ACETAMINOPHEN 325 MG TABLET. PO PRN (19:30)
[2016-07-15] MEDS ORDERED: fentaNYL PF VIAL 100 MCG/2 ML VIAL IV PRN (19:30)
[2016-07-15] MEDS ORDERED: ONDANSETRON PF 4 MG/2 ML VIAL. IV PRN (19:30)
[2016-07-15] MEDS ORDERED: methylPREDNISolone SOD SUCC PF 125 MG/2 ML VIAL. IV ONE (19:30)
[2016-07-15] MEDS: AZITHROMYCIN 500 MG in IV NORMAL SALINE 250ML 250 ML IV SCH (19:46)
[2016-07-15] MEDS ORDERED: IV NORMAL SALINE 1000ML BAG 1,000 ML IV SCH (20:00)
[2016-07-15 20:31] LABS: BASE EXCESS COOX -1 mmol/L (-3-3); FIO2 COOX 40; HCO3 COOX 25 mmol/L (21-28); PCO2 COOX 51 mmHg (35-46); PH COOX 7.31 (7.35-7.45); PO2 COOX 113 mmHg (65-108); SAT O2 COOX 97 % (92-99)
--- NOTE | 2016-07-15 20:53 | ACF ---
Admission Forms Criteria RESPIRATORY FAILURE [facility] Clinical Indications for Admission to Inpatient Care (Place 'X' for any and all applicable criteria): Hospital admission is needed for appropriate care of the patient because of acute respiratory failure or insufficiency as indicated by ANY ONE of the following(1)(2)(3)(4)(5)(6)(7)(8): [X]I. Mechanical ventilation needed (acute invasive or noninvasive) [ ]II. Severe ventilation deficit as indicated by ANY ONE of the following (9) [ ]a) Respiratory acidosis (pH less than 7.32 and partial pressure of carbon dioxide greater than 40 mm Hg (5.3 kPa)) [ ]b) Partial pressure of carbon dioxide greater than 44 mm Hg (5.9 kPa ) (new) [ ]c) Airflow measurements less than 25% of predicted (eg, peak expiratory flow rate less than 100 L/minute) [ ]d) Forced vital capacity less than 15 mL/kg of ideal body weight, or 50% decrease in vital capacity from baseline [ ]III. Noncardiac pulmonary edema not resolving with rapid emergency treatment (8) [ ]IV. Severe respiratory distress as indicated by ANY ONE of the following: [ ]a) Severe tachypnea (respiratory rate greater than 30, greater than 45 for 6-month-old, greater than 60 for ) [ ]b) Severe hypoxemia (partial pressure of oxygen less than 50 mm Hg ( 6.7 kPa) on greater than 50% oxygen or partial pressure of oxygen to FIO2 ratio less than 200) [ ]c) Mental status deterioration from respiratory disease [ ]V. Airway obstruction or inadequate protection [A](10)(11) The original [employer] content created by [employer] has been revised. The portions of the content which have been revised are identified through the use of italic text or in bold, and [employer] has neither reviewed nor approved the modified material. All other unmodified content is copyright [employer]. Please see references footnoted in the original [employer] edition 2016 Admission Criteria Met?: Yes NOBLE CORONA Jul 15, 2016 20:53
[2016-07-15] MEDS ORDERED: diphenhydrAMINE HCL 25 MG CAPSULE PO PRN (22:30)
[2016-07-15] MEDS ORDERED: POLYETHYLENE GLYCOL 3350 17 GM PACKET. PO PRN (22:30)
[2016-07-15] MEDS ORDERED: POLYVINYL ALCOHOL 1.4% OPHTH SOLUTION 15ML BOTTLE. OU PRN (23:00)
[2016-07-16] VITALS (15 sets, daily range): BP systolic 97–141; BP diastolic 39–74
[2016-07-16] MEDS ORDERED: PNEUMOCOCCAL VAX SCREEN BY RX. MC PRN (00:15)
[2016-07-16] MEDS: MONTELUKAST SODIUM 10 MG TABLET. PO SCH ×2 (00:31→20:03)
[2016-07-16] MEDS: GABAPENTIN 100 MG CAPSULE. PO SCH ×2 (00:31→20:02)
[2016-07-16] MEDS: INSULIN DETEMIR 300 UNITS/3 ML INSULN.PEN. SQ SCH ×2 (00:32→21:30)
[2016-07-16 05:39] LABS: BASO # 0.1 x10^3/uL (0.0-0.2); BASO % 1 % (0-3); EOS % 0 % (0-3); HEMATOCRIT 24.4 % (36.0-47.0); HEMOGLOBIN 8.2 g/dL (12.0-15.5); LYMPH # 1.1 x10^3/uL (1.0-4.8); LYMPH % 11 % (24-48); MEAN CORPUSCULAR HEMOGLOBIN 31 pg (25-35); MEAN CORPUSCULAR HGB CONC 33 g/dL (31-37); MEAN CORPUSCULAR VOLUME 92 fL (79-100); MONO % 3 % (0-9); NEUT % 85 % (31-73); PLATELET COUNT 380 x10^3/uL (140-400); RED BLOOD COUNT 2.64 x10^6/uL (3.50-5.40); RED CELL DISTRIBUTION WIDTH 17.4 % (11.5-14.5); WHITE BLOOD COUNT 9.4 x10^3/uL (4.0-11.0)
[2016-07-16 06:08] LABS: ALBUMIN 1.9 g/dL (3.4-5.0); ALBUMIN/GLOBULIN RATIO 0.5 (1.0-1.7); CALCIUM 8.5 mg/dL (8.5-10.1); CREATININE 1.6 mg/dL (0.6-1.0); GFR 30.9; MAGNESIUM 2.4 mg/dL (1.8-2.4); POTASSIUM 4.4 mmol/L (3.5-5.1); TOTAL BILIRUBIN 0.3 mg/dL (0.2-1.0); TOTAL PROTEIN 6.1 g/dL (6.4-8.2)
[2016-07-16] MEDS: INSULIN ASPART 300 UNITS/3 ML INSULN.PEN SQ SCH ×5 (07:30→21:00)
--- NOTE | 2016-07-16 08:21 | RAD ---
Indication shortness of breath. A single view of the chest was obtained and is compared to an examination 4 days earlier. Heart and pulmonary vessels are similar. A focal infiltrate is not seen. Significant pleural fluid is not present and there is no pneumothorax. Postoperative changes are noted. There has not been a significant change when compared to the previous exam. IMPRESSION: No acute or focal process. No significant change
[2016-07-16] MEDS: NYSTATIN TOPICAL POWDER 15GM BOTTLE. TP SCH ×2 (08:31→21:00)
[2016-07-16] MEDS: FLUTICASONE 50MCG/NASAL SPRAY 16GM BOTTLE. NS SCH (08:31)
[2016-07-16] MEDS: LIDOCAINE (700MG/PATCH) PATCH. TP SCH (08:31)
[2016-07-16 08:42] LABS: HCO3 ABG 32 mmol/L (21-28); PCO2 ABG 59 mmHg (35-46); PH ABG 7.36 (7.35-7.45); PO2 ABG 110 mmHg (65-108); SAT O2 ABG 98 % (92-99)
[2016-07-16 08:45] LABS: FIO2 ABG 35
--- NOTE | 2016-07-16 09:12 | PDOC ---
Provider Note Provider Note [id number] acute on chronic resp fail ae of copd acute diastolic chf bipap o2 BD ics see orders DANIELA BARBA MD Jul 16, 2016 09:12
[2016-07-16] MEDS: CETIRIZINE HCL 10 MG TABLET. PO SCH (09:27)
[2016-07-16] MEDS: amLODIPine BESYLATE 5 MG TABLET PO SCH (09:29)
[2016-07-16] MEDS: CYANOCOBALAMIN (VITAMIN B-12) 1,000 MCG TABLET. PO SCH (09:29)
[2016-07-16] MEDS: ANASTROZOLE 1 MG TABLET PO SCH (09:29)
[2016-07-16] MEDS: FERROUS SULFATE 325 MG TABLET. PO SCH ×3 (09:30→16:54)
[2016-07-16] MEDS: CALCIUM CARBONATE 500 MG TABLET PO SCH (09:30)
[2016-07-16] MEDS: LACTOBACILLUS ACIDOPH & BULGAR 1 TABLET. PO SCH ×3 (09:30→16:54)
[2016-07-16] MEDS: ESCITALOPRAM 10 MG TABLET. PO SCH (09:30)
[2016-07-16] MEDS: MULTIVITAMIN with MINERAL TABLET. PO SCH (09:31)
[2016-07-16] MEDS: CHOLECALCIFEROL (VITAMIN D3) 1,000 UNIT TABLET PO SCH (09:31)
[2016-07-16] MEDS: FOLIC ACID 1 MG TABLET. PO SCH ×2 (09:31→20:03)
[2016-07-16] MEDS: PRIMIDONE 250 MG TABLET PO SCH ×2 (09:33→20:02)
--- NOTE | 2016-07-16 09:39 | PDOC ---
Provider Note Provider Note Patient seen. History and Physical dictated. See dictation#[id number] DEBBIE SHEA MD Jul 16, 2016 09:39
--- NOTE | 2016-07-16 10:31 | CONS ---
DATE OF CONSULTATION: 07/16/2016 I was asked to see this 81-year-old lady for [id number] respiratory failure. HISTORY OF PRESENT ILLNESS: She is currently on the BiPAP and answers some of my questions. She has history of chronic respiratory failure. She is on oxygen in skilled nursing. She was brought to the Emergency Room for respiratory stress. She was placed on BiPAP. She is currently on BiPAP. She has shortness of breath. She denies pain. She has occasional cough. PAST MEDICAL HISTORY: Right mastectomy, chronic respiratory failure, obstructive sleep apnea-hypopnea syndrome, COPD, CHF, paroxysmal atrial fibrillation. She was discharged from the hospital on 07/12/2016. She was admitted with acute blood loss and anemia. She had abdominal valve hematoma, chronic kidney disease, narcolepsy, morbid obesity, allergic rhinitis, anxiety, diastolic congestive heart failure and diabetes mellitus. ALLERGIES: FISH CONTAINING PRODUCTS, OPIOID, MORPHINE, SULFA, CEFPODOXIME, CEPHALEXIN, CIPRO, CODEINE, LOVENOX, IODINE, LACTULOSE AND METFORMIN. SOCIAL HISTORY: She is a skilled nursing resident. FAMILY HISTORY: Noncontributory. MEDICATIONS: Currently she is on nystatin, multivitamin, Zyrtec, vitamin B12, Mysoline, folic acid, Flonase, Lexapro, vitamin D, Arimidex, Norvasc, DuoNeb, insulin and azithromycin. REVIEW OF SYSTEMS: As mentioned as above, other systems otherwise negative. PHYSICAL EXAMINATION: GENERAL: This is an obese lady on BiPAP 16/6, O2 saturation 98%, respiratory rate 18, heart rate 64, blood pressure 141/53, temperature 98. HEENT: Normocephalic, atraumatic. Pupils are equal, round and reactive to light. She has a BiPAP mask on. NECK: Positive JVD. No lymphadenopathy. CARDIOVASCULAR: Regular rate and rhythm. PMI is nondisplaced. CHEST: Inspection is normal. LUNGS: Bibasilar crackles, a few end expiratory wheezing. ABDOMEN: Soft and obese. Bowel sounds are good. There is no mass. EXTREMITIES: There is trace edema. LYMPHATICS: There is no lymphadenopathy. NEUROLOGIC: She is alert. SKIN: Warm. LABORATORY DATA: I reviewed the following lab data: Chest x-ray did not show any infiltrate. ABG: pH 7.36, pCO2 of 59, pO2 of 110 on BiPAP 16/6 at 35% FiO2. Yesterday ABG on 40% FiO2 was pH 7.31, pCO2 of 51, pO2 113. Sodium 145, potassium 4.4, chloride 106, CO2 of 35, glucose 179, BUN 85, creatinine 1.6. WBC 9.4, hemoglobin 8.2, platelets 380. Troponin less than 0.01. BNP is 4052. IMPRESSION: 1. Nqwhv-oq-pgtzzdi respiratory failure, multifactorial in etiology including acute exacerbation of chronic obstructive pulmonary disease, acute diastolic congestive heart failure, acute bronchitis versus others. 2. Acute exacerbation of chronic obstructive pulmonary disease. 3. Acute bronchitis. 4. Obstructive sleep apnea-hypopnea syndrome. 5. Acute diastolic congestive heart failure. 6. Obesity. 7. Diabetes mellitus. 8. History of breast cancer. 9. Anemia, acute blood loss, based on abdominal wall hematoma. 10. Chronic kidney disease. 11. Hypertension. 12. Diabetes mellitus. PLAN AND RECOMMENDATIONS: 1. Titrate FiO2 to keep O2 saturation 91%. 2. Bronchodilator. 3. Add inhaled corticosteroid. She may require systemic steroid. 4. Keep intake less than output. 5. SCDs for DVT prophylaxis. hold on heparin lovenox, has hx of recent blood loss and abdominal wall hematoma. 6. Protonix for stress ulcer prophylaxis. 7. Monitor respiratory status very closely. 8. Continue BiPAP p.r.n. during day and continues it at night. 9. The findings and recommendations were discussed with the patient, RN and RT. Thank you very much for allowing me to participate in care of this very nice lady. DANIELA BARBA M.D. : ESTHER/nusrat JOB#: [id number] / [id number] JUNIOR
--- NOTE | 2016-07-16 11:09 | HP ---
ADMIT DATE: 07/15/2016 HISTORY OF PRESENT ILLNESS: This 81-year-old female who was recently discharged from this institution after being treated for multiple abdominal hematoma and recurrent anemia with blood transfusions and who has a history of chronic hypercapnic respiratory failure with underlying CHF, pulmonary hypertension, COPD, obstructive sleep apnea and obesity hypoventilation syndrome with use of BiPAP at bedtime and oxygen by nasal cannula at 2 liters per minute during the daytime, was noted to be more dyspneic and hypoxemic on [facility] the [facility]. She also was noted to have change in mental status. The patient was placed on BiPAP and then transferred to the hospital. In the Emergency Room, the patient was evaluated and was then admitted for acute respiratory failure. She was given one dose of IV Solu-Medrol in the Emergency Room. At the time of admission, chest x-ray showed no acute changes. WBC count was 12.4 yesterday and today it is 9.4, hemoglobin was 9.6 yesterday and it is 8.2 today. BUN was 82 and creatinine 1.5, glucose 167, AST 43, ALT 69, alkaline phosphate is 130, albumin was 2.4, today albumin is 1.9. Sodium 145, potassium 4.4, BUN is 85, creatinine 1.6, glucose 202 and 130. BNP is 4052. Troponin less than 0.017. The patient is admitted because of acute respiratory failure. The patient had some coughing earlier this morning when she was trying to eat. Currently, she is not complaining of any problems. She is on BiPAP. She would like to eat and drink fluids. She denies any dyspnea, chest pain, abdominal pain at this time. She is not a good historian, but her mental status is close to baseline. REVIEW OF SYSTEMS: Other systems reviewed and negative. 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 This is a chronic sternal wound with chronic osteomyelitis and exposed wires, which cannot be fixed with surgery because of her multiple medical problems and age. There is no evidence of GI bleeding on the previous admission. PAST MEDICAL HISTORY: 1. History of acute blood loss anemia with multiple hematomas. She also has chronic kidney disease, iron deficiency, B12 deficiency and she had Lovenox injections as a bridge to Coumadin therapy previously. 2. Chronic diastolic CHF, ejection fraction 65%. 3. CKD 3 with recent acute renal failure. BUN is 70s on average. Lasix has been stopped recently. 4. Chronic hypercapnic respiratory failure with underlying CHF, pulmonary hypertension, COPD. 5. Diabetes mellitus type 2 with neuropathy. 6. Chronic tremors. 7. FERNANDO/OHS with BiPAP at bedtime on oxygen via nasal cannula at 2 liters per minute during the daytime. 8. Narcolepsy 9. History of mitral prosthetic aortic valve previously, on warfarin. Warfarin is on hold currently because of her hematoma and recurrent blood loss. 10. Atrial fibrillation, on warfarin. 11. Chronic lymphedema with venous stasis changes. 12. Osteoarthritis 13. Pulmonary hypertension, severe. 14. Chronic obstructive pulmonary disease. 15. Morbid obesity. 16. History of Parkinson's disease with tremors. 17. Allergic rhinitis. 18. Depression. 19. Anxiety 20. Chronic constipation. 21. Chronic severe protein calorie malnutrition since last admission. 22. Breast cancer with right mastectomy. 23. 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 24. Vitamin D deficiency. 25. Skin candidiasis, chronic. 26. Transaminitis. 27. Abdominal wall hematoma on both sides of the abdomen and also on the arm on the right side. PAST SURGICAL HISTORY: Includes an EVD placement with history of wire exposures since 04/2013. The patient also has a right mastectomy. FAMILY HISTORY: Reviewed and noncontributory. SOCIAL HISTORY: No history of smoking, alcoholism. Drug abuse. The patient is a resident of a prison. PHYSICAL EXAMINATION: VITAL SIGNS: Temperature 98 degrees, pulse 59 per minute, respirations 16 per minute, blood pressure 120/74 mmHg. GENERAL: The patient is alert, oriented, on BiPAP. She is an elderly female who is chronically ill, morbidly obese and in mild distress. She is alert and appropriate. She is not the best historian, but she is at her baseline. SKIN: Warm and dry. There is no cyanosis. Skin is pale. THROAT: Mild congestion. NECK: JVP normal. No thyromegaly. Trachea midline. LUNGS: Decreased breath sounds at bases. CARDIOVASCULAR: S1, S2 regular. ABDOMEN: Soft, nontender, obese. Bowel sounds present. The patient has multiple hematomas on both sides of the abdomen that are unchanged larger one is on the left side. She also has one on the right arm in the antecubital fossa. Bowel sounds present. EXTREMITIES: 1-2+ edema, no acute changes. CENTRAL NERVOUS SYSTEM: Generalized weakness, forgetful. LABORATORY FINDINGS: Sodium 145, potassium 4.4, BUN was 82 and creatinine 1.5 yesterday, AST 43, ALT 69, alkaline phosphatase 130. Albumin 2.4 yesterday and 1.9 today, glucose 167, BUN 85 and creatinine 1.6 today, hemoglobin 9.6 yesterday, 8.2 today: WBC count 12.4 yesterday, 9.4 today. Chest x-ray shows no acute changes. IMPRESSION: 1 Acute on chronic respiratory failure, improving. Continue BiPAP. 2. Mild leukocytosis. The patient could have aspiration as she has been coughing with water this morning, but she is now more alert, we will have speech therapist also see her and evaluate for any aspiration. 3. Change in mental status at the prison result here and back to baseline here in the hospital. In the hospital, the patient has not been noted to have any change in mental status. 4. Chronic diastolic congestive heart failure. 5. Acute renal failure with chronic kidney disease. BUN and creatinine is higher than her baseline of 70, we will monitor. She may need fluids if her BUN and creatinine remains high. 6. Diabetes mellitus type 2 with neuropathy. 7. Abdominal wall hematoma. 8. Multiple hematomas ____ on the abdominal wall. Previously, the patient had Lovenox injections prior to bridge therapy with Coumadin. 9. Acute blood loss anemia with chronic kidney disease, iron deficiency, B12 deficiency. We will monitor hemoglobin and hematocrit. If it drops below 7 and then we will transfuse. 10. ____, obesity hypoventilation syndrome with BiPAP at bedtime and on oxygen via nasal cannula at 2 liters per minute during the daytime. 11. Narcolepsy. 12. History of mitral aortic valve replacement. 13. Atrial fibrillation, warfarin has been on hold because of recent hematoma and acute blood loss anemia. 14. Chronic lymphedema with venous stasis changes. 15. Osteoarthritis, generalized. 16. Pulmonary hypertension, severe. 17. Chronic obstructive pulmonary disease. 18. Morbid obesity. 19. History of Parkinson disease. 20. Allergic rhinitis. 21. Depression. 22. Anxiety 23. Severe protein calorie malnutrition with albumin of 1.9. 24. Vitamin D deficiency. 25. 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 Wound has not changed. 26. Transaminitis. PLAN: Consult Dr. Abraham for pulmonary evaluation and management. Monitor hemoglobin and hematocrit. Monitor renal function. Prognosis of this patient remains poor. Also, check with speech therapy check for respiration. Clinically, I do not believe that she needs any other antibiotics. We will resume her Vantin for suppressive therapy for Morganella morganii possible colonization on the sternal wire. For details, please refer to the orders. DEBBIE SHEA MD DR: LEELA/nusrat JOB#: [id number] / [id number]
--- NOTE | 2016-07-16 12:31 | EKG ---
[facility] [address] [place] [address] Test Date: 2016-07-15 Test Time: 18:27:45 Pat Name: BRITTANEY POLK Department: Room: 105 1 Gender: F [employer] Administrator: : 1935 Requested By: Sandor MORALEZ Order Number: [id number] Reading MD: Juana Guzman Measurements Intervals [place] Rate: 90 P: 28 FL: 236 QRS: -24 QRSD: 108 T: 76 QT: 354 QTc: 437 Interpretive Statements SINUS RHYTHM PROLONGED FL INTERVAL LEFTWARD AXIS ST & T ABNORMALITY, CONSIDER HIGH LATERAL ISCHEMIA ABNORMAL ECG Electronically Signed On 07-16-2016 21:21:56 CDT by Juana Guzman
[2016-07-16] MEDS ORDERED: INSULIN ASPART 300 UNITS/3 ML INSULN.PEN SQ PRN (16:45)
[2016-07-16] MEDS: AZITHROMYCIN 500 MG in IV NORMAL SALINE 250ML 250 ML IV SCH (20:00)
[2016-07-16] MEDS: BUDESONIDE 0.5 MG/2 ML NEBU. NEB SCH (20:51)
[2016-07-16] MEDS: IPRATRPIUM/ALBUTEROL 0.5/2.5MG 3 ML NEBU. NEB SCH (20:52)
[2016-07-16 23:10] LABS: BILIRUBIN,URINE NEGATIVE (NEG); GLUCOSE,URINE NEGATIVE (NEG); NITRITE,URINE NEGATIVE (NEG); PH,URINE 5.5; PROTEIN,URINE 30 mg/dL (NEG-TRACE); UROBILINOGEN,URINE 0.2 mg/dL (0.2 mg/dL)
[2016-07-16 23:36] LABS: BACTERIA,URINE MOD /HPF (0-FEW); RBC,URINE TNTC /HPF (0-2); SQUAMOUS EPITHELIAL CELL,UR FEW /LPF; WBC,URINE 20-40 /HPF (0-4)
[2016-07-16 23:37] LABS: YEAST,URINE PRESENT /HPF
[2016-07-17 03:30] VITALS: BP 124/51
[2016-07-17 06:59] LABS: BASO # 0.1 x10^3/uL (0.0-0.2); BASO % 1 % (0-3); EOS % 6 % (0-3); HEMATOCRIT 24.2 % (36.0-47.0); HEMOGLOBIN 7.7 g/dL (12.0-15.5); LYMPH # 1.1 x10^3/uL (1.0-4.8); LYMPH % 17 % (24-48); MEAN CORPUSCULAR HEMOGLOBIN 30 pg (25-35); MEAN CORPUSCULAR HGB CONC 32 g/dL (31-37); MEAN CORPUSCULAR VOLUME 95 fL (79-100); MONO % 7 % (0-9); NEUT % 70 % (31-73); PLATELET COUNT 351 x10^3/uL (140-400); RED BLOOD COUNT 2.55 x10^6/uL (3.50-5.40); RED CELL DISTRIBUTION WIDTH 16.8 % (11.5-14.5); WHITE BLOOD COUNT 6.7 x10^3/uL (4.0-11.0)
[2016-07-17 07:00] VITALS: BP 128/48
[2016-07-17 07:28] LABS: ALBUMIN/GLOBULIN RATIO 0.5 (1.0-1.7); CALCIUM 8.9 mg/dL (8.5-10.1); CREATININE 1.5 mg/dL (0.6-1.0); GFR 33.3; POTASSIUM 4.2 mmol/L (3.5-5.1); TOTAL BILIRUBIN 0.3 mg/dL (0.2-1.0); TOTAL PROTEIN 6.2 g/dL (6.4-8.2)
[2016-07-17] MEDS: INSULIN ASPART 300 UNITS/3 ML INSULN.PEN SQ SCH ×5 (07:30→18:10)
[2016-07-17] MEDS: IPRATRPIUM/ALBUTEROL 0.5/2.5MG 3 ML NEBU. NEB SCH ×4 (07:41→20:00)
[2016-07-17] MEDS: BUDESONIDE 0.5 MG/2 ML NEBU. NEB SCH ×2 (07:41→20:00)
[2016-07-17] MEDS ORDERED: FLUCONAZOLE 100 MG TABLET. PO ONE (09:30)
[2016-07-17] MEDS: LIDOCAINE (700MG/PATCH) PATCH. TP SCH (09:34)
[2016-07-17] MEDS: CALCIUM CARBONATE 500 MG TABLET PO SCH (09:35)
[2016-07-17] MEDS: CYANOCOBALAMIN (VITAMIN B-12) 1,000 MCG TABLET. PO SCH (09:35)
[2016-07-17] MEDS: ACETAMINOPHEN 500 MG TABLET PO PRN (09:35)
[2016-07-17] MEDS: FERROUS SULFATE 325 MG TABLET. PO SCH ×3 (09:36→18:03)
[2016-07-17] MEDS: CHOLECALCIFEROL (VITAMIN D3) 1,000 UNIT TABLET PO SCH (09:36)
[2016-07-17] MEDS: PRIMIDONE 250 MG TABLET PO SCH ×2 (09:36→21:00)
[2016-07-17] MEDS: LACTOBACILLUS ACIDOPH & BULGAR 1 TABLET. PO SCH ×3 (09:36→18:03)
[2016-07-17] MEDS: amLODIPine BESYLATE 5 MG TABLET PO SCH (09:37)
[2016-07-17] MEDS: ESCITALOPRAM 10 MG TABLET. PO SCH (09:37)
[2016-07-17] MEDS: MULTIVITAMIN with MINERAL TABLET. PO SCH (09:37)
--- NOTE | 2016-07-17 09:37 | PDOC ---
NATTY FOY GOLD CUTTER 07/17/16 0937: IM PROGRESS NOTES- Subjective Subjective medicine in arm hurt last night. Objective Objective alert Vitals Vital Signs Date Time Temp Pulse Resp B/P (MAP) Pulse Ox O2 Delivery O2 Flow Rate FiO2 07/17/16 07:46 95 Nasal Cannula 1.0 07/17/16 07:00 98.5 57 22 128/48 (74) 98.5 Input & Output Intake and Output 07/17/16 07:00 Intake Total 1930 ml Output Total 1040 ml Balance 890 ml Intake Oral 1930 ml Output Urine Total 1040 ml Physical Exam Physical Exam General appearance - alert, chronically ill appearing, and in no distress Mental Status - alert, oriented to person, place, and time, affect appropriate to mood Head - normal Chest - clear to auscultation, no wheezes, rales or rhonchi chronic sternal wound dressing intact, slight red/warm present-chronic Heart - S1 and S2 normal Abdomen - soft, nontender, nondistended, obese, BS + hematoma RUQ, LLQ and bruising improving, decreasing Neurological - no acute focal neurological deficit noted Musculoskeletal - no muscular tenderness noted Extremities - ++ pedal edema Skin - warm and dry Labs Laboratory Tests Test 07/15/16 18:24 07/15/16 18:25 07/15/16 21:57 07/16/16 00:30 O2 Saturation 97 % (92-99) Arterial Blood pH 7.31 (7.35-7.45) Arterial Blood pCO2 at Patient Temp 51 mmHg (35-46) Arterial Blood pO2 at Patient Temp 113 mmHg (65-108) Arterial Blood HCO3 25 mmol/L (21-28) Arterial Blood Base Excess -1 mmol/L (-3-3) FiO2 40 White Blood Count 12.4 x10^3/uL (4.0-11.0) Red Blood Count 3.17 x10^6/uL (3.50-5.40) Hemoglobin 9.6 g/dL (12.0-15.5) Hematocrit 30.0 % (36.0-47.0) Mean Corpuscular Volume 95 fL (79-100) Mean Corpuscular Hemoglobin 30 pg (25-35) Mean Corpuscular Hemoglobin Concent 32 g/dL (31-37) Red Cell Distribution Width 17.4 % (11.5-14.5) Platelet Count 480 x10^3/uL (140-400) Neutrophils (%) (Auto) 70 % (31-73) Lymphocytes (%) (Auto) 21 % (24-48) Monocytes (%) (Auto) 6 % (0-9) Eosinophils (%) (Auto) 2 % (0-3) Basophils (%) (Auto) 1 % (0-3) Neutrophils # (Auto) 8.7 x10^3uL (1.8-7.7) Lymphocytes # (Auto) 2.6 x10^3/uL (1.0-4.8) Monocytes # (Auto) 0.7 x10^3/uL (0.0-1.1) Eosinophils # (Auto) 0.2 x10^3/uL (0.0-0.7) Basophils # (Auto) 0.1 x10^3/uL (0.0-0.2) Sodium Level 145 mmol/L (136-145) Potassium Level 4.4 mmol/L (3.5-5.1) Chloride Level 105 mmol/L (98-107) Carbon Dioxide Level 33 mmol/L (21-32) Anion Gap 7 (6-14) Blood Urea Nitrogen 82 mg/dL (7-20) Creatinine 1.5 mg/dL (0.6-1.0) Estimated GFR (Cockcroft-Gault) 33.3 BUN/Creatinine Ratio 55 (6-20) Glucose Level 167 mg/dL (70-99) Calcium Level 8.8 mg/dL (8.5-10.1) Total Bilirubin 0.3 mg/dL (0.2-1.0) Aspartate Amino Transf (AST/SGOT) 43 U/L (15-37) Alanine Aminotransferase (ALT/SGPT) 69 U/L (14-59) Alkaline Phosphatase 130 U/L (46-116) Troponin I Quantitative < 0.017 ng/mL (0.000-0.055) FO-Nmy-H-Type Natriuretic Peptide 4052 pg/mL (0-449) Total Protein 6.7 g/dL (6.4-8.2) Albumin 2.4 g/dL (3.4-5.0) Albumin/Globulin Ratio 0.6 (1.0-1.7) Nasal Screen MRSA (PCR) Negative (Negative) Glucose (Fingerstick) 202 mg/dL (70-99) Test 07/16/16 05:00 07/16/16 07:37 07/16/16 08:00 07/16/16 12:35 White Blood Count 9.4 x10^3/uL (4.0-11.0) Red Blood Count 2.64 x10^6/uL (3.50-5.40) Hemoglobin 8.2 g/dL (12.0-15.5) Hematocrit 24.4 % (36.0-47.0) Mean Corpuscular Volume 92 fL (79-100) Mean Corpuscular Hemoglobin 31 pg (25-35) Mean Corpuscular Hemoglobin Concent 33 g/dL (31-37) Red Cell Distribution Width 17.4 % (11.5-14.5) Platelet Count 380 x10^3/uL (140-400) Neutrophils (%) (Auto) 85 % (31-73) Lymphocytes (%) (Auto) 11 % (24-48) Monocytes (%) (Auto) 3 % (0-9) Eosinophils (%) (Auto) 0 % (0-3) Basophils (%) (Auto) 1 % (0-3) Neutrophils # (Auto) 7.9 x10^3uL (1.8-7.7) Lymphocytes # (Auto) 1.1 x10^3/uL (1.0-4.8) Monocytes # (Auto) 0.3 x10^3/uL (0.0-1.1) Eosinophils # (Auto) 0.0 x10^3/uL (0.0-0.7) Basophils # (Auto) 0.1 x10^3/uL (0.0-0.2) Sodium Level 145 mmol/L (136-145) Potassium Level 4.4 mmol/L (3.5-5.1) Chloride Level 106 mmol/L (98-107) Carbon Dioxide Level 35 mmol/L (21-32) Anion Gap 4 (6-14) Blood Urea Nitrogen 85 mg/dL (7-20) Creatinine 1.6 mg/dL (0.6-1.0) Estimated GFR (Cockcroft-Gault) 30.9 BUN/Creatinine Ratio 53 (6-20) Glucose Level 179 mg/dL (70-99) Calcium Level 8.5 mg/dL (8.5-10.1) Magnesium Level 2.4 mg/dL (1.8-2.4) Total Bilirubin 0.3 mg/dL (0.2-1.0) Aspartate Amino Transf (AST/SGOT) 27 U/L (15-37) Alanine Aminotransferase (ALT/SGPT) 47 U/L (14-59) Alkaline Phosphatase 101 U/L (46-116) Total Protein 6.1 g/dL (6.4-8.2) Albumin 1.9 g/dL (3.4-5.0) Albumin/Globulin Ratio 0.5 (1.0-1.7) Glucose (Fingerstick) 130 mg/dL (70-99) 141 mg/dL (70-99) O2 Saturation 98 % (92-99) Arterial Blood pH 7.36 (7.35-7.45) Arterial Blood pCO2 at Patient Temp 59 mmHg (35-46) Arterial Blood pO2 at Patient Temp 110 mmHg (65-108) Arterial Blood HCO3 32 mmol/L (21-28) Arterial Blood Base Excess 6 mmol/L (-3-3) FiO2 35 Test 07/16/16 16:04 07/16/16 20:48 07/16/16 22:48 07/17/16 06:25 Glucose (Fingerstick) 150 mg/dL (70-99) 158 mg/dL (70-99) Urine Collection Type Unknown Urine Color Yellow Urine Clarity Cloudy Urine pH 5.5 Urine Specific [place] 1.015 Urine Protein 30 mg/dL (NEG-TRACE) Urine Glucose (UA) Negative mg/dL (NEG) Urine Ketones (Stick) Negative mg/dL (NEG) Urine Blood Large (NEG) Urine Nitrite Negative (NEG) Urine Bilirubin Negative (NEG) Urine Urobilinogen Dipstick 0.2 mg/dL (0.2 mg/dL) Urine Leukocyte Esterase Large (NEG) Urine RBC Tntc /HPF (0-2) Urine WBC 20-40 /HPF (0-4) Urine Squamous Epithelial Cells Few /LPF Urine Bacteria Mod /HPF (0-FEW) Urine Hyaline Casts Few /HPF Urine Mucus Slight /LPF Urine Yeast Present /HPF White Blood Count 6.7 x10^3/uL (4.0-11.0) Red Blood Count 2.55 x10^6/uL (3.50-5.40) Hemoglobin 7.7 g/dL (12.0-15.5) Hematocrit 24.2 % (36.0-47.0) Mean Corpuscular Volume 95 fL (79-100) Mean Corpuscular Hemoglobin 30 pg (25-35) Mean Corpuscular Hemoglobin Concent 32 g/dL (31-37) Red Cell Distribution Width 16.8 % (11.5-14.5) Platelet Count 351 x10^3/uL (140-400) Neutrophils (%) (Auto) 70 % (31-73) Lymphocytes (%) (Auto) 17 % (24-48) Monocytes (%) (Auto) 7 % (0-9) Eosinophils (%) (Auto) 6 % (0-3) Basophils (%) (Auto) 1 % (0-3) Neutrophils # (Auto) 4.7 x10^3uL (1.8-7.7) Lymphocytes # (Auto) 1.1 x10^3/uL (1.0-4.8) Monocytes # (Auto) 0.5 x10^3/uL (0.0-1.1) Eosinophils # (Auto) 0.4 x10^3/uL (0.0-0.7) Basophils # (Auto) 0.1 x10^3/uL (0.0-0.2) Sodium Level 145 mmol/L (136-145) Potassium Level 4.2 mmol/L (3.5-5.1) Chloride Level 107 mmol/L (98-107) Carbon Dioxide Level 33 mmol/L (21-32) Anion Gap 5 (6-14) Blood Urea Nitrogen 91 mg/dL (7-20) Creatinine 1.5 mg/dL (0.6-1.0) Estimated GFR (Cockcroft-Gault) 33.3 BUN/Creatinine Ratio 61 (6-20) Glucose Level 138 mg/dL (70-99) Calcium Level 8.9 mg/dL (8.5-10.1) Total Bilirubin 0.3 mg/dL (0.2-1.0) Aspartate Amino Transf (AST/SGOT) 28 U/L (15-37) Alanine Aminotransferase (ALT/SGPT) 46 U/L (14-59) Alkaline Phosphatase 94 U/L (46-116) Total Protein 6.2 g/dL (6.4-8.2) Albumin 2.0 g/dL (3.4-5.0) Albumin/Globulin Ratio 0.5 (1.0-1.7) Test 07/17/16 07:14 Glucose (Fingerstick) 134 mg/dL (70-99) Laboratory Tests Test 07/16/16 12:35 07/16/16 16:04 07/16/16 20:48 07/16/16 22:48 Glucose (Fingerstick) 141 mg/dL (70-99) 150 mg/dL (70-99) 158 mg/dL (70-99) Urine Collection Type Unknown Urine Color Yellow Urine Clarity Cloudy Urine pH 5.5 Urine Specific [place] 1.015 Urine Protein 30 mg/dL (NEG-TRACE) Urine Glucose (UA) Negative mg/dL (NEG) Urine Ketones (Stick) Negative mg/dL (NEG) Urine Blood Large (NEG) Urine Nitrite Negative (NEG) Urine Bilirubin Negative (NEG) Urine Urobilinogen Dipstick 0.2 mg/dL (0.2 mg/dL) Urine Leukocyte Esterase Large (NEG) Urine RBC Tntc /HPF (0-2) Urine WBC 20-40 /HPF (0-4) Urine Squamous Epithelial Cells Few /LPF Urine Bacteria Mod /HPF (0-FEW) Urine Hyaline Casts Few /HPF Urine Mucus Slight /LPF Urine Yeast Present /HPF Test 07/17/16 06:25 07/17/16 07:14 White Blood Count 6.7 x10^3/uL (4.0-11.0) Red Blood Count 2.55 x10^6/uL (3.50-5.40) Hemoglobin 7.7 g/dL (12.0-15.5) Hematocrit 24.2 % (36.0-47.0) Mean Corpuscular Volume 95 fL (79-100) Mean Corpuscular Hemoglobin 30 pg (25-35) Mean Corpuscular Hemoglobin Concent 32 g/dL (31-37) Red Cell Distribution Width 16.8 % (11.5-14.5) Platelet Count 351 x10^3/uL (140-400) Neutrophils (%) (Auto) 70 % (31-73) Lymphocytes (%) (Auto) 17 % (24-48) Monocytes (%) (Auto) 7 % (0-9) Eosinophils (%) (Auto) 6 % (0-3) Basophils (%) (Auto) 1 % (0-3) Neutrophils # (Auto) 4.7 x10^3uL (1.8-7.7) Lymphocytes # (Auto) 1.1 x10^3/uL (1.0-4.8) Monocytes # (Auto) 0.5 x10^3/uL (0.0-1.1) Eosinophils # (Auto) 0.4 x10^3/uL (0.0-0.7) Basophils # (Auto) 0.1 x10^3/uL (0.0-0.2) Sodium Level 145 mmol/L (136-145) Potassium Level 4.2 mmol/L (3.5-5.1) Chloride Level 107 mmol/L (98-107) Carbon Dioxide Level 33 mmol/L (21-32) Anion Gap 5 (6-14) Blood Urea Nitrogen 91 mg/dL (7-20) Creatinine 1.5 mg/dL (0.6-1.0) Estimated GFR (Cockcroft-Gault) 33.3 BUN/Creatinine Ratio 61 (6-20) Glucose Level 138 mg/dL (70-99) Calcium Level 8.9 mg/dL (8.5-10.1) Total Bilirubin 0.3 mg/dL (0.2-1.0) Aspartate Amino Transf (AST/SGOT) 28 U/L (15-37) Alanine Aminotransferase (ALT/SGPT) 46 U/L (14-59) Alkaline Phosphatase 94 U/L (46-116) Total Protein 6.2 g/dL (6.4-8.2) Albumin 2.0 g/dL (3.4-5.0) Albumin/Globulin Ratio 0.5 (1.0-1.7) Glucose (Fingerstick) 134 mg/dL (70-99) Meds Current Medications Budesonide (Pulmicort) 0.5 mg RTBID NEB Last administered on 07/17/16t 07:41; Start 07/16/16 at 10:00 Ceftriaxone Sodium 1 gm/ Sodium Chloride 50 ml @ 100 mls/hr Q24H IV ; Start 12/22 at 21:00; Stop 07/16/16 at 21:00; Status DC Insulin Aspart (NovoLOG) 0-6 UNITS PRN BFRMEAL PRN SQ SLIDING SCALE; Start 12/22 at 16:45; Status Cancel Insulin Aspart (NovoLOG) 0-8 TIDACHC SQ ; Start 07/16/16 at 17:00 Assessment Assessment 1. acute on chronic hypercapnic respiratory failure with underlying CHF, pulmonary HTN, COPD 2. h/o acute blood loss anemia with multiple hematomas with underlying CKD, Fe/ B12 deficiencies, Lovenox injections bridging to coumadin therapy,. 3. CKD III with recent ARF BUN 70s average, Lasix stopped admission prior to last one. 4. Chronic diastolic CHF EF 65% not acute 5. h/o adominal wall hematoma LLQ, RUQ hematoma above RAC due to coagulopathy last admission 6. Diabetes mellitus type 2 with neuropathy 7. Chronic tremors. 8. FERNANDO/OHS with BiPAP at HS, on oxygen via nasal cannula at 2 L/minute during day. 9. narcolepsy 10. History of metal aortic valve replacement, warfarin on hold 11. Atrial fibrillation, warfarin on hold due to hematomas abdomen 12. Chronic lymphedema with venous stasis changes 13. Osteoarthritis generalized 14. Pulmonary hypertension severe 15. Anemia, both iron and B12 deficiency. 16. Chronic obstructive pulmonary disease. 17. Morbid obesity. 18. History of Parkinson disease with tremors. 19. allergic rhinitis 20. chronic constipation 21. chronic moderate PCL malnutrition 22. 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 Vitamin D deficiency 25. skin candidiasis chronic 26. Blister-open with skin exposure, no infection RLE 27. chronic osteomyelitis sternal with suppressive therapy Keflex 500mg bid and open wound 28. transaminitis fluid overload not Acute CHF POA 29. anxiety/depression 30. vaginitis yeast POA PLAN chronic hypercapnic/hypoxic respiratory failure with encephalopathy continue BiPap at hs, O2 2L during day duoneb qid continue narcolepsy med continue anemia Admit 9.6 07/17 7.7 Fe and B12 replacement CT abd/pelvis-hematoma last admission- no retroperitoneal bleed CKD III Admit Na 145 07/17 145 K 4.4 4.2 BUN 82 91 Cr 1.5 1.5 no acute renal failure IVF per Dr. Shea leukocytosis without fever Admit 12.4 6.7 chronic osteo sternal wound-Vantin suppression CXR clear hematoma reabsorption [id number] Diflucan stop zithromax CXR clear HTN continue meds transaminitis Admit AST 43 07/17 28 ALT 69 46 AP 130 94 resolved chronic diastolic CHF Admit wt PMC 269.02 07/17 277.56 (probable 07/17 wt accurate based on weights last week) weight inaccurate accurate IO not possible due to incontinence DM II FSBS SSI BS 134-158 DVT/GI prophylaxis warfarin PPI h/o AVR metal off warfarin due to hematomas from lovenox injection/anemia requiring PRC last admit resume warfarin when appropriate and goal is 2.0-2.5 INR Mod PCL malnutrition not POA nutritional supplements chronic osteo/wound sternum suppressive tx not surgical candidate for removal continue wound care from [facility] For further plan of care, please refer to the orders. Plan Plan For more details regarding further plans, please refer to the orders. DEBBIE SHEA MD 07/17/16 0948: IM PROGRESS NOTES- Assessment Assessment BUN 91- ? not eating well. start IV fluids low dose- consult . Condition, treatment, options,prognosis etc were extensively discussed with the DPOA- Karen. she feels that patient had allergic reaction to Vantin- pt had rash in 48 hours - none now. ID consult. The patient was seen and examined by me. Chart reviewed and plan of care formulated. Discussed with, reviewed and agree with MIX MAKER's notes, plan of care and orders with modifications as necessary. .For more details regarding further plans, please refer to the orders. NATTY FOY APRN Jul 17, 2016 09:37 DEBBIE SHEA MD Jul 17, 2016 09:48
[2016-07-17] MEDS: FOLIC ACID 1 MG TABLET. PO SCH ×2 (09:38→21:00)
[2016-07-17] MEDS: CETIRIZINE HCL 10 MG TABLET. PO SCH (09:38)
[2016-07-17] MEDS: FLUTICASONE 50MCG/NASAL SPRAY 16GM BOTTLE. NS SCH (09:40)
[2016-07-17] MEDS: NYSTATIN TOPICAL POWDER 15GM BOTTLE. TP SCH ×2 (09:40→21:01)
[2016-07-17] MEDS: ANASTROZOLE 1 MG TABLET PO SCH (09:54)
[2016-07-17] MEDS ORDERED: CEFPODOXIME PROXETIL 100 MG TABLET. PO SCH (10:00)
[2016-07-17 11:00] VITALS: BP 124/44
--- NOTE | 2016-07-17 11:23 | PDOC ---
Infectious Disease Note Subjective Subjective Known to service. See Consult 06/22 and last progress note 07/12 Returned to [facility] with Mental status change and SOA. Received Solumedrol and abx Now has more warmth and discomfort with chest wound ROS ROS GEN: Denies fevers, chills, sweats HEENT: Denies blurred vision, sore throat CV: Denies chest pain RESP: Denies shortness of air, cough GI: Denies n/v/d NEURO: Denies confusion, dizziness MSK: Weakness is some better Vital Sign Vital Signs Vital Signs Date Time Temp Pulse Resp B/P (MAP) Pulse Ox O2 Delivery O2 Flow Rate FiO2 07/17/16 09:37 57 128/48 07/17/16 07:46 95 Nasal Cannula 1.0 07/17/16 07:00 98.5 22 98.5 Physical Exam PHYSICAL EXAM GENERAL: NAD, Alert, coop HEENT: PERRL, OC/OP NECK: Supple, no JVD, no LN LUNGS: Clear HEART: S1S2, no gallop, no murmur ABD: Soft, NT, no organomegaly, no rebound, obese EXT: No edema, no cyanosis [employer]: Alert, oriented, Tremor SKIN: No rash. Sternal wound is open and has pus. mild surrounding erythema and trace tenderness IV: ok Labs Lab Laboratory Tests Test 07/16/16 12:35 07/16/16 16:04 07/16/16 20:48 07/16/16 22:48 Glucose (Fingerstick) 141 mg/dL (70-99) 150 mg/dL (70-99) 158 mg/dL (70-99) Urine Collection Type Unknown Urine Color Yellow Urine Clarity Cloudy Urine pH 5.5 Urine Specific [place] 1.015 Urine Protein 30 mg/dL (NEG-TRACE) Urine Glucose (UA) Negative mg/dL (NEG) Urine Ketones (Stick) Negative mg/dL (NEG) Urine Blood Large (NEG) Urine Nitrite Negative (NEG) Urine Bilirubin Negative (NEG) Urine Urobilinogen Dipstick 0.2 mg/dL (0.2 mg/dL) Urine Leukocyte Esterase Large (NEG) Urine RBC Tntc /HPF (0-2) Urine WBC 20-40 /HPF (0-4) Urine Squamous Epithelial Cells Few /LPF Urine Bacteria Mod /HPF (0-FEW) Urine Hyaline Casts Few /HPF Urine Mucus Slight /LPF Urine Yeast Present /HPF Test 07/17/16 06:25 07/17/16 07:14 White Blood Count 6.7 x10^3/uL (4.0-11.0) Red Blood Count 2.55 x10^6/uL (3.50-5.40) Hemoglobin 7.7 g/dL (12.0-15.5) Hematocrit 24.2 % (36.0-47.0) Mean Corpuscular Volume 95 fL (79-100) Mean Corpuscular Hemoglobin 30 pg (25-35) Mean Corpuscular Hemoglobin Concent 32 g/dL (31-37) Red Cell Distribution Width 16.8 % (11.5-14.5) Platelet Count 351 x10^3/uL (140-400) Neutrophils (%) (Auto) 70 % (31-73) Lymphocytes (%) (Auto) 17 % (24-48) Monocytes (%) (Auto) 7 % (0-9) Eosinophils (%) (Auto) 6 % (0-3) Basophils (%) (Auto) 1 % (0-3) Neutrophils # (Auto) 4.7 x10^3uL (1.8-7.7) Lymphocytes # (Auto) 1.1 x10^3/uL (1.0-4.8) Monocytes # (Auto) 0.5 x10^3/uL (0.0-1.1) Eosinophils # (Auto) 0.4 x10^3/uL (0.0-0.7) Basophils # (Auto) 0.1 x10^3/uL (0.0-0.2) Sodium Level 145 mmol/L (136-145) Potassium Level 4.2 mmol/L (3.5-5.1) Chloride Level 107 mmol/L (98-107) Carbon Dioxide Level 33 mmol/L (21-32) Anion Gap 5 (6-14) Blood Urea Nitrogen 91 mg/dL (7-20) Creatinine 1.5 mg/dL (0.6-1.0) Estimated GFR (Cockcroft-Gault) 33.3 BUN/Creatinine Ratio 61 (6-20) Glucose Level 138 mg/dL (70-99) Calcium Level 8.9 mg/dL (8.5-10.1) Total Bilirubin 0.3 mg/dL (0.2-1.0) Aspartate Amino Transf (AST/SGOT) 28 U/L (15-37) Alanine Aminotransferase (ALT/SGPT) 46 U/L (14-59) Alkaline Phosphatase 94 U/L (46-116) Total Protein 6.2 g/dL (6.4-8.2) Albumin 2.0 g/dL (3.4-5.0) Albumin/Globulin Ratio 0.5 (1.0-1.7) Glucose (Fingerstick) 134 mg/dL (70-99) Objective Assessment 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 Discussed with Mrs. Dejesus that this cannot be fixed but she still wants abx. Explained risks of excessive abx and h/o C-diff This wound will not heal and she is not a surgical candidate. Suppressive therapy will only breed further resistance and will ultimately be futile aside from put her at increased risk for C-diff and abx adverse reactions. Needs palliative eval and understanding that this is not a curable problem D/w Nursing NARENDRA Mansfield MD Jul 17, 2016 11:22
--- NOTE | 2016-07-17 11:33 | PDOC2 ---
CONSULT Date of Consult Date of Consult DATE: 07/17/16 TIME: 11:27 Reason for Consult Reason for Consult: MARTA Referring Physician Referring Physician: MONSE Identification/Chief Complaint Chief Complaint WEAKNESS Source Source: Chart review History of Present Illness Reason for Visit: THIS IS AN 81 YR OLD WITH CONFUSION AND WEAKNESS. SHE IS NOTED TO HAVE A STERNAL WOUND WITH DRAINAGE. SHE IS ALSO NOTED TO BE CONFUSED. HER BUN AND CR ARE UP WITH A HIGH BUN/CR RATIO. SHE IS NOTED TO HAVE CKD STAGE 3 WITH CR OF 1.5 TO 1.8 AT BASELINE. SHE IS ALSO ANEMIA. HX ALSO NOTED FOR SIGNIFICANT CHRONIC RESP FAILURE AND FERNANDO. SHE HAS RECENTLY HAD SOME ABD WALL HEMATOMAS. Past Medical History Cardiovascular: AFIB, CHF, HTN, Valve insufficiency, Pulmonary hypertension, Other Pulmonary: COPD, Other CENTRAL NERVOUS SYSTEM: Other GI: Constipation Heme/Onc: B12 deficiency, Cancer, Iron deficiency Anemia Psych: Anxiety Infectious disease: Other Renal/: Chronic renal insuff, UTI Endocrine: Diabetes Past Surgical History Past Surgical History: Mastectomy, Other Social History ALCOHOL: none Drugs: None Lives: Snf Current Problem List Problem List Problems Medical Problems: (1) Acute respiratory failure Status: Acute (2) COPD exacerbation Status: Acute Current Medications Current Medications Current Medications Albuterol/ Ipratropium (Duoneb) 3 ml 1X ONCE NEB Last administered on 18:36; Start 07/15/16 at 18:45; Stop 07/15/16 at 18:46; Status DC Albuterol Sulfate (Ventolin Neb Soln) 10 mg 1X ONCE CONT NEB Last administered on 07/15/16 18:45; Start 07/15/16 at 18:30; Stop 07/15/16 at 18:31 ; Status DC Ceftriaxone Sodium 1 gm/ Sodium Chloride 50 ml @ 100 mls/hr Q24H IV ; Start 12/22 at 21:00; Stop 07/16/16 at 21:00; Status DC Azithromycin 500 mg/Sodium Chloride 250 ml @ 250 mls/hr Q24H IV Last administered on 07/16/16 20:00; Start 07/15/16 at 20:00; Stop 07/17/16 at 09:17 ; Status DC Methylprednisolone Sodium Succinate (SOLU-Medrol 125MG VIAL) 125 mg 1X ONCE IV Last administered on 07/15/16 19:33; Start 07/15/16 at 19:30; Stop 07/15/16 at 19:31; Status DC Ceftriaxone Sodium 50 ml @ 100 mls/hr 1X ONCE IV ; Start 07/15/16 at 19:30; Stop 07/15/16 at 19:59; Status Cancel Ondansetron HCl (Zofran) 4 mg PRN Q8HRS PRN IV NAUSEA/VOMITING; Start 07/15/16 at 19:30; Stop 07/16/16 at 19:29; Status DC Fentanyl Citrate (Fentanyl 2ml Vial) 25 mcg PRN Q2HR PRN IV PAIN; Start at 19:30; Stop 07/16/16 at 19:29; Status DC Sodium Chloride 1,000 ml @ 75 mls/hr [id number] IV ; Start 07/15/16 at 20:00; Stop 07/15/16 at 22:22; Status DC Acetaminophen (Tylenol) 650 mg PRN Q4HRS PRN PO FEVER; Start 07/15/16 at 19:30 ; Stop 07/15/16 at 22:57; Status DC Acetaminophen (Tylenol) 1,000 mg PRN Q6HRS PRN PO MILD PAIN Last administered on 07/17/16 09:35; Start 07/15/16 at 22:30 Lactobacillus Acidophilus (Bacid, Awa-Bid) 1 tab TIDWMEALS PO Last administered on 07/17/16 09:36; Start 07/16/16 at 08:00 Amlodipine Besylate (Norvasc) 5 mg DAILY PO Last administered on 07/17/16 09: 37; Start 07/16/16 at 09:00 Anastrozole (Arimidex) 1 mg DAILY PO Last administered on 07/17/16 09:54; Start 07/16/16 at 09:00 Calcium Carbonate/ Glycine (Oscal) 500 mg DAILY PO Last administered on 09:35; Start 07/16/16 at 09:00 Vitamin D (Vitamin D3) 1,000 unit DAILY PO Last administered on 07/17/16 09:36 ; Start 07/16/16 at 09:00 Diphenhydramine HCl (Benadryl) 25 mg PRN Q6HRS PRN PO ITCHING; Start 07/15/16 at 22:30 Escitalopram Oxalate (Lexapro) 10 mg DAILY PO Last administered on 07/17/16 09 :37; Start 07/16/16 at 09:00 Ferrous Sulfate (Feosol) 325 mg TIDWMEALS PO Last administered on 07/17/16 09: 36; Start 07/16/16 at 08:00 Fluticasone Propionate (Flonase) 2 spray DAILY NS Last administered on 09:40; Start 07/16/16 at 09:00 Folic Acid (Folic Acid) 1 mg BID PO Last administered on 07/17/16 09:38; Start 07/16/16 at 09:00 Gabapentin (Neurontin) 100 mg HS PO Last administered on 07/16/16 20:02; Start 07/15/16 at 23:00 Insulin Detemir (Levemir) 10 units HS SQ Last administered on 07/16/16 21:30; Start 07/15/16 at 23:00 Albuterol/ Ipratropium (Duoneb) 3 ml RTQID NEB Last administered on 07/17/16 11:09; Start 07/16/16 at 08:00 Lidocaine (Lidoderm) 1 patch DAILY TP Last administered on 07/17/16 09:34; Start 07/16/16 at 09:00 Montelukast Sodium (Singulair) 10 mg HS PO Last administered on 07/16/16 20:03 ; Start 07/15/16 at 23:00 Polyethylene Glycol (miraLAX PACKET) 17 gm PRN DAILY PRN PO CONSTIPATION; Start 07/15/16 at 22:30 Primidone (Mysoline) 250 mg BID PO Last administered on 07/17/16 09:36; Start 07/16/16 at 09:00 Cyanocobalamin (Vitamin B-12) 1,000 mcg DAILY PO Last administered on 09:35; Start 07/16/16 at 09:00 Artificial Tears (Artificial Tears) 1 drop PRN Q15MIN PRN OU ALLERGIES; Start 07/15/16 at 23:00 Cetirizine HCl (ZyrTEC) 10 mg DAILY PO Last administered on 07/17/16 09:38; Start 07/16/16 at 09:00 Multivitamins (Thera M Plus) 1 tab DAILY PO Last administered on 07/17/16 09: 37; Start 07/16/16 at 09:00 Nystatin (Nystop) 1 venessa BID TP Last administered on 07/17/16 09:40; Start 12/22 at 09:00 Insulin Aspart (NovoLOG) see protocol TIDAC SQ ; Start 07/16/16 at 07:30 Pneumococcal Polyvalent Vaccine (Do NOT chart on this placeholder) 1 each PRN DAILY PRN MC DATE OF VAX UNKNOWN; Start 07/16/16 at 00:15; Status Cancel Budesonide (Pulmicort) 0.5 mg RTBID NEB Last administered on 07/17/16 07:41; Start 07/16/16 at 10:00 Insulin Aspart (NovoLOG) 0-6 UNITS PRN BFRMEAL PRN SQ SLIDING SCALE; Start 12/22 at 16:45; Status Cancel Insulin Aspart (NovoLOG) 0-8 TIDACHC SQ ; Start 07/16/16 at 17:00; Stop at 09:17; Status DC Cefpodoxime Proxetil (Vantin) 200 mg BID PO Last administered on 07/17/16 09: 34; Start 07/17/16 at 10:00; Stop 07/17/16 at 11:15; Status DC Fluconazole (Diflucan) 150 mg 1X ONCE PO Last administered on 07/17/16 09:35 ; Start 07/17/16 at 09:30; Stop 07/17/16 at 09:31; Status DC Sodium Chloride 1,000 ml @ 50 mls/hr Q20H IV ; Start 07/17/16 at 09:45 Meropenem 500 mg/ Sodium Chloride 50 ml @ 100 mls/hr Q8HRS IV ; Start 07/17/16 at 14:00 Active Scripts Active Levemir Flextouch (Insulin Detemir) 100 Unit/1 Ml Insuln.pen 10 Units SQ HS Inject by Sub q route 10 units at HS Cefpodoxime Proxetil 100 Mg Tablet 200 Mg PO BID 180 Days 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 Tylenol Extra Strength (Acetaminophen) 500 Mg Tablet 1,000 Mg PO PRN Q6HRS Novolog Flexpen (Insulin Aspart) 100 Unit/1 Ml Insuln.pen 0-8 Units SQ TIDAC Inject subq tid ac prn: BS<150=0, BS 151-200=2unit, BS 201-250 =3 unit, BS 251-300=4 unit, BS 301-350= 6 units, BS 351-400= 8 units >401 call MD Loganb 0.5-3(2.5) Mg/3 Ml (Albuterol/Ipratropium) 3 Ml Ampul.neb 3 Ml NEB RTQID Nebulizer treatment qid Escitalopram Oxalate 10 Mg Tablet 10 Mg PO DAILY Take one tablet daily by mouth Amlodipine Besylate 5 Mg Tablet 5 Mg PO DAILY Take one tablet daily by mouth Awa-Bid Caplet (Acidoph/L.bulg/Bif.b/S.thermop) 1 Each Tablet 1 Tab PO TIDWMEALS Take one tablet by mouth with meals Reported Soothe & Cool Skin Paste (Zinc Oxide/Petrolatum,White) 71 Gm Oint...g. Gm TP Vitamin D3 (Cholecalciferol (Vitamin D3)) 1,000 Unit Tablet 1 Tab PO DAILY Fluticasone Propionate Nasal [place] (Fluticasone Propionate) 16 Gm [place].susp 2 [place] NS DAILY Artificial Tears Eye Drops (Dextran 70/Hypromellose) 15 Ml Drops 1 Drop EACHEYE PRN DAILY PRN Anastrozole 1 Mg Tablet 1 Mg PO DAILY Multi-Day Vitamins (Multivitamin) 1 Each Tablet 1 Tab PO DAILY Singulair Tablet (Montelukast Sodium) 10 Mg Tablet 10 Mg PO HS Primidone 250 Mg Tablet 250 Mg PO BID Polyethylene Glycol 3350 17 Gm Powd.pack 17 Gm PO PRN DAILY PRN Nystatin 1 Each Powder.ea. 1 [place] TOP BID Lidoderm (Lidocaine) 700 Mg Adh..patch 1 Patch TP DAILY Gabapentin 100 Mg Capsule 100 Mg PO HS Folic Acid 1 Mg Tablet 1 Mg PO BID Ferrous Sulfate 325 Mg Tablet 325 Mg PO TIDWMEALS B-12 (Cyanocobalamin (Vitamin B-12)) 1,000 Mcg Tablet.er 1,000 Mcg PO DAILY Claritin (Loratadine) 10 Mg Capsule 10 Mg PO DAILY Calcium Carbonate 500 Mg Tablet 500 Mg PO DAILY Benadryl (Diphenhydramine Hcl) 25 Mg Capsule 25 Mg PO PRN Q6HRS PRN Allergies Allergies: Coded Allergies: Opioids - Morphine Analogues (Verified Allergy, Severe, Anaphylaxis, ) PT CAN ONLY TAKE TRAMADOL cephalexin (Verified Allergy, Severe, RASH,DECREASED RESPIRATIONS, 07/17/16 ) tolerates vantin Fish Containing Products (Verified Allergy, Intermediate, 01/17/15) Sulfa (Sulfonamide Antibiotics) (Verified Allergy, Intermediate, 01/17/15) bacitracin (Verified Allergy, Intermediate, 01/17/15) ciprofloxacin (Verified Allergy, Intermediate, [place], 06/04/15) codeine (Verified Allergy, Intermediate, 01/17/15) iodine (Verified Allergy, Intermediate, 01/17/15) lactose (Verified Allergy, Intermediate, 01/17/15) metformin (Verified Allergy, Intermediate, 01/17/15) morphine (Verified Allergy, Intermediate, 01/17/15) neomycin (Verified Allergy, Intermediate, 01/17/15) polymyxin B (Verified Allergy, Intermediate, 01/17/15) shellfish derived (Verified Allergy, Intermediate, 01/17/15) enoxaparin (Verified Adverse Reaction, Severe, 07/08/16) hematoma, blood loss ROS Review of System UNABLE TO OBTAIN Physical Exam General: Cooperative HEENT: Atraumatic, PERRLA Lungs: Other (DECREASED AT BASES) Heart: Regular rate Abdomen: Normal bowel sounds Extremities: No clubbing Neuro: Other (CONFUSED) Psych/Mental Status: Other (CONFUSED) MUSCULOSKELETAL: Other (CHRONIC LYMPHEDEMA) Vitals VITALS Vital Signs Date Time Temp Pulse Resp B/P (MAP) Pulse Ox O2 Delivery O2 Flow Rate FiO2 07/17/16 11:11 Nasal Cannula 1.0 07/17/16 09:37 57 128/48 07/17/16 07:46 95 07/17/16 07:00 98.5 22 98.5 Labs Labs Laboratory Tests Test 07/15/16 18:24 07/15/16 18:25 07/15/16 21:57 07/16/16 00:30 O2 Saturation 97 % (92-99) Arterial Blood pH 7.31 (7.35-7.45) Arterial Blood pCO2 at Patient Temp 51 mmHg (35-46) Arterial Blood pO2 at Patient Temp 113 mmHg (65-108) Arterial Blood HCO3 25 mmol/L (21-28) Arterial Blood Base Excess -1 mmol/L (-3-3) FiO2 40 White Blood Count 12.4 x10^3/uL (4.0-11.0) Red Blood Count 3.17 x10^6/uL (3.50-5.40) Hemoglobin 9.6 g/dL (12.0-15.5) Hematocrit 30.0 % (36.0-47.0) Mean Corpuscular Volume 95 fL (79-100) Mean Corpuscular Hemoglobin 30 pg (25-35) Mean Corpuscular Hemoglobin Concent 32 g/dL (31-37) Red Cell Distribution Width 17.4 % (11.5-14.5) Platelet Count 480 x10^3/uL (140-400) Neutrophils (%) (Auto) 70 % (31-73) Lymphocytes (%) (Auto) 21 % (24-48) Monocytes (%) (Auto) 6 % (0-9) Eosinophils (%) (Auto) 2 % (0-3) Basophils (%) (Auto) 1 % (0-3) Neutrophils # (Auto) 8.7 x10^3uL (1.8-7.7) Lymphocytes # (Auto) 2.6 x10^3/uL (1.0-4.8) Monocytes # (Auto) 0.7 x10^3/uL (0.0-1.1) Eosinophils # (Auto) 0.2 x10^3/uL (0.0-0.7) Basophils # (Auto) 0.1 x10^3/uL (0.0-0.2) Sodium Level 145 mmol/L (136-145) Potassium Level 4.4 mmol/L (3.5-5.1) Chloride Level 105 mmol/L (98-107) Carbon Dioxide Level 33 mmol/L (21-32) Anion Gap 7 (6-14) Blood Urea Nitrogen 82 mg/dL (7-20) Creatinine 1.5 mg/dL (0.6-1.0) Estimated GFR (Cockcroft-Gault) 33.3 BUN/Creatinine Ratio 55 (6-20) Glucose Level 167 mg/dL (70-99) Calcium Level 8.8 mg/dL (8.5-10.1) Total Bilirubin 0.3 mg/dL (0.2-1.0) Aspartate Amino Transf (AST/SGOT) 43 U/L (15-37) Alanine Aminotransferase (ALT/SGPT) 69 U/L (14-59) Alkaline Phosphatase 130 U/L (46-116) Troponin I Quantitative < 0.017 ng/mL (0.000-0.055) PZ-Igo-O-Type Natriuretic Peptide 4052 pg/mL (0-449) Total Protein 6.7 g/dL (6.4-8.2) Albumin 2.4 g/dL (3.4-5.0) Albumin/Globulin Ratio 0.6 (1.0-1.7) Nasal Screen MRSA (PCR) Negative (Negative) Glucose (Fingerstick) 202 mg/dL (70-99) Test 07/16/16 05:00 07/16/16 07:37 07/16/16 08:00 07/16/16 12:35 White Blood Count 9.4 x10^3/uL (4.0-11.0) Red Blood Count 2.64 x10^6/uL (3.50-5.40) Hemoglobin 8.2 g/dL (12.0-15.5) Hematocrit 24.4 % (36.0-47.0) Mean Corpuscular Volume 92 fL (79-100) Mean Corpuscular Hemoglobin 31 pg (25-35) Mean Corpuscular Hemoglobin Concent 33 g/dL (31-37) Red Cell Distribution Width 17.4 % (11.5-14.5) Platelet Count 380 x10^3/uL (140-400) Neutrophils (%) (Auto) 85 % (31-73) Lymphocytes (%) (Auto) 11 % (24-48) Monocytes (%) (Auto) 3 % (0-9) Eosinophils (%) (Auto) 0 % (0-3) Basophils (%) (Auto) 1 % (0-3) Neutrophils # (Auto) 7.9 x10^3uL (1.8-7.7) Lymphocytes # (Auto) 1.1 x10^3/uL (1.0-4.8) Monocytes # (Auto) 0.3 x10^3/uL (0.0-1.1) Eosinophils # (Auto) 0.0 x10^3/uL (0.0-0.7) Basophils # (Auto) 0.1 x10^3/uL (0.0-0.2) Sodium Level 145 mmol/L (136-145) Potassium Level 4.4 mmol/L (3.5-5.1) Chloride Level 106 mmol/L (98-107) Carbon Dioxide Level 35 mmol/L (21-32) Anion Gap 4 (6-14) Blood Urea Nitrogen 85 mg/dL (7-20) Creatinine 1.6 mg/dL (0.6-1.0) Estimated GFR (Cockcroft-Gault) 30.9 BUN/Creatinine Ratio 53 (6-20) Glucose Level 179 mg/dL (70-99) Calcium Level 8.5 mg/dL (8.5-10.1) Magnesium Level 2.4 mg/dL (1.8-2.4) Total Bilirubin 0.3 mg/dL (0.2-1.0) Aspartate Amino Transf (AST/SGOT) 27 U/L (15-37) Alanine Aminotransferase (ALT/SGPT) 47 U/L (14-59) Alkaline Phosphatase 101 U/L (46-116) Total Protein 6.1 g/dL (6.4-8.2) Albumin 1.9 g/dL (3.4-5.0) Albumin/Globulin Ratio 0.5 (1.0-1.7) Glucose (Fingerstick) 130 mg/dL (70-99) 141 mg/dL (70-99) O2 Saturation 98 % (92-99) Arterial Blood pH 7.36 (7.35-7.45) Arterial Blood pCO2 at Patient Temp 59 mmHg (35-46) Arterial Blood pO2 at Patient Temp 110 mmHg (65-108) Arterial Blood HCO3 32 mmol/L (21-28) Arterial Blood Base Excess 6 mmol/L (-3-3) FiO2 35 Test 07/16/16 16:04 07/16/16 20:48 07/16/16 22:48 07/17/16 06:25 Glucose (Fingerstick) 150 mg/dL (70-99) 158 mg/dL (70-99) Urine Collection Type Unknown Urine Color Yellow Urine Clarity Cloudy Urine pH 5.5 Urine Specific Strong 1.015 Urine Protein 30 mg/dL (NEG-TRACE) Urine Glucose (UA) Negative mg/dL (NEG) Urine Ketones (Stick) Negative mg/dL (NEG) Urine Blood Large (NEG) Urine Nitrite Negative (NEG) Urine Bilirubin Negative (NEG) Urine Urobilinogen Dipstick 0.2 mg/dL (0.2 mg/dL) Urine Leukocyte Esterase Large (NEG) Urine RBC Tntc /HPF (0-2) Urine WBC 20-40 /HPF (0-4) Urine Squamous Epithelial Cells Few /LPF Urine Bacteria Mod /HPF (0-FEW) Urine Hyaline Casts Few /HPF Urine Mucus Slight /LPF Urine Yeast Present /HPF White Blood Count 6.7 x10^3/uL (4.0-11.0) Red Blood Count 2.55 x10^6/uL (3.50-5.40) Hemoglobin 7.7 g/dL (12.0-15.5) Hematocrit 24.2 % (36.0-47.0) Mean Corpuscular Volume 95 fL (79-100) Mean Corpuscular Hemoglobin 30 pg (25-35) Mean Corpuscular Hemoglobin Concent 32 g/dL (31-37) Red Cell Distribution Width 16.8 % (11.5-14.5) Platelet Count 351 x10^3/uL (140-400) Neutrophils (%) (Auto) 70 % (31-73) Lymphocytes (%) (Auto) 17 % (24-48) Monocytes (%) (Auto) 7 % (0-9) Eosinophils (%) (Auto) 6 % (0-3) Basophils (%) (Auto) 1 % (0-3) Neutrophils # (Auto) 4.7 x10^3uL (1.8-7.7) Lymphocytes # (Auto) 1.1 x10^3/uL (1.0-4.8) Monocytes # (Auto) 0.5 x10^3/uL (0.0-1.1) Eosinophils # (Auto) 0.4 x10^3/uL (0.0-0.7) Basophils # (Auto) 0.1 x10^3/uL (0.0-0.2) Sodium Level 145 mmol/L (136-145) Potassium Level 4.2 mmol/L (3.5-5.1) Chloride Level 107 mmol/L (98-107) Carbon Dioxide Level 33 mmol/L (21-32) Anion Gap 5 (6-14) Blood Urea Nitrogen 91 mg/dL (7-20) Creatinine 1.5 mg/dL (0.6-1.0) Estimated GFR (Cockcroft-Gault) 33.3 BUN/Creatinine Ratio 61 (6-20) Glucose Level 138 mg/dL (70-99) Calcium Level 8.9 mg/dL (8.5-10.1) Total Bilirubin 0.3 mg/dL (0.2-1.0) Aspartate Amino Transf (AST/SGOT) 28 U/L (15-37) Alanine Aminotransferase (ALT/SGPT) 46 U/L (14-59) Alkaline Phosphatase 94 U/L (46-116) Total Protein 6.2 g/dL (6.4-8.2) Albumin 2.0 g/dL (3.4-5.0) Albumin/Globulin Ratio 0.5 (1.0-1.7) Test 07/17/16 07:14 Glucose (Fingerstick) 134 mg/dL (70-99) Laboratory Tests Test 07/16/16 12:35 07/16/16 16:04 07/16/16 20:48 07/16/16 22:48 Glucose (Fingerstick) 141 mg/dL (70-99) 150 mg/dL (70-99) 158 mg/dL (70-99) Urine Collection Type Unknown Urine Color Yellow Urine Clarity Cloudy Urine pH 5.5 Urine Specific Strong 1.015 Urine Protein 30 mg/dL (NEG-TRACE) Urine Glucose (UA) Negative mg/dL (NEG) Urine Ketones (Stick) Negative mg/dL (NEG) Urine Blood Large (NEG) Urine Nitrite Negative (NEG) Urine Bilirubin Negative (NEG) Urine Urobilinogen Dipstick 0.2 mg/dL (0.2 mg/dL) Urine Leukocyte Esterase Large (NEG) Urine RBC Tntc /HPF (0-2) Urine WBC 20-40 /HPF (0-4) Urine Squamous Epithelial Cells Few /LPF Urine Bacteria Mod /HPF (0-FEW) Urine Hyaline Casts Few /HPF Urine Mucus Slight /LPF Urine Yeast Present /HPF Test 07/17/16 06:25 07/17/16 07:14 White Blood Count 6.7 x10^3/uL (4.0-11.0) Red Blood Count 2.55 x10^6/uL (3.50-5.40) Hemoglobin 7.7 g/dL (12.0-15.5) Hematocrit 24.2 % (36.0-47.0) Mean Corpuscular Volume 95 fL (79-100) Mean Corpuscular Hemoglobin 30 pg (25-35) Mean Corpuscular Hemoglobin Concent 32 g/dL (31-37) Red Cell Distribution Width 16.8 % (11.5-14.5) Platelet Count 351 x10^3/uL (140-400) Neutrophils (%) (Auto) 70 % (31-73) Lymphocytes (%) (Auto) 17 % (24-48) Monocytes (%) (Auto) 7 % (0-9) Eosinophils (%) (Auto) 6 % (0-3) Basophils (%) (Auto) 1 % (0-3) Neutrophils # (Auto) 4.7 x10^3uL (1.8-7.7) Lymphocytes # (Auto) 1.1 x10^3/uL (1.0-4.8) Monocytes # (Auto) 0.5 x10^3/uL (0.0-1.1) Eosinophils # (Auto) 0.4 x10^3/uL (0.0-0.7) Basophils # (Auto) 0.1 x10^3/uL (0.0-0.2) Sodium Level 145 mmol/L (136-145) Potassium Level 4.2 mmol/L (3.5-5.1) Chloride Level 107 mmol/L (98-107) Carbon Dioxide Level 33 mmol/L (21-32) Anion Gap 5 (6-14) Blood Urea Nitrogen 91 mg/dL (7-20) Creatinine 1.5 mg/dL (0.6-1.0) Estimated GFR (Cockcroft-Gault) 33.3 BUN/Creatinine Ratio 61 (6-20) Glucose Level 138 mg/dL (70-99) Calcium Level 8.9 mg/dL (8.5-10.1) Total Bilirubin 0.3 mg/dL (0.2-1.0) Aspartate Amino Transf (AST/SGOT) 28 U/L (15-37) Alanine Aminotransferase (ALT/SGPT) 46 U/L (14-59) Alkaline Phosphatase 94 U/L (46-116) Total Protein 6.2 g/dL (6.4-8.2) Albumin 2.0 g/dL (3.4-5.0) Albumin/Globulin Ratio 0.5 (1.0-1.7) Glucose (Fingerstick) 134 mg/dL (70-99) Assessment/Plan Assessment/Plan IMP CKD STAGE 3 PRE RENAL AZOTEMIA-BUN/CR OF OVER 50 DEHYDRATION CHRONIC RESP FAILURE ABD WALL HEMATOMA'S ANEMIA UTI PLAN ANTIBIOTICS IVF'S/PPN FOR NOW PRBC NEEDED UPDATED SON D/W ATTENDING JULIETA BARTLETT MD Jul 17, 2016 11:33
[2016-07-17] MEDS: IV NORMAL SALINE 1000ML BAG 1,000 ML IV SCH (11:51)
[2016-07-17] MEDS ORDERED: DEXTROSE 50% 25 GM / 50ML DISP.SYRIN. IV PRN (13:30)
--- NOTE | 2016-07-17 14:11 | PDOC ---
PULMONARY PROGRESS NOTES Subjective PT WITH NO INCREASE SOA Vitals Vital Signs Date Time Temp Pulse Resp B/P (MAP) Pulse Ox O2 Delivery O2 Flow Rate FiO2 07/17/16 11:11 Nasal Cannula 1.0 07/17/16 11:00 97.9 70 22 124/44 (70) 93 97.9 ROS: No Nausea, No Chest Pain, No Abdominal Pain, No Increase Cough General: Alert Lungs: Clear Cardiovascular: S1, S2 Abdomen: Soft, Other Extremities: Other (WOUNDS) Skin: Warm Labs Laboratory Tests Test 07/15/16 18:24 07/15/16 18:25 07/15/16 21:57 07/16/16 00:30 O2 Saturation 97 % (92-99) Arterial Blood pH 7.31 (7.35-7.45) Arterial Blood pCO2 at Patient Temp 51 mmHg (35-46) Arterial Blood pO2 at Patient Temp 113 mmHg (65-108) Arterial Blood HCO3 25 mmol/L (21-28) Arterial Blood Base Excess -1 mmol/L (-3-3) FiO2 40 White Blood Count 12.4 x10^3/uL (4.0-11.0) Red Blood Count 3.17 x10^6/uL (3.50-5.40) Hemoglobin 9.6 g/dL (12.0-15.5) Hematocrit 30.0 % (36.0-47.0) Mean Corpuscular Volume 95 fL (79-100) Mean Corpuscular Hemoglobin 30 pg (25-35) Mean Corpuscular Hemoglobin Concent 32 g/dL (31-37) Red Cell Distribution Width 17.4 % (11.5-14.5) Platelet Count 480 x10^3/uL (140-400) Neutrophils (%) (Auto) 70 % (31-73) Lymphocytes (%) (Auto) 21 % (24-48) Monocytes (%) (Auto) 6 % (0-9) Eosinophils (%) (Auto) 2 % (0-3) Basophils (%) (Auto) 1 % (0-3) Neutrophils # (Auto) 8.7 x10^3uL (1.8-7.7) Lymphocytes # (Auto) 2.6 x10^3/uL (1.0-4.8) Monocytes # (Auto) 0.7 x10^3/uL (0.0-1.1) Eosinophils # (Auto) 0.2 x10^3/uL (0.0-0.7) Basophils # (Auto) 0.1 x10^3/uL (0.0-0.2) Sodium Level 145 mmol/L (136-145) Potassium Level 4.4 mmol/L (3.5-5.1) Chloride Level 105 mmol/L (98-107) Carbon Dioxide Level 33 mmol/L (21-32) Anion Gap 7 (6-14) Blood Urea Nitrogen 82 mg/dL (7-20) Creatinine 1.5 mg/dL (0.6-1.0) Estimated GFR (Cockcroft-Gault) 33.3 BUN/Creatinine Ratio 55 (6-20) Glucose Level 167 mg/dL (70-99) Calcium Level 8.8 mg/dL (8.5-10.1) Total Bilirubin 0.3 mg/dL (0.2-1.0) Aspartate Amino Transf (AST/SGOT) 43 U/L (15-37) Alanine Aminotransferase (ALT/SGPT) 69 U/L (14-59) Alkaline Phosphatase 130 U/L (46-116) Troponin I Quantitative < 0.017 ng/mL (0.000-0.055) ZV-[id number]-Type Natriuretic Peptide 4052 pg/mL (0-449) Total Protein 6.7 g/dL (6.4-8.2) Albumin 2.4 g/dL (3.4-5.0) Albumin/Globulin Ratio 0.6 (1.0-1.7) Nasal Screen MRSA (PCR) Negative (Negative) Glucose (Fingerstick) 202 mg/dL (70-99) Test 07/16/16 05:00 07/16/16 07:37 07/16/16 08:00 07/16/16 12:35 White Blood Count 9.4 x10^3/uL (4.0-11.0) Red Blood Count 2.64 x10^6/uL (3.50-5.40) Hemoglobin 8.2 g/dL (12.0-15.5) Hematocrit 24.4 % (36.0-47.0) Mean Corpuscular Volume 92 fL (79-100) Mean Corpuscular Hemoglobin 31 pg (25-35) Mean Corpuscular Hemoglobin Concent 33 g/dL (31-37) Red Cell Distribution Width 17.4 % (11.5-14.5) Platelet Count 380 x10^3/uL (140-400) Neutrophils (%) (Auto) 85 % (31-73) Lymphocytes (%) (Auto) 11 % (24-48) Monocytes (%) (Auto) 3 % (0-9) Eosinophils (%) (Auto) 0 % (0-3) Basophils (%) (Auto) 1 % (0-3) Neutrophils # (Auto) 7.9 x10^3uL (1.8-7.7) Lymphocytes # (Auto) 1.1 x10^3/uL (1.0-4.8) Monocytes # (Auto) 0.3 x10^3/uL (0.0-1.1) Eosinophils # (Auto) 0.0 x10^3/uL (0.0-0.7) Basophils # (Auto) 0.1 x10^3/uL (0.0-0.2) Sodium Level 145 mmol/L (136-145) Potassium Level 4.4 mmol/L (3.5-5.1) Chloride Level 106 mmol/L (98-107) Carbon Dioxide Level 35 mmol/L (21-32) Anion Gap 4 (6-14) Blood Urea Nitrogen 85 mg/dL (7-20) Creatinine 1.6 mg/dL (0.6-1.0) Estimated GFR (Cockcroft-Gault) 30.9 BUN/Creatinine Ratio 53 (6-20) Glucose Level 179 mg/dL (70-99) Calcium Level 8.5 mg/dL (8.5-10.1) Magnesium Level 2.4 mg/dL (1.8-2.4) Total Bilirubin 0.3 mg/dL (0.2-1.0) Aspartate Amino Transf (AST/SGOT) 27 U/L (15-37) Alanine Aminotransferase (ALT/SGPT) 47 U/L (14-59) Alkaline Phosphatase 101 U/L (46-116) Total Protein 6.1 g/dL (6.4-8.2) Albumin 1.9 g/dL (3.4-5.0) Albumin/Globulin Ratio 0.5 (1.0-1.7) Glucose (Fingerstick) 130 mg/dL (70-99) 141 mg/dL (70-99) O2 Saturation 98 % (92-99) Arterial Blood pH 7.36 (7.35-7.45) Arterial Blood pCO2 at Patient Temp 59 mmHg (35-46) Arterial Blood pO2 at Patient Temp 110 mmHg (65-108) Arterial Blood HCO3 32 mmol/L (21-28) Arterial Blood Base Excess 6 mmol/L (-3-3) FiO2 35 Test 07/16/16 16:04 07/16/16 20:48 07/16/16 22:48 07/17/16 06:25 Glucose (Fingerstick) 150 mg/dL (70-99) 158 mg/dL (70-99) Urine Collection Type Unknown Urine Color Yellow Urine Clarity Cloudy Urine pH 5.5 Urine Specific [place] 1.015 Urine Protein 30 mg/dL (NEG-TRACE) Urine Glucose (UA) Negative mg/dL (NEG) Urine Ketones (Stick) Negative mg/dL (NEG) Urine Blood Large (NEG) Urine Nitrite Negative (NEG) Urine Bilirubin Negative (NEG) Urine Urobilinogen Dipstick 0.2 mg/dL (0.2 mg/dL) Urine Leukocyte Esterase Large (NEG) Urine RBC Tntc /HPF (0-2) Urine WBC 20-40 /HPF (0-4) Urine Squamous Epithelial Cells Few /LPF Urine Bacteria Mod /HPF (0-FEW) Urine Hyaline Casts Few /HPF Urine Mucus Slight /LPF Urine Yeast Present /HPF White Blood Count 6.7 x10^3/uL (4.0-11.0) Red Blood Count 2.55 x10^6/uL (3.50-5.40) Hemoglobin 7.7 g/dL (12.0-15.5) Hematocrit 24.2 % (36.0-47.0) Mean Corpuscular Volume 95 fL (79-100) Mean Corpuscular Hemoglobin 30 pg (25-35) Mean Corpuscular Hemoglobin Concent 32 g/dL (31-37) Red Cell Distribution Width 16.8 % (11.5-14.5) Platelet Count 351 x10^3/uL (140-400) Neutrophils (%) (Auto) 70 % (31-73) Lymphocytes (%) (Auto) 17 % (24-48) Monocytes (%) (Auto) 7 % (0-9) Eosinophils (%) (Auto) 6 % (0-3) Basophils (%) (Auto) 1 % (0-3) Neutrophils # (Auto) 4.7 x10^3uL (1.8-7.7) Lymphocytes # (Auto) 1.1 x10^3/uL (1.0-4.8) Monocytes # (Auto) 0.5 x10^3/uL (0.0-1.1) Eosinophils # (Auto) 0.4 x10^3/uL (0.0-0.7) Basophils # (Auto) 0.1 x10^3/uL (0.0-0.2) Sodium Level 145 mmol/L (136-145) Potassium Level 4.2 mmol/L (3.5-5.1) Chloride Level 107 mmol/L (98-107) Carbon Dioxide Level 33 mmol/L (21-32) Anion Gap 5 (6-14) Blood Urea Nitrogen 91 mg/dL (7-20) Creatinine 1.5 mg/dL (0.6-1.0) Estimated GFR (Cockcroft-Gault) 33.3 BUN/Creatinine Ratio 61 (6-20) Glucose Level 138 mg/dL (70-99) Calcium Level 8.9 mg/dL (8.5-10.1) Total Bilirubin 0.3 mg/dL (0.2-1.0) Aspartate Amino Transf (AST/SGOT) 28 U/L (15-37) Alanine Aminotransferase (ALT/SGPT) 46 U/L (14-59) Alkaline Phosphatase 94 U/L (46-116) Total Protein 6.2 g/dL (6.4-8.2) Albumin 2.0 g/dL (3.4-5.0) Albumin/Globulin Ratio 0.5 (1.0-1.7) Test 07/17/16 07:14 Glucose (Fingerstick) 134 mg/dL (70-99) Laboratory Tests Test 07/16/16 16:04 07/16/16 20:48 07/16/16 22:48 07/17/16 06:25 Glucose (Fingerstick) 150 mg/dL (70-99) 158 mg/dL (70-99) Urine Collection Type Unknown Urine Color Yellow Urine Clarity Cloudy Urine pH 5.5 Urine Specific [place] 1.015 Urine Protein 30 mg/dL (NEG-TRACE) Urine Glucose (UA) Negative mg/dL (NEG) Urine Ketones (Stick) Negative mg/dL (NEG) Urine Blood Large (NEG) Urine Nitrite Negative (NEG) Urine Bilirubin Negative (NEG) Urine Urobilinogen Dipstick 0.2 mg/dL (0.2 mg/dL) Urine Leukocyte Esterase Large (NEG) Urine RBC Tntc /HPF (0-2) Urine WBC 20-40 /HPF (0-4) Urine Squamous Epithelial Cells Few /LPF Urine Bacteria Mod /HPF (0-FEW) Urine Hyaline Casts Few /HPF Urine Mucus Slight /LPF Urine Yeast Present /HPF White Blood Count 6.7 x10^3/uL (4.0-11.0) Red Blood Count 2.55 x10^6/uL (3.50-5.40) Hemoglobin 7.7 g/dL (12.0-15.5) Hematocrit 24.2 % (36.0-47.0) Mean Corpuscular Volume 95 fL (79-100) Mean Corpuscular Hemoglobin 30 pg (25-35) Mean Corpuscular Hemoglobin Concent 32 g/dL (31-37) Red Cell Distribution Width 16.8 % (11.5-14.5) Platelet Count 351 x10^3/uL (140-400) Neutrophils (%) (Auto) 70 % (31-73) Lymphocytes (%) (Auto) 17 % (24-48) Monocytes (%) (Auto) 7 % (0-9) Eosinophils (%) (Auto) 6 % (0-3) Basophils (%) (Auto) 1 % (0-3) Neutrophils # (Auto) 4.7 x10^3uL (1.8-7.7) Lymphocytes # (Auto) 1.1 x10^3/uL (1.0-4.8) Monocytes # (Auto) 0.5 x10^3/uL (0.0-1.1) Eosinophils # (Auto) 0.4 x10^3/uL (0.0-0.7) Basophils # (Auto) 0.1 x10^3/uL (0.0-0.2) Sodium Level 145 mmol/L (136-145) Potassium Level 4.2 mmol/L (3.5-5.1) Chloride Level 107 mmol/L (98-107) Carbon Dioxide Level 33 mmol/L (21-32) Anion Gap 5 (6-14) Blood Urea Nitrogen 91 mg/dL (7-20) Creatinine 1.5 mg/dL (0.6-1.0) Estimated GFR (Cockcroft-Gault) 33.3 BUN/Creatinine Ratio 61 (6-20) Glucose Level 138 mg/dL (70-99) Calcium Level 8.9 mg/dL (8.5-10.1) Total Bilirubin 0.3 mg/dL (0.2-1.0) Aspartate Amino Transf (AST/SGOT) 28 U/L (15-37) Alanine Aminotransferase (ALT/SGPT) 46 U/L (14-59) Alkaline Phosphatase 94 U/L (46-116) Total Protein 6.2 g/dL (6.4-8.2) Albumin 2.0 g/dL (3.4-5.0) Albumin/Globulin Ratio 0.5 (1.0-1.7) Test 07/17/16 07:14 Glucose (Fingerstick) 134 mg/dL (70-99) Medications Active Scripts Medications Dose Route/Sig Max Daily Dose Days Date Category Dose Instructions Levemir Flextouch (Insulin Detemir) 100 Unit/1 Ml Insuln.pen 10 Units SQ HS 07/13/16 Rx Inject by Sub q route 10 units at HS Cefpodoxime Proxetil 100 Mg Tablet 200 Mg PO BID 180 07/13/16 Rx 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 Tylenol Extra Strength (Acetaminophen) 500 Mg Tablet 1,000 Mg PO PRN Q6HRS 07/10/16 Rx Novolog Flexpen (Insulin Aspart) 100 Unit/1 Ml Insuln.pen 0-8 Units SQ TIDAC 07/10/16 Rx Inject subq tid ac prn: BS<150=0, BS 151-200=2unit, BS 201-250 =3 unit, BS 251-300=4 unit, BS 301-350= 6 units, BS 351-400= 8 units >401 call Duoneb 0.5-3(2.5) Mg/3 Ml (Albuterol/Ipratropium) 3 Ml Ampul.neb 3 Ml NEB RTQID 07/10/16 Rx Nebulizer treatment qid Escitalopram Oxalate 10 Mg Tablet 10 Mg PO DAILY 07/10/16 Rx Take one tablet daily by mouth Amlodipine Besylate 5 Mg Tablet 5 Mg PO DAILY 07/10/16 Rx Take one tablet daily by mouth Awa-Bid Caplet (Acidoph/L.bulg/Bif.b/S.thermop) 1 Each Tablet 1 Tab PO TIDWMEALS 07/10/16 Rx Take one tablet by mouth with meals Soothe & Cool Skin Paste (Zinc Oxide/Petrolatum,White) 71 Gm Oint...g. Gm TP 06/05/15 Reported Vitamin D3 (Cholecalciferol (Vitamin D3)) 1,000 Unit Tablet 1 Tab PO DAILY 06/05/15 Reported Fluticasone Propionate Nasal [place] (Fluticasone Propionate) 16 Gm [place].susp 2 [place] NS DAILY 01/18/15 Reported Artificial Tears Eye Drops (Dextran 70/Hypromellose) 15 Ml Drops 1 Drop EACHEYE PRN DAILY PRN 01/18/15 Reported Anastrozole 1 Mg Tablet 1 Mg PO DAILY 01/18/15 Reported Multi-Day Vitamins (Multivitamin) 1 Each Tablet 1 Tab PO DAILY 01/18/15 Reported Singulair Tablet (Montelukast Sodium) 10 Mg Tablet 10 Mg PO HS 01/18/15 Reported Primidone 250 Mg Tablet 250 Mg PO BID 01/17/15 Reported Polyethylene Glycol 3350 17 Gm Powd.pack 17 Gm PO PRN DAILY PRN 01/17/15 Reported Nystatin 1 Each Powder.ea. 1 [place] TOP BID 01/17/15 Reported Lidoderm (Lidocaine) 700 Mg Adh..patch 1 Patch TP DAILY 01/17/15 Reported Gabapentin 100 Mg Capsule 100 Mg PO HS 01/17/15 Reported Folic Acid 1 Mg Tablet 1 Mg PO BID 01/17/15 Reported Ferrous Sulfate 325 Mg Tablet 325 Mg PO TIDWMEALS 01/17/15 Reported B-12 (Cyanocobalamin (Vitamin B-12)) 1,000 Mcg Tablet.er 1,000 Mcg PO DAILY 01/17/15 Reported Claritin (Loratadine) 10 Mg Capsule 10 Mg PO DAILY 01/17/15 Reported Calcium Carbonate 500 Mg Tablet 500 Mg PO DAILY 01/17/15 Reported Benadryl (Diphenhydramine Hcl) 25 Mg Capsule 25 Mg PO PRN Q6HRS PRN 01/17/15 Reported Impression . 1. [id number]-cg-[id number] respiratory failure, multifactorial 2. Acute exacerbation of chronic obstructive pulmonary disease. 3. Acute bronchitis. 4. Obstructive sleep apnea-hypopnea syndrome. 5. Acute diastolic congestive heart failure. 6. Obesity. 7. Diabetes mellitus. 8. History of breast cancer. 9. Anemia, acute blood loss, based on abdominal wall hematoma. 10. Chronic kidney disease. 11. Hypertension. 12. Diabetes mellitus. 13. Chronic wounds per ID Plan . Antibx per ID Resp status is compensated 1. Titrate FiO2 to keep O2 saturation 91%. 2. Bronchodilator. 3. Add inhaled corticosteroid 4. Keep intake less than output. 5. SCDs for DVT prophylaxis. hold on heparin lovenox, has hx of recent blood loss and abdominal wall hematoma. 6. Protonix for stress ulcer prophylaxis. 7. Monitor respiratory status very closely. 8. Continue BiPAP p.r.n. during day and continues it at night. JAZ ODELL MD Jul 17, 2016 14:11
[2016-07-17 15:00] VITALS: BP 124/50
[2016-07-17] MEDS: MEROPENEM 500 MG in IV NORMAL SALINE 50ML 50 ML IV SCH ×2 (15:22→21:22)
[2016-07-17 19:00] VITALS: BP 147/62
[2016-07-17] MEDS: MONTELUKAST SODIUM 10 MG TABLET. PO SCH (21:00)
[2016-07-17] MEDS: GABAPENTIN 100 MG CAPSULE. PO SCH (21:00)
[2016-07-17] MEDS: INSULIN DETEMIR 300 UNITS/3 ML INSULN.PEN. SQ SCH (21:07)
[2016-07-17 23:00] VITALS: BP 142/55
[2016-07-18 03:36] LABS: BASO # 0.1 x10^3/uL (0.0-0.2); BASO % 1 % (0-3); EOS % 5 % (0-3); HEMATOCRIT 23.1 % (36.0-47.0); HEMOGLOBIN 7.5 g/dL (12.0-15.5); LYMPH # 1.4 x10^3/uL (1.0-4.8); LYMPH % 20 % (24-48); MEAN CORPUSCULAR HEMOGLOBIN 31 pg (25-35); MEAN CORPUSCULAR HGB CONC 33 g/dL (31-37); MEAN CORPUSCULAR VOLUME 94 fL (79-100); MONO % 8 % (0-9); NEUT % 66 % (31-73); PLATELET COUNT 350 x10^3/uL (140-400); RED BLOOD COUNT 2.45 x10^6/uL (3.50-5.40); RED CELL DISTRIBUTION WIDTH 17.3 % (11.5-14.5); WHITE BLOOD COUNT 6.8 x10^3/uL (4.0-11.0)
[2016-07-18 03:50] LABS: ALBUMIN/GLOBULIN RATIO 0.5 (1.0-1.7); CALCIUM 8.1 mg/dL (8.5-10.1); CREATININE 1.5 mg/dL (0.6-1.0); GFR 33.3; POTASSIUM 4.4 mmol/L (3.5-5.1); TOTAL BILIRUBIN 0.3 mg/dL (0.2-1.0); TOTAL PROTEIN 5.9 g/dL (6.4-8.2)
[2016-07-18] MEDS: IV NORMAL SALINE 1000ML BAG 1,000 ML IV SCH (05:30)
[2016-07-18] MEDS: MEROPENEM 500 MG in IV NORMAL SALINE 50ML 50 ML IV SCH ×3 (05:38→22:17)
[2016-07-18 07:00] VITALS: BP 124/56
[2016-07-18] MEDS: IPRATRPIUM/ALBUTEROL 0.5/2.5MG 3 ML NEBU. NEB SCH ×4 (07:28→20:01)
[2016-07-18] MEDS: BUDESONIDE 0.5 MG/2 ML NEBU. NEB SCH ×2 (07:30→20:01)
[2016-07-18] MEDS: INSULIN ASPART 300 UNITS/3 ML INSULN.PEN SQ SCH ×3 (08:00→18:28)
--- NOTE | 2016-07-18 08:44 | PDOC ---
[employer] 07/18/16 0844: IM PROGRESS NOTES- Subjective Subjective feeling better this morning. Objective Objective alert Vitals Vital Signs Date Time Temp Pulse Resp B/P (MAP) Pulse Ox O2 Delivery O2 Flow Rate FiO2 07/18/16 07:33 Nasal Cannula 1.0 07/18/16 07:00 98.5 59 19 124/56 (78) 100 98.5 Input & Output Intake and Output 07/18/16 06:59 Intake Total 550 ml Output Total 1125 ml Balance -575 ml Intake Oral 550 ml Output Urine Total 1125 ml Physical Exam Physical Exam General appearance - alert, chronically ill appearing, and in no distress Mental Status - alert, oriented to person, place, and time, affect appropriate to mood Head - normal Chest - clear to auscultation, no wheezes, rales or rhonchi chronic sternal wound dressing intact, slight red/warm present-chronic Heart - S1 and S2 normal Abdomen - soft, nontender, nondistended, obese, BS + hematoma RUQ, LLQ and bruising improving, decreasing Neurological - no acute focal neurological deficit noted Musculoskeletal - no muscular tenderness noted Extremities - ++ pedal edema, old bruising L AC slow resolution Skin - warm and dry Labs Laboratory Tests Test 07/16/16 12:35 07/16/16 16:04 07/16/16 20:48 07/16/16 22:48 Glucose (Fingerstick) 141 mg/dL (70-99) 150 mg/dL (70-99) 158 mg/dL (70-99) Urine Collection Type Unknown Urine Color Yellow Urine Clarity Cloudy Urine pH 5.5 Urine Specific [place] 1.015 Urine Protein 30 mg/dL (NEG-TRACE) Urine Glucose (UA) Negative mg/dL (NEG) Urine Ketones (Stick) Negative mg/dL (NEG) Urine Blood Large (NEG) Urine Nitrite Negative (NEG) Urine Bilirubin Negative (NEG) Urine Urobilinogen Dipstick 0.2 mg/dL (0.2 mg/dL) Urine Leukocyte Esterase Large (NEG) Urine RBC Tntc /HPF (0-2) Urine WBC 20-40 /HPF (0-4) Urine Squamous Epithelial Cells Few /LPF Urine Bacteria Mod /HPF (0-FEW) Urine Hyaline Casts Few /HPF Urine Mucus Slight /LPF Urine Yeast Present /HPF Test 07/17/16 06:25 07/17/16 07:14 07/18/16 02:40 White Blood Count 6.7 x10^3/uL (4.0-11.0) 6.8 x10^3/uL (4.0-11.0) Red Blood Count 2.55 x10^6/uL (3.50-5.40) 2.45 x10^6/uL (3.50-5.40) Hemoglobin 7.7 g/dL (12.0-15.5) 7.5 g/dL (12.0-15.5) Hematocrit 24.2 % (36.0-47.0) 23.1 % (36.0-47.0) Mean Corpuscular Volume 95 fL (79-100) 94 fL (79-100) Mean Corpuscular Hemoglobin 30 pg (25-35) 31 pg (25-35) Mean Corpuscular Hemoglobin Concent 32 g/dL (31-37) 33 g/dL (31-37) Red Cell Distribution Width 16.8 % (11.5-14.5) 17.3 % (11.5-14.5) Platelet Count 351 x10^3/uL (140-400) 350 x10^3/uL (140-400) Neutrophils (%) (Auto) 70 % (31-73) 66 % (31-73) Lymphocytes (%) (Auto) 17 % (24-48) 20 % (24-48) Monocytes (%) (Auto) 7 % (0-9) 8 % (0-9) Eosinophils (%) (Auto) 6 % (0-3) 5 % (0-3) Basophils (%) (Auto) 1 % (0-3) 1 % (0-3) Neutrophils # (Auto) 4.7 x10^3uL (1.8-7.7) 4.5 x10^3uL (1.8-7.7) Lymphocytes # (Auto) 1.1 x10^3/uL (1.0-4.8) 1.4 x10^3/uL (1.0-4.8) Monocytes # (Auto) 0.5 x10^3/uL (0.0-1.1) 0.5 x10^3/uL (0.0-1.1) Eosinophils # (Auto) 0.4 x10^3/uL (0.0-0.7) 0.3 x10^3/uL (0.0-0.7) Basophils # (Auto) 0.1 x10^3/uL (0.0-0.2) 0.1 x10^3/uL (0.0-0.2) Sodium Level 145 mmol/L (136-145) 144 mmol/L (136-145) Potassium Level 4.2 mmol/L (3.5-5.1) 4.4 mmol/L (3.5-5.1) Chloride Level 107 mmol/L (98-107) 106 mmol/L (98-107) Carbon Dioxide Level 33 mmol/L (21-32) 33 mmol/L (21-32) Anion Gap 5 (6-14) 5 (6-14) Blood Urea Nitrogen 91 mg/dL (7-20) 85 mg/dL (7-20) Creatinine 1.5 mg/dL (0.6-1.0) 1.5 mg/dL (0.6-1.0) Estimated GFR (Cockcroft-Gault) 33.3 33.3 BUN/Creatinine Ratio 61 (6-20) 57 (6-20) Glucose Level 138 mg/dL (70-99) 121 mg/dL (70-99) Calcium Level 8.9 mg/dL (8.5-10.1) 8.1 mg/dL (8.5-10.1) Total Bilirubin 0.3 mg/dL (0.2-1.0) 0.3 mg/dL (0.2-1.0) Aspartate Amino Transf (AST/SGOT) 28 U/L (15-37) 25 U/L (15-37) Alanine Aminotransferase (ALT/SGPT) 46 U/L (14-59) 40 U/L (14-59) Alkaline Phosphatase 94 U/L (46-116) 87 U/L (46-116) Total Protein 6.2 g/dL (6.4-8.2) 5.9 g/dL (6.4-8.2) Albumin 2.0 g/dL (3.4-5.0) 2.0 g/dL (3.4-5.0) Albumin/Globulin Ratio 0.5 (1.0-1.7) 0.5 (1.0-1.7) Glucose (Fingerstick) 134 mg/dL (70-99) Laboratory Tests Test 07/18/16 02:40 White Blood Count 6.8 x10^3/uL (4.0-11.0) Red Blood Count 2.45 x10^6/uL (3.50-5.40) Hemoglobin 7.5 g/dL (12.0-15.5) Hematocrit 23.1 % (36.0-47.0) Mean Corpuscular Volume 94 fL (79-100) Mean Corpuscular Hemoglobin 31 pg (25-35) Mean Corpuscular Hemoglobin Concent 33 g/dL (31-37) Red Cell Distribution Width 17.3 % (11.5-14.5) Platelet Count 350 x10^3/uL (140-400) Neutrophils (%) (Auto) 66 % (31-73) Lymphocytes (%) (Auto) 20 % (24-48) Monocytes (%) (Auto) 8 % (0-9) Eosinophils (%) (Auto) 5 % (0-3) Basophils (%) (Auto) 1 % (0-3) Neutrophils # (Auto) 4.5 x10^3uL (1.8-7.7) Lymphocytes # (Auto) 1.4 x10^3/uL (1.0-4.8) Monocytes # (Auto) 0.5 x10^3/uL (0.0-1.1) Eosinophils # (Auto) 0.3 x10^3/uL (0.0-0.7) Basophils # (Auto) 0.1 x10^3/uL (0.0-0.2) Sodium Level 144 mmol/L (136-145) Potassium Level 4.4 mmol/L (3.5-5.1) Chloride Level 106 mmol/L (98-107) Carbon Dioxide Level 33 mmol/L (21-32) Anion Gap 5 (6-14) Blood Urea Nitrogen 85 mg/dL (7-20) Creatinine 1.5 mg/dL (0.6-1.0) Estimated GFR (Cockcroft-Gault) 33.3 BUN/Creatinine Ratio 57 (6-20) Glucose Level 121 mg/dL (70-99) Calcium Level 8.1 mg/dL (8.5-10.1) Total Bilirubin 0.3 mg/dL (0.2-1.0) Aspartate Amino Transf (AST/SGOT) 25 U/L (15-37) Alanine Aminotransferase (ALT/SGPT) 40 U/L (14-59) Alkaline Phosphatase 87 U/L (46-116) Total Protein 5.9 g/dL (6.4-8.2) Albumin 2.0 g/dL (3.4-5.0) Albumin/Globulin Ratio 0.5 (1.0-1.7) Meds Current Medications Cefpodoxime Proxetil (Vantin) 200 mg BID PO Last administered on 07/17/16 09: 34; Start 07/17/16 at 10:00; Stop 07/17/16 at 11:15; Status DC Dextrose (Dextrose 50%-Water Syringe) 12.5 gm PRN Q15MIN PRN IV SEE COMMENTS; Start 07/17/16 at 13:30 Fluconazole (Diflucan) 150 mg 1X ONCE PO Last administered on 07/17/16 09:35 ; Start 07/17/16 at 09:30; Stop 07/17/16 at 09:31; Status DC Insulin Aspart (NovoLOG) 0-7 UNITS TIDWMEALS SQ Last administered on 07/17/16 18:10; Start 07/17/16 at 14:00 Meropenem 500 mg/ Sodium Chloride 50 ml @ 100 mls/hr Q8HRS IV Last administered on 07/18/16 05:38; Start 07/17/16 at 14:00 Sodium Chloride 1,000 ml @ 50 mls/hr Q20H IV Last administered on 07/18/16 05 :30; Start 07/17/16 at 09:45 Assessment Assessment 1. acute on chronic hypercapnic respiratory failure with underlying CHF, pulmonary HTN, COPD 2. h/o acute blood loss anemia with multiple hematomas with underlying CKD, Fe/ B12 deficiencies, Lovenox injections bridging to coumadin therapy,. 3. CKD III with recent ARF BUN 70s average, Lasix stopped admission prior to last one. 4. Chronic diastolic CHF EF 65% not acute 5. h/o adominal wall hematoma LLQ, RUQ hematoma above RAC due to coagulopathy last admission 6. Diabetes mellitus type 2 with neuropathy 7. Chronic tremors. 8. FERNANDO/OHS with BiPAP at HS, on oxygen via nasal cannula at 2 L/minute during day. 9. narcolepsy 10. History of metal aortic valve replacement, warfarin on hold 11. Atrial fibrillation, warfarin on hold due to hematomas abdomen 12. Chronic lymphedema with venous stasis changes 13. Osteoarthritis generalized 14. Pulmonary hypertension severe 15. Anemia, both iron and B12 deficiency. 16. Chronic obstructive pulmonary disease. 17. Morbid obesity. 18. History of Parkinson disease with tremors. 19. allergic rhinitis 20. chronic constipation 21. chronic moderate PCL malnutrition 22. 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 Vitamin D deficiency 25. skin candidiasis chronic 26. Blister-open with skin exposure, no infection RLE 27. acute infection with underlying chronic osteomyelitis sternal with h/0 suppressive therapy Vantin 200mg bid and open wound 28. transaminitis fluid overload not Acute CHF POA 29. anxiety/depression 30. vaginitis yeast POA PLAN chronic hypercapnic/hypoxic respiratory failure with encephalopathy continue BiPap at hs, O2 2L during day duoneb qid continue narcolepsy med continue improved anemia Admit 9.6 07/18 7.5 Fe and B12 replacement CT abd/pelvis-hematoma last admission- no retroperitoneal bleed CKD III Admit Na 145 07/18 144 K 4.4 4.4 BUN 82 85 Cr 1.5 1.5 no acute renal failure-pre renal azotemia IVF NS 50cc/hr renal consulted leukocytosis without fever Admit 12.4 07/18 6.8 chronic osteo sternal wound-Vantin suppression CXR clear hematoma reabsorption [id number] Diflucan stop zithromax CXR clear infected sternal wound with underlying chronic osteomyelitis no sepsis HTN continue meds transaminitis Admit AST 43 07/17 28 ALT 69 46 AP 130 94 resolved chronic diastolic CHF Admit wt PMC 269.02 07/17 277.56 (probable 07/17 wt accurate based on weights last week) 07/18 283.05 weight inaccurate accurate IO for critical management placed + fluid balance last 24 hours DM II FSBS SSI BS 121-158 DVT/GI prophylaxis warfarin on hold no anticoagulant due to anemia/hematomas PPI h/o AVR metal off warfarin due to hematomas from lovenox injection/anemia requiring PRC last admit resume warfarin when appropriate and goal is 2.0-2.5 INR Mod PCL malnutrition not POA nutritional supplements chronic osteo/wound sternum now with acute infection suppressive tx not surgical candidate for removal continue wound care from [facility] ID consulted Meropenem IV 07/17/16 For further plan of care, please refer to the orders. Plan Plan For more details regarding further plans, please refer to the orders. DEBBIE SHEA MD 07/18/16 1006: IM PROGRESS NOTES- Assessment Assessment Sternal wound infected- now on Meropenem. Anemia- stable. Mental status improving. The patient was seen and examined by me. Chart reviewed and plan of care formulated. Discussed with, reviewed and agree with TIRE CURER's notes, plan of care and orders with modifications as necessary. For more details regarding further plans, please refer to the orders. D/w Karen DPOA Karen- sternal osteomyelitis,Rx,high chance of failure,IV antibiotics etc.She would like [facility] to [facility]. NATTY FOY APRN Jul 18, 2016 08:44 DEBBIE SHEA MD Jul 18, 2016 10:06
[2016-07-18] MEDS: LIDOCAINE (700MG/PATCH) PATCH. TP SCH (08:49)
[2016-07-18] MEDS: CYANOCOBALAMIN (VITAMIN B-12) 1,000 MCG TABLET. PO SCH (08:50)
[2016-07-18] MEDS: MULTIVITAMIN with MINERAL TABLET. PO SCH (08:51)
[2016-07-18] MEDS: ACETAMINOPHEN 500 MG TABLET PO PRN (08:51)
[2016-07-18] MEDS: CALCIUM CARBONATE 500 MG TABLET PO SCH (08:51)
[2016-07-18] MEDS: FERROUS SULFATE 325 MG TABLET. PO SCH ×3 (08:52→18:22)
[2016-07-18] MEDS: LACTOBACILLUS ACIDOPH & BULGAR 1 TABLET. PO SCH ×3 (08:52→18:22)
[2016-07-18] MEDS: ESCITALOPRAM 10 MG TABLET. PO SCH (08:52)
[2016-07-18] MEDS: PRIMIDONE 250 MG TABLET PO SCH ×2 (08:52→20:59)
[2016-07-18] MEDS: amLODIPine BESYLATE 5 MG TABLET PO SCH (08:52)
[2016-07-18] MEDS: CETIRIZINE HCL 10 MG TABLET. PO SCH (08:53)
[2016-07-18] MEDS: CHOLECALCIFEROL (VITAMIN D3) 1,000 UNIT TABLET PO SCH (08:53)
[2016-07-18] MEDS: FOLIC ACID 1 MG TABLET. PO SCH ×2 (08:53→20:58)
--- NOTE | 2016-07-18 08:57 | PDOC ---
PULMONARY PROGRESS NOTES Subjective PT WITH NO INCREASE SOA Vitals Vital Signs Date Time Temp Pulse Resp B/P (MAP) Pulse Ox O2 Delivery O2 Flow Rate FiO2 07/18/16 07:33 Nasal Cannula 1.0 07/18/16 07:00 98.5 59 19 124/56 (78) 100 98.5 ROS: No Nausea, No Chest Pain, No Abdominal Pain, No Increase Cough General: Alert Lungs: Clear Cardiovascular: S1, S2 Abdomen: Soft, Other Extremities: Other (WOUNDS) Skin: Warm Labs Laboratory Tests Test 07/16/16 12:35 07/16/16 16:04 07/16/16 20:48 07/16/16 22:48 Glucose (Fingerstick) 141 mg/dL (70-99) 150 mg/dL (70-99) 158 mg/dL (70-99) Urine Collection Type Unknown Urine Color Yellow Urine Clarity Cloudy Urine pH 5.5 Urine Specific [place] 1.015 Urine Protein 30 mg/dL (NEG-TRACE) Urine Glucose (UA) Negative mg/dL (NEG) Urine Ketones (Stick) Negative mg/dL (NEG) Urine Blood Large (NEG) Urine Nitrite Negative (NEG) Urine Bilirubin Negative (NEG) Urine Urobilinogen Dipstick 0.2 mg/dL (0.2 mg/dL) Urine Leukocyte Esterase Large (NEG) Urine RBC Tntc /HPF (0-2) Urine WBC 20-40 /HPF (0-4) Urine Squamous Epithelial Cells Few /LPF Urine Bacteria Mod /HPF (0-FEW) Urine Hyaline Casts Few /HPF Urine Mucus Slight /LPF Urine Yeast Present /HPF Test 07/17/16 06:25 07/17/16 07:14 07/17/16 11:16 07/17/16 16:57 White Blood Count 6.7 x10^3/uL (4.0-11.0) Red Blood Count 2.55 x10^6/uL (3.50-5.40) Hemoglobin 7.7 g/dL (12.0-15.5) Hematocrit 24.2 % (36.0-47.0) Mean Corpuscular Volume 95 fL (79-100) Mean Corpuscular Hemoglobin 30 pg (25-35) Mean Corpuscular Hemoglobin Concent 32 g/dL (31-37) Red Cell Distribution Width 16.8 % (11.5-14.5) Platelet Count 351 x10^3/uL (140-400) Neutrophils (%) (Auto) 70 % (31-73) Lymphocytes (%) (Auto) 17 % (24-48) Monocytes (%) (Auto) 7 % (0-9) Eosinophils (%) (Auto) 6 % (0-3) Basophils (%) (Auto) 1 % (0-3) Neutrophils # (Auto) 4.7 x10^3uL (1.8-7.7) Lymphocytes # (Auto) 1.1 x10^3/uL (1.0-4.8) Monocytes # (Auto) 0.5 x10^3/uL (0.0-1.1) Eosinophils # (Auto) 0.4 x10^3/uL (0.0-0.7) Basophils # (Auto) 0.1 x10^3/uL (0.0-0.2) Sodium Level 145 mmol/L (136-145) Potassium Level 4.2 mmol/L (3.5-5.1) Chloride Level 107 mmol/L (98-107) Carbon Dioxide Level 33 mmol/L (21-32) Anion Gap 5 (6-14) Blood Urea Nitrogen 91 mg/dL (7-20) Creatinine 1.5 mg/dL (0.6-1.0) Estimated GFR (Cockcroft-Gault) 33.3 BUN/Creatinine Ratio 61 (6-20) Glucose Level 138 mg/dL (70-99) Calcium Level 8.9 mg/dL (8.5-10.1) Total Bilirubin 0.3 mg/dL (0.2-1.0) Aspartate Amino Transf (AST/SGOT) 28 U/L (15-37) Alanine Aminotransferase (ALT/SGPT) 46 U/L (14-59) Alkaline Phosphatase 94 U/L (46-116) Total Protein 6.2 g/dL (6.4-8.2) Albumin 2.0 g/dL (3.4-5.0) Albumin/Globulin Ratio 0.5 (1.0-1.7) Glucose (Fingerstick) 134 mg/dL (70-99) 156 mg/dL (70-99) 160 mg/dL (70-99) Test 07/17/16 20:59 07/18/16 02:40 Glucose (Fingerstick) 167 mg/dL (70-99) White Blood Count 6.8 x10^3/uL (4.0-11.0) Red Blood Count 2.45 x10^6/uL (3.50-5.40) Hemoglobin 7.5 g/dL (12.0-15.5) Hematocrit 23.1 % (36.0-47.0) Mean Corpuscular Volume 94 fL (79-100) Mean Corpuscular Hemoglobin 31 pg (25-35) Mean Corpuscular Hemoglobin Concent 33 g/dL (31-37) Red Cell Distribution Width 17.3 % (11.5-14.5) Platelet Count 350 x10^3/uL (140-400) Neutrophils (%) (Auto) 66 % (31-73) Lymphocytes (%) (Auto) 20 % (24-48) Monocytes (%) (Auto) 8 % (0-9) Eosinophils (%) (Auto) 5 % (0-3) Basophils (%) (Auto) 1 % (0-3) Neutrophils # (Auto) 4.5 x10^3uL (1.8-7.7) Lymphocytes # (Auto) 1.4 x10^3/uL (1.0-4.8) Monocytes # (Auto) 0.5 x10^3/uL (0.0-1.1) Eosinophils # (Auto) 0.3 x10^3/uL (0.0-0.7) Basophils # (Auto) 0.1 x10^3/uL (0.0-0.2) Sodium Level 144 mmol/L (136-145) Potassium Level 4.4 mmol/L (3.5-5.1) Chloride Level 106 mmol/L (98-107) Carbon Dioxide Level 33 mmol/L (21-32) Anion Gap 5 (6-14) Blood Urea Nitrogen 85 mg/dL (7-20) Creatinine 1.5 mg/dL (0.6-1.0) Estimated GFR (Cockcroft-Gault) 33.3 BUN/Creatinine Ratio 57 (6-20) Glucose Level 121 mg/dL (70-99) Calcium Level 8.1 mg/dL (8.5-10.1) Total Bilirubin 0.3 mg/dL (0.2-1.0) Aspartate Amino Transf (AST/SGOT) 25 U/L (15-37) Alanine Aminotransferase (ALT/SGPT) 40 U/L (14-59) Alkaline Phosphatase 87 U/L (46-116) Total Protein 5.9 g/dL (6.4-8.2) Albumin 2.0 g/dL (3.4-5.0) Albumin/Globulin Ratio 0.5 (1.0-1.7) Laboratory Tests Test 07/17/16 11:16 07/17/16 16:57 07/17/16 20:59 07/18/16 02:40 Glucose (Fingerstick) 156 mg/dL (70-99) 160 mg/dL (70-99) 167 mg/dL (70-99) White Blood Count 6.8 x10^3/uL (4.0-11.0) Red Blood Count 2.45 x10^6/uL (3.50-5.40) Hemoglobin 7.5 g/dL (12.0-15.5) Hematocrit 23.1 % (36.0-47.0) Mean Corpuscular Volume 94 fL (79-100) Mean Corpuscular Hemoglobin 31 pg (25-35) Mean Corpuscular Hemoglobin Concent 33 g/dL (31-37) Red Cell Distribution Width 17.3 % (11.5-14.5) Platelet Count 350 x10^3/uL (140-400) Neutrophils (%) (Auto) 66 % (31-73) Lymphocytes (%) (Auto) 20 % (24-48) Monocytes (%) (Auto) 8 % (0-9) Eosinophils (%) (Auto) 5 % (0-3) Basophils (%) (Auto) 1 % (0-3) Neutrophils # (Auto) 4.5 x10^3uL (1.8-7.7) Lymphocytes # (Auto) 1.4 x10^3/uL (1.0-4.8) Monocytes # (Auto) 0.5 x10^3/uL (0.0-1.1) Eosinophils # (Auto) 0.3 x10^3/uL (0.0-0.7) Basophils # (Auto) 0.1 x10^3/uL (0.0-0.2) Sodium Level 144 mmol/L (136-145) Potassium Level 4.4 mmol/L (3.5-5.1) Chloride Level 106 mmol/L (98-107) Carbon Dioxide Level 33 mmol/L (21-32) Anion Gap 5 (6-14) Blood Urea Nitrogen 85 mg/dL (7-20) Creatinine 1.5 mg/dL (0.6-1.0) Estimated GFR (Cockcroft-Gault) 33.3 BUN/Creatinine Ratio 57 (6-20) Glucose Level 121 mg/dL (70-99) Calcium Level 8.1 mg/dL (8.5-10.1) Total Bilirubin 0.3 mg/dL (0.2-1.0) Aspartate Amino Transf (AST/SGOT) 25 U/L (15-37) Alanine Aminotransferase (ALT/SGPT) 40 U/L (14-59) Alkaline Phosphatase 87 U/L (46-116) Total Protein 5.9 g/dL (6.4-8.2) Albumin 2.0 g/dL (3.4-5.0) Albumin/Globulin Ratio 0.5 (1.0-1.7) Medications Active Scripts Medications Dose Route/Sig Max Daily Dose Days Date Category Dose Instructions Levemir Flextouch (Insulin Detemir) 100 Unit/1 Ml Insuln.pen 10 Units SQ HS 07/13/16 Rx Inject by Sub q route 10 units at HS Cefpodoxime Proxetil 100 Mg Tablet 200 Mg PO BID 180 07/13/16 Rx 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 Tylenol Extra Strength (Acetaminophen) 500 Mg Tablet 1,000 Mg PO PRN Q6HRS 07/10/16 Rx Novolog Flexpen (Insulin Aspart) 100 Unit/1 Ml Insuln.pen 0-8 Units SQ TIDAC 07/10/16 Rx Inject subq tid ac prn: BS<150=0, BS 151-200=2unit, BS 201-250 =3 unit, BS 251-300=4 unit, BS 301-350= 6 units, BS 351-400= 8 units >401 call Duoneb 0.5-3(2.5) Mg/3 Ml (Albuterol/Ipratropium) 3 Ml Ampul.neb 3 Ml NEB RTQID 07/10/16 Rx Nebulizer treatment qid Escitalopram Oxalate 10 Mg Tablet 10 Mg PO DAILY 07/10/16 Rx Take one tablet daily by mouth Amlodipine Besylate 5 Mg Tablet 5 Mg PO DAILY 07/10/16 Rx Take one tablet daily by mouth Awa-Bid Caplet (Acidoph/L.bulg/Bif.b/S.thermop) 1 Each Tablet 1 Tab PO TIDWMEALS 07/10/16 Rx Take one tablet by mouth with meals Soothe & Cool Skin Paste (Zinc Oxide/Petrolatum,White) 71 Gm Oint...g. Gm TP 06/05/15 Reported Vitamin D3 (Cholecalciferol (Vitamin D3)) 1,000 Unit Tablet 1 Tab PO DAILY 06/05/15 Reported Fluticasone Propionate Nasal [place] (Fluticasone Propionate) 16 Gm [place].susp 2 [place] NS DAILY 01/18/15 Reported Artificial Tears Eye Drops (Dextran 70/Hypromellose) 15 Ml Drops 1 Drop EACHEYE PRN DAILY PRN 01/18/15 Reported Anastrozole 1 Mg Tablet 1 Mg PO DAILY 01/18/15 Reported Multi-Day Vitamins (Multivitamin) 1 Each Tablet 1 Tab PO DAILY 01/18/15 Reported Singulair Tablet (Montelukast Sodium) 10 Mg Tablet 10 Mg PO HS 01/18/15 Reported Primidone 250 Mg Tablet 250 Mg PO BID 01/17/15 Reported Polyethylene Glycol 3350 17 Gm Powd.pack 17 Gm PO PRN DAILY PRN 01/17/15 Reported Nystatin 1 Each Powder.ea. 1 [place] TOP BID 01/17/15 Reported Lidoderm (Lidocaine) 700 Mg Adh..patch 1 Patch TP DAILY 01/17/15 Reported Gabapentin 100 Mg Capsule 100 Mg PO HS 01/17/15 Reported Folic Acid 1 Mg Tablet 1 Mg PO BID 01/17/15 Reported Ferrous Sulfate 325 Mg Tablet 325 Mg PO TIDWMEALS 01/17/15 Reported B-12 (Cyanocobalamin (Vitamin B-12)) 1,000 Mcg Tablet.er 1,000 Mcg PO DAILY 01/17/15 Reported Claritin (Loratadine) 10 Mg Capsule 10 Mg PO DAILY 01/17/15 Reported Calcium Carbonate 500 Mg Tablet 500 Mg PO DAILY 01/17/15 Reported Benadryl (Diphenhydramine Hcl) 25 Mg Capsule 25 Mg PO PRN Q6HRS PRN 01/17/15 Reported Impression . 1. Xopuf-iq-adyxdnd respiratory failure, multifactorial 2. Acute exacerbation of chronic obstructive pulmonary disease. 3. Acute bronchitis. 4. Obstructive sleep apnea-hypopnea syndrome. 5. Acute diastolic congestive heart failure. 6. Obesity. 7. Diabetes mellitus. 8. History of breast cancer. 9. Anemia, acute blood loss, based on abdominal wall hematoma. 10. Chronic kidney disease. 11. Hypertension. 12. Diabetes mellitus. 13. Chronic wounds per ID Plan . Antibx per ID Resp status is compensated 1. Titrate FiO2 to keep O2 saturation 91%. 2. Bronchodilator. 3. inhaled corticosteroid 4. Keep intake less than output. 5. SCDs for DVT prophylaxis. hold on heparin lovenox, has hx of recent blood loss and abdominal wall hematoma. 6. Protonix for stress ulcer prophylaxis. 7. Monitor respiratory status very closely. 8. Continue BiPAP p.r.n. during day and continues it at night. FLORIDALMA GARCIA MD Jul 18, 2016 08:57
[2016-07-18] MEDS: NYSTATIN TOPICAL POWDER 15GM BOTTLE. TP SCH ×2 (09:00→21:00)
[2016-07-18] MEDS: ANASTROZOLE 1 MG TABLET PO SCH (09:13)
[2016-07-18] MEDS: FLUTICASONE 50MCG/NASAL SPRAY 16GM BOTTLE. NS SCH (09:13)
--- NOTE | 2016-07-18 10:00 | PDOC ---
Infectious Disease Note Subjective Subjective Known to service. See Consult 06/22 and last progress note 6/[address] [facility] with Mental status change and SOA. Received Solumedrol and abx Now has more warmth and discomfort with chest wound ROS ROS GEN: Denies fevers, chills, sweats HEENT: Denies blurred vision, sore throat CV: Denies chest pain RESP: Denies shortness of air, cough GI: Denies n/v/d NEURO: Denies confusion, dizziness MSK: Denies weakness, joint pain/swelling Vital Sign Vital Signs Vital Signs Date Time Temp Pulse Resp B/P (MAP) Pulse Ox O2 Delivery O2 Flow Rate FiO2 07/18/16 08:52 59 124/56 07/18/16 07:33 Nasal Cannula 1.0 07/18/16 07:00 98.5 19 100 98.5 Physical Exam PHYSICAL EXAM GENERAL: NAD, Alert, pleasant. 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 + Wounds IV: ok Labs Lab Laboratory Tests Test 07/17/16 11:16 07/17/16 16:57 07/17/16 20:59 07/18/16 02:40 Glucose (Fingerstick) 156 mg/dL (70-99) 160 mg/dL (70-99) 167 mg/dL (70-99) White Blood Count 6.8 x10^3/uL (4.0-11.0) Red Blood Count 2.45 x10^6/uL (3.50-5.40) Hemoglobin 7.5 g/dL (12.0-15.5) Hematocrit 23.1 % (36.0-47.0) Mean Corpuscular Volume 94 fL (79-100) Mean Corpuscular Hemoglobin 31 pg (25-35) Mean Corpuscular Hemoglobin Concent 33 g/dL (31-37) Red Cell Distribution Width 17.3 % (11.5-14.5) Platelet Count 350 x10^3/uL (140-400) Neutrophils (%) (Auto) 66 % (31-73) Lymphocytes (%) (Auto) 20 % (24-48) Monocytes (%) (Auto) 8 % (0-9) Eosinophils (%) (Auto) 5 % (0-3) Basophils (%) (Auto) 1 % (0-3) Neutrophils # (Auto) 4.5 x10^3uL (1.8-7.7) Lymphocytes # (Auto) 1.4 x10^3/uL (1.0-4.8) Monocytes # (Auto) 0.5 x10^3/uL (0.0-1.1) Eosinophils # (Auto) 0.3 x10^3/uL (0.0-0.7) Basophils # (Auto) 0.1 x10^3/uL (0.0-0.2) Sodium Level 144 mmol/L (136-145) Potassium Level 4.4 mmol/L (3.5-5.1) Chloride Level 106 mmol/L (98-107) Carbon Dioxide Level 33 mmol/L (21-32) Anion Gap 5 (6-14) Blood Urea Nitrogen 85 mg/dL (7-20) Creatinine 1.5 mg/dL (0.6-1.0) Estimated GFR (Cockcroft-Gault) 33.3 BUN/Creatinine Ratio 57 (6-20) Glucose Level 121 mg/dL (70-99) Calcium Level 8.1 mg/dL (8.5-10.1) Total Bilirubin 0.3 mg/dL (0.2-1.0) Aspartate Amino Transf (AST/SGOT) 25 U/L (15-37) Alanine Aminotransferase (ALT/SGPT) 40 U/L (14-59) Alkaline Phosphatase 87 U/L (46-116) Total Protein 5.9 g/dL (6.4-8.2) Albumin 2.0 g/dL (3.4-5.0) Albumin/Globulin Ratio 0.5 (1.0-1.7) Objective Assessment 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 Acute on Chronic resp failure Leukocytosis - better Anemia CKD Distant h/o C-diff Plan Plan of Care F/u cult and begin Meropenem. Discussed with Mrs. Dejesus that this cannot be fixed but she still wants abx. Explained risks of excessive abx and h/o C-diff This wound will not heal and she is not a surgical candidate. Suppressive therapy will only breed further resistance and will ultimately be futile aside from put her at increased risk for C-diff and abx adverse reactions. Needs palliative eval and understanding that this is not a curable problem D/w Karen - [phone] explained wound will not heal and that emt intermediate abx could be more problematic then treating. Advocated DNR/DNI NARENDRA KOHLER MD Jul 18, 2016 10:00
[2016-07-18 10:46] VITALS: BP 146/58
--- NOTE | 2016-07-18 11:11 | PDOC ---
Renal-Progress Notes Subjective Notes Notes NONE History of Present Illness Hx of present illness STABLE Vitals Vitals Vital Signs Date Time Temp Pulse Resp B/P (MAP) Pulse Ox O2 Delivery O2 Flow Rate FiO2 07/18/16 10:46 98.4 65 146/58 (87) 99 Nasal Cannula 1.0 98.4 07/18/16 07:00 19 Weight Weight [ ] I.O. Intake and Output Intake and Output 07/18/16 07:00 Intake Total 550 ml Output Total 1125 ml Balance -575 ml Intake Oral 550 ml Output Urine Total 1125 ml Labs Labs Laboratory Tests Test 07/17/16 11:16 07/17/16 16:57 07/17/16 20:59 07/18/16 02:40 Glucose (Fingerstick) 156 mg/dL (70-99) 160 mg/dL (70-99) 167 mg/dL (70-99) White Blood Count 6.8 x10^3/uL (4.0-11.0) Red Blood Count 2.45 x10^6/uL (3.50-5.40) Hemoglobin 7.5 g/dL (12.0-15.5) Hematocrit 23.1 % (36.0-47.0) Mean Corpuscular Volume 94 fL (79-100) Mean Corpuscular Hemoglobin 31 pg (25-35) Mean Corpuscular Hemoglobin Concent 33 g/dL (31-37) Red Cell Distribution Width 17.3 % (11.5-14.5) Platelet Count 350 x10^3/uL (140-400) Neutrophils (%) (Auto) 66 % (31-73) Lymphocytes (%) (Auto) 20 % (24-48) Monocytes (%) (Auto) 8 % (0-9) Eosinophils (%) (Auto) 5 % (0-3) Basophils (%) (Auto) 1 % (0-3) Neutrophils # (Auto) 4.5 x10^3uL (1.8-7.7) Lymphocytes # (Auto) 1.4 x10^3/uL (1.0-4.8) Monocytes # (Auto) 0.5 x10^3/uL (0.0-1.1) Eosinophils # (Auto) 0.3 x10^3/uL (0.0-0.7) Basophils # (Auto) 0.1 x10^3/uL (0.0-0.2) Sodium Level 144 mmol/L (136-145) Potassium Level 4.4 mmol/L (3.5-5.1) Chloride Level 106 mmol/L (98-107) Carbon Dioxide Level 33 mmol/L (21-32) Anion Gap 5 (6-14) Blood Urea Nitrogen 85 mg/dL (7-20) Creatinine 1.5 mg/dL (0.6-1.0) Estimated GFR (Cockcroft-Gault) 33.3 BUN/Creatinine Ratio 57 (6-20) Glucose Level 121 mg/dL (70-99) Calcium Level 8.1 mg/dL (8.5-10.1) Total Bilirubin 0.3 mg/dL (0.2-1.0) Aspartate Amino Transf (AST/SGOT) 25 U/L (15-37) Alanine Aminotransferase (ALT/SGPT) 40 U/L (14-59) Alkaline Phosphatase 87 U/L (46-116) Total Protein 5.9 g/dL (6.4-8.2) Albumin 2.0 g/dL (3.4-5.0) Albumin/Globulin Ratio 0.5 (1.0-1.7) Test 07/18/16 10:55 Glucose (Fingerstick) 118 mg/dL (70-99) Micro Micro Microbiology 07/17/16 Gram Stain - Final, Complete Review of Systems Constitutional: yes: no symptom reported Physical Exam General Appearance: no apparent distress Skin: warm Respiratory: decreased breath sounds, wheezing Heart: S1S2 Abdomen: soft, bowel sounds present Extremities: edema Neurology: confused Assessment Assessment IMP PRERENAL AZOTEMIA DEHYDRATION AECOPD FERNANDO ANEMIA ABD WALL HEMATOMA DEMENTIA PLAN START PPN PULM EVAL AND TX JULIETA BARTLETT MD Jul 18, 2016 11:11
[2016-07-18] MEDS: AMINO AC 3%/ELECTROLYTE/GLYCER 1,000 ML IV SCH ×2 (12:45→23:45)
[2016-07-18 14:53] VITALS: BP 123/38
[2016-07-18 19:00] VITALS: BP 126/53
[2016-07-18] MEDS: MONTELUKAST SODIUM 10 MG TABLET. PO SCH (20:59)
[2016-07-18] MEDS: GABAPENTIN 100 MG CAPSULE. PO SCH (20:59)
[2016-07-18] MEDS: INSULIN DETEMIR 300 UNITS/3 ML INSULN.PEN. SQ SCH (21:17)
[2016-07-18 22:51] VITALS: BP 119/56
[2016-07-19 03:18] VITALS: BP 123/78
[2016-07-19 05:41] LABS: BASO % 0 % (0-3); EOS % 5 % (0-3); HEMATOCRIT 25.2 % (36.0-47.0); HEMOGLOBIN 8.1 g/dL (12.0-15.5); LYMPH # 1.3 x10^3/uL (1.0-4.8); LYMPH % 17 % (24-48); MEAN CORPUSCULAR HEMOGLOBIN 31 pg (25-35); MEAN CORPUSCULAR HGB CONC 32 g/dL (31-37); MEAN CORPUSCULAR VOLUME 95 fL (79-100); MONO % 8 % (0-9); NEUT % 69 % (31-73); PLATELET COUNT 377 x10^3/uL (140-400); RED BLOOD COUNT 2.65 x10^6/uL (3.50-5.40); RED CELL DISTRIBUTION WIDTH 17.2 % (11.5-14.5); WHITE BLOOD COUNT 7.2 x10^3/uL (4.0-11.0)
[2016-07-19] MEDS: MEROPENEM 500 MG in IV NORMAL SALINE 50ML 50 ML IV SCH ×3 (05:41→21:46)
[2016-07-19 06:03] LABS: ALBUMIN 2.1 g/dL (3.4-5.0); ALBUMIN/GLOBULIN RATIO 0.6 (1.0-1.7); CALCIUM 8.2 mg/dL (8.5-10.1); CREATININE 1.4 mg/dL (0.6-1.0); GFR 36.1; POTASSIUM 5.1 mmol/L (3.5-5.1); TOTAL BILIRUBIN 0.2 mg/dL (0.2-1.0); TOTAL PROTEIN 5.6 g/dL (6.4-8.2)
[2016-07-19 07:00] VITALS: BP 149/63
[2016-07-19] MEDS: IPRATRPIUM/ALBUTEROL 0.5/2.5MG 3 ML NEBU. NEB SCH ×4 (07:16→19:56)
[2016-07-19] MEDS: BUDESONIDE 0.5 MG/2 ML NEBU. NEB SCH ×2 (07:16→19:56)
[2016-07-19] MEDS: INSULIN ASPART 300 UNITS/3 ML INSULN.PEN SQ SCH ×3 (08:00→17:24)
--- NOTE | 2016-07-19 08:33 | PDOC ---
Infectious Disease Note Subjective Subjective Known to service. See Consult 06/22 and last progress note 07/12 Returned to [facility] with Mental status change and SOA. Received Solumedrol and abx States doing ok this am ROS ROS GEN: Denies fevers, chills, sweats HEENT: Denies blurred vision, sore throat CV: Denies chest pain RESP: Denies shortness of air, cough GI: Denies n/v/d NEURO: Denies confusion, dizziness MSK: Denies weakness, joint pain/swelling Vital Sign Vital Signs Vital Signs Date Time Temp Pulse Resp B/P (MAP) Pulse Ox O2 Delivery O2 Flow Rate FiO2 07/19/16 07:16 BiPAP/CPAP 07/19/16 07:00 97.6 56 24 149/63 (91) 96 97.6 07/18/16 20:02 1.0 Physical Exam PHYSICAL EXAM GENERAL: NAD, Alert, pleasant. 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 + Wounds IV: ok Labs Lab Laboratory Tests Test 07/18/16 10:55 07/18/16 15:57 07/18/16 20:41 07/19/16 05:30 Glucose (Fingerstick) 118 mg/dL (70-99) 165 mg/dL (70-99) 145 mg/dL (70-99) White Blood Count 7.2 x10^3/uL (4.0-11.0) Red Blood Count 2.65 x10^6/uL (3.50-5.40) Hemoglobin 8.1 g/dL (12.0-15.5) Hematocrit 25.2 % (36.0-47.0) Mean Corpuscular Volume 95 fL (79-100) Mean Corpuscular Hemoglobin 31 pg (25-35) Mean Corpuscular Hemoglobin Concent 32 g/dL (31-37) Red Cell Distribution Width 17.2 % (11.5-14.5) Platelet Count 377 x10^3/uL (140-400) Neutrophils (%) (Auto) 69 % (31-73) Lymphocytes (%) (Auto) 17 % (24-48) Monocytes (%) (Auto) 8 % (0-9) Eosinophils (%) (Auto) 5 % (0-3) Basophils (%) (Auto) 0 % (0-3) Neutrophils # (Auto) 5.0 x10^3uL (1.8-7.7) Lymphocytes # (Auto) 1.3 x10^3/uL (1.0-4.8) Monocytes # (Auto) 0.5 x10^3/uL (0.0-1.1) Eosinophils # (Auto) 0.4 x10^3/uL (0.0-0.7) Basophils # (Auto) 0.0 x10^3/uL (0.0-0.2) Sodium Level 143 mmol/L (136-145) Potassium Level 5.1 mmol/L (3.5-5.1) Chloride Level 106 mmol/L (98-107) Carbon Dioxide Level 32 mmol/L (21-32) Anion Gap 5 (6-14) Blood Urea Nitrogen 76 mg/dL (7-20) Creatinine 1.4 mg/dL (0.6-1.0) Estimated GFR (Cockcroft-Gault) 36.1 BUN/Creatinine Ratio 54 (6-20) Glucose Level 131 mg/dL (70-99) Calcium Level 8.2 mg/dL (8.5-10.1) Total Bilirubin 0.2 mg/dL (0.2-1.0) Aspartate Amino Transf (AST/SGOT) 25 U/L (15-37) Alanine Aminotransferase (ALT/SGPT) 34 U/L (14-59) Alkaline Phosphatase 91 U/L (46-116) Total Protein 5.6 g/dL (6.4-8.2) Albumin 2.1 g/dL (3.4-5.0) Albumin/Globulin Ratio 0.6 (1.0-1.7) Test 07/19/16 07:00 Glucose (Fingerstick) 119 mg/dL (70-99) Objective Assessment 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 Discussed with Mrs. Dejesus that this cannot be fixed but she still wants abx. Explained risks of excessive abx and h/o C-diff This wound will not heal and she is not a surgical candidate. Suppressive therapy will only breed further resistance and will ultimately be futile aside from put her at increased risk for C-diff and abx adverse reactions. 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 Advocated DNR/DNI 07/18 D/w NARENDRA Partida MD Jul 19, 2016 08:33
--- NOTE | 2016-07-19 08:45 | PDOC3 ---
NATTY FOY JAVA DEVELOPMENT MANAGER 07/19/16 0845: IM DISCHARGE & PROGRESS NOTES Date of Admission Date of Admission Date of Admission: Jul 15, 2016 at 19:05 Date of Discharge Date of Discharge 07/19/16 Primary Diagnosis Primary Diagnosis 1. acute on chronic hypercapnic respiratory failure with a/c CHF, pulmonary HTN, AECOPD, acute bronchitis, FERNANDO/OHS 2. h/o acute blood loss anemia with multiple hematomas with underlying CKD, Fe/ B12 deficiencies, Lovenox injections bridging to coumadin therapy prior to last admit 3. CKD III with recent ARF BUN 70s average, Lasix stopped admission prior to last one. Prerenal azotemia from dehydration. Neg MARTA ATN 4. Acute on c ronic diastolic CHF EF 65% POA 5. h/o adominal wall hematoma LLQ, RUQ hematoma above RAC due to coagulopathy last admission 6. Diabetes mellitus type 2 with neuropathy 7. Chronic tremors. 8. FERNANDO/OHS with BiPAP at HS, on oxygen via nasal cannula at 2 L/minute during day. 9. narcolepsy 10. History of metal aortic valve replacement, warfarin on hold 11. Atrial fibrillation, warfarin on hold due to hematomas abdomen 12. Chronic lymphedema with venous stasis changes 13. Osteoarthritis generalized 14. Pulmonary hypertension severe 15. Anemia, both iron and B12 deficiency. 16. AE Chronic obstructive pulmonary disease. 17. Morbid obesity. 18. History of Parkinson disease with tremors. 19. allergic rhinitis 20. chronic constipation 21. severe with underlying chronic moderate PCL malnutrition 22. 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 Vitamin D deficiency 25. skin candidiasis chronic 26. Blister-open with skin exposure, no infection RLE 27. acute infection with underlying chronic osteomyelitis sternal with h/0 suppressive therapy. 28. transaminitis fluid overload a/c CHF POA 29. anxiety/depression 30. vaginitis yeast POA 31. acute bronchitis POA 32. Hypercapnic/hypoxic encephalopathy POA 33. Stage III decubitus ulcer POA Consults Consults Edwin Vigil MD, Dr., Dr. Procedures Procedures None Labs Labs Laboratory Tests Test 07/16/16 12:35 07/16/16 16:04 07/16/16 20:48 07/16/16 22:48 Glucose (Fingerstick) 141 mg/dL (70-99) 150 mg/dL (70-99) 158 mg/dL (70-99) Urine Collection Type Unknown Urine Color Yellow Urine Clarity Cloudy Urine pH 5.5 Urine Specific [place] 1.015 Urine Protein 30 mg/dL (NEG-TRACE) Urine Glucose (UA) Negative mg/dL (NEG) Urine Ketones (Stick) Negative mg/dL (NEG) Urine Blood Large (NEG) Urine Nitrite Negative (NEG) Urine Bilirubin Negative (NEG) Urine Urobilinogen Dipstick 0.2 mg/dL (0.2 mg/dL) Urine Leukocyte Esterase Large (NEG) Urine RBC Tntc /HPF (0-2) Urine WBC 20-40 /HPF (0-4) Urine Squamous Epithelial Cells Few /LPF Urine Bacteria Mod /HPF (0-FEW) Urine Hyaline Casts Few /HPF Urine Mucus Slight /LPF Urine Yeast Present /HPF Test 07/17/16 06:25 07/17/16 07:14 07/17/16 11:16 07/17/16 16:57 White Blood Count 6.7 x10^3/uL (4.0-11.0) Red Blood Count 2.55 x10^6/uL (3.50-5.40) Hemoglobin 7.7 g/dL (12.0-15.5) Hematocrit 24.2 % (36.0-47.0) Mean Corpuscular Volume 95 fL (79-100) Mean Corpuscular Hemoglobin 30 pg (25-35) Mean Corpuscular Hemoglobin Concent 32 g/dL (31-37) Red Cell Distribution Width 16.8 % (11.5-14.5) Platelet Count 351 x10^3/uL (140-400) Neutrophils (%) (Auto) 70 % (31-73) Lymphocytes (%) (Auto) 17 % (24-48) Monocytes (%) (Auto) 7 % (0-9) Eosinophils (%) (Auto) 6 % (0-3) Basophils (%) (Auto) 1 % (0-3) Neutrophils # (Auto) 4.7 x10^3uL (1.8-7.7) Lymphocytes # (Auto) 1.1 x10^3/uL (1.0-4.8) Monocytes # (Auto) 0.5 x10^3/uL (0.0-1.1) Eosinophils # (Auto) 0.4 x10^3/uL (0.0-0.7) Basophils # (Auto) 0.1 x10^3/uL (0.0-0.2) Sodium Level 145 mmol/L (136-145) Potassium Level 4.2 mmol/L (3.5-5.1) Chloride Level 107 mmol/L (98-107) Carbon Dioxide Level 33 mmol/L (21-32) Anion Gap 5 (6-14) Blood Urea Nitrogen 91 mg/dL (7-20) Creatinine 1.5 mg/dL (0.6-1.0) Estimated GFR (Cockcroft-Gault) 33.3 BUN/Creatinine Ratio 61 (6-20) Glucose Level 138 mg/dL (70-99) Calcium Level 8.9 mg/dL (8.5-10.1) Total Bilirubin 0.3 mg/dL (0.2-1.0) Aspartate Amino Transf (AST/SGOT) 28 U/L (15-37) Alanine Aminotransferase (ALT/SGPT) 46 U/L (14-59) Alkaline Phosphatase 94 U/L (46-116) Total Protein 6.2 g/dL (6.4-8.2) Albumin 2.0 g/dL (3.4-5.0) Albumin/Globulin Ratio 0.5 (1.0-1.7) Glucose (Fingerstick) 134 mg/dL (70-99) 156 mg/dL (70-99) 160 mg/dL (70-99) Test 07/17/16 20:59 07/18/16 02:40 07/18/16 07:00 07/18/16 10:55 Glucose (Fingerstick) 167 mg/dL (70-99) 123 mg/dL (70-99) 118 mg/dL (70-99) White Blood Count 6.8 x10^3/uL (4.0-11.0) Red Blood Count 2.45 x10^6/uL (3.50-5.40) Hemoglobin 7.5 g/dL (12.0-15.5) Hematocrit 23.1 % (36.0-47.0) Mean Corpuscular Volume 94 fL (79-100) Mean Corpuscular Hemoglobin 31 pg (25-35) Mean Corpuscular Hemoglobin Concent 33 g/dL (31-37) Red Cell Distribution Width 17.3 % (11.5-14.5) Platelet Count 350 x10^3/uL (140-400) Neutrophils (%) (Auto) 66 % (31-73) Lymphocytes (%) (Auto) 20 % (24-48) Monocytes (%) (Auto) 8 % (0-9) Eosinophils (%) (Auto) 5 % (0-3) Basophils (%) (Auto) 1 % (0-3) Neutrophils # (Auto) 4.5 x10^3uL (1.8-7.7) Lymphocytes # (Auto) 1.4 x10^3/uL (1.0-4.8) Monocytes # (Auto) 0.5 x10^3/uL (0.0-1.1) Eosinophils # (Auto) 0.3 x10^3/uL (0.0-0.7) Basophils # (Auto) 0.1 x10^3/uL (0.0-0.2) Sodium Level 144 mmol/L (136-145) Potassium Level 4.4 mmol/L (3.5-5.1) Chloride Level 106 mmol/L (98-107) Carbon Dioxide Level 33 mmol/L (21-32) Anion Gap 5 (6-14) Blood Urea Nitrogen 85 mg/dL (7-20) Creatinine 1.5 mg/dL (0.6-1.0) Estimated GFR (Cockcroft-Gault) 33.3 BUN/Creatinine Ratio 57 (6-20) Glucose Level 121 mg/dL (70-99) Calcium Level 8.1 mg/dL (8.5-10.1) Total Bilirubin 0.3 mg/dL (0.2-1.0) Aspartate Amino Transf (AST/SGOT) 25 U/L (15-37) Alanine Aminotransferase (ALT/SGPT) 40 U/L (14-59) Alkaline Phosphatase 87 U/L (46-116) Total Protein 5.9 g/dL (6.4-8.2) Albumin 2.0 g/dL (3.4-5.0) Albumin/Globulin Ratio 0.5 (1.0-1.7) Test 07/18/16 15:57 07/18/16 20:41 07/19/16 05:30 07/19/16 07:00 Glucose (Fingerstick) 165 mg/dL (70-99) 145 mg/dL (70-99) 119 mg/dL (70-99) White Blood Count 7.2 x10^3/uL (4.0-11.0) Red Blood Count 2.65 x10^6/uL (3.50-5.40) Hemoglobin 8.1 g/dL (12.0-15.5) Hematocrit 25.2 % (36.0-47.0) Mean Corpuscular Volume 95 fL (79-100) Mean Corpuscular Hemoglobin 31 pg (25-35) Mean Corpuscular Hemoglobin Concent 32 g/dL (31-37) Red Cell Distribution Width 17.2 % (11.5-14.5) Platelet Count 377 x10^3/uL (140-400) Neutrophils (%) (Auto) 69 % (31-73) Lymphocytes (%) (Auto) 17 % (24-48) Monocytes (%) (Auto) 8 % (0-9) Eosinophils (%) (Auto) 5 % (0-3) Basophils (%) (Auto) 0 % (0-3) Neutrophils # (Auto) 5.0 x10^3uL (1.8-7.7) Lymphocytes # (Auto) 1.3 x10^3/uL (1.0-4.8) Monocytes # (Auto) 0.5 x10^3/uL (0.0-1.1) Eosinophils # (Auto) 0.4 x10^3/uL (0.0-0.7) Basophils # (Auto) 0.0 x10^3/uL (0.0-0.2) Sodium Level 143 mmol/L (136-145) Potassium Level 5.1 mmol/L (3.5-5.1) Chloride Level 106 mmol/L (98-107) Carbon Dioxide Level 32 mmol/L (21-32) Anion Gap 5 (6-14) Blood Urea Nitrogen 76 mg/dL (7-20) Creatinine 1.4 mg/dL (0.6-1.0) Estimated GFR (Cockcroft-Gault) 36.1 BUN/Creatinine Ratio 54 (6-20) Glucose Level 131 mg/dL (70-99) Calcium Level 8.2 mg/dL (8.5-10.1) Total Bilirubin 0.2 mg/dL (0.2-1.0) Aspartate Amino Transf (AST/SGOT) 25 U/L (15-37) Alanine Aminotransferase (ALT/SGPT) 34 U/L (14-59) Alkaline Phosphatase 91 U/L (46-116) Total Protein 5.6 g/dL (6.4-8.2) Albumin 2.1 g/dL (3.4-5.0) Albumin/Globulin Ratio 0.6 (1.0-1.7) Medications Medications Medications reviewed and reconciled for discharge. Brief hospital course Brief hospital course This 81 year old female who presented with mental status changes and dyspnea was admitted. The following is a summary of her treatment: chronic hypercapnic/hypoxic respiratory failure with encephalopathy continue BiPap at hs, O2 2L during day duoneb qid continue narcolepsy med continue improved anemia Admit 9.6 07/19 8.1 Fe and B12 replacement CT abd/pelvis-hematoma last admission- no retroperitoneal bleed CKD III Admit Na 145 07/19 143 K 4.4 5.1 BUN 82 74 Cr 1.5 1.4 no acute renal failure-pre renal azotemia due to dehydration IVF NS 50cc/hr DC 07/19 renal consulted PPN initiated 07/18 leukocytosis without fever Admit 12.4 07/19 7.2 chronic osteo sternal wound-Vantin suppression CXR clear hematoma reabsorption [id number] Diflucan stop zithromax CXR clear infected sternal wound with underlying chronic osteomyelitis no sepsis Prior cultures Ecoli, StrepC, morganella morganii, and now PSA HTN continue meds transaminitis Admit AST 43 07/17 28 ALT 69 46 AP 130 94 resolved chronic diastolic CHF Admit wt PMC 269.02 07/17 277.56 (probable 07/17 wt accurate based on weights last week) 07/18 283.05 07/19 289.25 not accurate weight inaccurate accurate IO for critical management placed -fluid balance 07/18 -575 07/19 -1630 DM II FSBS SSI BS 118-165 DVT/GI prophylaxis warfarin on hold no anticoagulant due to anemia/hematomas PPI h/o AVR metal off warfarin due to hematomas from lovenox injection/anemia requiring PRC last admit resume warfarin when appropriate and goal is 2.0-2.5 INR Severe PCL malnutrition with underlying Mod PCL malnutrition not POA nutritional supplements PPN 07/19 chronic osteo/wound sternum now with acute infection suppressive tx not surgical candidate for removal continue wound care from [facility] ID consulted Meropenem IV 07/17/16 Prior cultures Ecoli, StrepC, morganella morganii, and now PSA Stage III decubitus ulcer POA wound care For more details regarding the past history, family history, social history, surgical history and other details, please refer to History and Physical. Plan DC to LTAC if accepted. Please see DC orders. Subjective feeling better this morning. Objective alert Vitals Vital Signs Date Time Temp Pulse Resp B/P (MAP) Pulse Ox O2 Delivery O2 Flow Rate FiO2 07/19/16 07:16 BiPAP/CPAP 07/19/16 07:00 97.6 56 24 149/63 (91) 96 97.6 07/18/16 20:02 1.0 Physical Exam General appearance - alert, chronically ill appearing, and in no distress Mental Status - alert, oriented to person, place, and time, affect appropriate to mood Head - normal Chest - clear to auscultation, no wheezes, rales or rhonchi chronic sternal wound dressing intact, slight red/warm present-chronic Heart - S1 and S2 normal Abdomen - soft, nontender, nondistended, obese, BS + hematoma RUQ, LLQ and bruising improving, decreasing Neurological - no acute focal neurological deficit noted Musculoskeletal - no muscular tenderness noted Extremities - ++ pedal edema, old bruising L AC slow resolution Skin - warm and dry Medications Medications reviewed. Allergy Allergies Coded Allergies Type Severity Reaction Last Updated Verified Opioids - Morphine Analogues Allergy Severe Anaphylaxis 07/15/16 Yes cephalexin Allergy Severe RASH,DECREASED RESPIRATIONS 07/17/16 Yes Fish Containing Products Allergy Intermediate 01/17/15 Yes Sulfa (Sulfonamide Antibiotics) Allergy Intermediate 01/17/15 Yes bacitracin Allergy Intermediate 01/17/15 Yes ciprofloxacin Allergy Intermediate LEVAQUIN OK 06/04/15 Yes codeine Allergy Intermediate 01/17/15 Yes iodine Allergy Intermediate 01/17/15 Yes lactose Allergy Intermediate 01/17/15 Yes metformin Allergy Intermediate 01/17/15 Yes morphine Allergy Intermediate 01/17/15 Yes neomycin Allergy Intermediate 01/17/15 Yes polymyxin B Allergy Intermediate 01/17/15 Yes shellfish derived Allergy Intermediate 01/17/15 Yes enoxaparin Adverse Reaction Severe 07/08/16 Yes Follow up Admit to Dr. Shea . Disposition: long term care social worker acute care hosp Comments Discharge Management - 35 minutes. For other details please refer to discharge instructions DEBBIE SHEA MD 07/19/16 0947: IM DISCHARGE & PROGRESS NOTES Brief hospital course Brief hospital course Has increased edema- gained 20 lbs since admission- IV fluids ,PPN were held by staff due to swelling. CHF- IV Lasix x1. Family wants to continue to pursue aggressive care. select screen. The patient was seen and examined by me. Chart reviewed and plan of care formulated. Discussed with, reviewed and agree with KNITTING MACHINE TENDER's notes, plan of care and orders with modifications as necessary. For more details regarding further plans, please refer to the orders. D/w DPOA Karen- condition,Rx,plans for select .continue aggressive care per family. NATTY FOY APRN Jul 19, 2016 08:45 DEBBIE SHEA MD Jul 19, 2016 09:47
--- NOTE | 2016-07-19 08:49 | DISCH ---
DISCHARGE FINAL DIAGNOSIS Problems Medical Problems: (1) Acute respiratory failure Status: Acute (2) COPD exacerbation Status: Acute CONDITION ON DISCHARGE: Stable ADMIT TO LTAC: Yes POST DISCHARGE ORDERS ACTIVITY ORDERS: Activity as tolerated WEIGHT BEARING STATUS: As tolerated DIET AFTER DISCHARGE: Cardiac (REgular consistency, honey thick liquids) OTHER ORDERS: nystatin powder to affected areas two times daily CHECKS AFTER DISCHARGE CHECKS AFTER DISCHARGE: Check blood sugar, ac/hs, Weigh Yourself Daily COMMENTS: VS per routine FOLLOW-UP PHYSICIAN FOLLOW-UP: ADmit to Dr. Fan ADDITIONAL FOLLOW-UP: Consult Dr. Molina, Dr. Vigil, Dr. Figueroa LAB ORDERS FOR FOLLOW-UP: CBC with diff, CMP Pre albumin, Mg, PT INR TREATMENT/EQUIPMENT ORDERS ADAPTIVE EQUIPMENT NEEDED: Wheelchair RESPIRATORY EQUIPMENT NEEDED: Oxygen (2L during day ), Nebulizer (QID ), BiPAP (IPAP level 16 EPAP level 9 FIO@ 40% ) NATTY FOY APRN Jul 19, 2016 08:49
[2016-07-19] MEDS ORDERED: BUDE0.5A NEB (08:56)
[2016-07-19] MEDS ORDERED: FUROSEMIDE 20 MG/2 ML VIAL. IVP ONE (09:45)
[2016-07-19] MEDS: MULTIVITAMIN with MINERAL TABLET. PO SCH (10:16)
[2016-07-19] MEDS: FOLIC ACID 1 MG TABLET. PO SCH ×2 (10:16→20:37)
[2016-07-19] MEDS: CHOLECALCIFEROL (VITAMIN D3) 1,000 UNIT TABLET PO SCH (10:16)
[2016-07-19] MEDS: LIDOCAINE (700MG/PATCH) PATCH. TP SCH (10:16)
[2016-07-19] MEDS: ESCITALOPRAM 10 MG TABLET. PO SCH (10:16)
[2016-07-19] MEDS: LACTOBACILLUS ACIDOPH & BULGAR 1 TABLET. PO SCH ×3 (10:16→17:21)
[2016-07-19] MEDS: CYANOCOBALAMIN (VITAMIN B-12) 1,000 MCG TABLET. PO SCH (10:16)
[2016-07-19] MEDS: CETIRIZINE HCL 10 MG TABLET. PO SCH (10:17)
[2016-07-19] MEDS: PRIMIDONE 250 MG TABLET PO SCH ×2 (10:17→20:37)
[2016-07-19] MEDS: CALCIUM CARBONATE 500 MG TABLET PO SCH (10:17)
[2016-07-19] MEDS: FERROUS SULFATE 325 MG TABLET. PO SCH ×3 (10:17→17:21)
[2016-07-19] MEDS: FLUTICASONE 50MCG/NASAL SPRAY 16GM BOTTLE. NS SCH (10:18)
[2016-07-19] MEDS: amLODIPine BESYLATE 5 MG TABLET PO SCH (10:18)
[2016-07-19] MEDS: ANASTROZOLE 1 MG TABLET PO SCH (10:25)
--- NOTE | 2016-07-19 11:02 | PDOC ---
PULMONARY PROGRESS NOTES Subjective PT WITH NO INCREASE SOA Vitals Vital Signs Date Time Temp Pulse Resp B/P (MAP) Pulse Ox O2 Delivery O2 Flow Rate FiO2 07/19/16 10:18 56 149/63 07/19/16 07:16 BiPAP/CPAP 07/19/16 07:00 97.6 24 96 97.6 07/18/16 20:02 1.0 ROS: No Nausea, No Chest Pain, No Abdominal Pain, No Increase Cough General: Alert Lungs: Clear Cardiovascular: S1, S2 Abdomen: Soft, Other Extremities: Other (WOUNDS) Skin: Warm Labs Laboratory Tests Test 07/17/16 11:16 07/17/16 16:57 07/17/16 20:59 07/18/16 02:40 Glucose (Fingerstick) 156 mg/dL (70-99) 160 mg/dL (70-99) 167 mg/dL (70-99) White Blood Count 6.8 x10^3/uL (4.0-11.0) Red Blood Count 2.45 x10^6/uL (3.50-5.40) Hemoglobin 7.5 g/dL (12.0-15.5) Hematocrit 23.1 % (36.0-47.0) Mean Corpuscular Volume 94 fL (79-100) Mean Corpuscular Hemoglobin 31 pg (25-35) Mean Corpuscular Hemoglobin Concent 33 g/dL (31-37) Red Cell Distribution Width 17.3 % (11.5-14.5) Platelet Count 350 x10^3/uL (140-400) Neutrophils (%) (Auto) 66 % (31-73) Lymphocytes (%) (Auto) 20 % (24-48) Monocytes (%) (Auto) 8 % (0-9) Eosinophils (%) (Auto) 5 % (0-3) Basophils (%) (Auto) 1 % (0-3) Neutrophils # (Auto) 4.5 x10^3uL (1.8-7.7) Lymphocytes # (Auto) 1.4 x10^3/uL (1.0-4.8) Monocytes # (Auto) 0.5 x10^3/uL (0.0-1.1) Eosinophils # (Auto) 0.3 x10^3/uL (0.0-0.7) Basophils # (Auto) 0.1 x10^3/uL (0.0-0.2) Sodium Level 144 mmol/L (136-145) Potassium Level 4.4 mmol/L (3.5-5.1) Chloride Level 106 mmol/L (98-107) Carbon Dioxide Level 33 mmol/L (21-32) Anion Gap 5 (6-14) Blood Urea Nitrogen 85 mg/dL (7-20) Creatinine 1.5 mg/dL (0.6-1.0) Estimated GFR (Cockcroft-Gault) 33.3 BUN/Creatinine Ratio 57 (6-20) Glucose Level 121 mg/dL (70-99) Calcium Level 8.1 mg/dL (8.5-10.1) Total Bilirubin 0.3 mg/dL (0.2-1.0) Aspartate Amino Transf (AST/SGOT) 25 U/L (15-37) Alanine Aminotransferase (ALT/SGPT) 40 U/L (14-59) Alkaline Phosphatase 87 U/L (46-116) Total Protein 5.9 g/dL (6.4-8.2) Albumin 2.0 g/dL (3.4-5.0) Albumin/Globulin Ratio 0.5 (1.0-1.7) Test 07/18/16 07:00 07/18/16 10:55 07/18/16 15:57 07/18/16 20:41 Glucose (Fingerstick) 123 mg/dL (70-99) 118 mg/dL (70-99) 165 mg/dL (70-99) 145 mg/dL (70-99) Test 07/19/16 05:30 07/19/16 07:00 White Blood Count 7.2 x10^3/uL (4.0-11.0) Red Blood Count 2.65 x10^6/uL (3.50-5.40) Hemoglobin 8.1 g/dL (12.0-15.5) Hematocrit 25.2 % (36.0-47.0) Mean Corpuscular Volume 95 fL (79-100) Mean Corpuscular Hemoglobin 31 pg (25-35) Mean Corpuscular Hemoglobin Concent 32 g/dL (31-37) Red Cell Distribution Width 17.2 % (11.5-14.5) Platelet Count 377 x10^3/uL (140-400) Neutrophils (%) (Auto) 69 % (31-73) Lymphocytes (%) (Auto) 17 % (24-48) Monocytes (%) (Auto) 8 % (0-9) Eosinophils (%) (Auto) 5 % (0-3) Basophils (%) (Auto) 0 % (0-3) Neutrophils # (Auto) 5.0 x10^3uL (1.8-7.7) Lymphocytes # (Auto) 1.3 x10^3/uL (1.0-4.8) Monocytes # (Auto) 0.5 x10^3/uL (0.0-1.1) Eosinophils # (Auto) 0.4 x10^3/uL (0.0-0.7) Basophils # (Auto) 0.0 x10^3/uL (0.0-0.2) Sodium Level 143 mmol/L (136-145) Potassium Level 5.1 mmol/L (3.5-5.1) Chloride Level 106 mmol/L (98-107) Carbon Dioxide Level 32 mmol/L (21-32) Anion Gap 5 (6-14) Blood Urea Nitrogen 76 mg/dL (7-20) Creatinine 1.4 mg/dL (0.6-1.0) Estimated GFR (Cockcroft-Gault) 36.1 BUN/Creatinine Ratio 54 (6-20) Glucose Level 131 mg/dL (70-99) Calcium Level 8.2 mg/dL (8.5-10.1) Total Bilirubin 0.2 mg/dL (0.2-1.0) Aspartate Amino Transf (AST/SGOT) 25 U/L (15-37) Alanine Aminotransferase (ALT/SGPT) 34 U/L (14-59) Alkaline Phosphatase 91 U/L (46-116) Total Protein 5.6 g/dL (6.4-8.2) Albumin 2.1 g/dL (3.4-5.0) Albumin/Globulin Ratio 0.6 (1.0-1.7) Glucose (Fingerstick) 119 mg/dL (70-99) Laboratory Tests Test 07/18/16 15:57 07/18/16 20:41 07/19/16 05:30 07/19/16 07:00 Glucose (Fingerstick) 165 mg/dL (70-99) 145 mg/dL (70-99) 119 mg/dL (70-99) White Blood Count 7.2 x10^3/uL (4.0-11.0) Red Blood Count 2.65 x10^6/uL (3.50-5.40) Hemoglobin 8.1 g/dL (12.0-15.5) Hematocrit 25.2 % (36.0-47.0) Mean Corpuscular Volume 95 fL (79-100) Mean Corpuscular Hemoglobin 31 pg (25-35) Mean Corpuscular Hemoglobin Concent 32 g/dL (31-37) Red Cell Distribution Width 17.2 % (11.5-14.5) Platelet Count 377 x10^3/uL (140-400) Neutrophils (%) (Auto) 69 % (31-73) Lymphocytes (%) (Auto) 17 % (24-48) Monocytes (%) (Auto) 8 % (0-9) Eosinophils (%) (Auto) 5 % (0-3) Basophils (%) (Auto) 0 % (0-3) Neutrophils # (Auto) 5.0 x10^3uL (1.8-7.7) Lymphocytes # (Auto) 1.3 x10^3/uL (1.0-4.8) Monocytes # (Auto) 0.5 x10^3/uL (0.0-1.1) Eosinophils # (Auto) 0.4 x10^3/uL (0.0-0.7) Basophils # (Auto) 0.0 x10^3/uL (0.0-0.2) Sodium Level 143 mmol/L (136-145) Potassium Level 5.1 mmol/L (3.5-5.1) Chloride Level 106 mmol/L (98-107) Carbon Dioxide Level 32 mmol/L (21-32) Anion Gap 5 (6-14) Blood Urea Nitrogen 76 mg/dL (7-20) Creatinine 1.4 mg/dL (0.6-1.0) Estimated GFR (Cockcroft-Gault) 36.1 BUN/Creatinine Ratio 54 (6-20) Glucose Level 131 mg/dL (70-99) Calcium Level 8.2 mg/dL (8.5-10.1) Total Bilirubin 0.2 mg/dL (0.2-1.0) Aspartate Amino Transf (AST/SGOT) 25 U/L (15-37) Alanine Aminotransferase (ALT/SGPT) 34 U/L (14-59) Alkaline Phosphatase 91 U/L (46-116) Total Protein 5.6 g/dL (6.4-8.2) Albumin 2.1 g/dL (3.4-5.0) Albumin/Globulin Ratio 0.6 (1.0-1.7) Medications Active Scripts Medications Dose Route/Sig Max Daily Dose Days Date Category Dose Instructions Levemir Flextouch (Insulin Detemir) 100 Unit/1 Ml Insuln.pen 10 Units SQ HS 07/13/16 Rx Inject by Sub q route 10 units at HS Cefpodoxime Proxetil 100 Mg Tablet 200 Mg PO BID 180 07/13/16 Rx 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 Tylenol Extra Strength (Acetaminophen) 500 Mg Tablet 1,000 Mg PO PRN Q6HRS 07/10/16 Rx Novolog Flexpen (Insulin Aspart) 100 Unit/1 Ml Insuln.pen 0-8 Units SQ TIDAC 07/10/16 Rx Inject subq tid ac prn: BS<150=0, BS 151-200=2unit, BS 201-250 =3 unit, BS 251-300=4 unit, BS 301-350= 6 units, BS 351-400= 8 units >401 call Duoneb 0.5-3(2.5) Mg/3 Ml (Albuterol/Ipratropium) 3 Ml Ampul.neb 3 Ml NEB RTQID 07/10/16 Rx Nebulizer treatment qid Escitalopram Oxalate 10 Mg Tablet 10 Mg PO DAILY 07/10/16 Rx Take one tablet daily by mouth Amlodipine Besylate 5 Mg Tablet 5 Mg PO DAILY 07/10/16 Rx Take one tablet daily by mouth Awa-Bid Caplet (Acidoph/L.bulg/Bif.b/S.thermop) 1 Each Tablet 1 Tab PO TIDWMEALS 07/10/16 Rx Take one tablet by mouth with meals Soothe & Cool Skin Paste (Zinc Oxide/Petrolatum,White) 71 Gm Oint...g. Gm TP 06/05/15 Reported Vitamin D3 (Cholecalciferol (Vitamin D3)) 1,000 Unit Tablet 1 Tab PO DAILY 06/05/15 Reported Fluticasone Propionate Nasal [place] (Fluticasone Propionate) 16 Gm [place].susp 2 [place] NS DAILY 01/18/15 Reported Artificial Tears Eye Drops (Dextran 70/Hypromellose) 15 Ml Drops 1 Drop EACHEYE PRN DAILY PRN 01/18/15 Reported Anastrozole 1 Mg Tablet 1 Mg PO DAILY 01/18/15 Reported Multi-Day Vitamins (Multivitamin) 1 Each Tablet 1 Tab PO DAILY 01/18/15 Reported Singulair Tablet (Montelukast Sodium) 10 Mg Tablet 10 Mg PO HS 01/18/15 Reported Primidone 250 Mg Tablet 250 Mg PO BID 01/17/15 Reported Polyethylene Glycol 3350 17 Gm Powd.pack 17 Gm PO PRN DAILY PRN 01/17/15 Reported Nystatin 1 Each Powder.ea. 1 [place] TOP BID 01/17/15 Reported Lidoderm (Lidocaine) 700 Mg Adh..patch 1 Patch TP DAILY 01/17/15 Reported Gabapentin 100 Mg Capsule 100 Mg PO HS 01/17/15 Reported Folic Acid 1 Mg Tablet 1 Mg PO BID 01/17/15 Reported Ferrous Sulfate 325 Mg Tablet 325 Mg PO TIDWMEALS 01/17/15 Reported B-12 (Cyanocobalamin (Vitamin B-12)) 1,000 Mcg Tablet.er 1,000 Mcg PO DAILY 01/17/15 Reported Claritin (Loratadine) 10 Mg Capsule 10 Mg PO DAILY 01/17/15 Reported Calcium Carbonate 500 Mg Tablet 500 Mg PO DAILY 01/17/15 Reported Benadryl (Diphenhydramine Hcl) 25 Mg Capsule 25 Mg PO PRN Q6HRS PRN 01/17/15 Reported Impression . 1. [id number] respiratory failure, multifactorial 2. Acute exacerbation of chronic obstructive pulmonary disease. 3. Acute bronchitis. 4. Obstructive sleep apnea-hypopnea syndrome. 5. Acute diastolic congestive heart failure. 6. Obesity. 7. Diabetes mellitus. 8. History of breast cancer. 9. Anemia, acute blood loss, based on abdominal wall hematoma. 10. Chronic kidney disease. 11. Hypertension. 12. Diabetes mellitus. 13. Chronic wounds per ID Plan . Antibx per ID Resp status is compensated 1. Titrate FiO2 to keep O2 saturation 91%. 2. Bronchodilator. 3. inhaled corticosteroid 4. Keep intake less than output. 5. SCDs for DVT prophylaxis. hold on heparin lovenox, has hx of recent blood loss and abdominal wall hematoma. 6. Protonix for stress ulcer prophylaxis. 7. Monitor respiratory status very closely. 8. Continue BiPAP p.r.n. during day and continues it at night. FLORIDALMA GARCIA MD Jul 19, 2016 11:02
[2016-07-19 11:16] VITALS: BP 160/73
--- NOTE | 2016-07-19 11:36 | PDOC ---
Renal-Progress Notes Subjective Notes Notes NONE History of Present Illness Hx of present illness NO CHANGE Vitals Vitals Vital Signs Date Time Temp Pulse Resp B/P (MAP) Pulse Ox O2 Delivery O2 Flow Rate FiO2 07/19/16 11:16 97.8 69 20 160/73 (102) 99 Room Air 1.0 97.8 Weight Weight [ ] I.O. Intake and Output Intake and Output 07/19/16 07:00 Intake Total 720 ml Output Total 2350 ml Balance -1630 ml Intake Oral 720 ml Output Urine Total 2350 ml # Bowel Movements 1 Labs Labs Laboratory Tests Test 07/18/16 15:57 07/18/16 20:41 07/19/16 05:30 07/19/16 07:00 Glucose (Fingerstick) 165 mg/dL (70-99) 145 mg/dL (70-99) 119 mg/dL (70-99) White Blood Count 7.2 x10^3/uL (4.0-11.0) Red Blood Count 2.65 x10^6/uL (3.50-5.40) Hemoglobin 8.1 g/dL (12.0-15.5) Hematocrit 25.2 % (36.0-47.0) Mean Corpuscular Volume 95 fL (79-100) Mean Corpuscular Hemoglobin 31 pg (25-35) Mean Corpuscular Hemoglobin Concent 32 g/dL (31-37) Red Cell Distribution Width 17.2 % (11.5-14.5) Platelet Count 377 x10^3/uL (140-400) Neutrophils (%) (Auto) 69 % (31-73) Lymphocytes (%) (Auto) 17 % (24-48) Monocytes (%) (Auto) 8 % (0-9) Eosinophils (%) (Auto) 5 % (0-3) Basophils (%) (Auto) 0 % (0-3) Neutrophils # (Auto) 5.0 x10^3uL (1.8-7.7) Lymphocytes # (Auto) 1.3 x10^3/uL (1.0-4.8) Monocytes # (Auto) 0.5 x10^3/uL (0.0-1.1) Eosinophils # (Auto) 0.4 x10^3/uL (0.0-0.7) Basophils # (Auto) 0.0 x10^3/uL (0.0-0.2) Sodium Level 143 mmol/L (136-145) Potassium Level 5.1 mmol/L (3.5-5.1) Chloride Level 106 mmol/L (98-107) Carbon Dioxide Level 32 mmol/L (21-32) Anion Gap 5 (6-14) Blood Urea Nitrogen 76 mg/dL (7-20) Creatinine 1.4 mg/dL (0.6-1.0) Estimated GFR (Cockcroft-Gault) 36.1 BUN/Creatinine Ratio 54 (6-20) Glucose Level 131 mg/dL (70-99) Calcium Level 8.2 mg/dL (8.5-10.1) Total Bilirubin 0.2 mg/dL (0.2-1.0) Aspartate Amino Transf (AST/SGOT) 25 U/L (15-37) Alanine Aminotransferase (ALT/SGPT) 34 U/L (14-59) Alkaline Phosphatase 91 U/L (46-116) Total Protein 5.6 g/dL (6.4-8.2) Albumin 2.1 g/dL (3.4-5.0) Albumin/Globulin Ratio 0.6 (1.0-1.7) Test 07/19/16 11:24 Glucose (Fingerstick) 130 mg/dL (70-99) Micro Micro Microbiology 07/17/16 Gram Stain - Final, Complete Review of Systems Constitutional: yes: no symptom reported Physical Exam General Appearance: no apparent distress Skin: warm Respiratory: decreased breath sounds, wheezing Heart: S1S2 Abdomen: soft, bowel sounds present Extremities: edema Neurology: confused Assessment Assessment IMP PRERENAL AZOTEMIA-MUCH IMPROVED DEHYDRATION AECOPD FERNANDO ANEMIA ABD WALL HEMATOMA DEMENTIA PLAN STABLE WILL FOLLOW NEEDED JULIETA BARTLETT MD Jul 19, 2016 11:36
[2016-07-19 15:00] VITALS: BP 129/76
[2016-07-19] MEDS: NYSTATIN TOPICAL POWDER 15GM BOTTLE. TP SCH ×2 (16:29→20:37)
[2016-07-19 19:00] VITALS: BP 154/57
[2016-07-19] MEDS: GABAPENTIN 100 MG CAPSULE. PO SCH (20:37)
[2016-07-19] MEDS: MONTELUKAST SODIUM 10 MG TABLET. PO SCH (20:37)
[2016-07-19] MEDS: INSULIN DETEMIR 300 UNITS/3 ML INSULN.PEN. SQ SCH (21:50)
[2016-07-19 23:00] VITALS: BP 118/67
[2016-07-20 04:46] LABS: BASO % 0 % (0-3); EOS % 6 % (0-3); HEMATOCRIT 27.2 % (36.0-47.0); HEMOGLOBIN 8.8 g/dL (12.0-15.5); LYMPH # 1.3 x10^3/uL (1.0-4.8); LYMPH % 17 % (24-48); MEAN CORPUSCULAR HEMOGLOBIN 31 pg (25-35); MEAN CORPUSCULAR HGB CONC 33 g/dL (31-37); MEAN CORPUSCULAR VOLUME 95 fL (79-100); MONO % 6 % (0-9); NEUT % 71 % (31-73); PLATELET COUNT 406 x10^3/uL (140-400); RED BLOOD COUNT 2.87 x10^6/uL (3.50-5.40); RED CELL DISTRIBUTION WIDTH 17.7 % (11.5-14.5)
[2016-07-20 05:08] LABS: ALBUMIN 2.2 g/dL (3.4-5.0); ALBUMIN/GLOBULIN RATIO 0.6 (1.0-1.7); CALCIUM 8.4 mg/dL (8.5-10.1); CREATININE 1.3 mg/dL (0.6-1.0); GFR 39.3; POTASSIUM 5.3 mmol/L (3.5-5.1); TOTAL BILIRUBIN 0.2 mg/dL (0.2-1.0); TOTAL PROTEIN 5.9 g/dL (6.4-8.2)
[2016-07-20] MEDS: MEROPENEM 500 MG in IV NORMAL SALINE 50ML 50 ML IV SCH ×3 (05:41→22:04)
[2016-07-20 07:00] VITALS: BP 113/39
--- NOTE | 2016-07-20 07:55 | PDOC ---
KRISTINERajiNATTY RG MANAGER VIDEO 07/20/16 0755: IM PROGRESS NOTES- Subjective Subjective sleepy, confused conversation Objective Objective sleepy Vitals Vital Signs Date Time Temp Pulse Resp B/P (MAP) Pulse Ox O2 Delivery O2 Flow Rate FiO2 07/20/16 04:19 BiPAP/CPAP 07/20/16 03:00 07/19/16 23:00 98.4 58 18 100 98.4 07/19/16 20:05 1.0 Input & Output Intake and Output 07/20/16 06:59 Intake Total 770 ml Output Total 1125 ml Balance -355 ml Intake Oral 720 ml IV Total 50 ml Output Urine Total 1125 ml # Voids 2 Physical Exam Physical Exam General appearance - sleepy, chronically ill appearing, and in no distress Mental Status - sleepy, oriented to person Head - normal Chest - clear to auscultation, no wheezes, rales or rhonchi chronic sternal wound dressing intact, Heart - S1 and S2 normal Abdomen - soft, nontender, nondistended, obese, BS + hematoma RUQ, LLQ and bruising improving, decreasing Neurological - no acute focal neurological deficit noted Musculoskeletal - no muscular tenderness noted Extremities - ++ pedal edema, old bruising L AC slow resolution Skin - warm and dry Labs Laboratory Tests Test 07/18/16 10:55 07/18/16 15:57 07/18/16 20:41 07/19/16 05:30 Glucose (Fingerstick) 118 mg/dL (70-99) 165 mg/dL (70-99) 145 mg/dL (70-99) White Blood Count 7.2 x10^3/uL (4.0-11.0) Red Blood Count 2.65 x10^6/uL (3.50-5.40) Hemoglobin 8.1 g/dL (12.0-15.5) Hematocrit 25.2 % (36.0-47.0) Mean Corpuscular Volume 95 fL (79-100) Mean Corpuscular Hemoglobin 31 pg (25-35) Mean Corpuscular Hemoglobin Concent 32 g/dL (31-37) Red Cell Distribution Width 17.2 % (11.5-14.5) Platelet Count 377 x10^3/uL (140-400) Neutrophils (%) (Auto) 69 % (31-73) Lymphocytes (%) (Auto) 17 % (24-48) Monocytes (%) (Auto) 8 % (0-9) Eosinophils (%) (Auto) 5 % (0-3) Basophils (%) (Auto) 0 % (0-3) Neutrophils # (Auto) 5.0 x10^3uL (1.8-7.7) Lymphocytes # (Auto) 1.3 x10^3/uL (1.0-4.8) Monocytes # (Auto) 0.5 x10^3/uL (0.0-1.1) Eosinophils # (Auto) 0.4 x10^3/uL (0.0-0.7) Basophils # (Auto) 0.0 x10^3/uL (0.0-0.2) Sodium Level 143 mmol/L (136-145) Potassium Level 5.1 mmol/L (3.5-5.1) Chloride Level 106 mmol/L (98-107) Carbon Dioxide Level 32 mmol/L (21-32) Anion Gap 5 (6-14) Blood Urea Nitrogen 76 mg/dL (7-20) Creatinine 1.4 mg/dL (0.6-1.0) Estimated GFR (Cockcroft-Gault) 36.1 BUN/Creatinine Ratio 54 (6-20) Glucose Level 131 mg/dL (70-99) Calcium Level 8.2 mg/dL (8.5-10.1) Total Bilirubin 0.2 mg/dL (0.2-1.0) Aspartate Amino Transf (AST/SGOT) 25 U/L (15-37) Alanine Aminotransferase (ALT/SGPT) 34 U/L (14-59) Alkaline Phosphatase 91 U/L (46-116) Total Protein 5.6 g/dL (6.4-8.2) Albumin 2.1 g/dL (3.4-5.0) Albumin/Globulin Ratio 0.6 (1.0-1.7) Test 07/19/16 07:00 07/19/16 11:24 07/19/16 16:18 07/19/16 21:24 Glucose (Fingerstick) 119 mg/dL (70-99) 130 mg/dL (70-99) 161 mg/dL (70-99) 153 mg/dL (70-99) Test 07/20/16 04:35 White Blood Count 8.0 x10^3/uL (4.0-11.0) Red Blood Count 2.87 x10^6/uL (3.50-5.40) Hemoglobin 8.8 g/dL (12.0-15.5) Hematocrit 27.2 % (36.0-47.0) Mean Corpuscular Volume 95 fL (79-100) Mean Corpuscular Hemoglobin 31 pg (25-35) Mean Corpuscular Hemoglobin Concent 33 g/dL (31-37) Red Cell Distribution Width 17.7 % (11.5-14.5) Platelet Count 406 x10^3/uL (140-400) Neutrophils (%) (Auto) 71 % (31-73) Lymphocytes (%) (Auto) 17 % (24-48) Monocytes (%) (Auto) 6 % (0-9) Eosinophils (%) (Auto) 6 % (0-3) Basophils (%) (Auto) 0 % (0-3) Neutrophils # (Auto) 5.7 x10^3uL (1.8-7.7) Lymphocytes # (Auto) 1.3 x10^3/uL (1.0-4.8) Monocytes # (Auto) 0.5 x10^3/uL (0.0-1.1) Eosinophils # (Auto) 0.5 x10^3/uL (0.0-0.7) Basophils # (Auto) 0.0 x10^3/uL (0.0-0.2) Sodium Level 143 mmol/L (136-145) Potassium Level 5.3 mmol/L (3.5-5.1) Chloride Level 106 mmol/L (98-107) Carbon Dioxide Level 34 mmol/L (21-32) Anion Gap 3 (6-14) Blood Urea Nitrogen 78 mg/dL (7-20) Creatinine 1.3 mg/dL (0.6-1.0) Estimated GFR (Cockcroft-Gault) 39.3 BUN/Creatinine Ratio 60 (6-20) Glucose Level 139 mg/dL (70-99) Calcium Level 8.4 mg/dL (8.5-10.1) Total Bilirubin 0.2 mg/dL (0.2-1.0) Aspartate Amino Transf (AST/SGOT) 21 U/L (15-37) Alanine Aminotransferase (ALT/SGPT) 31 U/L (14-59) Alkaline Phosphatase 95 U/L (46-116) Total Protein 5.9 g/dL (6.4-8.2) Albumin 2.2 g/dL (3.4-5.0) Albumin/Globulin Ratio 0.6 (1.0-1.7) Laboratory Tests Test 07/19/16 11:24 07/19/16 16:18 07/19/16 21:24 07/20/16 04:35 Glucose (Fingerstick) 130 mg/dL (70-99) 161 mg/dL (70-99) 153 mg/dL (70-99) White Blood Count 8.0 x10^3/uL (4.0-11.0) Red Blood Count 2.87 x10^6/uL (3.50-5.40) Hemoglobin 8.8 g/dL (12.0-15.5) Hematocrit 27.2 % (36.0-47.0) Mean Corpuscular Volume 95 fL (79-100) Mean Corpuscular Hemoglobin 31 pg (25-35) Mean Corpuscular Hemoglobin Concent 33 g/dL (31-37) Red Cell Distribution Width 17.7 % (11.5-14.5) Platelet Count 406 x10^3/uL (140-400) Neutrophils (%) (Auto) 71 % (31-73) Lymphocytes (%) (Auto) 17 % (24-48) Monocytes (%) (Auto) 6 % (0-9) Eosinophils (%) (Auto) 6 % (0-3) Basophils (%) (Auto) 0 % (0-3) Neutrophils # (Auto) 5.7 x10^3uL (1.8-7.7) Lymphocytes # (Auto) 1.3 x10^3/uL (1.0-4.8) Monocytes # (Auto) 0.5 x10^3/uL (0.0-1.1) Eosinophils # (Auto) 0.5 x10^3/uL (0.0-0.7) Basophils # (Auto) 0.0 x10^3/uL (0.0-0.2) Sodium Level 143 mmol/L (136-145) Potassium Level 5.3 mmol/L (3.5-5.1) Chloride Level 106 mmol/L (98-107) Carbon Dioxide Level 34 mmol/L (21-32) Anion Gap 3 (6-14) Blood Urea Nitrogen 78 mg/dL (7-20) Creatinine 1.3 mg/dL (0.6-1.0) Estimated GFR (Cockcroft-Gault) 39.3 BUN/Creatinine Ratio 60 (6-20) Glucose Level 139 mg/dL (70-99) Calcium Level 8.4 mg/dL (8.5-10.1) Total Bilirubin 0.2 mg/dL (0.2-1.0) Aspartate Amino Transf (AST/SGOT) 21 U/L (15-37) Alanine Aminotransferase (ALT/SGPT) 31 U/L (14-59) Alkaline Phosphatase 95 U/L (46-116) Total Protein 5.9 g/dL (6.4-8.2) Albumin 2.2 g/dL (3.4-5.0) Albumin/Globulin Ratio 0.6 (1.0-1.7) Meds Current Medications Furosemide (Lasix) 20 mg 1X ONCE IVP Last administered on 07/19/16t 10:24; Start 07/19/16 at 09:45; Stop 07/19/16 at 09:46; Status DC Assessment Assessment 1. acute on chronic hypercapnic respiratory failure with a/c CHF, pulmonary HTN, AECOPD, acute bronchitis, FERNANDO/OHS 2. h/o acute blood loss anemia with multiple hematomas with underlying CKD, Fe/ B12 deficiencies, Lovenox injections bridging to coumadin therapy prior to last admit 3. CKD III with recent ARF BUN 70s average, Lasix stopped admission prior to last one. Prerenal azotemia from dehydration. Neg MARTA ATN 4. Acute on c ronic diastolic CHF EF 65% POA 5. h/o adominal wall hematoma LLQ, RUQ hematoma above RAC due to coagulopathy last admission 6. Diabetes mellitus type 2 with neuropathy 7. Chronic tremors. 8. FERNANDO/OHS with BiPAP at HS, on oxygen via nasal cannula at 2 L/minute during day. 9. narcolepsy 10. History of metal aortic valve replacement, warfarin on hold 11. Atrial fibrillation, warfarin on hold due to hematomas abdomen 12. Chronic lymphedema with venous stasis changes 13. Osteoarthritis generalized 14. Pulmonary hypertension severe 15. Anemia, both iron and B12 deficiency. 16. AE Chronic obstructive pulmonary disease. 17. Morbid obesity. 18. History of Parkinson disease with tremors. 19. allergic rhinitis 20. chronic constipation 21. severe with underlying chronic moderate PCL malnutrition 22. 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 Vitamin D deficiency 25. skin candidiasis chronic 26. Blister-open with skin exposure, no infection RLE 27. acute infection with underlying chronic osteomyelitis sternal with h/0 suppressive therapy. 28. transaminitis fluid overload a/c CHF POA 29. anxiety/depression 30. vaginitis yeast POA 31. acute bronchitis POA 32. Hypercapnic/hypoxic encephalopathy POA 33. Stage III decubitus ulcer POA chronic hypercapnic/hypoxic respiratory failure with encephalopathy continue BiPap at hs, O2 2L during day duoneb qid continue narcolepsy med continue improved anemia Admit 9.6 07/20 8.8 Fe and B12 replacement CT abd/pelvis-hematoma last admission- no retroperitoneal bleed CKD III Admit Na 145 07/20 143 K 4.4 5.3 BUN 82 78 Cr 1.5 1.3 no acute renal failure-pre renal azotemia due to dehydration IVF NS 50cc/hr DC 07/19 renal consulted PPN initiated 07/18 leukocytosis without fever Admit 12.4 07/20 8.0 chronic osteo sternal wound-Vantin suppression CXR clear hematoma reabsorption [id number] Diflucan stop zithromax CXR clear infected sternal wound with underlying chronic osteomyelitis no sepsis Prior cultures Ecoli, StrepC, morganella morganii, and now PSA HTN continue meds transaminitis Admit AST 43 07/17 28 ALT 69 46 AP 130 94 resolved chronic diastolic CHF Admit wt PMC 269.02 07/20 286 weight inaccurate accurate IO for critical management placed -fluid balance 07/18 -575 07/19 -1630 07/20 -355 DM II FSBS SSI BS 130-161 DVT/GI prophylaxis warfarin on hold no anticoagulant due to anemia/hematomas PPI h/o AVR metal off warfarin due to hematomas from lovenox injection/anemia requiring PRC last admit resume warfarin when appropriate and goal is 2.0-2.5 INR Severe PCL malnutrition with underlying Mod PCL malnutrition not POA nutritional supplements PPN 07/19 chronic osteo/wound sternum now with acute infection suppressive tx not surgical candidate for removal continue wound care from [facility] ID consulted Meropenem IV 07/17/16 Prior cultures Ecoli, StrepC, morganella morganii, and now PSA Stage III decubitus ulcer POA wound care For more details regarding plan of care, please refer to the orders. Did not meet Medicare criteria for admit to LTAC. Remains on Meropenem IV and PPN. If to continue at SNU, will need PICC or central line placement. Plan Plan For more details regarding further plans, please refer to the orders. DEBBIE SHEA MD 07/20/16 0937: IM PROGRESS NOTES- Subjective Subjective Awake,alert,eating a Banana.Ate 25% breakfast. Assessment Assessment D/w - difficult to treat Pseudomonas in a chronic wound with foreign body with risk of more resistance and C diff. May change to po meds.Discharge to CT once stable. D/w DPOA .She states that Cipro upsets her stomach.she would like to check if Janelle Lopez can take her. Mental status improving.Earlier was confused. The patient was seen and examined by me. Chart reviewed and plan of care formulated. Discussed with, reviewed and agree with CIGARET[employer] MACHINE FILLER's notes, plan of care and orders with modifications as necessary. For more details regarding further plans, please refer to the orders. NATTY FOY APRN Jul 20, 2016 07:55 DEBBIE SHEA MD Jul 20, 2016 09:37
[2016-07-20] MEDS: IPRATRPIUM/ALBUTEROL 0.5/2.5MG 3 ML NEBU. NEB SCH ×3 (07:59→15:44)
[2016-07-20] MEDS: BUDESONIDE 0.5 MG/2 ML NEBU. NEB SCH ×2 (07:59→20:27)
[2016-07-20] MEDS: INSULIN ASPART 300 UNITS/3 ML INSULN.PEN SQ SCH ×3 (08:00→17:00)
[2016-07-20] MEDS: FOLIC ACID 1 MG TABLET. PO SCH ×2 (08:30→20:42)
[2016-07-20] MEDS: CALCIUM CARBONATE 500 MG TABLET PO SCH (08:30)
[2016-07-20] MEDS: LIDOCAINE (700MG/PATCH) PATCH. TP SCH (08:30)
[2016-07-20] MEDS: NYSTATIN TOPICAL POWDER 15GM BOTTLE. TP SCH ×2 (08:30→20:43)
[2016-07-20] MEDS: MULTIVITAMIN with MINERAL TABLET. PO SCH (08:30)
[2016-07-20] MEDS: CETIRIZINE HCL 10 MG TABLET. PO SCH (08:30)
[2016-07-20] MEDS: FLUTICASONE 50MCG/NASAL SPRAY 16GM BOTTLE. NS SCH (08:30)
[2016-07-20] MEDS: ESCITALOPRAM 10 MG TABLET. PO SCH (08:30)
[2016-07-20] MEDS: amLODIPine BESYLATE 5 MG TABLET PO SCH (08:30)
[2016-07-20] MEDS: CHOLECALCIFEROL (VITAMIN D3) 1,000 UNIT TABLET PO SCH (08:30)
[2016-07-20] MEDS: LACTOBACILLUS ACIDOPH & BULGAR 1 TABLET. PO SCH ×3 (08:30→17:40)
[2016-07-20] MEDS: FERROUS SULFATE 325 MG TABLET. PO SCH ×3 (08:30→17:40)
[2016-07-20] MEDS: ANASTROZOLE 1 MG TABLET PO SCH (08:30)
[2016-07-20] MEDS: CYANOCOBALAMIN (VITAMIN B-12) 1,000 MCG TABLET. PO SCH (08:30)
[2016-07-20] MEDS: PRIMIDONE 250 MG TABLET PO SCH ×2 (08:30→20:42)
--- NOTE | 2016-07-20 08:59 | PDOC ---
PULMONARY PROGRESS NOTES Subjective PT WITH NO INCREASE SOA Sleepy today Vitals Vital Signs Date Time Temp Pulse Resp B/P (MAP) Pulse Ox O2 Delivery O2 Flow Rate FiO2 07/20/16 08:03 88 Nasal Cannula 1.0 07/20/16 07:00 98.5 62 20 113/39 (63) 98.5 Lungs: Clear Cardiovascular: S1, S2 Abdomen: Soft, Other Extremities: Other (WOUNDS) Skin: Warm Labs Laboratory Tests Test 07/18/16 10:55 07/18/16 15:57 07/18/16 20:41 07/19/16 05:30 Glucose (Fingerstick) 118 mg/dL (70-99) 165 mg/dL (70-99) 145 mg/dL (70-99) White Blood Count 7.2 x10^3/uL (4.0-11.0) Red Blood Count 2.65 x10^6/uL (3.50-5.40) Hemoglobin 8.1 g/dL (12.0-15.5) Hematocrit 25.2 % (36.0-47.0) Mean Corpuscular Volume 95 fL (79-100) Mean Corpuscular Hemoglobin 31 pg (25-35) Mean Corpuscular Hemoglobin Concent 32 g/dL (31-37) Red Cell Distribution Width 17.2 % (11.5-14.5) Platelet Count 377 x10^3/uL (140-400) Neutrophils (%) (Auto) 69 % (31-73) Lymphocytes (%) (Auto) 17 % (24-48) Monocytes (%) (Auto) 8 % (0-9) Eosinophils (%) (Auto) 5 % (0-3) Basophils (%) (Auto) 0 % (0-3) Neutrophils # (Auto) 5.0 x10^3uL (1.8-7.7) Lymphocytes # (Auto) 1.3 x10^3/uL (1.0-4.8) Monocytes # (Auto) 0.5 x10^3/uL (0.0-1.1) Eosinophils # (Auto) 0.4 x10^3/uL (0.0-0.7) Basophils # (Auto) 0.0 x10^3/uL (0.0-0.2) Sodium Level 143 mmol/L (136-145) Potassium Level 5.1 mmol/L (3.5-5.1) Chloride Level 106 mmol/L (98-107) Carbon Dioxide Level 32 mmol/L (21-32) Anion Gap 5 (6-14) Blood Urea Nitrogen 76 mg/dL (7-20) Creatinine 1.4 mg/dL (0.6-1.0) Estimated GFR (Cockcroft-Gault) 36.1 BUN/Creatinine Ratio 54 (6-20) Glucose Level 131 mg/dL (70-99) Calcium Level 8.2 mg/dL (8.5-10.1) Total Bilirubin 0.2 mg/dL (0.2-1.0) Aspartate Amino Transf (AST/SGOT) 25 U/L (15-37) Alanine Aminotransferase (ALT/SGPT) 34 U/L (14-59) Alkaline Phosphatase 91 U/L (46-116) Total Protein 5.6 g/dL (6.4-8.2) Albumin 2.1 g/dL (3.4-5.0) Albumin/Globulin Ratio 0.6 (1.0-1.7) Test 07/19/16 07:00 07/19/16 11:24 07/19/16 16:18 07/19/16 21:24 Glucose (Fingerstick) 119 mg/dL (70-99) 130 mg/dL (70-99) 161 mg/dL (70-99) 153 mg/dL (70-99) Test 07/20/16 04:35 07/20/16 08:02 White Blood Count 8.0 x10^3/uL (4.0-11.0) Red Blood Count 2.87 x10^6/uL (3.50-5.40) Hemoglobin 8.8 g/dL (12.0-15.5) Hematocrit 27.2 % (36.0-47.0) Mean Corpuscular Volume 95 fL (79-100) Mean Corpuscular Hemoglobin 31 pg (25-35) Mean Corpuscular Hemoglobin Concent 33 g/dL (31-37) Red Cell Distribution Width 17.7 % (11.5-14.5) Platelet Count 406 x10^3/uL (140-400) Neutrophils (%) (Auto) 71 % (31-73) Lymphocytes (%) (Auto) 17 % (24-48) Monocytes (%) (Auto) 6 % (0-9) Eosinophils (%) (Auto) 6 % (0-3) Basophils (%) (Auto) 0 % (0-3) Neutrophils # (Auto) 5.7 x10^3uL (1.8-7.7) Lymphocytes # (Auto) 1.3 x10^3/uL (1.0-4.8) Monocytes # (Auto) 0.5 x10^3/uL (0.0-1.1) Eosinophils # (Auto) 0.5 x10^3/uL (0.0-0.7) Basophils # (Auto) 0.0 x10^3/uL (0.0-0.2) Sodium Level 143 mmol/L (136-145) Potassium Level 5.3 mmol/L (3.5-5.1) Chloride Level 106 mmol/L (98-107) Carbon Dioxide Level 34 mmol/L (21-32) Anion Gap 3 (6-14) Blood Urea Nitrogen 78 mg/dL (7-20) Creatinine 1.3 mg/dL (0.6-1.0) Estimated GFR (Cockcroft-Gault) 39.3 BUN/Creatinine Ratio 60 (6-20) Glucose Level 139 mg/dL (70-99) Calcium Level 8.4 mg/dL (8.5-10.1) Total Bilirubin 0.2 mg/dL (0.2-1.0) Aspartate Amino Transf (AST/SGOT) 21 U/L (15-37) Alanine Aminotransferase (ALT/SGPT) 31 U/L (14-59) Alkaline Phosphatase 95 U/L (46-116) Total Protein 5.9 g/dL (6.4-8.2) Albumin 2.2 g/dL (3.4-5.0) Albumin/Globulin Ratio 0.6 (1.0-1.7) Glucose (Fingerstick) 115 mg/dL (70-99) Laboratory Tests Test 07/19/16 11:24 07/19/16 16:18 07/19/16 21:24 07/20/16 04:35 Glucose (Fingerstick) 130 mg/dL (70-99) 161 mg/dL (70-99) 153 mg/dL (70-99) White Blood Count 8.0 x10^3/uL (4.0-11.0) Red Blood Count 2.87 x10^6/uL (3.50-5.40) Hemoglobin 8.8 g/dL (12.0-15.5) Hematocrit 27.2 % (36.0-47.0) Mean Corpuscular Volume 95 fL (79-100) Mean Corpuscular Hemoglobin 31 pg (25-35) Mean Corpuscular Hemoglobin Concent 33 g/dL (31-37) Red Cell Distribution Width 17.7 % (11.5-14.5) Platelet Count 406 x10^3/uL (140-400) Neutrophils (%) (Auto) 71 % (31-73) Lymphocytes (%) (Auto) 17 % (24-48) Monocytes (%) (Auto) 6 % (0-9) Eosinophils (%) (Auto) 6 % (0-3) Basophils (%) (Auto) 0 % (0-3) Neutrophils # (Auto) 5.7 x10^3uL (1.8-7.7) Lymphocytes # (Auto) 1.3 x10^3/uL (1.0-4.8) Monocytes # (Auto) 0.5 x10^3/uL (0.0-1.1) Eosinophils # (Auto) 0.5 x10^3/uL (0.0-0.7) Basophils # (Auto) 0.0 x10^3/uL (0.0-0.2) Sodium Level 143 mmol/L (136-145) Potassium Level 5.3 mmol/L (3.5-5.1) Chloride Level 106 mmol/L (98-107) Carbon Dioxide Level 34 mmol/L (21-32) Anion Gap 3 (6-14) Blood Urea Nitrogen 78 mg/dL (7-20) Creatinine 1.3 mg/dL (0.6-1.0) Estimated GFR (Cockcroft-Gault) 39.3 BUN/Creatinine Ratio 60 (6-20) Glucose Level 139 mg/dL (70-99) Calcium Level 8.4 mg/dL (8.5-10.1) Total Bilirubin 0.2 mg/dL (0.2-1.0) Aspartate Amino Transf (AST/SGOT) 21 U/L (15-37) Alanine Aminotransferase (ALT/SGPT) 31 U/L (14-59) Alkaline Phosphatase 95 U/L (46-116) Total Protein 5.9 g/dL (6.4-8.2) Albumin 2.2 g/dL (3.4-5.0) Albumin/Globulin Ratio 0.6 (1.0-1.7) Test 07/20/16 08:02 Glucose (Fingerstick) 115 mg/dL (70-99) Medications Active Scripts Medications Dose Route/Sig Max Daily Dose Days Date Category Dose Instructions Levemir Flextouch (Insulin Detemir) 100 Unit/1 Ml Insuln.pen 10 Units SQ HS 07/13/16 Rx Inject by Sub q route 10 units at HS Cefpodoxime Proxetil 100 Mg Tablet 200 Mg PO BID 180 07/13/16 Rx 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 Tylenol Extra Strength (Acetaminophen) 500 Mg Tablet 1,000 Mg PO PRN Q6HRS 07/10/16 Rx Novolog Flexpen (Insulin Aspart) 100 Unit/1 Ml Insuln.pen 0-8 Units SQ TIDAC 07/10/16 Rx Inject subq tid ac prn: BS<150=0, BS 151-200=2unit, BS 201-250 =3 unit, BS 251-300=4 unit, BS 301-350= 6 units, BS 351-400= 8 units >401 call MD Velazquez 0.5-3(2.5) Mg/3 Ml (Albuterol/Ipratropium) 3 Ml Ampul.neb 3 Ml NEB RTQID 07/10/16 Rx Nebulizer treatment qid Escitalopram Oxalate 10 Mg Tablet 10 Mg PO DAILY 07/10/16 Rx Take one tablet daily by mouth Amlodipine Besylate 5 Mg Tablet 5 Mg PO DAILY 07/10/16 Rx Take one tablet daily by mouth Awa-Bid Caplet (Acidoph/L.bulg/Bif.b/S.thermop) 1 Each Tablet 1 Tab PO TIDWMEALS 07/10/16 Rx Take one tablet by mouth with meals Soothe & Cool Skin Paste (Zinc Oxide/Petrolatum,White) 71 Gm Oint...g. Gm TP 06/05/15 Reported Vitamin D3 (Cholecalciferol (Vitamin D3)) 1,000 Unit Tablet 1 Tab PO DAILY 06/05/15 Reported Fluticasone Propionate Nasal Norton (Fluticasone Propionate) 16 Gm Norton.susp 2 Norton NS DAILY 01/18/15 Reported Artificial Tears Eye Drops (Dextran 70/Hypromellose) 15 Ml Drops 1 Drop EACHEYE PRN DAILY PRN 01/18/15 Reported Anastrozole 1 Mg Tablet 1 Mg PO DAILY 01/18/15 Reported Multi-Day Vitamins (Multivitamin) 1 Each Tablet 1 Tab PO DAILY 01/18/15 Reported Singulair Tablet (Montelukast Sodium) 10 Mg Tablet 10 Mg PO HS 01/18/15 Reported Primidone 250 Mg Tablet 250 Mg PO BID 01/17/15 Reported Polyethylene Glycol 3350 17 Gm Powd.pack 17 Gm PO PRN DAILY PRN 01/17/15 Reported Nystatin 1 Each Powder.ea. 1 Venessa TOP BID 01/17/15 Reported Lidoderm (Lidocaine) 700 Mg Adh..patch 1 Patch TP DAILY 01/17/15 Reported Gabapentin 100 Mg Capsule 100 Mg PO HS 01/17/15 Reported Folic Acid 1 Mg Tablet 1 Mg PO BID 01/17/15 Reported Ferrous Sulfate 325 Mg Tablet 325 Mg PO TIDWMEALS 01/17/15 Reported B-12 (Cyanocobalamin (Vitamin B-12)) 1,000 Mcg Tablet.er 1,000 Mcg PO DAILY 01/17/15 Reported Claritin (Loratadine) 10 Mg Capsule 10 Mg PO DAILY 01/17/15 Reported Calcium Carbonate 500 Mg Tablet 500 Mg PO DAILY 01/17/15 Reported Benadryl (Diphenhydramine Hcl) 25 Mg Capsule 25 Mg PO PRN Q6HRS PRN 01/17/15 Reported Impression . 1. Ylkhi-aq-gwcmese respiratory failure, multifactorial 2. Acute exacerbation of chronic obstructive pulmonary disease. 3. Acute bronchitis. 4. Obstructive sleep apnea-hypopnea syndrome. 5. Acute diastolic congestive heart failure. 6. Obesity. 7. Diabetes mellitus. 8. History of breast cancer. 9. Anemia, acute blood loss, based on abdominal wall hematoma. 10. Chronic kidney disease. 11. Hypertension. 12. Diabetes mellitus. 13. Chronic wounds per ID Plan . Antibx per ID Resp status is compensated 1. Titrate FiO2 to keep O2 saturation 91%. 2. Bronchodilator. 3. inhaled corticosteroid 4. Keep intake less than output. 5. SCDs for DVT prophylaxis. hold on heparin lovenox, has hx of recent blood loss and abdominal wall hematoma. 6. Protonix for stress ulcer prophylaxis. 7. Monitor respiratory status very closely. 8. Continue BiPAP p.r.n. during day and continues it at night. FLORIDALMA GARCIA MD Jul 20, 2016 08:59
--- NOTE | 2016-07-20 10:07 | PDOC ---
Infectious Disease Note Subjective Subjective Known to service. See Consult 06/22 and last progress note 07/12 Returned to [facility] with Mental status change and SOA. Received Solumedrol and abx States doing ok this am ROS ROS GEN: Denies fevers, chills, sweats HEENT: Denies blurred vision, sore throat CV: Denies chest pain RESP: Denies shortness of air, cough GI: Denies n/v/d NEURO: Denies confusion, dizziness MSK: Denies weakness, joint pain/swelling Vital Sign Vital Signs Vital Signs Date Time Temp Pulse Resp B/P (MAP) Pulse Ox O2 Delivery O2 Flow Rate FiO2 07/20/16 08:03 88 Nasal Cannula 1.0 07/20/16 07:00 98.5 62 20 113/39 (63) 98.5 Physical Exam PHYSICAL EXAM GENERAL: NAD, Alert, pleasant. 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 + Wounds IV: ok Labs Lab Laboratory Tests Test 07/19/16 11:24 07/19/16 16:18 07/19/16 21:24 07/20/16 04:35 Glucose (Fingerstick) 130 mg/dL (70-99) 161 mg/dL (70-99) 153 mg/dL (70-99) White Blood Count 8.0 x10^3/uL (4.0-11.0) Red Blood Count 2.87 x10^6/uL (3.50-5.40) Hemoglobin 8.8 g/dL (12.0-15.5) Hematocrit 27.2 % (36.0-47.0) Mean Corpuscular Volume 95 fL (79-100) Mean Corpuscular Hemoglobin 31 pg (25-35) Mean Corpuscular Hemoglobin Concent 33 g/dL (31-37) Red Cell Distribution Width 17.7 % (11.5-14.5) Platelet Count 406 x10^3/uL (140-400) Neutrophils (%) (Auto) 71 % (31-73) Lymphocytes (%) (Auto) 17 % (24-48) Monocytes (%) (Auto) 6 % (0-9) Eosinophils (%) (Auto) 6 % (0-3) Basophils (%) (Auto) 0 % (0-3) Neutrophils # (Auto) 5.7 x10^3uL (1.8-7.7) Lymphocytes # (Auto) 1.3 x10^3/uL (1.0-4.8) Monocytes # (Auto) 0.5 x10^3/uL (0.0-1.1) Eosinophils # (Auto) 0.5 x10^3/uL (0.0-0.7) Basophils # (Auto) 0.0 x10^3/uL (0.0-0.2) Sodium Level 143 mmol/L (136-145) Potassium Level 5.3 mmol/L (3.5-5.1) Chloride Level 106 mmol/L (98-107) Carbon Dioxide Level 34 mmol/L (21-32) Anion Gap 3 (6-14) Blood Urea Nitrogen 78 mg/dL (7-20) Creatinine 1.3 mg/dL (0.6-1.0) Estimated GFR (Cockcroft-Gault) 39.3 BUN/Creatinine Ratio 60 (6-20) Glucose Level 139 mg/dL (70-99) Calcium Level 8.4 mg/dL (8.5-10.1) Total Bilirubin 0.2 mg/dL (0.2-1.0) Aspartate Amino Transf (AST/SGOT) 21 U/L (15-37) Alanine Aminotransferase (ALT/SGPT) 31 U/L (14-59) Alkaline Phosphatase 95 U/L (46-116) Total Protein 5.9 g/dL (6.4-8.2) Albumin 2.2 g/dL (3.4-5.0) Albumin/Globulin Ratio 0.6 (1.0-1.7) Test 07/20/16 08:02 Glucose (Fingerstick) 115 mg/dL (70-99) Objective Assessment 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 other GNR also Acute on Chronic resp failure Leukocytosis - better Anemia CKD Distant h/o C-diff Plan Plan of Care F/u cult and cont Meropenem. Discussed with Mrs. Dejesus that this cannot be fixed but she still wants abx. Explained risks of excessive abx and h/o C-diff This wound will not heal and she is not a surgical candidate. Suppressive therapy will only breed further resistance and will ultimately be futile aside from put her at increased risk for C-diff and abx adverse reactions. Needs palliative eval and understanding that this is not a curable problem D/w Karen - [phone] explained wound will not heal and that senior care abx could be more problematic then treating. Advocated DNR/DNI 07/18 D/w Dr. Fan. Disposition is still being worked on NARENDRA KOHLER MD Jul 20, 2016 10:07
[2016-07-20 11:00] VITALS: BP 131/46
--- NOTE | 2016-07-20 12:01 | PDOC ---
Renal-Progress Notes Subjective Notes Notes CONFUSED History of Present Illness Hx of present illness NO CHANGE Vitals Vitals Vital Signs Date Time Temp Pulse Resp B/P (MAP) Pulse Ox O2 Delivery O2 Flow Rate FiO2 07/20/16 11:37 97 Nasal Cannula 1.0 07/20/16 11:00 97.9 62 20 131/46 (74) 97.9 Weight Weight [ ] I.O. Intake and Output Intake and Output 07/20/16 07:00 Intake Total 770 ml Output Total 1125 ml Balance -355 ml Intake Oral 720 ml IV Total 50 ml Output Urine Total 1125 ml # Voids 2 Labs Labs Laboratory Tests Test 07/19/16 16:18 07/19/16 21:24 07/20/16 04:35 07/20/16 08:02 Glucose (Fingerstick) 161 mg/dL (70-99) 153 mg/dL (70-99) 115 mg/dL (70-99) White Blood Count 8.0 x10^3/uL (4.0-11.0) Red Blood Count 2.87 x10^6/uL (3.50-5.40) Hemoglobin 8.8 g/dL (12.0-15.5) Hematocrit 27.2 % (36.0-47.0) Mean Corpuscular Volume 95 fL (79-100) Mean Corpuscular Hemoglobin 31 pg (25-35) Mean Corpuscular Hemoglobin Concent 33 g/dL (31-37) Red Cell Distribution Width 17.7 % (11.5-14.5) Platelet Count 406 x10^3/uL (140-400) Neutrophils (%) (Auto) 71 % (31-73) Lymphocytes (%) (Auto) 17 % (24-48) Monocytes (%) (Auto) 6 % (0-9) Eosinophils (%) (Auto) 6 % (0-3) Basophils (%) (Auto) 0 % (0-3) Neutrophils # (Auto) 5.7 x10^3uL (1.8-7.7) Lymphocytes # (Auto) 1.3 x10^3/uL (1.0-4.8) Monocytes # (Auto) 0.5 x10^3/uL (0.0-1.1) Eosinophils # (Auto) 0.5 x10^3/uL (0.0-0.7) Basophils # (Auto) 0.0 x10^3/uL (0.0-0.2) Sodium Level 143 mmol/L (136-145) Potassium Level 5.3 mmol/L (3.5-5.1) Chloride Level 106 mmol/L (98-107) Carbon Dioxide Level 34 mmol/L (21-32) Anion Gap 3 (6-14) Blood Urea Nitrogen 78 mg/dL (7-20) Creatinine 1.3 mg/dL (0.6-1.0) Estimated GFR (Cockcroft-Gault) 39.3 BUN/Creatinine Ratio 60 (6-20) Glucose Level 139 mg/dL (70-99) Calcium Level 8.4 mg/dL (8.5-10.1) Total Bilirubin 0.2 mg/dL (0.2-1.0) Aspartate Amino Transf (AST/SGOT) 21 U/L (15-37) Alanine Aminotransferase (ALT/SGPT) 31 U/L (14-59) Alkaline Phosphatase 95 U/L (46-116) Total Protein 5.9 g/dL (6.4-8.2) Albumin 2.2 g/dL (3.4-5.0) Albumin/Globulin Ratio 0.6 (1.0-1.7) Test 07/20/16 11:01 Glucose (Fingerstick) 136 mg/dL (70-99) Micro Micro Microbiology 07/17/16 Gram Stain - Final, Complete Review of Systems Constitutional: yes: no symptom reported Physical Exam General Appearance: no apparent distress Skin: warm Respiratory: decreased breath sounds, wheezing Heart: S1S2 Abdomen: soft, bowel sounds present Extremities: edema Neurology: confused Assessment Assessment IMP PRERENAL AZOTEMIA-MUCH IMPROVED AND NEAR BASELINE DEHYDRATION AECOPD FERNANDO ANEMIA ABD WALL HEMATOMA DEMENTIA PLAN STABLE ENC INTAKE JULIETA BARTLETT MD Jul 20, 2016 12:01
[2016-07-20 14:50] VITALS: BP 125/36
[2016-07-20 19:57] VITALS: BP 116/46
[2016-07-20] MEDS: MONTELUKAST SODIUM 10 MG TABLET. PO SCH (20:42)
[2016-07-20] MEDS: GABAPENTIN 100 MG CAPSULE. PO SCH (20:42)
[2016-07-20] MEDS: INSULIN DETEMIR 300 UNITS/3 ML INSULN.PEN. SQ SCH (20:51)
[2016-07-20 23:09] VITALS: BP 137/47
[2016-07-21 03:45] VITALS: BP 126/49
[2016-07-21] MEDS: MEROPENEM 500 MG in IV NORMAL SALINE 50ML 50 ML IV SCH ×2 (06:21→15:44)
[2016-07-21 07:00] VITALS: BP 163/63
[2016-07-21 07:05] LABS: ALBUMIN 2.1 g/dL (3.4-5.0); ALBUMIN/GLOBULIN RATIO 0.6 (1.0-1.7); CALCIUM 8.1 mg/dL (8.5-10.1); CREATININE 1.3 mg/dL (0.6-1.0); GFR 39.3; POTASSIUM 5.6 mmol/L (3.5-5.1); TOTAL BILIRUBIN 0.3 mg/dL (0.2-1.0); TOTAL PROTEIN 5.6 g/dL (6.4-8.2)
[2016-07-21] MEDS: IPRATRPIUM/ALBUTEROL 0.5/2.5MG 3 ML NEBU. NEB SCH ×3 (07:39→15:36)
[2016-07-21] MEDS: BUDESONIDE 0.5 MG/2 ML NEBU. NEB SCH (07:40)
[2016-07-21] MEDS: INSULIN ASPART 300 UNITS/3 ML INSULN.PEN SQ SCH ×3 (08:00→17:00)
[2016-07-21] MEDS: FLUTICASONE 50MCG/NASAL SPRAY 16GM BOTTLE. NS SCH (09:00)
[2016-07-21] MEDS: CALCIUM CARBONATE 500 MG TABLET PO SCH (09:29)
[2016-07-21] MEDS: amLODIPine BESYLATE 5 MG TABLET PO SCH (09:29)
[2016-07-21] MEDS: PRIMIDONE 250 MG TABLET PO SCH (09:29)
[2016-07-21] MEDS: MULTIVITAMIN with MINERAL TABLET. PO SCH (09:29)
[2016-07-21] MEDS: FOLIC ACID 1 MG TABLET. PO SCH (09:29)
[2016-07-21] MEDS: ESCITALOPRAM 10 MG TABLET. PO SCH (09:29)
[2016-07-21] MEDS: FERROUS SULFATE 325 MG TABLET. PO SCH ×3 (09:29→17:25)
[2016-07-21] MEDS: CYANOCOBALAMIN (VITAMIN B-12) 1,000 MCG TABLET. PO SCH (09:29)
[2016-07-21] MEDS: CETIRIZINE HCL 10 MG TABLET. PO SCH (09:29)
[2016-07-21] MEDS: LACTOBACILLUS ACIDOPH & BULGAR 1 TABLET. PO SCH ×3 (09:29→17:25)
[2016-07-21] MEDS: CHOLECALCIFEROL (VITAMIN D3) 1,000 UNIT TABLET PO SCH (09:30)
[2016-07-21] MEDS: NYSTATIN TOPICAL POWDER 15GM BOTTLE. TP SCH (09:30)
[2016-07-21] MEDS: LIDOCAINE (700MG/PATCH) PATCH. TP SCH (09:30)
[2016-07-21 09:31] LABS: BASO % 0 % (0-3); EOS % 5 % (0-3); HEMATOCRIT 27.2 % (36.0-47.0); HEMOGLOBIN 8.8 g/dL (12.0-15.5); LYMPH # 1.5 x10^3/uL (1.0-4.8); LYMPH % 21 % (24-48); MEAN CORPUSCULAR HEMOGLOBIN 31 pg (25-35); MEAN CORPUSCULAR HGB CONC 33 g/dL (31-37); MEAN CORPUSCULAR VOLUME 95 fL (79-100); MONO % 6 % (0-9); NEUT % 68 % (31-73); PLATELET COUNT 358 x10^3/uL (140-400); RED BLOOD COUNT 2.88 x10^6/uL (3.50-5.40); RED CELL DISTRIBUTION WIDTH 17.9 % (11.5-14.5); WHITE BLOOD COUNT 7.1 x10^3/uL (4.0-11.0)
--- NOTE | 2016-07-21 09:34 | PDOC ---
[facility] [employer] PROMOTION EDUCATOR 07/21/16 0934: IM PROGRESS NOTES- Subjective Subjective Feeling okay this morning. No shortness of breath. Objective Objective alert, appropriate Vitals Vital Signs Date Time Temp Pulse Resp B/P (MAP) Pulse Ox O2 Delivery O2 Flow Rate FiO2 07/21/16 07:41 99 Nasal Cannula 1.0 07/21/16 07:00 98.0 66 18 163/63 (96) 98.0 Input & Output Intake and Output 07/21/16 07:00 Intake Total 1440 ml Output Total 1550 ml Balance -110 ml Intake Oral 1440 ml Output Urine Total 1550 ml # Bowel Movements 2 Physical Exam Physical Exam General appearance - alert, chronically ill appearing, and in no distress Mental Status - alert, oriented to person, place Head - normal Chest - clear to auscultation, no wheezes, rales or rhonchi chronic sternal wound dressing intact, Heart - S1 and S2 normal Abdomen - soft, nontender, nondistended, obese, BS + hematoma RUQ, LLQ and bruising improving, decreasing Neurological - no acute focal neurological deficit noted Musculoskeletal - no muscular tenderness noted Extremities - ++ pedal edema, old bruising hematoma L AC slow resolution Skin - warm and dry Labs Laboratory Tests Test 07/19/16 11:24 07/19/16 16:18 07/19/16 21:24 07/20/16 04:35 Glucose (Fingerstick) 130 mg/dL (70-99) 161 mg/dL (70-99) 153 mg/dL (70-99) White Blood Count 8.0 x10^3/uL (4.0-11.0) Red Blood Count 2.87 x10^6/uL (3.50-5.40) Hemoglobin 8.8 g/dL (12.0-15.5) Hematocrit 27.2 % (36.0-47.0) Mean Corpuscular Volume 95 fL (79-100) Mean Corpuscular Hemoglobin 31 pg (25-35) Mean Corpuscular Hemoglobin Concent 33 g/dL (31-37) Red Cell Distribution Width 17.7 % (11.5-14.5) Platelet Count 406 x10^3/uL (140-400) Neutrophils (%) (Auto) 71 % (31-73) Lymphocytes (%) (Auto) 17 % (24-48) Monocytes (%) (Auto) 6 % (0-9) Eosinophils (%) (Auto) 6 % (0-3) Basophils (%) (Auto) 0 % (0-3) Neutrophils # (Auto) 5.7 x10^3uL (1.8-7.7) Lymphocytes # (Auto) 1.3 x10^3/uL (1.0-4.8) Monocytes # (Auto) 0.5 x10^3/uL (0.0-1.1) Eosinophils # (Auto) 0.5 x10^3/uL (0.0-0.7) Basophils # (Auto) 0.0 x10^3/uL (0.0-0.2) Sodium Level 143 mmol/L (136-145) Potassium Level 5.3 mmol/L (3.5-5.1) Chloride Level 106 mmol/L (98-107) Carbon Dioxide Level 34 mmol/L (21-32) Anion Gap 3 (6-14) Blood Urea Nitrogen 78 mg/dL (7-20) Creatinine 1.3 mg/dL (0.6-1.0) Estimated GFR (Cockcroft-Gault) 39.3 BUN/Creatinine Ratio 60 (6-20) Glucose Level 139 mg/dL (70-99) Calcium Level 8.4 mg/dL (8.5-10.1) Total Bilirubin 0.2 mg/dL (0.2-1.0) Aspartate Amino Transf (AST/SGOT) 21 U/L (15-37) Alanine Aminotransferase (ALT/SGPT) 31 U/L (14-59) Alkaline Phosphatase 95 U/L (46-116) Total Protein 5.9 g/dL (6.4-8.2) Albumin 2.2 g/dL (3.4-5.0) Albumin/Globulin Ratio 0.6 (1.0-1.7) Test 07/20/16 08:02 07/20/16 11:01 07/20/16 15:59 07/20/16 20:42 Glucose (Fingerstick) 115 mg/dL (70-99) 136 mg/dL (70-99) 122 mg/dL (70-99) 151 mg/dL (70-99) Test 07/21/16 05:35 07/21/16 07:33 Sodium Level 144 mmol/L (136-145) Potassium Level 5.6 mmol/L (3.5-5.1) Chloride Level 107 mmol/L (98-107) Carbon Dioxide Level 31 mmol/L (21-32) Anion Gap 6 (6-14) Blood Urea Nitrogen 75 mg/dL (7-20) Creatinine 1.3 mg/dL (0.6-1.0) Estimated GFR (Cockcroft-Gault) 39.3 BUN/Creatinine Ratio 58 (6-20) Glucose Level 111 mg/dL (70-99) Calcium Level 8.1 mg/dL (8.5-10.1) Total Bilirubin 0.3 mg/dL (0.2-1.0) Aspartate Amino Transf (AST/SGOT) 23 U/L (15-37) Alanine Aminotransferase (ALT/SGPT) 26 U/L (14-59) Alkaline Phosphatase 84 U/L (46-116) Total Protein 5.6 g/dL (6.4-8.2) Albumin 2.1 g/dL (3.4-5.0) Albumin/Globulin Ratio 0.6 (1.0-1.7) Glucose (Fingerstick) 109 mg/dL (70-99) Laboratory Tests Test 07/20/16 11:01 07/20/16 15:59 07/20/16 20:42 07/21/16 05:35 Glucose (Fingerstick) 136 mg/dL (70-99) 122 mg/dL (70-99) 151 mg/dL (70-99) Sodium Level 144 mmol/L (136-145) Potassium Level 5.6 mmol/L (3.5-5.1) Chloride Level 107 mmol/L (98-107) Carbon Dioxide Level 31 mmol/L (21-32) Anion Gap 6 (6-14) Blood Urea Nitrogen 75 mg/dL (7-20) Creatinine 1.3 mg/dL (0.6-1.0) Estimated GFR (Cockcroft-Gault) 39.3 BUN/Creatinine Ratio 58 (6-20) Glucose Level 111 mg/dL (70-99) Calcium Level 8.1 mg/dL (8.5-10.1) Total Bilirubin 0.3 mg/dL (0.2-1.0) Aspartate Amino Transf (AST/SGOT) 23 U/L (15-37) Alanine Aminotransferase (ALT/SGPT) 26 U/L (14-59) Alkaline Phosphatase 84 U/L (46-116) Total Protein 5.6 g/dL (6.4-8.2) Albumin 2.1 g/dL (3.4-5.0) Albumin/Globulin Ratio 0.6 (1.0-1.7) Test 07/21/16 07:33 Glucose (Fingerstick) 109 mg/dL (70-99) Assessment Assessment 1. acute on chronic hypercapnic respiratory failure with a/c CHF, pulmonary HTN, AECOPD, acute bronchitis, FERNANDO/OHS 2. h/o acute blood loss anemia with multiple hematomas with underlying CKD, Fe/ B12 deficiencies, Lovenox injections bridging to coumadin therapy prior to last admit 3. CKD III with recent ARF BUN 70s average, Lasix stopped admission prior to last one. Prerenal azotemia from dehydration. Neg MARTA ATN 4. Acute on c ronic diastolic CHF EF 65% POA 5. h/o adominal wall hematoma LLQ, RUQ hematoma above RAC due to coagulopathy last admission 6. Diabetes mellitus type 2 with neuropathy 7. Chronic tremors. 8. FERNANDO/OHS with BiPAP at HS, on oxygen via nasal cannula at 2 L/minute during day. 9. narcolepsy 10. History of metal aortic valve replacement, warfarin on hold 11. Atrial fibrillation, warfarin on hold due to hematomas abdomen 12. Chronic lymphedema with venous stasis changes 13. Osteoarthritis generalized 14. Pulmonary hypertension severe 15. Anemia, both iron and B12 deficiency. 16. AE Chronic obstructive pulmonary disease. 17. Morbid obesity. 18. History of Parkinson disease with tremors. 19. allergic rhinitis 20. chronic constipation 21. severe with underlying chronic moderate PCL malnutrition 22. 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 Vitamin D deficiency 25. skin candidiasis chronic 26. Blister-open with skin exposure, no infection RLE 27. acute infection with underlying chronic osteomyelitis sternal with h/0 suppressive therapy. 28. transaminitis fluid overload a/c CHF POA 29. anxiety/depression 30. vaginitis yeast POA 31. acute bronchitis POA 32. Hypercapnic/hypoxic encephalopathy POA 33. Stage III decubitus ulcer POA chronic hypercapnic/hypoxic respiratory failure with encephalopathy continue BiPap at hs, O2 2L during day duoneb qid continue narcolepsy med continue improved anemia Admit 9.6 07/20 8.8 Fe and B12 replacement CT abd/pelvis-hematoma last admission- no retroperitoneal bleed CKD III Admit Na 145 07/21 144 K 4.4 5.6 BUN 82 75 Cr 1.5 1.3 no acute renal failure-pre renal azotemia due to dehydration IVF NS 50cc/hr DC 07/19 renal consulted PPN initiated 07/18-stopped 07/19 Contacted lab, specimen: tube not completely filled suggestive of difficult draw but not hemolyzed. leukocytosis without fever Admit 12.4 07/20 8.0 chronic osteo sternal wound-Vantin suppression CXR clear hematoma reabsorption [id number] Diflucan stop zithromax CXR clear infected sternal wound with underlying chronic osteomyelitis no sepsis Prior cultures Ecoli, StrepC, morganella morganii, and now PSA HTN continue meds transaminitis Admit AST 43 07/17 28 ALT 69 46 AP 130 94 resolved chronic diastolic CHF Admit wt PMC 269.02 07/21 286 weight inaccurate accurate IO for critical management placed -fluid balance 07/17 -575 07/18 -1630 07/19 -355 07/20 -110 Lasix 20mg IV 07/19 DM II FSBS SSI BS 109-151 DVT/GI prophylaxis warfarin on hold no anticoagulant due to anemia/hematomas PPI h/o AVR metal off warfarin due to hematomas from lovenox injection/anemia requiring PRC last admit resume warfarin when appropriate and goal is 2.0-2.5 INR Severe PCL malnutrition with underlying Mod PCL malnutrition not POA nutritional supplements PPN 07/18-DC 07/19 chronic osteo/wound sternum now with acute infection suppressive tx not surgical candidate for removal continue wound care from [place] ID consulted Meropenem IV 07/17/16 Prior cultures Ecoli, StrepC, morganella morganii, and now PSA Stage III decubitus ulcer POA wound care For more details regarding plan of care, please refer to the orders. Awaiting medicaid approval for Janelle admit. Please see orders. Will place PICC prior to discharge for retirement antibiotics/ lab draws. Per Dr. Vigil 4 weeks therapy. Plan Plan For more details regarding further plans, please refer to the orders. DEBBIE SHEA MD 07/21/16 1022: IM PROGRESS NOTES- Assessment Assessment The patient was seen and examined by me. Chart reviewed and plan of care formulated. Discussed with, reviewed and agree with CONCRETE FINISHER's notes, plan of care and orders with modifications as necessary. For more details regarding further plans, please refer to the orders. NATTY FOY APRN Jul 21, 2016 09:34 DEBBIE SHEA MD Jul 21, 2016 10:22
[2016-07-21] MEDS: ANASTROZOLE 1 MG TABLET PO SCH (09:45)
--- NOTE | 2016-07-21 10:25 | PDOC ---
Infectious Disease Note Subjective Subjective Known to service. See Consult 06/22 and last progress note 07/[address] [facility] with Mental status change and SOA. Received Solumedrol and abx States doing ok this am ROS ROS GEN: Denies fevers, chills, sweats HEENT: Denies blurred vision, sore throat CV: Denies chest pain RESP: Denies shortness of air, cough GI: Denies n/v/d NEURO: Denies confusion, dizziness MSK: Denies weakness, joint pain/swelling Vital Sign Vital Signs Vital Signs Date Time Temp Pulse Resp B/P (MAP) Pulse Ox O2 Delivery O2 Flow Rate FiO2 07/21/16 09:29 66 163/63 07/21/16 07:50 Nasal Cannula 1.0 07/21/16 07:41 99 07/21/16 07:00 98.0 18 98.0 Physical Exam PHYSICAL EXAM GENERAL: NAD, Alert, pleasant. 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 + Wounds IV: ok Labs Lab Laboratory Tests Test 07/20/16 11:01 07/20/16 15:59 07/20/16 20:42 07/21/16 05:35 Glucose (Fingerstick) 136 mg/dL (70-99) 122 mg/dL (70-99) 151 mg/dL (70-99) Sodium Level 144 mmol/L (136-145) Potassium Level 5.6 mmol/L (3.5-5.1) Chloride Level 107 mmol/L (98-107) Carbon Dioxide Level 31 mmol/L (21-32) Anion Gap 6 (6-14) Blood Urea Nitrogen 75 mg/dL (7-20) Creatinine 1.3 mg/dL (0.6-1.0) Estimated GFR (Cockcroft-Gault) 39.3 BUN/Creatinine Ratio 58 (6-20) Glucose Level 111 mg/dL (70-99) Calcium Level 8.1 mg/dL (8.5-10.1) Total Bilirubin 0.3 mg/dL (0.2-1.0) Aspartate Amino Transf (AST/SGOT) 23 U/L (15-37) Alanine Aminotransferase (ALT/SGPT) 26 U/L (14-59) Alkaline Phosphatase 84 U/L (46-116) Total Protein 5.6 g/dL (6.4-8.2) Albumin 2.1 g/dL (3.4-5.0) Albumin/Globulin Ratio 0.6 (1.0-1.7) Test 07/21/16 07:33 07/21/16 09:10 Glucose (Fingerstick) 109 mg/dL (70-99) White Blood Count 7.1 x10^3/uL (4.0-11.0) Red Blood Count 2.88 x10^6/uL (3.50-5.40) Hemoglobin 8.8 g/dL (12.0-15.5) Hematocrit 27.2 % (36.0-47.0) Mean Corpuscular Volume 95 fL (79-100) Mean Corpuscular Hemoglobin 31 pg (25-35) Mean Corpuscular Hemoglobin Concent 33 g/dL (31-37) Red Cell Distribution Width 17.9 % (11.5-14.5) Platelet Count 358 x10^3/uL (140-400) Neutrophils (%) (Auto) 68 % (31-73) Lymphocytes (%) (Auto) 21 % (24-48) Monocytes (%) (Auto) 6 % (0-9) Eosinophils (%) (Auto) 5 % (0-3) Basophils (%) (Auto) 0 % (0-3) Neutrophils # (Auto) 4.8 x10^3uL (1.8-7.7) Lymphocytes # (Auto) 1.5 x10^3/uL (1.0-4.8) Monocytes # (Auto) 0.4 x10^3/uL (0.0-1.1) Eosinophils # (Auto) 0.4 x10^3/uL (0.0-0.7) Basophils # (Auto) 0.0 x10^3/uL (0.0-0.2) Objective Assessment 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 other GNR also Acute on Chronic resp failure Leukocytosis - better Anemia CKD Distant h/o C-diff Plan Plan of Care F/u cult and cont Meropenem. Discussed with Mrs. Dejesus that this cannot be fixed but she still wants abx. Explained risks of excessive abx and h/o C-diff This wound will not heal and she is not a surgical candidate. Suppressive therapy will only breed further resistance and will ultimately be futile aside from put her at increased risk for C-diff and abx adverse reactions. Needs palliative eval and understanding that this is not a curable problem D/w Karen - [phone] explained wound will not heal and that senior living abx could be more problematic then treating. Advocated DNR/DNI 07/18 D/w Dr. Fan. Disposition is still being worked on to NARENDRA Zapien MD Jul 21, 2016 10:25
[2016-07-21 11:00] VITALS: BP 159/76
--- NOTE | 2016-07-21 12:21 | PDOC ---
Renal-Progress Notes Subjective Notes Notes NONE History of Present Illness Hx of present illness NO CHANGE Vitals Vitals Vital Signs Date Time Temp Pulse Resp B/P (MAP) Pulse Ox O2 Delivery O2 Flow Rate FiO2 07/21/16 11:18 Nasal Cannula 1.0 07/21/16 09:29 66 163/63 07/21/16 07:41 99 07/21/16 07:00 98.0 18 98.0 Weight Weight [ ] I.O. Intake and Output Intake and Output 07/21/16 07:00 Intake Total 1440 ml Output Total 1550 ml Balance -110 ml Intake Oral 1440 ml Output Urine Total 1550 ml # Bowel Movements 2 Labs Labs Laboratory Tests Test 07/20/16 15:59 07/20/16 20:42 07/21/16 05:35 07/21/16 07:33 Glucose (Fingerstick) 122 mg/dL (70-99) 151 mg/dL (70-99) 109 mg/dL (70-99) Sodium Level 144 mmol/L (136-145) Potassium Level 5.6 mmol/L (3.5-5.1) Chloride Level 107 mmol/L (98-107) Carbon Dioxide Level 31 mmol/L (21-32) Anion Gap 6 (6-14) Blood Urea Nitrogen 75 mg/dL (7-20) Creatinine 1.3 mg/dL (0.6-1.0) Estimated GFR (Cockcroft-Gault) 39.3 BUN/Creatinine Ratio 58 (6-20) Glucose Level 111 mg/dL (70-99) Calcium Level 8.1 mg/dL (8.5-10.1) Total Bilirubin 0.3 mg/dL (0.2-1.0) Aspartate Amino Transf (AST/SGOT) 23 U/L (15-37) Alanine Aminotransferase (ALT/SGPT) 26 U/L (14-59) Alkaline Phosphatase 84 U/L (46-116) Total Protein 5.6 g/dL (6.4-8.2) Albumin 2.1 g/dL (3.4-5.0) Albumin/Globulin Ratio 0.6 (1.0-1.7) Test 07/21/16 09:10 White Blood Count 7.1 x10^3/uL (4.0-11.0) Red Blood Count 2.88 x10^6/uL (3.50-5.40) Hemoglobin 8.8 g/dL (12.0-15.5) Hematocrit 27.2 % (36.0-47.0) Mean Corpuscular Volume 95 fL (79-100) Mean Corpuscular Hemoglobin 31 pg (25-35) Mean Corpuscular Hemoglobin Concent 33 g/dL (31-37) Red Cell Distribution Width 17.9 % (11.5-14.5) Platelet Count 358 x10^3/uL (140-400) Neutrophils (%) (Auto) 68 % (31-73) Lymphocytes (%) (Auto) 21 % (24-48) Monocytes (%) (Auto) 6 % (0-9) Eosinophils (%) (Auto) 5 % (0-3) Basophils (%) (Auto) 0 % (0-3) Neutrophils # (Auto) 4.8 x10^3uL (1.8-7.7) Lymphocytes # (Auto) 1.5 x10^3/uL (1.0-4.8) Monocytes # (Auto) 0.4 x10^3/uL (0.0-1.1) Eosinophils # (Auto) 0.4 x10^3/uL (0.0-0.7) Basophils # (Auto) 0.0 x10^3/uL (0.0-0.2) Micro Micro Microbiology 07/17/16 Gram Stain - Final, Complete Review of Systems Constitutional: yes: no symptom reported Physical Exam General Appearance: no apparent distress Skin: warm Respiratory: decreased breath sounds, wheezing Heart: S1S2 Abdomen: soft, bowel sounds present Extremities: edema Neurology: confused Assessment Assessment IMP PRERENAL AZOTEMIA-MUCH IMPROVED AND NEAR BASELINE DEHYDRATION-BETTER AECOPD FERNANDO ANEMIA ABD WALL HEMATOMA DEMENTIA CKD STAGE 3 HYPERKALEMIA PLAN STABLE ENC INTAKE PO KAYEXALATE JULIETA BARTLETT MD Jul 21, 2016 12:20
[2016-07-21] MEDS ORDERED: SODIUM POLYSTYRENE SULFONATE 15 GM/60 ML ORAL.SUSP. PO ONE (12:30)
--- NOTE | 2016-07-21 13:28 | PDOC ---
PULMONARY PROGRESS NOTES Subjective PT WITH NO INCREASE SOA Vitals Vital Signs Date Time Temp Pulse Resp B/P (MAP) Pulse Ox O2 Delivery O2 Flow Rate FiO2 07/21/16 11:18 Nasal Cannula 1.0 07/21/16 11:00 98.0 69 18 159/76 (103) 99 98.0 General: Alert Lungs: Clear Cardiovascular: S1, S2 Abdomen: Soft, Other Extremities: Other (WOUNDS) Skin: Warm Labs Laboratory Tests Test 07/19/16 16:18 07/19/16 21:24 07/20/16 04:35 07/20/16 08:02 Glucose (Fingerstick) 161 mg/dL (70-99) 153 mg/dL (70-99) 115 mg/dL (70-99) White Blood Count 8.0 x10^3/uL (4.0-11.0) Red Blood Count 2.87 x10^6/uL (3.50-5.40) Hemoglobin 8.8 g/dL (12.0-15.5) Hematocrit 27.2 % (36.0-47.0) Mean Corpuscular Volume 95 fL (79-100) Mean Corpuscular Hemoglobin 31 pg (25-35) Mean Corpuscular Hemoglobin Concent 33 g/dL (31-37) Red Cell Distribution Width 17.7 % (11.5-14.5) Platelet Count 406 x10^3/uL (140-400) Neutrophils (%) (Auto) 71 % (31-73) Lymphocytes (%) (Auto) 17 % (24-48) Monocytes (%) (Auto) 6 % (0-9) Eosinophils (%) (Auto) 6 % (0-3) Basophils (%) (Auto) 0 % (0-3) Neutrophils # (Auto) 5.7 x10^3uL (1.8-7.7) Lymphocytes # (Auto) 1.3 x10^3/uL (1.0-4.8) Monocytes # (Auto) 0.5 x10^3/uL (0.0-1.1) Eosinophils # (Auto) 0.5 x10^3/uL (0.0-0.7) Basophils # (Auto) 0.0 x10^3/uL (0.0-0.2) Sodium Level 143 mmol/L (136-145) Potassium Level 5.3 mmol/L (3.5-5.1) Chloride Level 106 mmol/L (98-107) Carbon Dioxide Level 34 mmol/L (21-32) Anion Gap 3 (6-14) Blood Urea Nitrogen 78 mg/dL (7-20) Creatinine 1.3 mg/dL (0.6-1.0) Estimated GFR (Cockcroft-Gault) 39.3 BUN/Creatinine Ratio 60 (6-20) Glucose Level 139 mg/dL (70-99) Calcium Level 8.4 mg/dL (8.5-10.1) Total Bilirubin 0.2 mg/dL (0.2-1.0) Aspartate Amino Transf (AST/SGOT) 21 U/L (15-37) Alanine Aminotransferase (ALT/SGPT) 31 U/L (14-59) Alkaline Phosphatase 95 U/L (46-116) Total Protein 5.9 g/dL (6.4-8.2) Albumin 2.2 g/dL (3.4-5.0) Albumin/Globulin Ratio 0.6 (1.0-1.7) Test 07/20/16 11:01 07/20/16 15:59 07/20/16 20:42 07/21/16 05:35 Glucose (Fingerstick) 136 mg/dL (70-99) 122 mg/dL (70-99) 151 mg/dL (70-99) Sodium Level 144 mmol/L (136-145) Potassium Level 5.6 mmol/L (3.5-5.1) Chloride Level 107 mmol/L (98-107) Carbon Dioxide Level 31 mmol/L (21-32) Anion Gap 6 (6-14) Blood Urea Nitrogen 75 mg/dL (7-20) Creatinine 1.3 mg/dL (0.6-1.0) Estimated GFR (Cockcroft-Gault) 39.3 BUN/Creatinine Ratio 58 (6-20) Glucose Level 111 mg/dL (70-99) Calcium Level 8.1 mg/dL (8.5-10.1) Total Bilirubin 0.3 mg/dL (0.2-1.0) Aspartate Amino Transf (AST/SGOT) 23 U/L (15-37) Alanine Aminotransferase (ALT/SGPT) 26 U/L (14-59) Alkaline Phosphatase 84 U/L (46-116) Total Protein 5.6 g/dL (6.4-8.2) Albumin 2.1 g/dL (3.4-5.0) Albumin/Globulin Ratio 0.6 (1.0-1.7) Test 07/21/16 07:33 07/21/16 09:10 Glucose (Fingerstick) 109 mg/dL (70-99) White Blood Count 7.1 x10^3/uL (4.0-11.0) Red Blood Count 2.88 x10^6/uL (3.50-5.40) Hemoglobin 8.8 g/dL (12.0-15.5) Hematocrit 27.2 % (36.0-47.0) Mean Corpuscular Volume 95 fL (79-100) Mean Corpuscular Hemoglobin 31 pg (25-35) Mean Corpuscular Hemoglobin Concent 33 g/dL (31-37) Red Cell Distribution Width 17.9 % (11.5-14.5) Platelet Count 358 x10^3/uL (140-400) Neutrophils (%) (Auto) 68 % (31-73) Lymphocytes (%) (Auto) 21 % (24-48) Monocytes (%) (Auto) 6 % (0-9) Eosinophils (%) (Auto) 5 % (0-3) Basophils (%) (Auto) 0 % (0-3) Neutrophils # (Auto) 4.8 x10^3uL (1.8-7.7) Lymphocytes # (Auto) 1.5 x10^3/uL (1.0-4.8) Monocytes # (Auto) 0.4 x10^3/uL (0.0-1.1) Eosinophils # (Auto) 0.4 x10^3/uL (0.0-0.7) Basophils # (Auto) 0.0 x10^3/uL (0.0-0.2) Laboratory Tests Test 07/20/16 15:59 07/20/16 20:42 07/21/16 05:35 07/21/16 07:33 Glucose (Fingerstick) 122 mg/dL (70-99) 151 mg/dL (70-99) 109 mg/dL (70-99) Sodium Level 144 mmol/L (136-145) Potassium Level 5.6 mmol/L (3.5-5.1) Chloride Level 107 mmol/L (98-107) Carbon Dioxide Level 31 mmol/L (21-32) Anion Gap 6 (6-14) Blood Urea Nitrogen 75 mg/dL (7-20) Creatinine 1.3 mg/dL (0.6-1.0) Estimated GFR (Cockcroft-Gault) 39.3 BUN/Creatinine Ratio 58 (6-20) Glucose Level 111 mg/dL (70-99) Calcium Level 8.1 mg/dL (8.5-10.1) Total Bilirubin 0.3 mg/dL (0.2-1.0) Aspartate Amino Transf (AST/SGOT) 23 U/L (15-37) Alanine Aminotransferase (ALT/SGPT) 26 U/L (14-59) Alkaline Phosphatase 84 U/L (46-116) Total Protein 5.6 g/dL (6.4-8.2) Albumin 2.1 g/dL (3.4-5.0) Albumin/Globulin Ratio 0.6 (1.0-1.7) Test 07/21/16 09:10 White Blood Count 7.1 x10^3/uL (4.0-11.0) Red Blood Count 2.88 x10^6/uL (3.50-5.40) Hemoglobin 8.8 g/dL (12.0-15.5) Hematocrit 27.2 % (36.0-47.0) Mean Corpuscular Volume 95 fL (79-100) Mean Corpuscular Hemoglobin 31 pg (25-35) Mean Corpuscular Hemoglobin Concent 33 g/dL (31-37) Red Cell Distribution Width 17.9 % (11.5-14.5) Platelet Count 358 x10^3/uL (140-400) Neutrophils (%) (Auto) 68 % (31-73) Lymphocytes (%) (Auto) 21 % (24-48) Monocytes (%) (Auto) 6 % (0-9) Eosinophils (%) (Auto) 5 % (0-3) Basophils (%) (Auto) 0 % (0-3) Neutrophils # (Auto) 4.8 x10^3uL (1.8-7.7) Lymphocytes # (Auto) 1.5 x10^3/uL (1.0-4.8) Monocytes # (Auto) 0.4 x10^3/uL (0.0-1.1) Eosinophils # (Auto) 0.4 x10^3/uL (0.0-0.7) Basophils # (Auto) 0.0 x10^3/uL (0.0-0.2) Medications Active Scripts Medications Dose Route/Sig Max Daily Dose Days Date Category Dose Instructions Levemir Flextouch (Insulin Detemir) 100 Unit/1 Ml Insuln.pen 10 Units SQ HS 07/13/16 Rx Inject by Sub q route 10 units at HS Cefpodoxime Proxetil 100 Mg Tablet 200 Mg PO BID 180 07/13/16 Rx 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 Tylenol Extra Strength (Acetaminophen) 500 Mg Tablet 1,000 Mg PO PRN Q6HRS 07/10/16 Rx Novolog Flexpen (Insulin Aspart) 100 Unit/1 Ml Insuln.pen 0-8 Units SQ TIDAC 07/10/16 Rx Inject subq tid ac prn: BS<150=0, BS 151-200=2unit, BS 201-250 =3 unit, BS 251-300=4 unit, BS 301-350= 6 units, BS 351-400= 8 units >401 call Duoneb 0.5-3(2.5) Mg/3 Ml (Albuterol/Ipratropium) 3 Ml Ampul.neb 3 Ml NEB RTQID 07/10/16 Rx Nebulizer treatment qid Escitalopram Oxalate 10 Mg Tablet 10 Mg PO DAILY 07/10/16 Rx Take one tablet daily by mouth Amlodipine Besylate 5 Mg Tablet 5 Mg PO DAILY 07/10/16 Rx Take one tablet daily by mouth Awa-Bid Caplet (Acidoph/L.bulg/Bif.b/S.thermop) 1 Each Tablet 1 Tab PO TIDWMEALS 07/10/16 Rx Take one tablet by mouth with meals Soothe & Cool Skin Paste (Zinc Oxide/Petrolatum,White) 71 Gm Oint...g. Gm TP 06/05/15 Reported Vitamin D3 (Cholecalciferol (Vitamin D3)) 1,000 Unit Tablet 1 Tab PO DAILY 06/05/15 Reported Fluticasone Propionate Nasal [place] (Fluticasone Propionate) 16 Gm [place].susp 2 [place] NS DAILY 01/18/15 Reported Artificial Tears Eye Drops (Dextran 70/Hypromellose) 15 Ml Drops 1 Drop EACHEYE PRN DAILY PRN 01/18/15 Reported Anastrozole 1 Mg Tablet 1 Mg PO DAILY 01/18/15 Reported Multi-Day Vitamins (Multivitamin) 1 Each Tablet 1 Tab PO DAILY 01/18/15 Reported Singulair Tablet (Montelukast Sodium) 10 Mg Tablet 10 Mg PO HS 01/18/15 Reported Primidone 250 Mg Tablet 250 Mg PO BID 01/17/15 Reported Polyethylene Glycol 3350 17 Gm Powd.pack 17 Gm PO PRN DAILY PRN 01/17/15 Reported Nystatin 1 Each Powder.ea. 1 Veness[place] TOP BID 01/17/15 Reported Lidoderm (Lidocaine) 700 Mg Adh..patch 1 Patch TP DAILY 01/17/15 Reported Gabapentin 100 Mg Capsule 100 Mg PO HS 01/17/15 Reported Folic Acid 1 Mg Tablet 1 Mg PO BID 01/17/15 Reported Ferrous Sulfate 325 Mg Tablet 325 Mg PO TIDWMEALS 01/17/15 Reported B-12 (Cyanocobalamin (Vitamin B-12)) 1,000 Mcg Tablet.er 1,000 Mcg PO DAILY 01/17/15 Reported Claritin (Loratadine) 10 Mg Capsule 10 Mg PO DAILY 01/17/15 Reported Calcium Carbonate 500 Mg Tablet 500 Mg PO DAILY 01/17/15 Reported Benadryl (Diphenhydramine Hcl) 25 Mg Capsule 25 Mg PO PRN Q6HRS PRN 01/17/15 Reported Impression . 1. Shohv-kj-tjeefzk respiratory failure, multifactorial 2. Acute exacerbation of chronic obstructive pulmonary disease. 3. Acute bronchitis. 4. Obstructive sleep apnea-hypopnea syndrome. 5. Acute diastolic congestive heart failure. 6. Obesity. 7. Diabetes mellitus. 8. History of breast cancer. 9. Anemia, acute blood loss, based on abdominal wall hematoma. 10. Chronic kidney disease. 11. Hypertension. 12. Diabetes mellitus. 13. 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 other GNR also Plan . Antibx per ID Resp status is compensated 1. Titrate FiO2 to keep O2 saturation 91%. 2. Bronchodilator. 3. inhaled corticosteroid 4. Keep intake less than output. 5. SCDs for DVT prophylaxis. hold on heparin lovenox, has hx of recent blood loss and abdominal wall hematoma. 6. Protonix for stress ulcer prophylaxis. 7. Monitor respiratory status very closely. 8. Continue BiPAP p.r.n. during day and continues it at night. FLORIDALMA GARCIA MD Jul 21, 2016 13:28
== END 2016-07-21 19:29 | DRG 291 ==
LOC: ER 18:13 → 1 WEST ICU 19:05 → 5 SOUTH 07-16 12:00
PROVIDERS: ADMIT Internal Medicine; ATTEND Internal Medicine
PROC: 5A09357 Assistance with Respiratory Ventilation, Less than 24 Consecutive Hours, Continuous Positive Airway Pressure (ICD-10-PCS; principal; 2016-07-15)
DX: I50.33 Acute on chronic diastolic (congestive) heart failure (principal); J96.21 Acute and chronic respiratory failure with hypoxia; E43 Unspecified severe protein-calorie malnutrition; N17.0 Acute kidney failure with tubular necrosis; L89.93 Pressure ulcer of unspecified site, stage 3; J96.22 Acute and chronic respiratory failure with hypercapnia; D62 Acute posthemorrhagic anemia; E66.2 Morbid (severe) obesity with alveolar hypoventilation; Z68.43 Body mass index [BMI] 50.0-59.9, adult; M86.68 Other chronic osteomyelitis, other site; J44.0 Chronic obstructive pulmonary disease with (acute) lower respiratory infection; J44.1 Chronic obstructive pulmonary disease with (acute) exacerbation; I13.0 Hypertensive heart and chronic kidney disease with heart failure and stage 1 through stage 4 chronic kidney disease, or unspecified chronic kidney disease; G93.1 Anoxic brain damage, not elsewhere classified; M86.60 Other chronic osteomyelitis, unspecified site; I50.32 Chronic diastolic (congestive) heart failure; B37.2 Candidiasis of skin and nail; B37.3 Candidiasis of vulva and vagina; C50.919 Malignant neoplasm of unspecified site of unspecified female breast; D63.1 Anemia in chronic kidney disease; J20.9 Acute bronchitis, unspecified; I87.8 Other specified disorders of veins; K59.09 Other constipation; I48.0 Paroxysmal atrial fibrillation; I27.2 Other secondary pulmonary hypertension; E11.22 Type 2 diabetes mellitus with diabetic chronic kidney disease; E11.40 Type 2 diabetes mellitus with diabetic neuropathy, unspecified; E11.69 Type 2 diabetes mellitus with other specified complication; E53.8 Deficiency of other specified B group vitamins; E55.9 Vitamin D deficiency, unspecified; E86.0 Dehydration; E87.5 Hyperkalemia; F03.90 Unspecified dementia, unspecified severity, without behavioral disturbance, psychotic disturbance, mood disturbance, and anxiety; F32.9 Major depressive disorder, single episode, unspecified; F41.9 Anxiety disorder, unspecified; G20 Parkinson's disease; G47.33 Obstructive sleep apnea (adult) (pediatric); G47.419 Narcolepsy without cataplexy; M19.90 Unspecified osteoarthritis, unspecified site; N18.3 Chronic kidney disease, stage 3 (moderate); S30.1XXA Contusion of abdominal wall, initial encounter; Z79.01 Long term (current) use of anticoagulants; Z85.3 Personal history of malignant neoplasm of breast; Z95.2 Presence of prosthetic heart valve; Z90.11 Acquired absence of right breast and nipple
CPT/HCPCS: 36415; 36600; 51702; 71010; 80053; 81001; 82805; 82962; 83735; 83880; 84484; 85027; 87071; 87075; 87205; 87641; 93005; 94640; 94644; 94660; 94760; 96374; J0456; J1815; J2185; J2930; J7030; J7050; J7620; Q0163; 99291-25

== ENCOUNTER 2016-08-01 09:59 | Outpatient (CLI) | payer MEDICARE, OTHER ==
[~2016-08-01] VITALS: Ht 157.5 cm; Wt 129.7 kg
[~2016-08-01 09:59] MED LIST changes: +BUDE0.5A NEB
[2016-08-01] MEDS ORDERED: MERO500P IV (10:44)
[2016-08-01] MEDS ORDERED: PANT40TA5 PO (10:44)
[2016-08-01] MEDS ORDERED: GENT5DRO3 EACHEYE (10:44)
[2016-08-01] MEDS ORDERED: LIDOCAINE 1% / SOD BICARB 8.4% 20 ML VIAL. IJ ONE (10:45)
[2016-08-01 10:57] VITALS: BP 120/79
[2016-08-01] MEDS ORDERED: GADOBUTROL 7.5 MMOL/7.5 ML VIAL ONE (11:17)
[2016-08-01] MEDS ORDERED: GADOBUTROL 7.5 MMOL/7.5 ML VIAL INT ART ONE (11:30)
--- NOTE | 2016-08-01 11:52 | PDOC1 ---
History and Physical Date of Procedure Date of Admission 08/01/16 Procedure Procedure Sono/fluoro guided CVC insertion Indication Indication 81 YO female [place] patient with infected orthopedic hardware. Needs IV access for Abx. Has right mastectomy and left UE DVT. CVC has been requested. Past Medical History Past Medical History Se Nursing pre procedure PMH Past Surgical History Past Surgical History See Nursing pre procedure PSH Current Medications Current Medications Current Medications Lidocaine/Sodium Bicarbonate (Buffered Lidocaine 1%) 3 ml 1X ONCE IJ Last administered on 08/01/16 11:08; Start 08/01/16 at 10:45; Stop 08/01/16 at 10:46 ; Status DC Heparin Sodium/ Sodium Chloride 60 unit 1X ONCE IV Last administered on 11:09; Start 08/01/16 at 10:45; Stop 08/01/16 at 10:46; Status DC Gadobutrol (Gadavist) 7.5 mmol STK-MED ONCE .ROUTE ; Start 08/01/16 at 11:17; Stop 08/01/16 at 11:18; Status DC Gadobutrol (Gadavist) 15 mmol 1X ONCE INT ART ; Start 08/01/16 at 11:30; Stop 08/01/16 at 11:31; Status DC Active Scripts Active Budesonide 0.5 Mg/2 Ml Ampul.neb 0.5 Mg NEB RTBID Nebulizer treatment BID Levemir Flextouch (Insulin Detemir) 100 Unit/1 Ml Insuln.pen 10 Units SQ HS Inject by Sub q route 10 units at HS Tylenol Extra Strength (Acetaminophen) 500 Mg Tablet 1,000 Mg PO PRN Q6HRS Novolog Flexpen (Insulin Aspart) 100 Unit/1 Ml Insuln.pen 0-8 Units SQ TIDAC Inject subq tid ac prn: BS<150=0, BS 151-200=2unit, BS 201-250 =3 unit, BS 251-300=4 unit, BS 301-350= 6 units, BS 351-400= 8 units >401 call Duoneb 0.5-3(2.5) Mg/3 Ml (Albuterol/Ipratropium) 3 Ml Ampul.neb 3 Ml NEB RTQID Nebulizer treatment qid Escitalopram Oxalate 10 Mg Tablet 10 Mg PO DAILY Take one tablet daily by mouth Amlodipine Besylate 5 Mg Tablet 5 Mg PO DAILY Take one tablet daily by mouth Awa-Bid Caplet (Acidoph/L.bulg/Bif.b/S.thermop) 1 Each Tablet 1 Tab PO TIDWMEALS Take one tablet by mouth with meals Reported Pantoprazole Sodium 40 Mg Tablet.dr 40 Mg PO DAILY Gentamicin Sulfate 0.3% Ophth Soln (Gentamicin Sulfate) 5 Ml Drops 2 Drop EACHEYE Q4HRS Meropenem-0.9% NaCl 500 mg/50 (Meropenem-0.9% Sodium Chloride) 500 Mg/50 Ml Piggyback 500 Mg IV Q8HRS Vitamin D3 (Cholecalciferol (Vitamin D3)) 1,000 Unit Tablet 1 Tab PO DAILY Fluticasone Propionate Nasal [place] (Fluticasone Propionate) 16 Gm [place].susp 2 [place] NS DAILY Artificial Tears Eye Drops (Dextran 70/Hypromellose) 15 Ml Drops 1 Drop EACHEYE PRN DAILY PRN Anastrozole 1 Mg Tablet 1 Mg PO DAILY Multi-Day Vitamins (Multivitamin) 1 Each Tablet 1 Tab PO DAILY Singulair Tablet (Montelukast Sodium) 10 Mg Tablet 10 Mg PO HS Primidone 250 Mg Tablet 250 Mg PO BID Polyethylene Glycol 3350 17 Gm Powd.pack 17 Gm PO PRN DAILY PRN Nystatin 1 Each Powder.ea. 1 Venessa TOP BID Lidoderm (Lidocaine) 700 Mg Adh..patch 1 Patch TP DAILY Gabapentin 100 Mg Capsule 100 Mg PO HS Folic Acid 1 Mg Tablet 1 Mg PO BID Ferrous Sulfate 325 Mg Tablet 325 Mg PO TIDWMEALS B-12 (Cyanocobalamin (Vitamin B-12)) 1,000 Mcg Tablet.er 1,000 Mcg PO DAILY Claritin (Loratadine) 10 Mg Capsule 10 Mg PO DAILY Calcium Carbonate 500 Mg Tablet 500 Mg PO DAILY Benadryl (Diphenhydramine Hcl) 25 Mg Capsule 25 Mg PO PRN Q6HRS PRN Allergies Allergies: Coded Allergies: Opioids - Morphine Analogues (Verified Allergy, Severe, Anaphylaxis, ) PT CAN ONLY TAKE TRAMADOL cephalexin (Verified Allergy, Severe, RASH,DECREASED RESPIRATIONS, 07/17/16 ) tolerates vantin Fish Containing Products (Verified Allergy, Intermediate, 01/17/15) Sulfa (Sulfonamide Antibiotics) (Verified Allergy, Intermediate, 01/17/15) bacitracin (Verified Allergy, Intermediate, 01/17/15) ciprofloxacin (Verified Allergy, Intermediate, [place], 06/04/15) codeine (Verified Allergy, Intermediate, 01/17/15) iodine (Verified Allergy, Intermediate, 01/17/15) lactose (Verified Allergy, Intermediate, 01/17/15) metformin (Verified Allergy, Intermediate, 01/17/15) morphine (Verified Allergy, Intermediate, 01/17/15) neomycin (Verified Allergy, Intermediate, 01/17/15) polymyxin B (Verified Allergy, Intermediate, 01/17/15) shellfish derived (Verified Allergy, Intermediate, 01/17/15) enoxaparin (Verified Adverse Reaction, Severe, 07/08/16) hematoma, blood loss Physical Exam Vital Signs Vital Signs Date Time Temp Pulse Resp B/P (MAP) Pulse Ox O2 Delivery O2 Flow Rate FiO2 08/01/16 10:57 92 18 120/79 (93) 94 Nasal Cannula 1.0 Assessment Assessment 81 YO female [place] resident with infected hardware, right mastectomy, and left UE DVT. CVC requested for IV abx. Problems: Plan Plan Sono/fluoro guided CVC insertion, via right IJ access if patent. NOLVIA MARTIN MD Aug 01, 2016 11:52
--- NOTE | 2016-08-01 11:57 | PDOC ---
Exam Automatic Nailing Machine Operator Automatic Nailing Machine Operator Amador Trial Mgr Trial Mgr Carmenza Devi Pre-Procedure Diagnosis Pre-Procedure Diagnosis 81 YO female [place] resident with infected hardware. She has left UE DVT and h/o right mastectomy. CVC insertion has been requested for IV Abx. Post-Procedure Diagnosis Post-Procedure Diagnosis Same. Procedure Performed Procedure Performed Sono/fluoro guided left IJ CVC insertion. No patent rt IJ available for access by pre procedure U/S. Type of Anesthesia Type of Anesthesia Local Estimated Blood Loss EBL: Minimal Drain/Tubes Drains/Tubes Left IJ 7F 3L 20cm Power Injectable CVC---OK to use Condition of Patient Condition of Patient No change. No apparent complication. Disposition Disposition May return to [place] from [facility] via transport service now, if no problems. F/U with [place] physician. Full report to follow. NOLVIA MARTIN MD Aug 01, 2016 11:57
--- NOTE | 2016-08-02 07:15 | RAD ---
Ultrasound and fluoro guided Central Venous Catheter placement Indication: 81-year-old female with infected orthopedic hardware, and with left upper extremity DVT. She is status post right mastectomy. Central venous catheter insertion has been requested for IV antibiotics. Fluoro time: 3.0 minute Kerma-Area Product: 9 Gycm2 Anesthesia: Local only Sterility: All elements of maximal sterile barrier technique, hand hygiene, skin preparation, and, if ultrasound was used, sterile ultrasound technique were followed. Procedure: Informed consent was obtained from the patient. She was placed supine on the angiography table. Preliminary ultrasound evaluation of right neck revealed no patent right internal jugular vein suitable for central venous catheter insertion. Therefore, attention was turned to left neck. Preliminary ultrasound of the left neck revealed widely patent left internal jugular vein. This was documented with a single hard copy ultrasound image.. Left neck was then prepped and draped in the usual sterile fashion, utilizing all elements of maximal sterile barrier technique, as described above. Using aseptic technique, local anesthesia, and direct sterile ultrasound guidance, a micropuncture sheath entry was successfully introduced into left internal jugular vein. However, the central venous catheter guide wire could not be easily advanced through the micropuncture sheath into right atrium. Therefore, the micropuncture sheath was exchanged for a 4 [place] angled glide catheter, which was easily advanced into and through right atrium into inferior vena cava over an Amplatz wire. The angled glide catheter was then removed. The left IJ venostomy tract was then dilated and a 7 Sammar[place] triple lumen 20cm Power Injectable CVC was easily advanced centrally over the Amplatz wire, and was positioned with it's tip at level of upper right atrium, using fluoroscopic guidance. The Amplatz wire was then removed. Satisfactory position of the CVC tip was confirmed with a single fluoroscopic spot image. The CVC was then demonstrated to flush and aspirate normally and was secured at the skin exit site using suture and sterile dressing. Patient tolerated the procedure well, without apparent complication. Impression: Successful, uneventful sono and fluoro guided placement of left IJ 7 Sammarinese triple lumen 20 cm Power Injectable CVC, as described.
== END 2016-08-01 11:30 ==
LOC: INTRAD 09:59
DX: I82.622 Acute embolism and thrombosis of deep veins of left upper extremity (principal); T84.7XXA Infection and inflammatory reaction due to other internal orthopedic prosthetic devices, implants and grafts, initial encounter; Y84.8 Other medical procedures as the cause of abnormal reaction of the patient, or of later complication, without mention of misadventure at the time of the procedure; Z86.69 Personal history of other diseases of the nervous system and sense organs; I50.9 Heart failure, unspecified; I11.0 Hypertensive heart disease with heart failure; E78.00 Pure hypercholesterolemia, unspecified; I48.91 Unspecified atrial fibrillation; J44.9 Chronic obstructive pulmonary disease, unspecified; Z85.3 Personal history of malignant neoplasm of breast; Z87.440 Personal history of urinary (tract) infections; Z87.39 Personal history of other diseases of the musculoskeletal system and connective tissue; Z86.39 Personal history of other endocrine, nutritional and metabolic disease; E11.9 Type 2 diabetes mellitus without complications; F32.9 Major depressive disorder, single episode, unspecified; D64.9 Anemia, unspecified; Z86.14 Personal history of Methicillin resistant Staphylococcus aureus infection; Z88.6 Allergy status to analgesic agent; Z88.1 Allergy status to other antibiotic agents; Z91.013 Allergy to seafood; Z88.2 Allergy status to sulfonamides; Z91.018 Allergy to other foods
CPT/HCPCS: 36556; 76937; 77001; C1713; C1892